=== PATIENT | female | born 1945 | race Caucasian/White ===

== ENCOUNTER → 2016-12-27 | Outpatient (CLI) | payer MEDICARE | LOC: RAD 08:21 | PROVIDERS: ATTEND Internal Medicine | DX: G43.909 Migraine, unspecified, not intractable, without status migrainosus (principal); R11.2 Nausea with vomiting, unspecified | CPT/HCPCS: 82565 ==

== ENCOUNTER 2018-10-23 06:47 | Day surgery (SDC) | payer MEDICARE ==
[~2018-10-23 06:47] MED LIST: DORZOLAMIDE HCL 2%/TIMOLOL MALEAT 0.5% OPH SOLN 10 ML OS PRN; KETOROLAC TROMETHAMINE 0.45% 4 DROP/0.4 ML DROPERETTE OS PRN; TETRACAINE HCL 0.5% OPH SOLN 0.6 ML DROPERETTE OS PRN
[2018-10-23] MEDS: TETRACAINE HCL 0.5% OPH SOLN 4 ML OS PRN ×3 (07:09→07:40)
[2018-10-23] MEDS ORDERED: LIDOCAINE 1% INJ-PF (10 MG/ML) 30 ML SDV ONE (07:10)
[2018-10-23] MEDS: TROPICAMIDE 1% OPH SOLN 3 ML OS PRN ×3 (07:10→07:33)
[2018-10-23] MEDS: BESIFLOXACIN HCL 0.6% OPH SUSP 5 ML BOTTLE OS PRN ×3 (07:10→08:12)
[2018-10-23] MEDS ORDERED: TOBRAMYCIN SULFATE/DEXAMETH OPH OINTMENT 3.5 GM ONE (07:10)
[2018-10-23] MEDS: CYCLOPENTOLATE 0.2%/PHENYLEPHRINE 1% OPH SOLN 2 ML OS PRN ×3 (07:10→07:33)
[2018-10-23] MEDS ORDERED: EPINEPHRINE INJ/PF 1 MG/1 ML AMPULE ONE (07:10)
[2018-10-23] MEDS ORDERED: CHONDR SU A NA/HYALUR INTRAOC KIT (SURGICARE) ONE (07:10)
[2018-10-23] MEDS ORDERED: MIDAZOLAM 2 MG/2 ML INJ ONE (07:42)
[2018-10-23] MEDS ORDERED: FENTANYL CITRATE INJ/PF 100 MCG/2 ML AMPUL ONE (07:43)
== END 2018-10-23 09:10 | disposition home or self-care (01) ==
LOC: SC 06:47
PROVIDERS: ATTEND Ophthalmology
DX: H25.12 Age-related nuclear cataract, left eye (principal); Z98.41 Cataract extraction status, right eye; J44.9 Chronic obstructive pulmonary disease, unspecified; I10 Essential (primary) hypertension; E66.9 Obesity, unspecified; G47.30 Sleep apnea, unspecified; Z79.899 Other long term (current) drug therapy; Z79.51 Long term (current) use of inhaled steroids; Z87.891 Personal history of nicotine dependence
CPT/HCPCS: 66984; 00142; V2632; J2250; J3490 ×4; A9270; J0171; J3010; 142

== ENCOUNTER 2019-05-16 13:50 | Inpatient (IN) | payer MEDICARE ==
[~2019-05-16 13:50] MED LIST changes: -DORZOLAMIDE HCL 2%/TIMOLOL MALEAT 0.5% OPH SOLN 10 ML OS PRN; -KETOROLAC TROMETHAMINE 0.45% 4 DROP/0.4 ML DROPERETTE OS PRN; +SUCCINYLCHOLINE CHLORIDE INJ 200 MG/10 ML VIAL ONE; -TETRACAINE HCL 0.5% OPH SOLN 0.6 ML DROPERETTE OS PRN
--- NOTE | 2019-05-16 14:42 | ER Document Report ---
ED General - General Chief Complaint: Respiratory Distress Stated Complaint: DIFFICULTY BREATHING Time Seen by Provider: 05/16/19 14:32 Primary Care Provider: MELANIE JENNINGS MD [Primary Care Provider] - Follow up as needed Mode of Arrival: Medic Information source: Patient, Emergency Med Personnel Notes: 74-year-old female arrives by EMS with chief complaint of having shortness of breath that began shortly prior to home health nurse advising low sats and called EMS. Patient reports she was just discharged from hospital in [place] because of a blood clot in her left knee and was placed on Eliquis. Patient is 5 foot 2 and 230 pounds and now on BiPAP. She is able to speak at least 4-5 word sentences without difficulty. Patient was noticed to have respiratory distress by home health nurse and had sats in the 70s which increased with oxygen to the 90s. EMS reported 88% sat and increased tachypnea. Patient has a history of cough and brown sputum and is on doxycycline at this time. Patient was 99% on BiPAP 50% with vital signs 155/7597.9 temperature TRAVEL OUTSIDE OF THE [place] IN LAST 30 DAYS: No - HPI Onset: This morning Onset/Duration: Sudden Quality of pain: Fullness Severity: Moderate Pain Level: 2 Associated symptoms: Shortness of breath, Weakness Exacerbated by: Movement, Deep breathing Similar symptoms previously: Yes Recently seen / treated by doctor: Yes - Dr. Silva in [place] - Related Data Allergies/Adverse Reactions: lemon Allergy (Severe, Verified 05/16/19 14:21) SWELLING FACIAL AND AT SITE OF CONTACT Penicillins Allergy (Severe, Verified 05/16/19 14:21) Anaphylaxis Sulfa (Sulfonamide Antibiotics) Allergy (Severe, Verified 05/16/19 14:21) SOB, FACIAL SWELLING Past Medical History - General Information source: Patient, Emergency Med Personnel - Social History Smoking Status: Former Smoker Cigarette use (# per day): No Chew tobacco use (# tins/day): No Smoking Education Provided: No Frequency of alcohol use: None Drug Abuse: None Lives with: Alone Family History: COPD Patient has suicidal ideation: No Patient has homicidal ideation: No - Past Medical History Cardiac Medical History: Reports: Hx Hypertension Denies: Hx Heart Attack Pulmonary Medical History: Denies: Hx Asthma Neurological Medical History: Denies: Hx Cerebrovascular Accident, Hx Seizures GI Medical History: Denies: Hx Hepatitis, Hx Hiatal Hernia, Hx Ulcer Infectious Medical History: Denies: Hx Hepatitis Past Surgical History: Reports: Hx Hysterectomy. Denies: Hx Mastectomy, Hx Open Heart Surgery, Hx Pacemaker Review of Systems - Review of Systems Constitutional: See HPI, Malaise, Weakness EENT: No symptoms reported Cardiovascular: See HPI, Orthopnea, Dyspnea, Dizziness Respiratory: See HPI, Short of breath Gastrointestinal: No symptoms reported Genitourinary: No symptoms reported Female Genitourinary: No symptoms reported Musculoskeletal: See HPI, Joint swelling, Other - Left knee swelling greater than right knee with positive stasis dermatitis bilaterally and leg edema bilaterally Skin: See HPI, Dryness Hematologic/Lymphatic: No symptoms reported Neurological/Psychological: No symptoms reported Physical Exam - Vital signs Vitals: Temp Pulse Ox 97.8 F 100 05/16/19 14:06 05/16/19 14:06 Interpretation: Tachycardic, Tachypneic - General General appearance: Alert In distress: None - HEENT Head: Normocephalic Eyes: Normal Conjunctiva: Normal Cornea: Normal Extraocular movements intact: Yes Eyelashes: Normal Pupils: PERRL Pharynx: Normal Neck: Normal - Respiratory Respiratory status: Respiratory distress Chest status: Nontender Breath sounds: Decreased air movement Chest palpation: Normal - Cardiovascular Rhythm: Tachycardia Heart sounds: Normal auscultation Murmur: No Friction rub: No Mary's crunch: No - Abdominal Inspection: Normal Distension: No distension Bowel sounds: Normal Tenderness: Nontender Organomegaly: No organomegaly - Back Back: Normal - Extremities General upper extremity: Normal inspection General lower extremity: Tender, Edema, Other - Edema and stasis dermatitis of bilateral legs tender left medial knee on palpation - Neurological Neuro grossly intact: Yes Cognition: Normal Orientation: AAOx4 Sushil Coma Scale Eye Opening: Spontaneous Keeler Coma Scale Verbal: Oriented Keeler Coma Scale Motor: Obeys Commands Sushil Coma Scale Total: 15 Speech: Normal Cranial nerves: Normal Cerebellar coordination: Normal Motor strength normal: LUE, RUE, LLE, RLE - Psychological Associated symptoms: Normal affect - Skin Skin Temperature: Warm Skin Moisture: Dry Skin Color: Normal, Other - [place] skin of lower legs with stasis dermatitis non- weeping at this time Course - Vital Signs Vital signs: Temp Pulse Resp BP Pulse Ox 97.2 F 104 H 21 H 96/58 L 95 05/16/19 18:01 05/16/19 14:19 05/16/19 18:01 05/16/19 18:01 05/16/19 18:01 - Laboratory Result Diagrams: 05/16/19 13:48 05/16/19 13:48 Laboratory results interpreted by me: 05/16/19 05/16/19 05/16/19 13:48 13:48 16:15 RDW 16.8 H Eos % (Auto) 9.6 H Absolute Eos (auto) 0.9 H Carbonic Acid 3.86 H ABG pH 7.11 L* ABG pCO2 128.4 H* ABG HCO3 39.8 H ABG Total CO2 43.7 H Carbon Dioxide 36 H BUN 30 H Glucose 114 H - Diagnostic Test Radiology reviewed: Reports reviewed Procedures - Conscious Sedation Conscious sedation Time started: 16:00 Consent obtained: No - Patient sensorium oriented x 0 Prior complications: Procedural sedation Airway Evaluation: Copious secretions, Other - with tight trachea Critical Care Note - Critical Care Note Total time excluding time spent on procedures (mins): 90 Comments: I discussed this case with Dr. Briggs and he advises he will see the patient in room #17 Discharge - Discharge Clinical Impression: [place] (dyspnea on exertion), COPD (chronic obstructive pulmonary disease) with acute bronchitis, Endotracheally intubated, Hypercarbia, Acute respiratory fail ure with hypoxia and hypercarbia DVT (deep venous thrombosis) Qualifiers: DVT location: lower extremity Affected thrombotic vein of extremity: popliteal Chronicity: acute Laterality: right Qualified Code(s): I82.431 - Acute embolism and thrombosis of right popliteal vein Pneumonia Qualifiers: Pneumonia type: due to unspecified organism Laterality: right Lung location: lower lobe of lung Qualified Code(s): J18.9 - Pneumonia, unspecified organism Condition: Fair Disposition: ADMITTED INPATIENT Admitting Provider: dr norma Briggs Unit Admitted: ICU Additional Instructions: transfer this patient to ICU Referrals: MELANIE JENNINGS MD [Primary Care Provider] - Follow up as needed
[2019-05-16 14:46] LABS: ABSOLUTE BASOPHILS # (AUTO) 0.1 10^3/uL (0.0-0.2); ABSOLUTE EOSINOPHILS # (AUTO) 0.9 10^3/uL (0.0-0.6); ABSOLUTE LYMPHOCYTES (AUTO) 1.7 10^3/uL (0.5-4.7); ABSOLUTE MONOCYTES (AUTO) 0.6 10^3/uL (0.1-1.4); ABSOLUTE NEUT (AUTO) 6.5 10^3/uL (1.7-8.2); BASOPHILS % (AUTO) 0.5 % (0-2); EOSINOPHILS % (AUTO) 9.6 % (0-6); HEMATOCRIT 41.5 % (36.0-47.0); HEMOGLOBIN 13.8 g/dL (12.0-15.5); LYMPHOCYTES % (AUTO) 17.5 % (13-45); MEAN CORPUSCULAR HEMOGLOBIN 29.3 pg (27.0-33.4); MEAN CORPUSCULAR HGB CONC 33.2 g/dL (32.0-36.0); MEAN CORPUSCULAR VOLUME 88 fl (80-97); MONOCYTES % (AUTO) 5.8 % (3-13); PLATELET COUNT 214 10^3/uL (150-450); RED CELL DISTRIBUTION WIDTH 16.8 % (11.5-14.0); SEGMENTED NEUTROPHILS % (AUTO) 66.6 % (42-78); TOTAL CELLS COUNTED % (AUTO) 100 %; WHITE BLOOD COUNT 9.8 10^3/uL (4.0-10.5)
[2019-05-16 14:59] LABS: INTERNATIONAL RATION (INR) 1.14; PROTHROMBIN TIME 14.7 SEC (11.4-15.4)
[2019-05-16 15:16] LABS: ALBUMIN 4.3 g/dL (3.5-5.0); ALKALINE PHOSPHATASE 83 U/L (38-126); ANION GAP 8 (5-19); ASPARTATE AMINO TRANSFERASE 28 U/L (14-36); BILIRUBIN,DIRECT 0.2 mg/dL (0.0-0.4); BILIRUBIN,TOTAL 0.9 mg/dL (0.2-1.3); BLOOD UREA NITROGEN 30 mg/dL (7-20); CALCIUM 9.3 mg/dL (8.4-10.2); CARBON DIOXIDE 36 mmol/L (22-30); CHLORIDE 99 mmol/L (98-107); GLUCOSE 114 mg/dL (75-110); POTASSIUM 4.1 mmol/L (3.6-5.0); TOTAL PROTEIN 8.2 g/dL (6.3-8.2)
--- NOTE | 2019-05-16 15:26 | RADIOLOGY REPORT (SQ) ---
EXAM DESCRIPTION: CHEST SINGLE VIEW COMPLETED DATE/TIME: 05/16/2019 3:10 pm REASON FOR STUDY: SOB COMPARISON: PA and lateral views of the chest from 01/25/2017 EXAM PARAMETERS: NUMBER OF VIEWS: One view. TECHNIQUE: An AP view of the chest was obtained. RADIATION DOSE: NA LIMITATIONS: None. FINDINGS: LUNGS AND PLEURA: No consolidation, pleural effusion or pneumothorax. MEDIASTINUM AND HILAR STRUCTURES: No mediastinal or hilar contour abnormality. HEART AND VASCULAR STRUCTURES: The cardiac silhouette is enlarged. The pulmonary vasculature is with in normal limits. BONES: No acute findings. HARDWARE: None in the chest. OTHER: No other finding. IMPRESSION: Cardiomegaly without a superimposed acute cardiopulmonary process. TECHNICAL DOCUMENTATION: JOB ID: [id number] 2010 [employer]- All Rights Reserved Reading location - IP/workstation name: [email or web address]
[2019-05-16] MEDS ORDERED: ETOMIDATE INJ/PF 20 MG/10 ML SDV IV ONE ×2 (15:53→18:18)
[2019-05-16] MEDS ORDERED: NALOXONE HCL INJ 2 MG/2 ML DISP.SYRIN ONE (15:56)
[2019-05-16] MEDS ORDERED: PROPOFOL 1,000 MG/100 ML INFUS..BTL IV PRN (16:15)
[2019-05-16 16:30] LABS: ARTERIAL BLOOD H2CO3 3.86 mmol/L (1.05-1.35); ARTERIAL BLOOD HCO3 39.8 mmol/L (20-24); ARTERIAL BLOOD O2 SATURATION 94.1 % (94-98); ARTERIAL BLOOD PO2 98.2 mmHg (80-100); ARTERIAL BLOOD TOTAL CO2 43.7 mmol/L (21-25)
[2019-05-16] MEDS ORDERED: LABETALOL HCL INJ 20 MG/4 ML DISP.SYRIN IV ONE (16:30)
[2019-05-16 16:40] LABS: ARTERIAL BLOOD FIO2 50%
[2019-05-16 16:43] LABS: ARTERIAL BLOOD PCO2 128.4 mmHg (35-45); ARTERIAL BLOOD PH 7.11 (7.35-7.45)
--- NOTE | 2019-05-16 16:59 | RADIOLOGY REPORT (SQ) ---
EXAM DESCRIPTION: CHEST SINGLE VIEW COMPLETED DATE/TIME: 05/16/2019 4:33 pm REASON FOR STUDY: s/p intubation COMPARISON: AP view of the chest from 05/16/2019. EXAM PARAMETERS: NUMBER OF VIEWS: One view. TECHNIQUE: An AP view of the chest was obtained. RADIATION DOSE: NA LIMITATIONS: None. FINDINGS: LUNGS AND PLEURA: Upper lobe predominant alveolar opacities. The costophrenic sulci are b lunted. There is no focal consolidation or pneumothorax. MEDIASTINUM AND HILAR STRUCTURES: Stable mediastinal and hilar contours. HEART AND VASCULAR STRUCTURES: The cardiac silhouette is enlarged. BONES: No acute findings. HARDWARE: The tip of the endotracheal tube projects 6.2 cm above the edilberto. The tip of the enteric tube projects within the gastric cardia. OTHER: No other finding. IMPRESSION: The tip of the endotracheal tube projects 6.2 cm above the edilberto. The tip of the enteric tube projects within the gastric cardia - consider advancing the enteric tube forward 5-10 cm. TECHNICAL DOCUMENTATION: JOB ID: [id number] 2010 [employer]- All Rights Reserved Reading location - IP/workstation name: [email or web address]
--- NOTE | 2019-05-16 18:01 | RADIOLOGY REPORT (SQ) ---
EXAM DESCRIPTION: CT HEAD WITHOUT COMPLETED DATE/TIME: 05/16/2019 5:41 pm REASON FOR STUDY: raegan sens COMPARISON: None. TECHNIQUE: Axial images acquired through the brain without intravenous contrast. Images reviewed wi th bone, brain and subdural windows. Additional sagittal and coronal reconstructions were generated. Images stored on PACS. All CT scanners at this facility use dose modulation, iterative reconstruction, and/or weight based d osing when appropriate to reduce radiation dose to as low as reasonably achievable (ALARA). [facility]: Dose Right [facility]: CareDose [facility]: Dose Right [facility]: Teradose 4D [facility]: Servio RADIATION DOSE: CT Rad equipment meets quality standard of care and radiation dose reduction techniq ues were employed. CTDIvol: 53.2 mGy. DLP: 964 mGy-cm. mGy. LIMITATIONS: None. FINDINGS: VENTRICLES: Normal size and contour. CEREBRUM: No masses. No hemorrhage. No midline shift. No evidence for acute infarction. Few scatte red areas of low density in the white matter most likely chronic small vessel ischemic changes. CEREBELLUM: No masses. No hemorrhage. No alteration of density. No evidence for acute infarction. EXTRAAXIAL SPACES: No fluid collections. No masses. ORBITS AND GLOBE: No intra- or extraconal masses. Normal contour of globe without masses. CALVARIUM: No fracture. PARANASAL SINUSES: No fluid or mucosal thickening. SOFT TISSUES: No mass or hematoma. OTHER: No other significant finding. IMPRESSION: MILD CHRONIC MICROVASCULAR ISCHEMIA. NO ACUTE IMAGING FINDINGS IN THE BRAIN. EVIDENCE OF ACUTE STROKE: NO. COMMENT: Quality ID # [id number]: Final reports with documentation of one or more dose reduction techniques (e.g., Automated exposure control, adjustment of the mA and/or kV according to patient size, use of iterative reconstruction technique) TECHNICAL DOCUMENTATION: JOB ID: [id number] 2010 [employer]- All Rights Reserved Reading location - IP/workstation name: [email or web address]
--- NOTE | 2019-05-16 18:14 | RADIOLOGY REPORT (SQ) ---
EXAM DESCRIPTION: CTA CHEST COMPLETED DATE/TIME: 05/16/2019 5:41 pm REASON FOR STUDY: sob COMPARISON: None. TECHNIQUE: CT scan of the chest performed using helical scanning technique with dynamic intravenous contrast injection. Images reviewed with lung, soft tissue and bone windows. Reconstructed coronal and sagittal MPR images reviewed. Additional 3 dimensional post-processing performed to develop Maximal Intensity Projection images (AR P). All images stored on PACS. All CT scanners at this facility use dose modulation, iterative reconstruction, and/or weight based d osing when appropriate to reduce radiation dose to as low as reasonably achievable (ALARA). [facility]: Dose Right [facility]: CareDose [facility]: Dose Right [facility]: Teradose 4D [facility]: Immunome CONTRAST TYPE AND DOSE: contrast/concentration: Isovue 350.00 mg/ml; Total Contrast Delivered: 70.0 ml; Total Saline Delivered: 80.0 ml Contrast bolus adequate for pulmonary arteries and aorta. RENAL FUNCTION: BUN 30 creatinine 0.88 RADIATION DOSE: CT Rad equipment meets quality standard of care and radiation dose reduction techniq ues were employed. CTDIvol: 26.4 - 29.8 mGy. DLP: 1163 mGy-cm. . LIMITATIONS: None. FINDINGS: LUNGS AND PLEURA: Respiratory artifact. Patchy opacification in the posterior aspect of t he right lower lobe superiorly. Mild ground-glass opacification in the upper lobes. 13 mm subpleura l ground-glass nodule seen posteriorly in the right upper lobe. Confluent pleura - based opacificati on posteriorly in the right lower lobe most prominently seen on image 88. This measures 18 x 28 mm o n image 88. AORTA AND GREAT VESSELS: No aneurysm. No dissection. HEART: No pericardial effusion. No significant coronary artery calcifications. PULMONARY ARTERIES: No emboli visualized in the main pulmonary arteries or the segmental branches. HILAR AND MEDIASTINAL STRUCTURES: There are some nonspecific mediastinal nodes. HARDWARE: None in the chest. UPPER ABDOMEN: No significant findings. Limited exam. THYROID AND OTHER SOFT TISSUES: No masses. No adenopathy. BONES: No acute or significant finding. 3D MIPS: Confirm above findings. OTHER: No other significant finding. IMPRESSION: 1. There is no aortic aneurysm or dissection. There is no pulmonary embolus. 2. Predominantly ground-glass infiltrates in the upper aspect of the right lower lobe and in the upp er lobes. Chronic interstitial changes versus infectious/inflammatory process versus mild pulmonary edema. 3. Ground-glass nodule in the right upper lobe posteriorly that measures 13 mm. This may be infecti ous/inflammatory. Cannot exclude neoplasm. 4. Pleura-based mass in the right lower lobe, may be infectious/ inflammatory. Cannot exclude neopl asm. COMMENT: Recommend PET-CT. Quality ID # [id number]: Final reports with documentation of one or more dose reduction techniques (e.g., Au tomated exposure control, adjustment of the mA and/or kV according to patient size, use of iterative reconstruction technique) TECHNICAL DOCUMENTATION: JOB ID: [id number] 2010 [employer]- All Rights Reserved Reading location - IP/workstation name: [email or web address]
[2019-05-16] MEDS ORDERED: SUCCINYLCHOLINE CHLORIDE INJ 200 MG/10 ML VIAL IV ONE (18:17)
[2019-05-16] MEDS ORDERED: NALOXONE HCL INJ/PF 0.4 MG/1 ML SDV IV ONE (18:18)
[2019-05-16] MEDS ORDERED: LEVOFLOXACIN 750 MG/D5W RTU 750 MG/150 ML RTUPB IV ONE (18:22)
[2019-05-16] MEDS ORDERED: VANCOMYCIN HCL INJ 1000 MG VIAL IV ONE (18:25)
[2019-05-16] MEDS: ALBUTEROL SULFATE 0.083% NEB 2.5 MG/3 ML AMPUL NEB SCH (18:30)
[2019-05-16] MEDS ORDERED: IPRATROPIUM/ALBUTEROL 0.5-2.5 MG/3 ML AMPUL NEB ONE (18:34)
[2019-05-16] MEDS ORDERED: ALBUTEROL SULFATE 0.083% NEB 2.5 MG/3 ML AMPUL NEB PRN (18:42)
[2019-05-16] MEDS ORDERED: ACETAMINOPHEN 325 MG TABLET NG PRN (18:42)
[2019-05-16] MEDS ORDERED: METHYLPREDNISOLONE INJ 125 MG/2 ML SDV IV ONE (19:30)
--- NOTE | 2019-05-16 19:34 | CRITICAL CARE ADMISSION REPORT ---
HPI Date:: 05/16/19 Time:: 19:09 Reason for ICU Reason:: Acute hypoxemic and hypercapnic respiratory failure; COPD exacerbation HPI: This 74-year-old female reformed smoker presented from home to [facility] emergency department with complaints of increased dyspnea and hypoxia. At the time of clinical interview, the patient is endotracheally int ubated and on mechanical ventilatory support. Case was discussed with the bedside nurse, who reports that the patient presented with hypoxia on room air and complains of difficulty breathing and audible wheezing. She was initially supported with supplemental oxygen and then BiPAP in the emergency department. The patient reported she recently was diagnosed with acute DVT, for which she has been started on Eliquis. With concern for possible pulmonary embolism, the patient was transported to CT; however, en route, the patient was observed to have increased work of breathing and then became nonconversant. She was emergently intubated by the ER physician. She subsequently had a head CT, which shows no evidence of acute intracranial process. History obtained from:: Review of the record, discussion with ER treatment team - Diagnosis/Plan (1) Acute respiratory failure with hypoxia and hypercarbia Is this a current diagnosis for this admission?: Yes Plan: Propofol/morphine for sedation. Titrate vent settings based on ABG results. Trach aspirate for Gram stain, [employer]. Rocephin/Levaquin/vancomycin administered in the ED. Continue Rocephin/Levaquin. (2) COPD exacerbation Is this a current diagnosis for this admission?: Yes Plan: Solu-Medrol 125 mg IV single dose now. Solu-Medrol 60 mg IV every 8 hours starting tomorrow. Albuterol every 4 hours and every 4 hours as needed. (3) DVT (deep venous thrombosis) Qualifiers: DVT location: lower extremity Affected thrombotic vein of extremity: popliteal Chronicity: acute Laterality: right Qualified Code(s): I82.431 - Acute embolism and thrombosis of right popliteal vein Plan: The patient reported having already started Eliquis for acute DVT. Continue Eliquis. (4) Abnormal chest CT Is this a current diagnosis for this admission?: Yes Plan: Right lower lobe pleural-based "mass" reported on radiology report. Images reviewed. Suspicious for "masslike" infiltrate. Repeat imaging should be obtained in 3 months for completion of treatment for pneumonia. Repeat chest CT in 6 weeks. Recommendation for PET/CT noted (needs to be followed up on an outpatient basis). Past Medical History Cardiac Medical History: Reports: Hypertension Denies: Myocardial Infarction Pulmonary Medical History: Denies: Asthma Neurological Medical History: Denies: Seizures GI Medical History: Denies: Hepatitis, Hiatal Hernia Hematology: Denies: Anemia, Sickle Cell Disease Past Surgical History Past Surgical History: Reports: Hysterectomy Denies: Amputation, Mastectomy, Pacemaker Social/Family History - Social History Lives with: Alone Smoking Status: Former Smoker - Medication/Allergies Home Medications: Atorvastatin Calcium [Lipitor 20 mg Tablet] 20 mg PO QAM 09/30/18 Cyclobenzaprine HCl [Flexeril 5 mg Tablet] 1 - 2 tab PO Q8HP PRN 09/30/18 Metoprolol Succinate [Toprol Xl] 50 mg PO DAILY 09/30/18 Pramipexole Di-HCl [Mirapex] 1 mg PO QHS 09/30/18 Spironolactone [Aldactone 25 mg Tablet] 25 mg PO DAILY 09/30/18 Tiotropium Dow [Spiriva Respimat] 2 inh IH DAILY 09/30/18 Albuterol Sulfate [Proair Hfa Inhalation Aerosol 8.5 gm Mdi] 2 puff IH Q6HP PRN 05/16/19 Albuterol Sulfate [Ventolin 0.083% Neb 2.5 mg/3 ml Ampul] 1 vial NEB RTQ6HP PRN 05/16/19 Apixaban [Eliquis 5 mg Tablet] 5 mg PO BID 05/16/19 Divalproex Sodium [Depakote ER 500 mg Tab.sr] 500 mg PO QHS 05/16/19 Fluticasone Propion/Salmeterol [Wixela 250-50 Inhub] 1 puff IH Q12 05/16/19 Ipratropium Dow 1 spray NAREB QHS 05/16/19 Allergies/Adverse Reactions: lemon Allergy (Severe, Verified 05/16/19 14:21) SWELLING FACIAL AND AT SITE OF CONTACT Penicillins Allergy (Severe, Verified 05/16/19 14:21) Anaphylaxis Sulfa (Sulfonamide Antibiotics) Allergy (Severe, Verified 05/16/19 14:21) SOB, FACIAL SWELLING Review of Systems ROS unobtainable: Due to endotracheal tube Physical Exam Vital Signs: Temp Pulse Resp BP Pulse Ox 97.3 F 104 H 17 114/73 98 05/16/19 19:01 05/16/19 14:19 05/16/19 19:01 05/16/19 19:01 05/16/19 19:01 Intake & Output 05/15/19 05/16/19 05/17/19 06:59 06:59 06:59 Weight 104.326 kg Weight/Height Weight 104.326 kg Height 1.57 m General appearance: PRESENT: no acute distress, well-developed, well-nourished, other - Intubated, sedated on propofol Head exam: PRESENT: atraumatic, normocephalic Eye exam: PRESENT: conjunctiva pink, EOMI, PERRLA. ABSENT: scleral icterus Mouth exam: PRESENT: moist, tongue midline, other - ET tube in situ Neck exam: ABSENT: carotid bruit, JVD, lymphadenopathy, thyromegaly Respiratory exam: PRESENT: decreased breath sounds, prolonged expiratory phas, rhonchi, wheezes. ABSENT: crackles, rales, stridor Cardiovascular exam: PRESENT: RRR. ABSENT: diastolic murmur, rubs, systolic murmur GI/Abdominal exam: PRESENT: normal bowel sounds, soft. ABSENT: distended, guar ding, mass, organolmegaly, rebound, tenderness Extremities exam: PRESENT: full ROM, pedal edema, +2 edema. ABSENT: calf tenderness, clubbing Musculoskeletal exam: PRESENT: normal inspection Skin exam: PRESENT: dry, warm, other - Chronic trophic changes. ABSENT: cyanosis, rash Tubes/Lines: PRESENT: Endotracheal Tube, Nasogastic Tube Laboratory/Radiographs Laboratory Results: 05/16/19 13:48 05/16/19 13:48 05/16/19 05/16/19 05/16/19 13:48 13:48 16:15 WBC 9.8 RBC 4.70 Hgb 13.8 Hct 41.5 MCV 88 MCH 29.3 MCHC 33.2 RDW 16.8 H Plt Count 214 Seg Neutrophils % 66.6 Carbonic Acid 3.86 H HCO3/H2CO3 Ratio 10:1 ABG pH 7.11 L* ABG pCO2 128.4 H* ABG pO2 98.2 ABG HCO3 39.8 H ABG O2 Saturation 94.1 ABG Base Excess 5.0 FiO2 50% Sodium 142.8 Potassium 4.1 Chloride 99 Carbon Dioxide 36 H Anion Gap 8 BUN 30 H Creatinine 0.88 Est GFR ( Amer) > 60 Glucose 114 H Calcium 9.3 Total Bilirubin 0.9 AST 28 Alkaline Phosphatase 83 Total Protein 8.2 Albumin 4.3 05/16/19 13:48 Troponin I < 0.012 Impressions: Chest/Abdomen CTA 05/16/19 14:34 IMPRESSION: 1. There is no aortic aneurysm or dissection. There is no pulmonary embolus. 2. Predominantly ground-glass infiltrates in the upper aspect of the right lower lobe and in the upper lobes. Chronic interstitial changes versus infectious/inflammatory process versus mild pulmonary edema. 3. Ground-glass nodule in the right upper lobe posteriorly that measures 13 mm. This may be infectious/inflammatory. Cannot exclude neoplasm. 4. Pleura-based mass in the right lower lobe, may be infectious/ inflammatory. Cannot exclude neoplasm. Head CT 05/16/19 16:28 IMPRESSION: MILD CHRONIC MICROVASCULAR ISCHEMIA. NO ACUTE IMAGING FINDINGS IN T HE BRAIN. EVIDENCE OF ACUTE STROKE: NO. Chest X-Ray 05/16/19 16:29 IMPRESSION: The tip of the endotracheal tube projects 6.2 cm above the edilberto. The tip of the enteric tube projects within the gastric cardia - consider advancing the enteric tube forward 5-10 cm. All labs, radiographs, diagnostic studies and EKGs were personally reviewed: Yes In addition, reports of radiographic and diagnostic studies were read: Yes Critical Time Critical Time (minutes): 60 -: The care of a critically ill patient is dynamic. This note represents a static moment in the admission process. Orders and treatments may be given simultaneously and urgently, and time is not corporate sales representative of the treatment process. This patient requires Critical Care secondary to life threatening organ or limb dysfunction. Without Critical Care services, the patient is at risk for increased mortality and morbidity.
[2019-05-16] MEDS: PROPOFOL 1,000 MG/100 ML INFUS..BTL IV PRN ×2 (20:00→21:50)
--- NOTE | 2019-05-16 20:15 | EKG REPORT ---
SEVERITY:- ABNORMAL ECG - SINUS TACHYCARDIA ANTERIOR INFARCT, OLD : Confirmed by: Tyree Rivera MD 16-May-2019 20:15:14
[2019-05-16 21:00] LABS: ARTERIAL BLOOD BASE EXCESS 5.3 mmol/L; ARTERIAL BLOOD H2CO3 1.65 mmol/L (1.05-1.35); ARTERIAL BLOOD HCO3 31.8 mmol/L (20-24); ARTERIAL BLOOD O2 SATURATION 99.3 % (94-98); ARTERIAL BLOOD PCO2 54.9 mmHg (35-45); ARTERIAL BLOOD PH 7.38 (7.35-7.45); ARTERIAL BLOOD PO2 197.3 mmHg (80-100); ARTERIAL BLOOD TOTAL CO2 33.5 mmol/L (21-25)
[2019-05-16] MEDS ORDERED: CEFTRIAXONE 1 GM/D5W RTU 1 GM/50 ML RTUPB IV SCH (21:00)
[2019-05-16 21:03] LABS: ARTERIAL BLOOD FIO2 40%
[2019-05-16 21:04] LABS: TROPONIN I 0.096 ng/mL
[2019-05-16] MEDS: APIXABAN 5 MG TABLET NG SCH (23:00)
[2019-05-16] MEDS: FAMOTIDINE INJ/PF 20 MG/2 ML SDV IV SCH (23:00)
[2019-05-16] MEDS ORDERED: INFLUENZA QUAD (6MOS+) 2019-20 VAC 0.5 ML SYR IM ONE (23:15)
[2019-05-17] MEDS: ALBUTEROL SULFATE 0.083% NEB 2.5 MG/3 ML AMPUL NEB SCH ×7 (00:43→23:44)
[2019-05-17] MEDS ORDERED: LORAZEPAM INJ 2 MG/1 ML VIAL IV ONE ×2 (00:50→20:09)
[2019-05-17] MEDS ORDERED: LORAZEPAM INJ 2 MG/1 ML VIAL ONE ×2 (00:51→20:55)
[2019-05-17] MEDS: PROPOFOL 1,000 MG/100 ML INFUS..BTL IV PRN ×8 (01:02→23:35)
[2019-05-17 01:35] LABS: APPEARANCE,URINE CLEAR; BILIRUBIN,URINE NEGATIVE (NEGATIVE); COLOR,URINE YELLOW; GLUCOSE, URINE NEGATIVE (NEGATIVE); KETONES,URINE NEGATIVE (NEGATIVE); LEUKOCYTE ESTERASE,URINE NEGATIVE (NEGATIVE); NITRITE,URINE NEGATIVE (NEGATIVE); PROTEIN,URINE 30 mg/dL (NEGATIVE); URINE SPECIFIC GRAVITY 1.036; UROBILINOGEN,URINE NEGATIVE mg/dL (<2.0)
[2019-05-17 04:38] LABS: ARTERIAL BLOOD BASE EXCESS 2.1 mmol/L; ARTERIAL BLOOD H2CO3 1.35 mmol/L (1.05-1.35); ARTERIAL BLOOD HCO3 27.3 mmol/L (20-24); ARTERIAL BLOOD O2 SATURATION 82.4 % (94-98); ARTERIAL BLOOD PCO2 44.8 mmHg (35-45); ARTERIAL BLOOD PO2 46.6 mmHg (80-100); ARTERIAL BLOOD TOTAL CO2 28.6 mmol/L (21-25)
[2019-05-17 04:45] LABS: HEMATOCRIT 38.4 % (36.0-47.0); HEMOGLOBIN 12.5 g/dL (12.0-15.5); MEAN CORPUSCULAR HEMOGLOBIN 28.6 pg (27.0-33.4); MEAN CORPUSCULAR HGB CONC 32.4 g/dL (32.0-36.0); MEAN CORPUSCULAR VOLUME 88 fl (80-97); PLATELET COUNT 182 10^3/uL (150-450); RED BLOOD COUNT 4.35 10^6/uL (3.72-5.28); RED CELL DISTRIBUTION WIDTH 16.7 % (11.5-14.0)
[2019-05-17 04:47] LABS: ARTERIAL BLOOD FIO2 30%
[2019-05-17 05:07] LABS: ANION GAP 10 (5-19); BLOOD UREA NITROGEN 27 mg/dL (7-20); CALCIUM 8.8 mg/dL (8.4-10.2); CARBON DIOXIDE 29 mmol/L (22-30); CHLORIDE 100 mmol/L (98-107); GLUCOSE 173 mg/dL (75-110); PHOSPHORUS 3.1 mg/dL (2.5-4.5); POTASSIUM 3.5 mmol/L (3.6-5.0)
[2019-05-17 05:10] LABS: ABSOLUTE LYMPHOCYTES# (MANUAL) 0.6 10^3/uL (0.5-4.7); ABSOLUTE MONOCYTES # (MANUAL) 0.2 10^3/uL (0.1-1.4); ANISOCYTOSIS 1+; BAND NEUTROPHILS % (MANUAL) 2 % (3-5); BASOPHILS % (MANUAL) 0 % (0-2); EOSINOPHILS % (MANUAL) 1 % (0-6); LYMPHOCYTES % (MANUAL) 5 % (13-45); MONOCYTES % (MANUAL) 2 % (3-13); SEGMENTED NEUTROPHILS % (MAN) 90 % (42-78); TOTAL CELLS COUNTED 100
[2019-05-17 05:11] LABS: PLATELET COMMENT ADEQUATE
[2019-05-17] MEDS: METHYLPREDNISOLONE INJ 125 MG/2 ML SDV IV SCH ×3 (05:21→21:19)
[2019-05-17] MEDS: NORMAL SALINE 1000 ML 1,000 ML IV PRN ×2 (05:24→13:57)
[2019-05-17] MEDS ORDERED: LEVETIRACETAM INJ/PF 500 MG/5 ML SDV IV ONE (06:18)
--- NOTE | 2019-05-17 07:51 | EKG REPORT ---
SEVERITY:- ABNORMAL ECG - SINUS RHYTHM RIGHT ATRIAL ABNORMALITY BORDERLINE PROLONGED QT INTERVAL POOR R WAVE PROGRESSION ANTERIOR PRECORDIAL LEADS. : Confirmed by: Tyree Rivera MD 17-May-2019 07:50:54
--- NOTE | 2019-05-17 08:10 | RADIOLOGY REPORT (SQ) ---
EXAM DESCRIPTION: CHEST SINGLE VIEW COMPLETED DATE/TIME: 05/17/2019 6:36 am REASON FOR STUDY: COPD exacerbation COMPARISON: 05/16/2019 FINDINGS: Single-view chest AP portable semi-upright. Lines and tubes look appropriate today. Endotracheal tube in good position. Nasogastric tube down. Mild interstitial pattern in the lungs. This showed upper lobe predominance yesterday, improved. Mild basilar areas of subsegmental atelectasis/scar. There is new focal opacity in the right base. Potential new area of pneumonia. TECHNICAL DOCUMENTATION: JOB ID: [id number] Reading location - IP/workstation name: [email or web address]
[2019-05-17] MEDS: FAMOTIDINE INJ/PF 20 MG/2 ML SDV IV SCH ×2 (09:20→21:18)
[2019-05-17] MEDS: APIXABAN 5 MG TABLET NG SCH ×2 (09:20→17:52)
[2019-05-17] MEDS: MORPHINE SULFATE 10 MG/ML INJ IV PRN ×2 (09:20→14:00)
[2019-05-17] MEDS: DIVALPROEX SODIUM 500 MG TAB.SR.24H PO SCH ×2 (10:32→10:51)
[2019-05-17] MEDS: VALPROATE SODIUM SYRUP 250 MG/5 ML UDCUP NG SCH ×3 (14:01→23:34)
[2019-05-17] MEDS ORDERED: RINGERS SOLUTION,LACTATED 1,000 ML IV PRN ×2 (14:27→14:32)
[2019-05-17] MEDS ORDERED: RINGERS SOLUTION,LACTATED 1,000 ML IV ONE (14:32)
--- NOTE | 2019-05-17 14:32 | PDOC CRITICAL CARE PROG REPORT ---
General ICU Day:: 2 Ventilator Day:: 2 Resuscitation Status: Full Code Events in the past 12 to 24 Hours:: 74-year-old obese female with a history of COPD who presents with acute respiratory failure and pneumonia. She has continued to be febrile and tachycardic. She does have some lower extremity venous stasis changes and possibly cellulitis in that area but I suspect this is mostly due to pneumonia. Reason for ICU Addmission:: Acute hypoxemic and hypercapnic respiratory failure; COPD exacerbation Physical Exam Vital Signs: Temp Pulse Resp BP Pulse Ox 101.5 F H 111 H 16 112/44 L 93 05/17/19 12:00 05/17/19 12:44 05/17/19 12:44 05/17/19 12:00 05/17/19 12:44 Intake & Output 05/16/19 05/17/19 05/18/19 06:59 06:59 06:59 Intake Total 619 1046 Output Total 700 410 Balance -81 636 Weight 109.4 kg 109.4 kg Weight/Height Weight 109.4 kg Height 5 ft 2 in General appearance: PRESENT: other - Sedated and orally intubated Eye exam: PRESENT: PERRLA Mouth exam: PRESENT: neck supple Neck exam: ABSENT: JVD Respiratory exam: PRESENT: rales Cardiovascular exam: PRESENT: RRR Pulses: PRESENT: normal radial pulses GI/Abdominal exam: PRESENT: soft. ABSENT: tenderness Extremities exam: PRESENT: +1 edema Skin exam: PRESENT: erythema - This is more chronic and is symmetrical in the lower extremities with other venous stasis changes Laboratory/Radiographs Laboratory Results: 05/17/19 04:07 05/17/19 04:07 05/16/19 05/16/19 05/16/19 13:48 13:48 16:15 WBC 9.8 RBC 4.70 Hgb 13.8 Hct 41.5 MCV 88 MCH 29.3 MCHC 33.2 RDW 16.8 H Plt Count 214 Seg Neutrophils % 66.6 Carbonic Acid 3.86 H HCO3/H2CO3 Ratio 10:1 ABG pH 7.11 L* ABG pCO2 128.4 H* ABG pO2 98.2 ABG HCO3 39.8 H ABG O2 Saturation 94.1 ABG Base Excess 5.0 FiO2 50% Sodium 142.8 Potassium 4.1 Chloride 99 Carbon Dioxide 36 H Anion Gap 8 BUN 30 H Creatinine 0.88 Est GFR ( Amer) > 60 Glucose 114 H Calcium 9.3 Phosphorus Magnesium Total Bilirubin 0.9 AST 28 Alkaline Phosphatase 83 Total Protein 8.2 Albumin 4.3 Urine Color Urine Appearance Urine pH Ur Specific [place] Urine Protein Urine Glucose (UA) Urine Ketones Urine Blood Urine Nitrite Ur Leukocyte Esterase Urine WBC (Auto) Urine RBC (Auto) 05/16/19 05/17/19 05/17/19 20:16 01:12 04:07 WBC 11.0 H RBC 4.35 Hgb 12.5 Hct 38.4 MCV 88 MCH 28.6 MCHC 32.4 RDW 16.7 H Plt Count 182 Seg Neutrophils % Not Reportable Carbonic Acid 1.65 H HCO3/H2CO3 Ratio 19:1 ABG pH 7.38 ABG pCO2 54.9 H ABG pO2 197.3 H ABG HCO3 31.8 H ABG O2 Saturation 99.3 H ABG Base Excess 5.3 FiO2 40% Sodium Potassium Chloride Carbon Dioxide Anion Gap BUN Creatinine Est GFR ( Amer) Glucose Calcium Phosphorus Magnesium Total Bilirubin AST Alkaline Phosphatase Total Protein Albumin Urine Color YELLOW Urine Appearance CLEAR Urine pH 5.0 Ur Specific [place] 1.036 Urine Protein 30 H Urine Glucose (UA) NEGATIVE Urine Ketones NEGATIVE Urine Blood SMALL H Urine Nitrite NEGATIVE Ur Leukocyte Esterase NEGATIVE Urine WBC (Auto) 2 Urine RBC (Auto) 3 05/17/19 05/17/19 04:07 04:27 WBC RBC Hgb Hct MCV MCH MCHC RDW Plt Count Seg Neutrophils % Carbonic Acid 1.35 HCO3/H2CO3 Ratio 20:1 ABG pH 7.40 ABG pCO2 44.8 ABG pO2 46.6 L ABG HCO3 27.3 H ABG O2 Saturation 82.4 L ABG Base Excess 2.1 FiO2 30% Sodium 139.1 Potassium 3.5 L Chloride 100 Carbon Dioxide 29 Anion Gap 10 BUN 27 H Creatinine 0.70 Est GFR ( Amer) > 60 Glucose 173 H Calcium 8.8 Phosphorus 3.1 Magnesium 1.8 Total Bilirubin AST Alkaline Phosphatase Total Protein Albumin Urine Color Urine Appearance Urine pH Ur Specific [place] Urine Protein Urine Glucose (UA) Urine Ketones Urine Blood Urine Nitrite Ur Leukocyte Esterase Urine WBC (Auto) Urine RBC (Auto) 05/16/19 05/16/19 13:48 19:49 Troponin I < 0.012 0.096 NT-Pro-B Natriuret Pep 846 H Impressions: Chest/Abdomen CTA 05/16/19 14:34 IMPRESSION: 1. There is no aortic aneurysm or dissection. There is no pulmonary embolus. 2. Predominantly ground-glass infiltrates in the upper aspect of the right lower lobe and in the upper lobes. Chronic interstitial changes versus infectious/inflammatory process versus mild pulmonary edema. 3. Ground-glass nodule in the right upper lobe posteriorly that measures 13 mm. This may be infectious/inflammatory. Cannot exclude neoplasm. 4. Pleura-based mass in the right lower lobe, may be infectious/ inflammatory. Cannot exclude neoplasm. Head CT 05/16/19 16:28 IMPRESSION: MILD CHRONIC MICROVASCULAR ISCHEMIA. NO ACUTE IMAGING FINDINGS IN THE BRAIN. EVIDENCE OF ACUTE STROKE: NO. Assessment and Plan - Diagnosis (1) Acute respiratory failure with hypoxia and hypercarbia Is this a current diagnosis for this admission?: Yes Plan Summary: Has been easy to ventilate and oxygenate since intubation Chest x-ray today confirms a localized right lower lobe infiltrate Rocephin at a 1 g every 24 dose may be somewhat suboptimal I suspect she is on the dry side IV fluids will be initiated F/U x-ray in the morning Rocephin changed to cefepime Start nutritional support tomorrow depending on status Critical Time Critical Time (minutes): 40 Level of Care: ICU -: 1. The care of a critical patient is a dynamic process. This note is a sales representative girls' apparel synopsis but static in nature. The timeframe for treatments given in order is not necessarily the actual time these treatments may have been done. 2. This patient requires critical care secondary to ongoing requirements for therapy not offered or safe outside the critical care environment. Transfer to a lower level of care will result in altered life or limb morbidity and mortality.
--- NOTE | 2019-05-17 15:12 | RADIOLOGY REPORT (SQ) ---
EXAM DESCRIPTION: CHEST SINGLE VIEW COMPLETED DATE/TIME: 05/17/2019 3:03 pm REASON FOR STUDY: resp failure COMPARISON: 05/17/2019 at 0608 hours. EXAM PARAMETERS: NUMBER OF VIEWS: One view. TECHNIQUE: Single frontal radiographic view of the chest acquired. RADIATION DOSE: NA LIMITATIONS: None. FINDINGS: LUNGS AND PLEURA: Infiltrate in the left lower lobe. Faint density in the right lung base . Possible left pleural effusion. MEDIASTINUM AND HILAR STRUCTURES: No masses. Contour normal. HEART AND VASCULAR STRUCTURES: Heart normal in size. Normal vasculature. BONES: No acute findings. HARDWARE: Stable endotracheal tube and nasogastric tube. OTHER: No other significant finding. IMPRESSION: LEFT LOWER LOBE INFILTRATE WITH POSSIBLE LEFT PLEURAL EFFUSION. TECHNICAL DOCUMENTATION: JOB ID: [id number] 2010 [employer]- All Rights Reserved Reading location - IP/workstation name: [email or web address]
[2019-05-17] MEDS: LEVOFLOXACIN 750 MG/D5W RTU 750 MG/150 ML RTUPB IV SCH (17:52)
[2019-05-17] MEDS: RINGERS SOLUTION,LACTATED 1,000 ML IV PRN (19:30)
[2019-05-17] MEDS: CEFEPIME HCL 2 GM in DEXTROSE 5%-WATER 50 ML IV SCH (21:17)
[2019-05-17] MEDS ORDERED: CEFEPIME 2 GM/D5W RTU 2 GM/50 ML RTUPB IV SCH (22:00)
[2019-05-18] MEDS: PROPOFOL 1,000 MG/100 ML INFUS..BTL IV PRN ×7 (01:16→23:35)
[2019-05-18] MEDS: LORAZEPAM INJ 2 MG/1 ML VIAL IV PRN ×3 (01:49→18:12)
[2019-05-18] MEDS: ALBUTEROL SULFATE 0.083% NEB 2.5 MG/3 ML AMPUL NEB SCH ×5 (04:10→20:43)
[2019-05-18 04:25] LABS: ABSOLUTE LYMPHOCYTES (AUTO) 0.6 10^3/uL (0.5-4.7); ABSOLUTE MONOCYTES (AUTO) 0.3 10^3/uL (0.1-1.4); BASOPHILS % (AUTO) 0.4 % (0-2); EOSINOPHILS % (AUTO) 0.1 % (0-6); HEMATOCRIT 37.2 % (36.0-47.0); HEMOGLOBIN 12.4 g/dL (12.0-15.5); LYMPHOCYTES % (AUTO) 5.2 % (13-45); MEAN CORPUSCULAR HEMOGLOBIN 28.9 pg (27.0-33.4); MEAN CORPUSCULAR HGB CONC 33.2 g/dL (32.0-36.0); MEAN CORPUSCULAR VOLUME 87 fl (80-97); MONOCYTES % (AUTO) 2.7 % (3-13); PLATELET COUNT 160 10^3/uL (150-450); RED BLOOD COUNT 4.28 10^6/uL (3.72-5.28); RED CELL DISTRIBUTION WIDTH 16.9 % (11.5-14.0); SEGMENTED NEUTROPHILS % (AUTO) 91.6 % (42-78); TOTAL CELLS COUNTED % (AUTO) 100 %; WHITE BLOOD COUNT 10.9 10^3/uL (4.0-10.5)
[2019-05-18 04:42] LABS: ALBUMIN 3.1 g/dL (3.5-5.0); ALKALINE PHOSPHATASE 65 U/L (38-126); ANION GAP 8 (5-19); ASPARTATE AMINO TRANSFERASE 22 U/L (14-36); BILIRUBIN,TOTAL 0.5 mg/dL (0.2-1.3); BLOOD UREA NITROGEN 21 mg/dL (7-20); CALCIUM 8.8 mg/dL (8.4-10.2); CARBON DIOXIDE 29 mmol/L (22-30); CHLORIDE 105 mmol/L (98-107); GLUCOSE 162 mg/dL (75-110); PHOSPHORUS 3.4 mg/dL (2.5-4.5); POTASSIUM 3.3 mmol/L (3.6-5.0); TOTAL PROTEIN 5.9 g/dL (6.3-8.2)
[2019-05-18] MEDS: VALPROATE SODIUM SYRUP 250 MG/5 ML UDCUP NG SCH ×3 (05:54→18:12)
[2019-05-18] MEDS: METHYLPREDNISOLONE INJ 125 MG/2 ML SDV IV SCH ×2 (05:55→14:03)
[2019-05-18] MEDS: RINGERS SOLUTION,LACTATED 1,000 ML IV PRN (06:03)
[2019-05-18 06:25] LABS: ARTERIAL BLOOD BASE EXCESS 6.3 mmol/L; ARTERIAL BLOOD H2CO3 1.28 mmol/L (1.05-1.35); ARTERIAL BLOOD HCO3 30.5 mmol/L (20-24); ARTERIAL BLOOD O2 SATURATION 94.8 % (94-98); ARTERIAL BLOOD PCO2 42.6 mmHg (35-45); ARTERIAL BLOOD PH 7.47 (7.35-7.45); ARTERIAL BLOOD TOTAL CO2 31.8 mmol/L (21-25)
[2019-05-18 06:28] LABS: ARTERIAL BLOOD FIO2 40%
--- NOTE | 2019-05-18 08:21 | RADIOLOGY REPORT (SQ) ---
EXAM DESCRIPTION: CHEST SINGLE VIEW COMPLETED DATE/TIME: 05/18/2019 6:19 am REASON FOR STUDY: COPD exacerbation COMPARISON: 05/17/2019. EXAM PARAMETERS: NUMBER OF VIEWS: One view. TECHNIQUE: Single frontal radiographic view of the chest acquired. RADIATION DOSE: NA LIMITATIONS: None. FINDINGS: LUNGS AND PLEURA: Faint left basilar density and probable small left pleural effusion. MEDIASTINUM AND HILAR STRUCTURES: No masses. Contour normal. HEART AND VASCULAR STRUCTURES: Heart normal in size. Normal vasculature. BONES: No acute findings. HARDWARE: Stable endotracheal tube and nasogastric tube. OTHER: No other significant finding. IMPRESSION: NO SIGNIFICANT INTERVAL CHANGE. TECHNICAL DOCUMENTATION: JOB ID: [id number] 2010 [employer]- All Rights Reserved Reading location - IP/workstation name: [email or web address]
[2019-05-18] MEDS: FAMOTIDINE INJ/PF 20 MG/2 ML SDV IV SCH ×2 (10:03→21:13)
[2019-05-18] MEDS: APIXABAN 5 MG TABLET NG SCH ×2 (10:03→18:12)
[2019-05-18] MEDS: CEFEPIME HCL 2 GM in DEXTROSE 5%-WATER 50 ML IV SCH ×2 (10:04→21:13)
--- NOTE | 2019-05-18 11:23 | PDOC CRITICAL CARE PROG REPORT ---
General ICU Day:: 3 Ventilator Day:: 3 Hospital Day:: 3 Resuscitation Status: Full Code Events in the past 12 to 24 Hours:: 74-year-old obese female with a history of COPD who presents with acute respiratory failure and pneumonia. She has continued to be febrile and tachycardic. She does have some lower extremity venous stasis changes and po ssibly cellulitis in that area but I suspect this is mostly due to pneumonia. Review of systems relevant to events:: Compared to yesterday her heart rate has come down as well as her fever. Chest x-ray shows less infiltrate in the right lower lobe. Sputum culture no help so far. Urine output improved with fluids. Her POA who is a former neighbor as she has no children or is here. She confirms that the patient does have sleep apnea with a CPAP but does not use it. She also confirms the smoking history and a recent DVT. Reason for ICU Addmission:: Acute hypoxemic and hypercapnic respiratory failure; COPD exacerbation Physical Exam Vital Signs: Temp Pulse Resp BP Pulse Ox 97.3 F 102 H 16 172/70 H 96 05/18/19 08:00 05/18/19 08:00 05/18/19 08:00 05/18/19 08:00 05/18/19 08:00 Intake & Output 05/17/19 05/18/19 05/19/19 06:59 06:59 06:59 Intake Total 619 2330 86 Output Total 700 2200 130 Balance -81 130 -44 Weight 109.4 kg 113.1 kg Weight/Height Weight 113.1 kg Height 5 ft 2 in General appearance: PRESENT: no acute distress - Sedated on ventilator Eye exam: PRESENT: PERRLA Mouth exam: PRESENT: neck supple Neck exam: ABSENT: JVD, lymphadenopathy, thyromegaly Respiratory exam: PRESENT: prolonged expiratory phas Cardiovascular exam: PRESENT: RRR Pulses: PRESENT: normal radial pulses Skin exam: PRESENT: rash - Symmetrical venous stasis changes with some erythema Laboratory/Radiographs Laboratory Results: 05/18/19 04:12 05/18/19 04:12 05/18/19 05/18/19 05/18/19 04:12 04:12 05:55 WBC 10.9 H RBC 4.28 Hgb 12.4 Hct 37.2 MCV 87 MCH 28.9 MCHC 33.2 RDW 16.9 H Plt Count 160 Seg Neutrophils % 91.6 H Carbonic Acid Cancelled HCO3/H2CO3 Ratio Cancelled ABG pH Cancelled ABG pCO2 Cancelled ABG pO2 Cancelled ABG HCO3 Cancelled ABG O2 Saturation Cancelled ABG Base Excess Cancelled FiO2 Cancelled Sodium 141.7 Potassium 3.3 L Chloride 105 Carbon Dioxide 29 Anion Gap 8 BUN 21 H Creatinine 0.80 Est GFR ( Amer) > 60 Glucose 162 H Calcium 8.8 Phosphorus 3.4 Magnesium 2.0 Total Bilirubin 0.5 AST 22 Alkaline Phosphatase 65 Total Protein 5.9 L Albumin 3.1 L 05/18/19 06:20 WBC RBC Hgb Hct MCV MCH MCHC RDW Plt Count Seg Neutrophils % Carbonic Acid 1.28 HCO3/H2CO3 Ratio 23:1 ABG pH 7.47 H ABG pCO2 42.6 ABG pO2 69.0 L ABG HCO3 30.5 H ABG O2 Saturation 94.8 ABG Base Excess 6.3 FiO2 40% Sodium Potassium Chloride Carbon Dioxide Anion Gap BUN Creatinine Est GFR ( Amer) Glucose Calcium Phosphorus Magnesium Total Bilirubin AST Alkaline Phosphatase Total Protein Albumin 05/16/19 22:09 Tracheal Aspirate Gram Stain - Final 05/16/19 05/16/19 13:48 19:49 Troponin I < 0.012 0.096 NT-Pro-B Natriuret Pep 846 H Impressions: Chest/Abdomen CTA 05/16/19 14:34 IMPRESSION: 1. There is no aortic aneurysm or dissection. There is no pulmonary embolus. 2. Predominantly ground-glass infiltrates in the upper aspect of the right lower lobe and in the upper lobes. Chronic interstitial changes versus infectious/inflammatory process versus mild pulmonary edema. 3. Ground-glass nodule in the right upper lobe posteriorly that measures 13 mm. This may be infectious/inflammatory. Cannot exclude neoplasm. 4. Pleura-based mass in the right lower lobe, may be infectious/ inflammatory. Cannot exclude neoplasm. Head CT 05/16/19 16:28 IMPRESSION: MILD CHRONIC MICROVASCULAR ISCHEMIA. NO ACUTE IMAGING FINDINGS IN THE BRAIN. EVIDENCE OF ACUTE STROKE: NO. Chest X-Ray 05/18/19 06:00 IMPRESSION: NO SIGNIFICANT INTERVAL CHANGE. Assessment and Plan - Diagnosis (1) Acute respiratory failure with hypoxia and hypercarbia Is this a current diagnosis for this admission?: Yes Plan Summary: Hypercarbic respiratory failure in the setting of COPD and obesity hypoventilation Probable sepsis on the basis of pneumonia although cellulitis is an alternative diagnosis Volume depletion based on response to fluid yesterday Continue RL at 75 an hour, continue current antibiotics, sputum culture pending Continue vent support but she may actually be ready for weaning tomorrow morning She may need a central line for access and/or a CVP has fluid management is difficulty with her body habitus Critical Time Critical Time (minutes): 45 Level of Care: ICU -: 1. The care of a critical patient is a dynamic process. This note is a r epresentative synopsis but static in nature. The timeframe for treatments given in order is not necessarily the actual time these treatments may have been done. 2. This patient requires critical care secondary to ongoing requirements for therapy not offered or safe outside the critical care environment. Transfer to a lower level of care will result in altered life or limb morbidity and mortali ty. 3. Multidisciplinary rounds completed. 4. ABCDE bundle addressed.
[2019-05-18] MEDS: MORPHINE SULFATE 10 MG/ML INJ IV PRN (12:46)
[2019-05-18] MEDS: ENALAPRILAT DIHYDRATE INJ/PF 2.5 MG/2 ML SDV IV SCH (18:12)
[2019-05-18] MEDS: LEVOFLOXACIN 750 MG/D5W RTU 750 MG/150 ML RTUPB IV SCH (18:13)
[2019-05-19] MEDS: ALBUTEROL SULFATE 0.083% NEB 2.5 MG/3 ML AMPUL NEB SCH ×7 (00:42→23:34)
[2019-05-19] MEDS: VALPROATE SODIUM SYRUP 250 MG/5 ML UDCUP NG SCH ×4 (00:58→17:27)
[2019-05-19] MEDS: ENALAPRILAT DIHYDRATE INJ/PF 2.5 MG/2 ML SDV IV SCH ×4 (00:58→17:25)
[2019-05-19] MEDS: PROPOFOL 1,000 MG/100 ML INFUS..BTL IV PRN ×3 (02:46→09:43)
--- NOTE | 2019-05-19 05:44 | RADIOLOGY REPORT (SQ) ---
CLINICAL HISTORY: ETT manipulation COMPARISON: 05/18/2019. 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 Lungs are clear without consolidation, atelectasis, mass or edema. There is a small left pleural effusion. There is no pneumothorax. There are no acute osseous findings. Endotracheal and nasogastric tubes are unchanged. IMPRESSION: No change.
[2019-05-19 06:12] LABS: ABSOLUTE EOSINOPHILS # (AUTO) 0.1 10^3/uL (0.0-0.6); ABSOLUTE LYMPHOCYTES (AUTO) 0.6 10^3/uL (0.5-4.7); ABSOLUTE MONOCYTES (AUTO) 0.8 10^3/uL (0.1-1.4); ABSOLUTE NEUT (AUTO) 8.4 10^3/uL (1.7-8.2); BASOPHILS % (AUTO) 0.4 % (0-2); EOSINOPHILS % (AUTO) 1.1 % (0-6); HEMATOCRIT 37.8 % (36.0-47.0); HEMOGLOBIN 12.6 g/dL (12.0-15.5); LYMPHOCYTES % (AUTO) 6.3 % (13-45); MEAN CORPUSCULAR HEMOGLOBIN 29.3 pg (27.0-33.4); MEAN CORPUSCULAR HGB CONC 33.4 g/dL (32.0-36.0); MEAN CORPUSCULAR VOLUME 88 fl (80-97); MONOCYTES % (AUTO) 8.4 % (3-13); PLATELET COUNT 155 10^3/uL (150-450); RED BLOOD COUNT 4.32 10^6/uL (3.72-5.28); RED CELL DISTRIBUTION WIDTH 17.6 % (11.5-14.0); SEGMENTED NEUTROPHILS % (AUTO) 83.8 % (42-78); TOTAL CELLS COUNTED % (AUTO) 100 %
[2019-05-19 06:22] LABS: ANION GAP 6 (5-19); BLOOD UREA NITROGEN 24 mg/dL (7-20); CALCIUM 8.9 mg/dL (8.4-10.2); CARBON DIOXIDE 26 mmol/L (22-30); CHLORIDE 108 mmol/L (98-107); GLUCOSE 114 mg/dL (75-110); PHOSPHORUS 4.2 mg/dL (2.5-4.5); POTASSIUM 3.7 mmol/L (3.6-5.0)
[2019-05-19 06:46] LABS: ARTERIAL BLOOD BASE EXCESS 5.2 mmol/L; ARTERIAL BLOOD H2CO3 1.29 mmol/L (1.05-1.35); ARTERIAL BLOOD HCO3 29.7 mmol/L (20-24); ARTERIAL BLOOD O2 SATURATION 93.5 % (94-98); ARTERIAL BLOOD PH 7.46 (7.35-7.45); ARTERIAL BLOOD PO2 64.5 mmHg (80-100)
[2019-05-19 06:48] LABS: ARTERIAL BLOOD FIO2 40%
[2019-05-19] MEDS: CEFEPIME HCL 2 GM in DEXTROSE 5%-WATER 50 ML IV SCH ×2 (11:01→21:17)
[2019-05-19] MEDS: FAMOTIDINE INJ/PF 20 MG/2 ML SDV IV SCH ×2 (11:01→21:17)
[2019-05-19] MEDS: APIXABAN 5 MG TABLET NG SCH ×2 (11:01→17:28)
--- NOTE | 2019-05-19 12:06 | PDOC CRITICAL CARE PROG REPORT ---
General Date:: 05/19/19 Resuscitation Status: Full Code Events in the past 12 to 24 Hours:: 74-year-old white female with known sleep apnea but she is not compliant at home; also has COPD with recent smoking who presented with pneumonia and respiratory failure. She was also dry but has responded well to IV fluids and antibiotic therapy. Her chest x-ray is essentially clear with and adequate blood gas on 40% oxygen. Diprovan has been discontinued and she looks good on a spontaneous breathing trial so far. Reason for ICU Addmission:: Acute hypoxemic and hypercapnic respiratory failure; COPD exacerbation Physical Exam Vital Signs: Temp Pulse Resp BP Pulse Ox 97.9 F 96 10 L 145/61 H 99 05/19/19 11:01 05/19/19 11:55 05/19/19 11:55 05/19/19 11:01 05/19/19 11:55 Intake & Output 05/18/19 05/19/19 05/20/19 06:59 06:59 06:59 Intake Total 2480 754 132 Output Total 2200 1905 505 Balance 280 -1151 -373 Weight 113.1 kg 112.6 kg Weight/Height Weight 112.6 kg Height 5 ft 2 in General appearance: PRESENT: morbidly obese Eye exam: PRESENT: PERRLA. ABSENT: scleral icterus Mouth exam: PRESENT: neck supple Neck exam: ABSENT: JVD, lymphadenopathy, thyromegaly, tracheal deviation Respiratory exam: PRESENT: clear to auscultation fely Cardiovascular exam: PRESENT: RRR Pulses: PRESENT: normal radial pulses GI/Abdominal exam: PRESENT: soft. ABSENT: tenderness Extremities exam: PRESENT: +1 edema Skin exam: PRESENT: rash - venous stasis changes in both legs Laboratory/Radiographs Laboratory Results: 05/19/19 05:34 05/19/19 05:34 05/19/19 05/19/19 05/19/19 05:34 05:34 05:34 WBC 10.0 RBC 4.32 Hgb 12.6 Hct 37.8 MCV 88 MCH 29.3 MCHC 33.4 RDW 17.6 H Plt Count 155 Seg Neutrophils % 83.8 H Carbonic Acid HCO3/H2CO3 Ratio ABG pH ABG pCO2 ABG pO2 ABG HCO3 ABG O2 Saturation ABG Base Excess FiO2 Sodium 139.7 Potassium 3.7 Chloride 108 H Carbon Dioxide 26 Anion Gap 6 BUN 24 H Creatinine 0.74 Est GFR ( Amer) > 60 Glucose 114 H Calcium 8.9 Phosphorus 4.2 Magnesium 2.2 TSH 1.91 05/19/19 06:30 WBC RBC Hgb Hct MCV MCH MCHC RDW Plt Count Seg Neutrophils % Carbonic Acid 1.29 HCO3/H2CO3 Ratio 23:1 ABG pH 7.46 H ABG pCO2 43.0 ABG pO2 64.5 L ABG HCO3 29.7 H ABG O2 Saturation 93.5 L ABG Base Excess 5.2 FiO2 40% Sodium Potassium Chloride Carbon Dioxide Anion Gap BUN Creatinine Est GFR ( Amer) Glucose Calcium Phosphorus Magnesium TSH 05/16/19 14:44 Blood Blood Culture (PCR) - Final 05/16/19 22:09 Tracheal Aspirate Gram Stain - Final 05/16/19 05/16/19 13:48 19:49 Troponin I < 0.012 0.096 NT-Pro-B Natriuret Pep 846 H Impressions: Chest/Abdomen CTA 05/16/19 14:34 IMPRESSION: 1. There is no aortic aneurysm or dissection. There is no pulmonary embolus. 2. Predominantly ground-glass infiltrates in the upper aspect of the right lower lobe and in the upper lobes. Chronic interstitial changes versus infectious/inflammatory process versus mild pulmonary edema. 3. Ground-glass nodule in the right upper lobe posteriorly that measures 13 mm. This may be infectious/inflammatory. Cannot exclude neoplasm. 4. Pleura-based mass in the right lower lobe, may be infectious/ inflammatory. Cannot exclude neoplasm. Head CT 05/16/19 16:28 IMPRESSION: MILD CHRONIC MICROVASCULAR ISCHEMIA. NO ACUTE IMAGING FINDINGS IN THE BRAIN. EVIDENCE OF ACUTE STROKE: NO. Chest X-Ray 05/19/19 00:00 IMPRESSION: No change. Assessment and Plan - Diagnosis (1) Acute respiratory failure with hypoxia and hypercarbia Is this a current diagnosis for this admission?: Yes Plan Summary: Pneumonia has resolved radiographically No further fevers, WBC count down She is not wheezing Since diagnosis of DVT Underlying sleep apnea physiology Proceed with extubation Mobilize as tolerated Advance diet as tolerated CPAP or BiPAP at night as indicated Critical Time Critical Time (minutes): 35 Level of Care: ICU -: 1. The care of a critical patient is a dynamic process. This note is a administrative representative synopsis but static in nature. The timeframe for treatments given in order is not necessarily the actual time these treatments may have been done. 2. This patient requires critical care secondary to ongoing requirements for therapy not offered or safe outside the critical care environment. Transfer to a lower level of care will result in altered life or limb morbidity and mortality. 3. Multidisciplinary rounds completed. 4. ABCDE bundle addressed.
--- NOTE | 2019-05-19 13:05 | CDI QUERY ---
CDI Query CDI Review: Dear Provider: To better reflect your patients severity of illness, morbidity, and resource utilization Please specify and document in the Progress Notes and Discharge Summary if you are monitoring / treating / evaluating any of the following conditions: Query Clinical indicators Please clarify and document if the pneumonia can be further specified: Aspiration pneumonia GNR pneumonia GPC pneumonia Unable to determine Other Morbid Obesity / BMI 45.4 kg/m2 Obesity / BMI 45.4 kg/m2 Other Undetermined. Per Progress Notes: 74-year-old obese female with a history of COPD who presents with acute respiratory failure and pneumonia Chest / Abdomen CTA: Predominantly ground-glass infiltrates in the upper aspect of the right lower lobe and in the upper lobes. Chronic interstitial changes versus infectious/inflammatory process versus mild pulmonary edema. 3. Ground-glass nodule in the right upper lobe posteriorly that measures 13 mm. This may be infectious/inflammatory. Cannot exclude neoplasm. 4. Pleura-based mass in the right lower lobe, may be infectious/ inflammatory. Cannot exclude neoplasm Antibiotics: Levofloxacan 750 mg/D5w Cefepime 2 GM HCL Dextrose 5% water 5 ft 2 in 112.6 kg (247.72lbs) BMI: 45.4 kg/m2 Hypercarbic respiratory failure in the setting of COPD and obesity hypoventilation She may need a central line for access and/or a CVP has fluid management is difficulty with her body habitus The terms probable, suspected, likely, possible or still to be ruled out may be used if you are unable to determine the exact nature of a condition. Thank you, Clinical Documentation Physician Advisors LASHAY Worley RN, BSN RN Office [phone] Office [phone] Cell [phone]
--- NOTE | 2019-05-19 16:32 | NEURO WORKBENCH EEG REPORT ---
EEG Report Patient: Belle Brand ID: [id number] Referring Doctor: Az Guzman Date: 05/19/2019 Reason for study: Evaluate for epileptiform activity Medications: Ventolin, Eliquis, Enalapril, Famotidine, Levaquin, Morphine, Propofol, Ativan PRN, Valproate History: This is a 74 year old female with a history of HTN, COPD, DVT, migraines, and seziures admitted with acute respiratory failure with hypoxia and hypercarbia who is now intubated in the ICU. Body temperature was 36.2 C at the time of this study. This EEG was requested for evaluation of epileptiform activity. EEG Interpretation There were no apparent spontaneous eye openings or closings, but the radiological technician manually opened and closed the patients eyes multiple times. The EEG is not reactive to passive eye opening and closing. The backgound EEG showed predominantly fairly monotonous diffuse polymorphic 4--7 Hz theta activity with intermixed polymorphic 1-3 Hz delta activity. With eye closure there is no occipital dominant rhythm present. There were occasional brief periods of global amplitude suppression or attenuation lasting several seconds. There was an amplitude asymmetry with lower amplitudes in the left temporal region. Photic stimulation was done and photic driving was not noted. There were very frequent Generalized Periodic Discharges (GPDs), at times poorly formed. The GPDs were typically 1Hz or less, and did not reach an ictal pattern of 3Hz or greater. There were seizures noted, and there were no focal/localized sharp waves or spikes. The EKG showed a regular rhythm with rates typically in the 75-85 range. EEG Impression This is a markedly abnormal EEG due to diffuse background slowing and the presence of very frequent Generalized Periodic Discharges (GPDs), and periods of global amplitude suppression and attenuation. This EEG is consistent with diffuse cerebral dysfunction which is non-specific for etiology. GPDs are of uncertain clinical significance, but in general are associated with an increased risk of seizures, although no seizures occurred during this recording. GPDs can be seen in a variety of clinical settings, including but not limited to postanoxic coma, after convulsive status epilepticus, with metabolic derangements, in Creutzfeldt-Rex disease, during Ruby encephalopathy, from medication toxicity, and in end-stage Alzheimers disease. Clinical correlation is needed. In addition, there were lower amplitudes in the left temporal region; clinical correlation with cerebral imaging may be considered. INTERPRETING NEUROLOGIST: Timbo Delgado MD Board certified by the [place] [employer] in Neurology, Clinical Neurophysiology, and Sleep Medicine [facility]
[2019-05-19] MEDS: LEVOFLOXACIN 750 MG/D5W RTU 750 MG/150 ML RTUPB IV SCH (17:26)
[2019-05-19 20:57] LABS: ARTERIAL BLOOD BASE EXCESS 4.1 mmol/L; ARTERIAL BLOOD H2CO3 1.45 mmol/L (1.05-1.35); ARTERIAL BLOOD HCO3 29.7 mmol/L (20-24); ARTERIAL BLOOD O2 SATURATION 92.6 % (94-98); ARTERIAL BLOOD PCO2 48.3 mmHg (35-45); ARTERIAL BLOOD PH 7.41 (7.35-7.45); ARTERIAL BLOOD PO2 64.7 mmHg (80-100); ARTERIAL BLOOD TOTAL CO2 31.2 mmol/L (21-25)
[2019-05-19 21:01] LABS: ARTERIAL BLOOD FIO2 4L
[2019-05-19] MEDS: LORAZEPAM INJ 2 MG/1 ML VIAL IV PRN (22:52)
[2019-05-19] MEDS ORDERED: HALOPERIDOL LACTATE INJ 5 MG/1 ML VIAL IV ONE (23:56)
[2019-05-20] MEDS ORDERED: DEXTROSE 50%-WATER 25 GM/50 ML DISP.SYRIN IV PRN ×2 (00:06)
[2019-05-20] MEDS ORDERED: DEXTROSE 40% GEL 15 GM TUBE PO PRN ×2 (00:06)
[2019-05-20] MEDS ORDERED: GLUCAGON,HUMAN RECOMB 1 MG INJ SUBCUT PRN (00:06)
[2019-05-20] MEDS: VALPROATE SODIUM SYRUP 250 MG/5 ML UDCUP NG SCH ×2 (00:17→13:07)
[2019-05-20] MEDS: ENALAPRILAT DIHYDRATE INJ/PF 2.5 MG/2 ML SDV IV SCH ×5 (00:18→23:14)
[2019-05-20] MEDS ORDERED: ZIPRASIDONE MESYLATE INJ/PF 20 MG SDV IM ONE (00:28)
[2019-05-20] MEDS ORDERED: DEXMEDETOMIDINE IN 0.9 % NACL 400 MCG/100 ML RTUPB IV ONE (02:35)
[2019-05-20] MEDS: DEXMEDETOMIDINE IN 0.9 % NACL 400 MCG/100 ML RTUPB IV PRN ×2 (02:50→05:10)
[2019-05-20 03:47] LABS: HEMATOCRIT 38.4 % (36.0-47.0); HEMOGLOBIN 12.9 g/dL (12.0-15.5); MEAN CORPUSCULAR HEMOGLOBIN 29.3 pg (27.0-33.4); MEAN CORPUSCULAR HGB CONC 33.6 g/dL (32.0-36.0); MEAN CORPUSCULAR VOLUME 87 fl (80-97); PLATELET COUNT 164 10^3/uL (150-450); RED CELL DISTRIBUTION WIDTH 17.6 % (11.5-14.0); WHITE BLOOD COUNT 9.8 10^3/uL (4.0-10.5)
[2019-05-20 04:09] LABS: ANION GAP 6 (5-19); BLOOD UREA NITROGEN 24 mg/dL (7-20); CALCIUM 8.7 mg/dL (8.4-10.2); CARBON DIOXIDE 30 mmol/L (22-30); CHLORIDE 108 mmol/L (98-107); GLUCOSE 90 mg/dL (75-110); POTASSIUM 3.4 mmol/L (3.6-5.0)
[2019-05-20] MEDS: ALBUTEROL SULFATE 0.083% NEB 2.5 MG/3 ML AMPUL NEB SCH ×5 (04:52→20:01)
[2019-05-20] MEDS: APIXABAN 5 MG TABLET NG SCH (13:07)
[2019-05-20] MEDS: CEFEPIME HCL 2 GM in DEXTROSE 5%-WATER 50 ML IV SCH (13:08)
[2019-05-20] MEDS: FAMOTIDINE INJ/PF 20 MG/2 ML SDV IV SCH ×2 (13:13→23:16)
[2019-05-20] MEDS: ENOXAPARIN SODIUM INJ 120 MG/0.8 ML DISP.SYRIN SUBCUT SCH ×2 (16:48→23:16)
[2019-05-20 17:50] LABS: APPEARANCE,URINE SLIGHTLY-CLOUDY; BILIRUBIN,URINE NEGATIVE (NEGATIVE); COLOR,URINE YELLOW; GLUCOSE, URINE NEGATIVE (NEGATIVE); KETONES,URINE NEGATIVE (NEGATIVE); PROTEIN,URINE 100 mg/dL (NEGATIVE); URINE SPECIFIC GRAVITY 1.018; UROBILINOGEN,URINE NEGATIVE mg/dL (<2.0)
[2019-05-20] MEDS: DIVALPROEX SODIUM 500 MG TAB.SR.24H PO SCH (20:15)
--- NOTE | 2019-05-20 22:08 | PDOC CRITICAL CARE PROG REPORT ---
General Date:: 05/20/19 ICU Day:: 4 Ventilator Day:: 4 Hospital Day:: 4 Resuscitation Status: Do Not Resuscitate Medical Power of Jewelry Sales Representative: Sophie Alissa Events in the past 12 to 24 Hours:: Patient had delirium last evening requiring sedation. She is more awake today on BiPAP. High flow had been ordered and oral medications were ordered however they were not started until late in the day. Ultimately she had IV Depakote and continued on BiPAP. Review of systems relevant to events:: Met with patient's friend who is the second [place] medical power of commonwealth attorney. They discussed that the patient has had continued decline and basically has "shut down" since her diagnosis of a pulmonary nodule Reason for ICU Addmission:: Acute hypoxemic and hypercapnic respiratory failure; COPD exacerbation - Medications: Medications reviewed and adjusted accordingly: Yes Physical Exam Vital Signs: Temp Pulse Resp BP Pulse Ox 100.0 F 116 H 20 160/77 H 99 05/20/19 21:58 05/20/19 20:01 05/20/19 20:07 05/20/19 20:07 05/20/19 20:07 Intake & Output 05/19/19 05/20/19 05/21/19 06:59 06:59 06:59 Intake Total 904 270 Output Total 2270 5437 330 Balance -2249 -1745 -781 Weight 112.6 kg 111.5 kg Weight/Height Weight 111.5 kg Height 5 ft 2 in General appearance: PRESENT: no acute distress, morbidly obese, well-nourished Exam: Obese appearing nontoxic ill 74-year-old female responsive to voice following commands Eye exam: PRESENT: conjunctiva pink, EOMI, PERRLA. ABSENT: conjunctival injection, nystagmus Neck exam: ABSENT: carotid bruit, JVD, lymphadenopathy Respiratory exam: PRESENT: clear to auscultation fely, unlabored. ABSENT: accessory muscle use, rales, rhonchi, tachypnea, wheezes Cardiovascular exam: PRESENT: RRR. ABSENT: diastolic murmur, rubs, systolic murmur GI/Abdominal exam: PRESENT: normal bowel sounds, soft. ABSENT: ascites, distended, guarding, mass, organolmegaly, rebound, tenderness Extremities exam: PRESENT: +1 edema Neurological exam: PRESENT: awake, other - Follows commands. Slightly confused Focused psych exam: ABSENT: pressured speech, restlessness Skin exam: PRESENT: dry, intact, warm. ABSENT: cyanosis, mottled - [place] Cruz catheter, rash Laboratory/Radiographs Laboratory Results: 05/20/19 03:42 05/20/19 03:42 05/20/19 05/20/19 05/20/19 03:42 03:42 08:30 WBC 9.8 RBC 4.40 Hgb 12.9 Hct 38.4 MCV 87 MCH 29.3 MCHC 33.6 RDW 17.6 H Plt Count 164 Sodium 144.4 Potassium 3.4 L Chloride 108 H Carbon Dioxide 30 Anion Gap 6 BUN 24 H Creatinine 0.82 Est GFR ( Amer) > 60 Glucose 90 Calcium 8.7 Ammonia < 8.7 L Urine Color Urine Appearance Urine pH Ur Specific [place] Urine Protein Urine Glucose (UA) Urine Ketones Urine Blood Urine RBC (Auto) 05/20/19 16:58 WBC RBC Hgb Hct MCV MCH MCHC RDW Plt Count Sodium Potassium Chloride Carbon Dioxide Anion Gap BUN Creatinine Est GFR ( Amer) Glucose Calcium Ammonia Urine Color YELLOW Urine Appearance SLIGHTLY-CLOUDY Urine pH 5.0 Ur Specific [place] 1.018 Urine Protein 100 H Urine Glucose (UA) NEGATIVE Urine Ketones NEGATIVE Urine Blood MODERATE H Urine RBC (Auto) 110 05/16/19 14:44 Blood Blood Culture (PCR) - Final 05/16/19 14:44 Blood Blood Culture - Final Bacillus Sp. Not Anthracis 05/16/19 05/16/19 13:48 19:49 Troponin I < 0.012 0.096 NT-Pro-B Natriuret Pep 846 H Impressions: Chest/Abdomen CTA 05/16/19 14:34 IMPRESSION: 1. There is no aortic aneurysm or dissection. There is no pulmonary embolus. 2. Predominantly ground-glass infiltrates in the upper aspect of the right lower lobe and in the upper lobes. Chronic interstitial changes versus infectious/inflammatory process versus mild pulmonary edema. 3. Ground-glass nodule in the right upper lobe posteriorly that measures 13 mm. This may be infectious/inflammatory. Cannot exclude neoplasm. 4. Pleura-based mass in the right lower lobe, may be infectious/ inflammatory. Cannot exclude neoplasm. Head CT 05/16/19 16:28 IMPRESSION: MILD CHRONIC MICROVASCULAR ISCHEMIA. NO ACUTE IMAGING FINDINGS IN THE BRAIN. EVIDENCE OF ACUTE STROKE: NO. Chest X-Ray 05/19/19 00:00 IMPRESSION: No change. All labs, radiographs, diagnostic studies and EKGs were personally reviewed: Yes In addition, reports of radiographic and diagnostic studies were read: Yes Assessment and Plan - Diagnosis (1) Acute respiratory failure with hypoxia and hypercarbia Is this a current diagnosis for this admission?: Yes (2) Aspiration pneumonia Qualifiers: Aspiration pneumonia type: unspecified Laterality: bilateral Lung location: unspecified part of lung Qualified Code(s): J69.0 - Pneumonitis due to inhalation of food and vomit Is this a current diagnosis for this admission?: Yes (3) Abnormal chest CT Is this a current diagnosis for this admission?: Yes Plan: Lung nodule. Patient refused biopsy and follow up (4) COPD (chronic obstructive pulmonary disease) with acute bronchitis Is this a current diagnosis for this admission?: Yes (5) COPD exacerbation Is this a current diagnosis for this admission?: Yes (6) DVT (deep venous thrombosis) Qualifiers: DVT location: lower extremity Affected thrombotic vein of extremity: popliteal Chronicity: acute Laterality: right Qualified Code(s): I82.431 - Acute embolism and thrombosis of right popliteal vein Is this a current diagnosis for this admission?: Yes Plan: Start lovenox until po status is determined (7) Morbid obesity with BMI of 45.0-49.9, adult Is this a current diagnosis for this admission?: Yes Plan Summary: We will continue to transition the patient to high flow. Started IV Depakote until we can be assured of swallowing function. Discussion regarding CODE STATUS resulted in the knowledge that the patient would not want to have resuscitation. We will confirm this with Sophie the medical power of commonwealth attorney. Continue supportive care and current medications. Chest x-ray has improved significantly. She has not wanted any follow-up for the pulmonary nodule. Critical Time Critical Time (minutes): 40 Level of Care: ICU Anticipated discharge: Acute Rehab -: 1. The care of a critical patient is a dynamic process. This note is a premium service representative synopsis but static in nature. The timeframe for treatments given in order is not necessarily the actual time these treatments may have been done. 2. This patient requires critical care secondary to ongoing requirements for therapy not offered or safe outside the critical care environment. Transfer to a lower level of care will result in altered life or limb morbidity and mortality. 3. Multidisciplinary rounds completed. 4. ABCDE bundle addressed.
[2019-05-20] MEDS ORDERED: ENOXAPARIN SODIUM INJ 120 MG/0.8 ML DISP.SYRIN SUBCUT ONE (23:07)
[2019-05-20] MEDS: NORMAL SALINE IV SCH (23:15)
[2019-05-20] MEDS: VALPROATE SODIUM IV SCH (23:15)
[2019-05-21] MEDS: ALBUTEROL SULFATE 0.083% NEB 2.5 MG/3 ML AMPUL NEB SCH ×7 (00:37→23:55)
[2019-05-21 03:41] LABS: HEMATOCRIT 41.3 % (36.0-47.0); HEMOGLOBIN 13.7 g/dL (12.0-15.5); MEAN CORPUSCULAR HEMOGLOBIN 29.4 pg (27.0-33.4); MEAN CORPUSCULAR HGB CONC 33.3 g/dL (32.0-36.0); MEAN CORPUSCULAR VOLUME 88 fl (80-97); PLATELET COUNT 172 10^3/uL (150-450); RED BLOOD COUNT 4.68 10^6/uL (3.72-5.28); RED CELL DISTRIBUTION WIDTH 17.5 % (11.5-14.0); WHITE BLOOD COUNT 9.4 10^3/uL (4.0-10.5)
[2019-05-21 05:57] LABS: APPEARANCE,URINE SLIGHTLY-CLOUDY; BILIRUBIN,URINE NEGATIVE (NEGATIVE); COLOR,URINE YELLOW; GLUCOSE, URINE NEGATIVE (NEGATIVE); KETONES,URINE TRACE mg/dL (NEGATIVE); LEUKOCYTE ESTERASE,URINE NEGATIVE (NEGATIVE); NITRITE,URINE NEGATIVE (NEGATIVE); PROTEIN,URINE 30 mg/dL (NEGATIVE); URINE SPECIFIC GRAVITY 1.025; UROBILINOGEN,URINE NEGATIVE mg/dL (<2.0)
[2019-05-21 05:58] LABS: ANION GAP 5 (5-19); BLOOD UREA NITROGEN 20 mg/dL (7-20); CALCIUM 8.5 mg/dL (8.4-10.2); CARBON DIOXIDE 32 mmol/L (22-30); CHLORIDE 109 mmol/L (98-107); GLUCOSE 85 mg/dL (75-110); POTASSIUM 3.8 mmol/L (3.6-5.0)
[2019-05-21] MEDS: ENALAPRILAT DIHYDRATE INJ/PF 2.5 MG/2 ML SDV IV SCH ×3 (06:16→18:41)
[2019-05-21] MEDS ORDERED: RINGERS SOLUTION,LACTATED 500 ML IV ONE (08:28)
[2019-05-21] MEDS ORDERED: VANCOMYCIN HCL 0 MG in DEXTROSE 5%-WATER 250 ML IV NR (08:45)
[2019-05-21] MEDS: NORMAL SALINE IV SCH ×2 (10:04→22:50)
[2019-05-21] MEDS: FAMOTIDINE INJ/PF 20 MG/2 ML SDV IV SCH ×2 (10:04→22:51)
[2019-05-21] MEDS: VALPROATE SODIUM IV SCH ×2 (10:04→22:50)
[2019-05-21] MEDS: ENOXAPARIN SODIUM INJ 120 MG/0.8 ML DISP.SYRIN SUBCUT SCH ×2 (12:19→22:51)
[2019-05-21] MEDS: VANCOMYCIN HCL 1,000 MG in DEXTROSE 5%-WATER 250 ML IV SCH ×2 (13:47→22:50)
--- NOTE | 2019-05-21 13:57 | RADIOLOGY REPORT (SQ) ---
EXAM DESCRIPTION: CHEST SINGLE VIEW COMPLETED DATE/TIME: 05/21/2019 1:46 pm REASON FOR STUDY: respiratory failure COMPARISON: 05/19/2019 EXAM PARAMETERS: NUMBER OF VIEWS: One view. TECHNIQUE: Single frontal radiographic view of the chest acquired. RADIATION DOSE: NA LIMITATIONS: None. FINDINGS: LUNGS AND PLEURA: Patient has been extubated. No pneumothorax. Persistent basilar airspa ce disease atelectasis or pneumonia and small effusions. No significant change from prior study. MEDIASTINUM AND HILAR STRUCTURES: No masses. Contour normal. HEART AND VASCULAR STRUCTURES: Heart normal in size. Normal vasculature. BONES: No acute findings. HARDWARE: None in the chest. OTHER: No other significant finding. IMPRESSION: No significant interval change in the chest following extubation. Persistent small effu sions and basilar airspace disease left greater than right. This could represent atelectasis or pneu monia. TECHNICAL DOCUMENTATION: JOB ID: [id number] 2010 [employer]- All Rights Reserved Reading location - IP/workstation name: [email or web address]
[2019-05-21] MEDS: DIVALPROEX SODIUM 500 MG TAB.SR.24H PO SCH (15:38)
[2019-05-21 18:03] LABS: APPEARANCE,URINE SLIGHTLY-CLOUDY; BILIRUBIN,URINE NEGATIVE (NEGATIVE); COLOR,URINE YELLOW; GLUCOSE, URINE NEGATIVE (NEGATIVE); KETONES,URINE 20 mg/dL (NEGATIVE); LEUKOCYTE ESTERASE,URINE NEGATIVE (NEGATIVE); NITRITE,URINE NEGATIVE (NEGATIVE); PROTEIN,URINE 100 mg/dL (NEGATIVE); URINE SPECIFIC GRAVITY 1.025; UROBILINOGEN,URINE NEGATIVE mg/dL (<2.0)
[2019-05-21] MEDS: RINGERS SOLUTION,LACTATED 1,000 ML IV PRN (19:08)
[2019-05-21] MEDS ORDERED: RINGERS SOLUTION,LACTATED 1,000 ML IV ONE (21:00)
--- NOTE | 2019-05-21 21:08 | PDOC CRITICAL CARE PROG REPORT ---
General Date:: 05/21/19 ICU Day:: 5 Ventilator Day:: 5 - Bipap 03/07 Hospital Day:: 5 Resuscitation Status: Do Not Resuscitate Medical Power of System Consultant: Sophie Maxwell Events in the past 12 to 24 Hours:: 05.21.2019: Patient did not tolerate transition to High-luna. There may have been some delay in transitioning O2 tubing however, highlights degree of respiratory disease. She offers no complaints. Did develop elevated temperature and heart rate later this evening necessitating more fluids. She was not hypotensive. Repeat blood cultures were done. He been started on antibiotics and we added gram-negative coverage as well. 05.20.2019:Patient had delirium last evening requiring sedation. She is more awake today on BiPAP. High flow had been ordered and oral medications were ordered however they were not started until late in the day. Ultimately she had IV Depakote and continued on BiPAP. Review of systems relevant to events:: 05.21.2019: Patient discloses that she did in fact have a biopsy of lung mass. Reportably negative :Met with patient's friend who is the second [place] medical power of senior attorney. They discussed that the patient has had continued decline and basically has "shut down" since her diagnosis of a pulmonary nodule. Affirms DNR/DNI. Has erythema on lower extremities. No chest pain, no dyspnea on Bipap. Had transient hypoxia in transition to high-luna. Reason for ICU Addmission:: Acute hypoxemic and hypercapnic respiratory failure; COPD exacerbation - Medications: Medications reviewed and adjusted accordingly: Yes Physical Exam Vital Signs: Temp Pulse Resp BP Pulse Ox 99.9 F 117 H 21 H 152/78 H 93 05/21/19 08:00 05/21/19 08:00 05/21/19 08:00 05/21/19 08:00 05/21/19 08:00 Intake & Output 05/20/19 05/21/19 05/22/19 06:59 06:59 06:59 Intake Total 270 Output Total 2014 630 971 [facility] -1745 -630 -275 Weight 111.5 kg 110.7 kg Weight/Height Weight 110.7 kg Height 5 ft 2 in General appearance: PRESENT: no acute distress, morbidly obese, well-nourished Head exam: PRESENT: atraumatic, normocephalic Eye exam: PRESENT: conjunctiva pink, EOMI, PERRLA. ABSENT: conjunctival injection, nystagmus, scleral icterus Mouth exam: PRESENT: dry mucosa, neck supple Neck exam: ABSENT: carotid bruit, thyromegaly Respiratory exam: PRESENT: clear to auscultation fely, unlabored. ABSENT: accessory muscle use, rales, rhonchi, tachypnea, wheezes Cardiovascular exam: PRESENT: RRR, +S1, +S2, tachycardia, other - Bedside critical Care echo shows significant respirophasic IVC collapse. Hyperdynamic LV with underfilling. RV large but appears to have intact function Pulses: PRESENT: normal dorsalis pedis pul - on right. Difficult to feel on left Vascular exam: PRESENT: normal capillary refill. ABSENT: pallor GI/Abdominal exam: PRESENT: normal bowel sounds, soft. ABSENT: ascites, diste nded, guarding, mass, organolmegaly, rebound, tenderness Gentrourinary exam: PRESENT: indwelling catheter Extremities exam: PRESENT: other. ABSENT: tenderness Musculoskeletal exam: ABSENT: deformity, dislocation Neurological exam: PRESENT: awake, oriented to person, oriented to place, oriented to situation, CN II-XII grossly intact. ABSENT: motor sensory deficit - Globally but symmetrically weak. No focal deficits Psychiatric exam: PRESENT: flat affect Focused psych exam: ABSENT: pressured speech, psychomotor agitation, restlessness Skin exam: PRESENT: dry - Extremely dry skin with furrowing. Erythema to lower right>left distal leg. Erythema to proximal aspect lower extremities and lower abdomen. Some coelescense to upper. Laboratory/Radiographs Laboratory Results: 05/21/19 03:31 05/21/19 03:31 05/20/19 05/20/19 05/21/19 08:30 16:58 03:31 WBC 9.4 RBC 4.68 Hgb 13.7 Hct 41.3 MCV 88 MCH 29.4 MCHC 33.3 RDW 17.5 H Plt Count 172 Sodium Potassium Chloride Carbon Dioxide Anion Gap BUN Creatinine Est GFR ( Amer) Glucose Calcium Ammonia < 8.7 L Urine Color YELLOW Urine Appearance SLIGHTLY-CLOUDY Urine pH 5.0 Ur Specific [place] 1.018 Urine Protein 100 H Urine Glucose (UA) NEGATIVE Urine Ketones NEGATIVE Urine Blood MODERATE H Urine Nitrite Ur Leukocyte Esterase Urine WBC (Auto) Urine RBC (Auto) 110 05/21/19 05/21/19 03:31 05:45 WBC RBC Hgb Hct MCV MCH MCHC RDW Plt Count Sodium 145.8 H Potassium 3.8 Chloride 109 H Carbon Dioxide 32 H Anion Gap 5 BUN 20 Creatinine 0.67 Est GFR ( Amer) > 60 Glucose 85 Calcium 8.5 Ammonia Urine Color YELLOW Urine Appearance SLIGHTLY-CLOUDY Urine pH 5.0 Ur Specific [place] 1.025 Urine Protein 30 H Urine Glucose (UA) NEGATIVE Urine Ketones TRACE H Urine Blood SMALL H Urine Nitrite NEGATIVE Ur Leukocyte Esterase NEGATIVE Urine WBC (Auto) 2 Urine RBC (Auto) >182 05/16/19 14:44 Blood Blood Culture (PCR) - Final 05/16/19 14:44 Blood Blood Culture - Final Bacillus Sp. Not Anthracis 05/16/19 05/16/19 13:48 19:49 Troponin I < 0.012 0.096 NT-Pro-B Natriuret Pep 846 H Impressions: Chest/Abdomen CTA 05/16/19 14:34 IMPRESSION: 1. There is no aortic aneurysm or dissection. There is no pulmonary embolus. 2. Predominantly ground-glass infiltrates in the upper aspect of the right lower lobe and in the upper lobes. Chronic interstitial changes versus infectious/inflammatory process versus mild pulmonary edema. 3. Ground-glass nodule in the right upper lobe posteriorly that measures 13 mm. This may be infectious/inflammatory. Cannot exclude neoplasm. 4. Pleura-based mass in the right lower lobe, may be infectious/ inflammatory. Cannot exclude neoplasm. Head CT 05/16/19 16:28 IMPRESSION: MILD CHRONIC MICROVASCULAR ISCHEMIA. NO ACUTE IMAGING FINDINGS IN THE BRAIN. EVIDENCE OF ACUTE STROKE: NO. Chest X-Ray 05/19/19 00:00 IMPRESSION: No change. All labs, radiographs, diagnostic studies and EKGs were personally reviewed: Yes In addition, reports of radiographic and diagnostic studies were read: Yes Assessment and Plan - Diagnosis (1) Acute respiratory failure with hypoxia and hypercarbia Is this a current diagnosis for this admission?: Yes (2) Aspiration pneumonia Qualifiers: Aspiration pneumonia type: unspecified Laterality: bilateral Lung location: unspecified part of lung Qualified Code(s): J69.0 - Pneumonitis due to inhalation of food and vomit Is this a current diagnosis for this admission?: Yes (3) Abnormal chest CT Is this a current diagnosis for this admission?: Yes Plan: Lung nodule. Patient refused biopsy and follow up (4) COPD (chronic obstructive pulmonary disease) with acute bronchitis Is this a current diagnosis for this admission?: Yes (5) COPD exacerbation Is this a current diagnosis for this admission?: Yes (6) DVT (deep venous thrombosis) Qualifiers: DVT location: lower extremity Affected thrombotic vein of extremity: popliteal Chronicity: acute Laterality: right Qualified Code(s): I82.431 - Acute embolism and thrombosis of right popliteal vein Is this a current diagnosis for this admission?: Yes Plan: Start lovenox until po status is determined (7) Morbid obesity with BMI of 45.0-49.9, adult Is this a current diagnosis for this admission?: Yes Plan Summary: 05.21.2019: IVF with bolus, repeat blood cultures. Add vancomycin and aztreonam (patient had anaphylaxis with PNC) I spoke with [facility] updated them. They did confirm the patient is a DNR and DO NOT INTUBATE. Continue BiPAP and attempt to wean to high flow Will need to consider palliative care Continue supportive care Check Depakote level in 24 hours 05.20.2019:We will continue to transition the patient to high flow. Started IV Depakote until we can be assured of swallowing function. Discussion regarding CODE STATUS resulted in the knowledge that the patient would not want to have resuscitation. We will confirm this with Sophie the medical power of senior attorney. Continue supportive care and current medications. Chest x-ray has improved significantly. She has not needed any follow-up for the pulmonary nodule. Critical Time Critical Time (minutes): 38 Level of Care: ICU -: 1. The care of a critical patient is a dynamic process. This note is a bank representative synopsis but static in nature. The timeframe for treatments given in order is not necessarily the actual time these treatments may have been done. 2. This patient requires critical care secondary to ongoing requirements for therapy not offered or safe outside the critical care environment. Transfer to a lower level of care will result in altered life or limb morbidity and mortality. 3. Multidisciplinary rounds completed. 4. ABCDE bundle addressed.
[2019-05-22] MEDS: AZTREONAM 1 GM in DEXTROSE 5%-WATER 50 ML IV SCH ×3 (00:19→17:54)
[2019-05-22] MEDS: RINGERS SOLUTION,LACTATED 1,000 ML IV PRN ×2 (00:20→10:57)
[2019-05-22] MEDS: ENALAPRILAT DIHYDRATE INJ/PF 2.5 MG/2 ML SDV IV SCH ×4 (00:20→17:54)
[2019-05-22] MEDS: ALBUTEROL SULFATE 0.083% NEB 2.5 MG/3 ML AMPUL NEB SCH ×5 (03:28→20:09)
[2019-05-22 06:16] LABS: ARTERIAL BLOOD BASE EXCESS 4.2 mmol/L; ARTERIAL BLOOD H2CO3 1.63 mmol/L (1.05-1.35); ARTERIAL BLOOD HCO3 30.9 mmol/L (20-24); ARTERIAL BLOOD O2 SATURATION 91.4 % (94-98); ARTERIAL BLOOD PCO2 54.3 mmHg (35-45); ARTERIAL BLOOD PH 7.37 (7.35-7.45); ARTERIAL BLOOD PO2 63.6 mmHg (80-100); ARTERIAL BLOOD TOTAL CO2 32.6 mmol/L (21-25)
[2019-05-22 06:20] LABS: HEMATOCRIT 41.3 % (36.0-47.0); HEMOGLOBIN 13.4 g/dL (12.0-15.5); MEAN CORPUSCULAR HEMOGLOBIN 28.7 pg (27.0-33.4); MEAN CORPUSCULAR HGB CONC 32.5 g/dL (32.0-36.0); MEAN CORPUSCULAR VOLUME 88 fl (80-97); PLATELET COUNT 152 10^3/uL (150-450); RED BLOOD COUNT 4.67 10^6/uL (3.72-5.28); RED CELL DISTRIBUTION WIDTH 18.2 % (11.5-14.0); WHITE BLOOD COUNT 16.2 10^3/uL (4.0-10.5)
[2019-05-22 06:29] LABS: ARTERIAL BLOOD FIO2 30%
[2019-05-22 06:32] LABS: ABSOLUTE LYMPHOCYTES# (MANUAL) 0.8 10^3/uL (0.5-4.7); BAND NEUTROPHILS % (MANUAL) 2 % (3-5); BASOPHILS % (MANUAL) 0 % (0-2); EOSINOPHILS % (MANUAL) 5 % (0-6); LYMPHOCYTES % (MANUAL) 5 % (13-45); MONOCYTES % (MANUAL) 0 % (3-13); SEGMENTED NEUTROPHILS % (MAN) 88 % (42-78); TOTAL CELLS COUNTED 100
[2019-05-22 06:33] LABS: ANISOCYTOSIS 2+; OVALOCYTES SLIGHT; PLATELET COMMENT ADEQUATE; POIKILOCYTOSIS SLIGHT; POLYCHROMASIA SLIGHT; SCHISTOCYTES SLIGHT; TEAR DROP CELLS SLIGHT; TOXIC GRANULATION 1+; TOXIC VACUOLATION PRESENT
[2019-05-22 06:35] LABS: BLOOD UREA NITROGEN 18 mg/dL (7-20); CARBON DIOXIDE 31 mmol/L (22-30); CHLORIDE 109 mmol/L (98-107); GLUCOSE 86 mg/dL (75-110); POTASSIUM 4.4 mmol/L (3.6-5.0)
[2019-05-22 06:36] LABS: ANION GAP 3 (5-19); PHOSPHORUS 3.4 mg/dL (2.5-4.5)
[2019-05-22] MEDS ORDERED: ACETAMINOPHEN SOLN 325 MG/10.15 ML UDCUP NG PRN (10:33)
[2019-05-22] MEDS: FAMOTIDINE INJ/PF 20 MG/2 ML SDV IV SCH ×2 (10:58→22:16)
[2019-05-22] MEDS: ENOXAPARIN SODIUM INJ 120 MG/0.8 ML DISP.SYRIN SUBCUT SCH ×2 (10:58→22:16)
[2019-05-22] MEDS: NORMAL SALINE IV SCH ×2 (10:58→22:07)
[2019-05-22] MEDS: VANCOMYCIN HCL 1,000 MG in DEXTROSE 5%-WATER 250 ML IV SCH ×2 (10:58→22:06)
[2019-05-22] MEDS: VALPROATE SODIUM IV SCH ×2 (10:58→22:07)
[2019-05-22] MEDS ORDERED: METHYLPREDNISOLONE INJ 125 MG/2 ML SDV IV ONE (11:00)
[2019-05-22] MEDS ORDERED: FLUCONAZOLE 400 MG/NS RTU 400 MG/200 ML RTUPB IV ONE (11:00)
[2019-05-22 11:42] LABS: AMORPHOUS SEDIMENT,URINE TRACE /HPF; APPEARANCE,URINE CLOUDY; BILIRUBIN,URINE NEGATIVE (NEGATIVE); COLOR,URINE AMBER; GLUCOSE, URINE NEGATIVE (NEGATIVE); KETONES,URINE 20 mg/dL (NEGATIVE); LEUKOCYTE ESTERASE,URINE NEGATIVE (NEGATIVE); NITRITE,URINE NEGATIVE (NEGATIVE); PROTEIN,URINE 100 mg/dL (NEGATIVE); URINE SPECIFIC GRAVITY 1.032
[2019-05-22] MEDS ORDERED: METHYLPREDNISOLONE INJ 125 MG/2 ML SDV IV SCH (22:00)
[2019-05-22] MEDS: METHYLPREDNISOLONE INJ 40 MG/1 ML SDV IV SCH (22:17)
--- NOTE | 2019-05-22 22:54 | PDOC CRITICAL CARE PROG REPORT ---
General Date:: 05/22/19 ICU Day:: 6 Hospital Day:: 6 Resuscitation Status: Do Not Resuscitate Medical Power of Gas Distribution Supervisor: Sophiefei Mawxell Events in the past 12 to 24 Hours:: 05.22.2019: Patient has done remarkably well and was transitioned from BiPAP to high flow and now on nasal cannula. She was examined and reevaluated multiple times throughout the day and continued to show stability. Denies any chest pain she has no headache no abdominal pain. She does not feel short of breath on nasal cannula at 5 L. 05.21.2019: Patient did not tolerate transition to High-luna. There may have been some delay in transitioning O2 tubing however, highlights degree of respiratory disease. She offers no complaints. Did develop elevated temperature and heart rate later this evening necessitating more fluids. She was not hypotensive. Repeat blood cultures were done. He been started on antibiotics and we added gram-negative coverage as well. 05.20.2019:Patient had delirium last evening requiring sedation. She is more a wake today on BiPAP. High flow had been ordered and oral medications were ordered however they were not started until late in the day. Ultimately she had IV Depakote and continued on BiPAP. Review of systems relevant to events:: 05.22.2019: Patient had tachycardia and fever 36 hours ago which have now improved. Cultures still remain negative. Chest x-ray is unremarkable. 05.21.2019: Patient discloses that she did in fact have a biopsy of lung mass. Reportably negative :Met with patient's friend who is the second [place] medical power of toolroom helper. They discussed that the patient has had continued decline and basically has "shut down" since her diagnosis of a pulmonary nodule. Affirms DNR/DNI. Has erythema on lower extremities. No chest pain, no dyspnea on Bipap. Had transient hypoxia in transition to high-luna. Reason for ICU Addmission:: Acute hypoxemic and hypercapnic respiratory failure; COPD exacerbation Physical Exam Vital Signs: Temp Pulse Resp BP Pulse Ox 98.1 F 71 15 139/73 H 91 L 05/22/19 22:01 05/22/19 20:09 05/22/19 22:01 05/22/19 22:00 05/22/19 22:01 Intake & Output 05/21/19 05/22/19 05/23/19 06:59 06:59 06:59 Intake Total 103 1726 1378 Output Total 630 940 455 Balance -527 786 923 Weight 110.7 kg 113.3 kg 113.3 kg Weight/Height Weight 113.3 kg Height 5 ft 2 in General appearance: PRESENT: no acute distress, morbidly obese, well-nourished Exam: Pleasant chronically ill-appearing 74-year-old female no acute distress. Awake alert oriented x3. Head exam: PRESENT: atraumatic, normocephalic Eye exam: PRESENT: conjunctiva pink, EOMI, PERRLA. ABSENT: nystagmus, scleral icterus Mouth exam: PRESENT: moist, neck supple Teeth exam: PRESENT: edentulous Neck exam: ABSENT: carotid bruit, JVD, thyromegaly Respiratory exam: PRESENT: clear to auscultation fely. ABSENT: accessory muscle use, rales, rhonchi, wheezes Cardiovascular exam: PRESENT: +S1, +S2 GI/Abdominal exam: PRESENT: normal bowel sounds, soft. ABSENT: ascites, diste nded, guarding, mass, organolmegaly, rebound, tenderness Rectal exam: PRESENT: deferred Gentrourinary exam: PRESENT: indwelling catheter Extremities exam: PRESENT: pedal edema, other - Dry furrowed feet and legs are improved Musculoskeletal exam: ABSENT: deformity, dislocation Neurological exam: PRESENT: alert, awake, oriented to person, oriented to place, oriented to time, oriented to situation, CN II-XII grossly intact. ABSENT: motor sensory deficit, aphasic Psychiatric exam: PRESENT: appropriate affect, normal mood Focused psych exam: ABSENT: psychomotor agitation Skin exam: PRESENT: erythema - Erythema is much improved. Coalescence of erythema on her legs are much improved.. ABSENT: pallor, petechiae, vesicles Tubes/Lines: PRESENT: Other - [place] Laboratory/Radiographs Laboratory Results: 05/22/19 04:40 05/22/19 04:40 05/22/19 05/22/19 05/22/19 04:05 04:40 04:40 WBC 16.2 H RBC 4.67 Hgb 13.4 Hct 41.3 MCV 88 MCH 28.7 MCHC 32.5 RDW 18.2 H Plt Count 152 Seg Neutrophils % Not Reportable Carbonic Acid 1.63 H HCO3/H2CO3 Ratio 18:1 ABG pH 7.37 ABG pCO2 54.3 H ABG pO2 63.6 L ABG HCO3 30.9 H ABG O2 Saturation 91.4 L ABG Base Excess 4.2 FiO2 30% Sodium 143.0 Potassium 4.4 Chloride 109 H Carbon Dioxide 31 H Anion Gap 3 L BUN 18 Creatinine 0.62 Est GFR ( Amer) > 60 Glucose 86 Calcium 8.0 L Phosphorus 3.4 Magnesium 2.2 Urine Color Urine Appearance Urine pH Ur Specific [place] Urine Protein Urine Glucose (UA) Urine Ketones Urine Blood Urine Nitrite Ur Leukocyte Esterase Urine WBC (Auto) Urine RBC (Auto) 05/22/19 11:25 WBC RBC Hgb Hct MCV MCH MCHC RDW Plt Count Seg Neutrophils % Carbonic Acid HCO3/H2CO3 Ratio ABG pH ABG pCO2 ABG pO2 ABG HCO3 ABG O2 Saturation ABG Base Excess FiO2 Sodium Potassium Chloride Carbon Dioxide Anion Gap BUN Creatinine Est GFR ( Amer) Glucose Calcium Phosphorus Magnesium Urine Color FRANKI Urine Appearance CLOUDY Urine pH 5.0 Ur Specific [place] 1.032 Urine Protein 100 H Urine Glucose (UA) NEGATIVE Urine Ketones 20 H Urine Blood NEGATIVE Urine Nitrite NEGATIVE Ur Leukocyte Esterase NEGATIVE Urine WBC (Auto) 3 Urine RBC (Auto) 38 05/16/19 05/16/19 13:48 19:49 Troponin I < 0.012 0.096 NT-Pro-B Natriuret Pep 846 H Impressions: Chest/Abdomen CTA 05/16/19 14:34 IMPRESSION: 1. There is no aortic aneurysm or dissection. There is no pulmon luis embolus. 2. Predominantly ground-glass infiltrates in the upper aspect of the right lower lobe and in the upper lobes. Chronic interstitial changes versus infectious/inflammatory process versus mild pulmonary edema. 3. Ground-glass nodule in the right upper lobe posteriorly that measures 13 mm. This may be infectious/inflammatory. Cannot exclude neoplasm. 4. Pleura-based mass in the right lower lobe, may be infectious/ inflammatory. Cannot exclude neoplasm. Head CT 05/16/19 16:28 IMPRESSION: MILD CHRONIC MICROVASCULAR ISCHEMIA. NO ACUTE IMAGING FINDINGS IN THE BRAIN. EVIDENCE OF ACUTE STROKE: NO. Chest X-Ray 05/21/19 13:28 IMPRESSION: No significant interval change in the chest following extubation. Persistent small effusions and basilar airspace disease left greater than right. This could represent atelectasis or pneumonia. All labs, radiographs, diagnostic studies and EKGs were personally reviewed: Yes In addition, reports of radiographic and diagnostic studies were read: Yes Assessment and Plan - Diagnosis (1) Acute respiratory failure with hypoxia and hypercarbia Is this a current diagnosis for this admission?: Yes (2) Aspiration pneumonia Qualifiers: Aspiration pneumonia type: unspecified Laterality: bilateral Lung location: unspecified part of lung Qualified Code(s): J69.0 - Pneumonitis due to inhalation of food and vomit Is this a current diagnosis for this admission?: Yes (3) Abnormal chest CT Is this a current diagnosis for this admission?: Yes Plan: Patient did, in fact, have biopsy and follow up--reported negative (4) COPD (chronic obstructive pulmonary disease) with acute bronchitis Is this a current diagnosis for this admission?: Yes (5) COPD exacerbation Is this a current diagnosis for this admission?: Yes (6) DVT (deep venous thrombosis) Qualifiers: DVT location: lower extremity Affected thrombotic vein of extremity: popliteal Chronicity: acute Laterality: right Qualified Code(s): I82.431 - Acute embolism and thrombosis of right popliteal vein Is this a current diagnosis for this admission?: Yes Plan: Start lovenox until po status is determined (7) Morbid obesity with BMI of 45.0-49.9, adult Is this a current diagnosis for this admission?: Yes Plan Summary: 05.22.2019: Patient has done remarkably well with the introduction of steroids and antifungals as well as antibiotics. I have restarted her Eliquis to begin tomorrow. She received Lovenox every 12 hours and should be at optimal timing for the initiation of NOAC therapy in the morning. Lengthy discussion regarding her CODE STATUS and she again request DNR/DNI. Talked about end-of-life issues and asked her to discuss these with her friends and especially Sophie her medical power of toolroom helper. Patient had been tachycardic and has been off her beta-yesica. Will reinitiate this to control this and blood pressure. We will need to watch for any worsening respiratory function which is unlikely to happen given the literature supportive beta-blockers and COPD. I have asked physical therapy to get involved. Will need aggressive rehab. Friends have suggested that her home is disheveled and unkempt. We will have case management assist with evaluating for safety and her needs. Advance diet 05.21.2019: IVF with bolus, repeat blood cultures. Add vancomycin and aztreonam (patient had anaphylaxis with PNC) I spoke with [facility] updated them. They did confirm the patient is a DNR and DO NOT INTUBATE. Continue BiPAP and attempt to wean to high flow Will need to consider palliative care Continue supportive care Check Depakote level in 24 hours 05.20.2019:We will continue to transition the patient to high flow. Started IV Depakote until we can be assured of swallowing function. Discussion regarding CODE STATUS resulted in the knowledge that the patient would not want to have resuscitation. We will confirm this with Sophie the medical power of toolroom helper. Continue supportive care and current medications. Chest x-ray has improved significantly. She has not needed any follow-up for the pulmonary nodule. Critical Time Critical Time (minutes): 0 - [id number] Level of Care: IMCU Anticipated discharge: Acute Rehab Within: within 48 hours -: 1. The care of a critical patient is a dynamic process. This note is a malt liquors sales representative synopsis but static in nature. The timeframe for treatments given in order is not necessarily the actual time these treatments may have been done. 2. This patient requires critical care secondary to ongoing requirements for therapy not offered or safe outside the critical care environment. Transfer to a lower level of care will result in altered life or limb morbidity and mortality. 3. Multidisciplinary rounds completed. 4. ABCDE bundle addressed.
[2019-05-22] MEDS ORDERED: ALBUTEROL SULFATE HFA (90 MCG/PUFF) 200 PUFF/8.5 GM MDI IH PRN (23:00)
[2019-05-23] MEDS: ALBUTEROL SULFATE 0.083% NEB 2.5 MG/3 ML AMPUL NEB SCH ×6 (00:05→20:09)
[2019-05-23] MEDS: AZTREONAM 1 GM in DEXTROSE 5%-WATER 50 ML IV SCH ×2 (00:30→08:46)
[2019-05-23] MEDS: METOPROLOL TARTRATE 25 MG TABLET PO SCH ×3 (00:30→21:32)
[2019-05-23 04:19] LABS: ABSOLUTE EOSINOPHILS # (AUTO) 0.2 10^3/uL (0.0-0.6); ABSOLUTE LYMPHOCYTES (AUTO) 1.2 10^3/uL (0.5-4.7); ABSOLUTE MONOCYTES (AUTO) 0.3 10^3/uL (0.1-1.4); ABSOLUTE NEUT (AUTO) 12.3 10^3/uL (1.7-8.2); BASOPHILS % (AUTO) 0.2 % (0-2); EOSINOPHILS % (AUTO) 1.1 % (0-6); HEMATOCRIT 36.1 % (36.0-47.0); HEMOGLOBIN 12.1 g/dL (12.0-15.5); LYMPHOCYTES % (AUTO) 8.4 % (13-45); MEAN CORPUSCULAR HEMOGLOBIN 29.5 pg (27.0-33.4); MEAN CORPUSCULAR HGB CONC 33.4 g/dL (32.0-36.0); MEAN CORPUSCULAR VOLUME 88 fl (80-97); MONOCYTES % (AUTO) 2.1 % (3-13); PLATELET COUNT 142 10^3/uL (150-450); RED BLOOD COUNT 4.08 10^6/uL (3.72-5.28); SEGMENTED NEUTROPHILS % (AUTO) 88.2 % (42-78); TOTAL CELLS COUNTED % (AUTO) 100 %
[2019-05-23 04:43] LABS: BLOOD UREA NITROGEN 22 mg/dL (7-20); CALCIUM 7.9 mg/dL (8.4-10.2); GLUCOSE 145 mg/dL (75-110); PHOSPHORUS 3.2 mg/dL (2.5-4.5); POTASSIUM 4.4 mmol/L (3.6-5.0)
[2019-05-23 04:48] LABS: ANION GAP 5 (5-19); CARBON DIOXIDE 29 mmol/L (22-30); CHLORIDE 106 mmol/L (98-107)
[2019-05-23] MEDS ORDERED: ALBUTEROL SULFATE HFA (90 MCG/PUFF) 8 GM MDI (1 MDI/ER DISP) IH PRN (07:51)
[2019-05-23] MEDS ORDERED: ALBUTEROL SULFATE HFA (90 MCG/PUFF) 8 GM MDI IH PRN (07:54)
[2019-05-23] MEDS: ATORVASTATIN CALCIUM 20 MG TABLET PO SCH (08:46)
[2019-05-23] MEDS ORDERED: (PENDING PHARMACY ID) (Cyclobenzaprine Hcl [Flexeril 5 Mg Tablet] 5 MG) PO PRN (09:07)
[2019-05-23] MEDS ORDERED: CYCLOBENZAPRINE HCL 10 MG TABLET PO PRN (09:19)
[2019-05-23] MEDS ORDERED: PHARMACY COMMUNICATION ORDER MC SCH (09:45)
[2019-05-23] MEDS: METOPROLOL SUCCINATE 50 MG TAB.SR.24H PO SCH (10:57)
[2019-05-23] MEDS: SPIRONOLACTONE 25 MG TABLET PO SCH (10:57)
[2019-05-23] MEDS: APIXABAN 5 MG TABLET PO SCH ×2 (10:57→18:13)
[2019-05-23] MEDS: FLUTICASONE/VILANTEROL 200-25 MCG/DOSE IH SCH (10:58)
[2019-05-23] MEDS: METHYLPREDNISOLONE INJ 40 MG/1 ML SDV IV SCH ×2 (10:59→21:32)
--- NOTE | 2019-05-23 11:09 | PDOC CRITICAL CARE PROG REPORT ---
General Date:: 05/23/19 ICU Day:: 7 Hospital Day:: 7 Resuscitation Status: Do Not Resuscitate Medical Power of Telecommunications Project Manager: Sophie Maxwell Events in the past 12 to 24 Hours:: Improved respiratory status. Review of systems relevant to events:: Respiratory Reason for ICU Addmission:: Acute hypoxemic and hypercapnic respiratory failure; COPD exacerbation - Medications: Medications reviewed and adjusted accordingly: Yes Vasopressors:: None Sedation:: None Physical Exam Vital Signs: Temp Pulse Resp BP Pulse Ox 97.7 F 96 19 182/93 H 91 L 05/23/19 09:24 05/23/19 09:23 05/23/19 10:00 05/23/19 09:24 05/23/19 10:00 Intake & Output 05/22/19 05/23/19 05/24/19 06:59 06:59 06:59 Intake Total 1726 1378 Output Total 940 640 30 Balance 786 738 -30 Weight 113.3 kg 111.7 kg Weight/Height Weight 111.7 kg Height 5 ft 2 in General appearance: PRESENT: no acute distress, cooperative, well-developed, well-nourished Head exam: PRESENT: atraumatic, normocephalic Eye exam: PRESENT: conjunctiva pink, EOMI, PERRLA. ABSENT: scleral icterus Ear exam: PRESENT: normal external ear exam Mouth exam: PRESENT: moist, tongue midline Respiratory exam: PRESENT: clear to auscultation fely, decreased breath sounds. ABSENT: rales, rhonchi, wheezes Cardiovascular exam: PRESENT: RRR. ABSENT: diastolic murmur, rubs, systolic murmur GI/Abdominal exam: PRESENT: normal bowel sounds, soft. ABSENT: distended, guarding, mass, organolmegaly, rebound, tenderness Rectal exam: PRESENT: deferred Gentrourinary exam: PRESENT: indwelling catheter Extremities exam: PRESENT: full ROM. ABSENT: calf tenderness, clubbing, pedal edema Musculoskeletal exam: PRESENT: normal inspection Neurological exam: PRESENT: alert, awake, oriented to person, oriented to place, oriented to time, oriented to situation, CN II-XII grossly intact. ABSENT: motor sensory deficit Psychiatric exam: PRESENT: appropriate affect, normal mood. ABSENT: homicidal ideation, suicidal ideation Skin exam: PRESENT: dry, intact, warm. ABSENT: cyanosis, rash Laboratory/Radiographs Laboratory Results: 05/23/19 04:08 05/23/19 04:08 05/22/19 05/23/19 05/23/19 11:25 04:08 04:08 WBC 14.0 H RBC 4.08 Hgb 12.1 Hct 36.1 MCV 88 MCH 29.5 MCHC 33.4 RDW 17.0 H Plt Count 142 L Seg Neutrophils % 88.2 H Sodium 139.8 Potassium 4.4 Chloride 106 Carbon Dioxide 29 Anion Gap 5 BUN 22 H Creatinine 0.48 L Est GFR ( Amer) > 60 Glucose 145 H Calcium 7.9 L Phosphorus 3.2 Magnesium 2.3 Urine Color FRANKI Urine Appearance CLOUDY Urine pH 5.0 Ur Specific [place] 1.032 Urine Protein 100 H Urine Glucose (UA) NEGATIVE Urine Ketones 20 H Urine Blood NEGATIVE Urine Nitrite NEGATIVE Ur Leukocyte Esterase NEGATIVE Urine WBC (Auto) 3 Urine RBC (Auto) 38 05/16/19 05/16/19 13:48 19:49 Troponin I < 0.012 0.096 NT-Pro-B Natriuret Pep 846 H Impressions: Chest/Abdomen CTA 05/16/19 14:34 IMPRESSION: 1. There is no aortic aneurysm or dissection. There is no pulmo nary embolus. 2. Predominantly ground-glass infiltrates in the upper aspect of the right lower lobe and in the upper lobes. Chronic interstitial changes versus infectious/inflammatory process versus mild pulmonary edema. 3. Ground-glass nodule in the right upper lobe posteriorly that measures 13 mm. This may be infectious/inflammatory. Cannot exclude neoplasm. 4. Pleura-based mass in the right lower lobe, may be infectious/ inflammatory. Cannot exclude neoplasm. Head CT 05/16/19 16:28 IMPRESSION: MILD CHRONIC MICROVASCULAR ISCHEMIA. NO ACUTE IMAGING FINDINGS IN THE BRAIN. EVIDENCE OF ACUTE STROKE: NO. Chest X-Ray 05/21/19 13:28 IMPRESSION: No significant interval change in the chest following extubation. Persistent small effusions and basilar airspace disease left greater than right. This could represent atelectasis or pneumonia. All labs, radiographs, diagnostic studies and EKGs were personally reviewed: Yes In addition, reports of radiographic and diagnostic studies were read: Yes Assessment and Plan - Diagnosis (1) Acute respiratory failure with hypoxia and hypercarbia Is this a current diagnosis for this admission?: Yes Plan: She exhibited hypoxia and hpercarbia although at different times. Her ABGs have normalized. (2) COPD exacerbation Is this a current diagnosis for this admission?: Yes Plan: Currrently no wheezing. (3) Morbid obesity with BMI of 45.0-49.9, adult Is this a current diagnosis for this admission?: Yes Plan: Chronic Plan Summary: Mobilize, PT, OOB to chair. Regular diet. Critical Time Critical Time (minutes): 30 Level of Care: MEDICAL Anticipated discharge: Home Within: within 72 hours -: 1. The care of a critical patient is a dynamic process. This note is a union contract representative synopsis but static in nature. The timeframe for treatments given in order is not necessarily the actual time these treatments may have been done. 2. This patient requires critical care secondary to ongoing requirements for therapy not offered or safe outside the critical care environment. Transfer to a lower level of care will result in altered life or limb morbidity and mortality. 3. Multidisciplinary rounds completed. 4. ABCDE bundle addressed.
[2019-05-23] MEDS: PRAMIPEXOLE DI-HCL 0.5 MG TABLET PO SCH (21:32)
[2019-05-23] MEDS: DIVALPROEX SODIUM 500 MG TAB.SR.24H PO SCH (21:32)
[2019-05-23] MEDS ORDERED: (PENDING PHARMACY ID) (Pramipexole Di-Hcl [Mirapex] 1 MG) PO SCH (22:00)
[2019-05-24] MEDS: ALBUTEROL SULFATE 0.083% NEB 2.5 MG/3 ML AMPUL NEB SCH ×6 (00:34→20:50)
[2019-05-24] MEDS: DEXTROSE 5%-1/2 NORMAL SALINE 1,000 ML IV PRN ×2 (03:24→23:45)
[2019-05-24] MEDS ORDERED: DIPHENHYDRAMINE HCL 50 MG/ML VIAL ONE (05:26)
[2019-05-24] MEDS ORDERED: DIPHENHYDRAMINE HCL 50 MG/ML VIAL IV ONE (06:00)
[2019-05-24] MEDS: APIXABAN 5 MG TABLET PO SCH ×2 (10:57→18:29)
[2019-05-24] MEDS: SPIRONOLACTONE 25 MG TABLET PO SCH (10:57)
[2019-05-24] MEDS: ATORVASTATIN CALCIUM 20 MG TABLET PO SCH (10:58)
[2019-05-24] MEDS: METOPROLOL TARTRATE 25 MG TABLET PO SCH ×2 (10:58→21:08)
[2019-05-24] MEDS: METHYLPREDNISOLONE INJ 40 MG/1 ML SDV IV SCH ×2 (10:59→21:07)
[2019-05-24] MEDS: METOPROLOL SUCCINATE 50 MG TAB.SR.24H PO SCH (10:59)
[2019-05-24] MEDS: FLUTICASONE/VILANTEROL 200-25 MCG/DOSE IH SCH (11:01)
--- NOTE | 2019-05-24 14:08 | PDOC CRITICAL CARE PROG REPORT ---
General Date:: 05/24/19 ICU Day:: 8 Hospital Day:: 8 Resuscitation Status: Do Not Resuscitate Medical Power of Real Estate Clerk: Sophie Maxwell Events in the past 12 to 24 Hours:: No respiratory concerns, very deconditioned Review of systems relevant to events:: Respiratory, musculoskeletal. Reason for ICU Addmission:: Acute hypoxemic and hypercapnic respiratory failure; COPD exacerbation - Medications: Medications reviewed and adjusted accordingly: Yes Vasopressors:: None Sedation:: None Physical Exam Vital Signs: Temp Pulse Resp BP Pulse Ox 97.6 F 67 19 185/98 H 94 05/24/19 08:00 05/24/19 11:47 05/24/19 11:47 05/24/19 10:56 05/24/19 11:47 Intake & Output 05/23/19 05/24/19 05/25/19 06:59 06:59 06:59 Intake Total 1378 0 Output Total 640 380 400 Balance 738 -380 -400 Weight 111.7 kg 115 kg Weight/Height Weight 115 kg Height 5 ft 2 in General appearance: PRESENT: no acute distress, well-developed, well-nourished Head exam: PRESENT: atraumatic, normocephalic Eye exam: PRESENT: conjunctiva pink, EOMI, PERRLA. ABSENT: scleral icterus Ear exam: PRESENT: normal external ear exam Mouth exam: PRESENT: moist, tongue midline Respiratory exam: PRESENT: clear to auscultation fely, decreased breath sounds. ABSENT: rales, rhonchi, wheezes Cardiovascular exam: PRESENT: RRR. ABSENT: diastolic murmur, rubs, systolic murmur GI/Abdominal exam: PRESENT: normal bowel sounds, soft. ABSENT: distended, guarding, mass, organolmegaly, rebound, tenderness Rectal exam: PRESENT: deferred Extremities exam: PRESENT: full ROM. ABSENT: calf tenderness, clubbing, pedal edema Musculoskeletal exam: PRESENT: normal inspection Neurological exam: PRESENT: alert, awake, oriented to person, oriented to place, oriented to time, oriented to situation, CN II-XII grossly intact. ABSENT: motor sensory deficit Skin exam: PRESENT: dry, intact, warm. ABSENT: cyanosis, rash Laboratory/Radiographs Laboratory Results: 05/23/19 04:08 05/23/19 04:08 05/16/19 05/16/19 13:48 19:49 Troponin I < 0.012 0.096 NT-Pro-B Natriuret Pep 846 H Impressions: Chest/Abdomen CTA 05/16/19 14:34 IMPRESSION: 1. There is no aortic aneurysm or dissection. There is no pulmonary embolus. 2. Predominantly ground-glass infiltrates in the upper aspect of the right lower lobe and in the upper lobes. Chronic interstitial changes versus infectious/inflammatory process versus mild pulmonary edema. 3. Ground-glass nodule in the right upper lobe posteriorly that measures 13 mm. This may be infectious/inflammatory. Cannot exclude neoplasm. 4. Pleura-based mass in the right lower lobe, may be infectious/ inflammatory. Cannot exclude neoplasm. Head CT 05/16/19 16:28 IMPRESSION: MILD CHRONIC MICROVASCULAR ISCHEMIA. NO ACUTE IMAGING FINDINGS IN THE BRAIN. EVIDENCE OF ACUTE STROKE: NO. Chest X-Ray 05/21/19 13:28 IMPRESSION: No significant interval change in the chest following extubation. Persistent small effusions and basilar airspace disease left greater than right. This could represent atelectasis or pneumonia. All labs, radiographs, diagnostic studies and EKGs were personally reviewed: Yes In addition, reports of radiographic and diagnostic studies were read: Yes Assessment and Plan - Diagnosis (1) Acute respiratory failure with hypoxia and hypercarbia Is this a current diagnosis for this admission?: Yes Plan: Resolved (2) COPD exacerbation Is this a current diagnosis for this admission?: Yes Plan: Inactive (3) Morbid obesity with BMI of 45.0-49.9, adult Is this a current diagnosis for this admission?: Yes Plan: Chronic (4) Physical deconditioning Is this a current diagnosis for this admission?: Yes Plan: Needs PT and most likely rehab. Plan Summary: Transfer to medical floor when a bed is available. Critical Time Critical Time (minutes): 30 Level of Care: MEDICAL Anticipated discharge: SNF Within: within 72 hours -: 1. The care of a critical patient is a dynamic process. This note is a financial services representative synopsis but static in nature. The timeframe for treatments given in order is not necessarily the actual time these treatments may have been done. 2. This patient requires critical care secondary to ongoing requirements for therapy not offered or safe outside the critical care environment. Transfer to a lower level of care will result in altered life or limb morbidity and mortality. 3. Multidisciplinary rounds completed. 4. ABCDE bundle addressed.
[2019-05-24] MEDS ORDERED: LISINOPRIL 10 MG TABLET PO ONE (17:00)
[2019-05-24] MEDS: DIVALPROEX SODIUM 500 MG TAB.SR.24H PO SCH (21:09)
[2019-05-24] MEDS: PRAMIPEXOLE DI-HCL 0.5 MG TABLET PO SCH (21:09)
[2019-05-25] MEDS: ALBUTEROL SULFATE 0.083% NEB 2.5 MG/3 ML AMPUL NEB SCH ×6 (00:40→20:53)
[2019-05-25 04:29] LABS: HEMATOCRIT 36.6 % (36.0-47.0); MEAN CORPUSCULAR HEMOGLOBIN 29.1 pg (27.0-33.4); MEAN CORPUSCULAR HGB CONC 32.8 g/dL (32.0-36.0); MEAN CORPUSCULAR VOLUME 89 fl (80-97); PLATELET COUNT 152 10^3/uL (150-450); RED BLOOD COUNT 4.13 10^6/uL (3.72-5.28); WHITE BLOOD COUNT 7.9 10^3/uL (4.0-10.5)
[2019-05-25 04:45] LABS: ANION GAP 6 (5-19); BLOOD UREA NITROGEN 26 mg/dL (7-20); CALCIUM 8.4 mg/dL (8.4-10.2); CARBON DIOXIDE 32 mmol/L (22-30); CHLORIDE 103 mmol/L (98-107); GLUCOSE 167 mg/dL (75-110); POTASSIUM 4.3 mmol/L (3.6-5.0)
[2019-05-25 04:49] LABS: ABSOLUTE LYMPHOCYTES# (MANUAL) 1.6 10^3/uL (0.5-4.7); ABSOLUTE MONOCYTES # (MANUAL) 0.4 10^3/uL (0.1-1.4); ANISOCYTOSIS SLIGHT; BAND NEUTROPHILS % (MANUAL) 2 % (3-5); BASOPHILS % (MANUAL) 0 % (0-2); EOSINOPHILS % (MANUAL) 0 % (0-6); LYMPHOCYTES % (MANUAL) 20 % (13-45); MONOCYTES % (MANUAL) 5 % (3-13); NUCLEATED RED BLOOD CELLS 1 /100 WBC (0); SEGMENTED NEUTROPHILS % (MAN) 73 % (42-78); TOTAL CELLS COUNTED 100
[2019-05-25 04:50] LABS: PLATELET COMMENT ADEQUATE
[2019-05-25] MEDS ORDERED: LIDOCAINE 2% JELLY 5 ML TUBE TOP ONE (06:23)
[2019-05-25] MEDS: METOPROLOL SUCCINATE 50 MG TAB.SR.24H PO SCH (09:00)
[2019-05-25] MEDS: METOPROLOL TARTRATE 25 MG TABLET PO SCH (09:00)
[2019-05-25] MEDS: ATORVASTATIN CALCIUM 20 MG TABLET PO SCH (09:00)
[2019-05-25] MEDS: METHYLPREDNISOLONE INJ 40 MG/1 ML SDV IV SCH ×2 (09:00→21:41)
[2019-05-25] MEDS: FLUTICASONE/VILANTEROL 200-25 MCG/DOSE IH SCH (09:00)
[2019-05-25] MEDS: SPIRONOLACTONE 25 MG TABLET PO SCH (09:00)
[2019-05-25] MEDS: APIXABAN 5 MG TABLET PO SCH ×2 (11:42→18:24)
[2019-05-25] MEDS ORDERED: FUROSEMIDE INJ/PF 40 MG/4 ML SDV IV ONE (12:00)
--- NOTE | 2019-05-25 12:27 | PDOC CRITICAL CARE PROG REPORT ---
General Date:: 05/25/19 ICU Day:: 9 Hospital Day:: 9 Resuscitation Status: Do Not Resuscitate Medical Power of Customer Experience Leader: Sophie Maxwell Events in the past 12 to 24 Hours:: Less edema, breathing easier. Review of systems relevant to events:: Respiratory Reason for ICU Addmission:: Acute hypoxemic and hypercapnic respiratory failure; COPD exacerbation - Medications: Medications reviewed and adjusted accordingly: Yes Vasopressors:: None Sedation:: None Physical Exam Vital Signs: Temp Pulse Resp BP Pulse Ox 98.1 F 52 L 17 186/92 H 95 05/25/19 08:27 05/25/19 11:42 05/25/19 11:42 05/25/19 08:27 05/25/19 11:42 Intake & Output 05/24/19 05/25/19 05/26/19 06:59 06:59 06:59 Intake Total 0 1000 Output Total 380 800 500 Balance -380 200 -500 Weight 115 kg 118 kg Weight/Height Weight 118 kg Height 5 ft 2 in General appearance: PRESENT: no acute distress, well-developed, well-nourished Head exam: PRESENT: atraumatic, normocephalic Eye exam: PRESENT: conjunctiva pink, EOMI, PERRLA. ABSENT: scleral icterus Ear exam: PRESENT: normal external ear exam Mouth exam: PRESENT: moist, tongue midline Respiratory exam: PRESENT: decreased breath sounds, unlabored GI/Abdominal exam: PRESENT: normal bowel sounds, soft. ABSENT: distended, guarding, mass, organolmegaly, rebound, tenderness Rectal exam: PRESENT: deferred Extremities exam: PRESENT: pedal edema, +2 edema, other - No evidence of cellulitis Neurological exam: PRESENT: alert, awake, oriented to person, oriented to place, oriented to time, oriented to situation, CN II-XII grossly intact. ABSENT: motor sensory deficit Skin exam: PRESENT: dry, intact, warm. ABSENT: cyanosis, rash Laboratory/Radiographs Laboratory Results: 05/25/19 04:05 05/25/19 04:05 05/25/19 05/25/19 04:05 04:05 WBC 7.9 RBC 4.13 Hgb 12.0 Hct 36.6 MCV 89 MCH 29.1 MCHC 32.8 RDW 17.0 H Plt Count 152 Seg Neutrophils % Not Reportable Sodium 140.8 Potassium 4.3 Chloride 103 Carbon Dioxide 32 H Anion Gap 6 BUN 26 H Creatinine 0.52 Est GFR ( Amer) > 60 Glucose 167 H Calcium 8.4 Phosphorus 3.0 05/20/19 11:51 Blood Blood Culture - Final NO GROWTH IN 5 DAYS 05/20/19 11:35 Blood Blood Culture - Final NO GROWTH IN 5 DAYS 05/16/19 05/16/19 13:48 19:49 Troponin I < 0.012 0.096 NT-Pro-B Natriuret Pep 846 H Impressions: Chest/Abdomen CTA 05/16/19 14:34 IMPRESSION: 1. There is no aortic aneurysm or dissection. There is no pulmonary embolus. 2. Predominantly ground-glass infiltrates in the upper aspect of the right lower lobe and in the upper lobes. Chronic interstitial changes versus infectious/inflammatory process versus mild pulmonary edema. 3. Ground-glass nodule in the right upper lobe posteriorly that measures 13 mm. This may be infectious/inflammatory. Cannot exclude neoplasm. 4. Pleura-based mass in the right lower lobe, may be infectious/ inflammatory. Cannot exclude neoplasm. Head CT 05/16/19 16:28 IMPRESSION: MILD CHRONIC MICROVASCULAR ISCHEMIA. NO ACUTE IMAGING FINDINGS IN THE BRAIN. EVIDENCE OF ACUTE STROKE: NO. Chest X-Ray 05/21/19 13:28 IMPRESSION: No significant interval change in the chest following extubation. Persistent small effusions and basilar airspace disease left greater than right. This could represent atelectasis or pneumonia. All labs, radiographs, diagnostic studies and EKGs were personally reviewed: Yes In addition, reports of radiographic and diagnostic studies were read: Yes Assessment and Plan - Diagnosis (1) Acute respiratory failure with hypoxia and hypercarbia Is this a current diagnosis for this admission?: Yes Plan: Resolved (2) COPD exacerbation Is this a current diagnosis for this admission?: Yes Plan: Receiving nebulizers and O2. (3) Morbid obesity with BMI of 45.0-49.9, adult Is this a current diagnosis for this admission?: Yes Plan: Chronic (4) Physical deconditioning Is this a current diagnosis for this admission?: Yes Plan: Needs to see PT and ave mod barium study in AM. (5) DVT (deep venous thrombosis) Qualifiers: DVT location: lower extremity Affected thrombotic vein of extremity: popliteal Chronicity: acute Laterality: right Qualified Code(s): I82.431 - Acute embolism and thrombosis of right popliteal vein Is this a current diagnosis for this admission?: Yes Plan: L leg. Keep on eliquis. Plan Summary: Modified barium swallow in AM. Hope to restart eliquis soon. Discharge soon. Needs to mobilize. Critical Time Critical Time (minutes): 25 Level of Care: MEDICAL Anticipated discharge: Home Within: within 72 hours -: 1. The care of a critical patient is a dynamic process. This note is a insurance follow up representative synopsis but static in nature. The timeframe for treatments given in order is not necessarily the actual time these treatments may have been done. 2. This patient requires critical care secondary to ongoing requirements for therapy not offered or safe outside the critical care environment. Transfer to a lower level of care will result in altered life or limb morbidity and mortality. 3. Multidisciplinary rounds completed. 4. ABCDE bundle addressed.
[2019-05-25] MEDS: LISINOPRIL 10 MG TABLET PO SCH (13:15)
[2019-05-25] MEDS ORDERED: HYDRALAZINE HCL 25 MG TABLET ONE (16:34)
[2019-05-25] MEDS ORDERED: HYDRALAZINE HCL INJ/PF 20 MG/1 ML SDV IV PRN (16:51)
[2019-05-25] MEDS ORDERED: HYDRALAZINE HCL 10 MG TABLET PO PRN (17:00)
[2019-05-25] MEDS ORDERED: CHLORTHALIDONE 25 MG TABLET PO ONE (17:45)
[2019-05-25] MEDS ORDERED: NIFEDIPINE 30 MG TAB.ER.24 PO ONE (18:00)
[2019-05-25] MEDS ORDERED: HYDRALAZINE HCL 50 MG TABLET PO SCH (18:00)
[2019-05-25] MEDS: DEXTROSE 5%-1/2 NORMAL SALINE 1,000 ML IV PRN (18:25)
[2019-05-25] MEDS: DIVALPROEX SODIUM 500 MG TAB.SR.24H PO SCH (21:41)
[2019-05-25] MEDS: PRAMIPEXOLE DI-HCL 0.5 MG TABLET PO SCH (21:41)
[2019-05-26] MEDS: ALBUTEROL SULFATE 0.083% NEB 2.5 MG/3 ML AMPUL NEB SCH ×6 (00:02→19:56)
[2019-05-26] MEDS: ATORVASTATIN CALCIUM 20 MG TABLET PO SCH (08:06)
[2019-05-26] MEDS: DEXTROSE 5%-1/2 NORMAL SALINE 1,000 ML IV PRN (08:19)
[2019-05-26] MEDS: LISINOPRIL 10 MG TABLET PO SCH (10:06)
[2019-05-26] MEDS: APIXABAN 5 MG TABLET PO SCH ×2 (10:06→17:30)
[2019-05-26] MEDS: NIFEDIPINE 30 MG TAB.ER.24 PO SCH ×2 (10:06→21:53)
[2019-05-26] MEDS: SPIRONOLACTONE 25 MG TABLET PO SCH (10:06)
[2019-05-26] MEDS: FLUTICASONE/VILANTEROL 200-25 MCG/DOSE IH SCH (10:07)
[2019-05-26] MEDS: METOPROLOL SUCCINATE 50 MG TAB.SR.24H PO SCH (10:07)
[2019-05-26] MEDS: METHYLPREDNISOLONE INJ 40 MG/1 ML SDV IV SCH ×2 (10:07→21:53)
[2019-05-26] MEDS: CHLORTHALIDONE 25 MG TABLET PO SCH (10:16)
--- NOTE | 2019-05-26 10:35 | PDOC CRITICAL CARE PROG REPORT ---
General Date:: 05/26/19 Hospital Day:: 10 Resuscitation Status: Do Not Resuscitate Medical Power of Developmental Mathematics Instructor: Sophie Maxwell Events in the past 12 to 24 Hours:: Passed swallow study and is on regular diet. Review of systems relevant to events:: Respiratory Reason for ICU Addmission:: Acute hypoxemic and hypercapnic respiratory failure; COPD exacerbation - Medications: Medications reviewed and adjusted accordingly: Yes Vasopressors:: None Sedation:: None Physical Exam Vital Signs: Temp Pulse Resp BP Pulse Ox 98.1 F 76 16 148/52 H 93 05/25/19 08:27 05/26/19 08:15 05/26/19 08:15 05/26/19 03:01 05/26/19 08:15 Intake & Output 05/25/19 05/26/19 05/27/19 06:59 06:59 06:59 Intake Total 1000 1000 834 Output Total 800 4000 Balance 200 -3000 834 Weight 118 kg 118 kg Weight/Height Weight 118 kg Height 5 ft 2 in General appearance: PRESENT: no acute distress, well-developed, well-nourished Head exam: PRESENT: atraumatic, normocephalic Eye exam: PRESENT: conjunctiva pink, EOMI, PERRLA. ABSENT: scleral icterus Ear exam: PRESENT: normal external ear exam Mouth exam: PRESENT: moist, tongue midline Neck exam: ABSENT: carotid bruit, JVD, lymphadenopathy, thyromegaly Respiratory exam: PRESENT: clear to auscultation fely, decreased breath sounds. ABSENT: rales, rhonchi, wheezes Cardiovascular exam: PRESENT: RRR. ABSENT: diastolic murmur, rubs, systolic murmur GI/Abdominal exam: PRESENT: normal bowel sounds, soft. ABSENT: distended, guarding, mass, organolmegaly, rebound, tenderness Rectal exam: PRESENT: deferred Musculoskeletal exam: PRESENT: normal inspection Neurological exam: PRESENT: alert, awake, oriented to person, oriented to place, oriented to time, oriented to situation, CN II-XII grossly intact. ABSENT: motor sensory deficit Skin exam: PRESENT: dry, intact, warm. ABSENT: cyanosis, rash Laboratory/Radiographs Laboratory Results: 05/25/19 04:05 05/25/19 04:05 05/20/19 11:51 Blood Blood Culture - Final NO GROWTH IN 5 DAYS 05/20/19 11:35 Blood Blood Culture - Final NO GROWTH IN 5 DAYS 05/16/19 05/16/19 13:48 19:49 Troponin I < 0.012 0.096 NT-Pro-B Natriuret Pep 846 H Impressions: Chest/Abdomen CTA 05/16/19 14:34 IMPRESSION: 1. There is no aortic aneurysm or dissection. There is no pulmonary embolus. 2. Predominantly ground-glass infiltrates in the upper aspect of the right lower lobe and in the upper lobes. Chronic interstitial changes versus infectious/inflammatory process versus mild pulmonary edema. 3. Ground-glass nodule in the right upper lobe posteriorly that measures 13 mm. This may be infectious/inflammatory. Cannot exclude neoplasm. 4. Pleura-based mass in the right lower lobe, may be infectious/ inflammatory. Cannot exclude neoplasm. Head CT 05/16/19 16:28 IMPRESSION: MILD CHRONIC MICROVASCULAR ISCHEMIA. NO ACUTE IMAGING FINDINGS IN THE BRAIN. EVIDENCE OF ACUTE STROKE: NO. Chest X-Ray 05/21/19 13:28 IMPRESSION: No significant interval change in the chest following extubation. Persistent small effusions and basilar airspace disease left greater than right. This could represent atelectasis or pneumonia. All labs, radiographs, diagnostic studies and EKGs were personally reviewed: Yes In addition, reports of radiographic and diagnostic studies were read: Yes Assessment and Plan - Diagnosis (1) Acute respiratory failure with hypoxia and hypercarbia Is this a current diagnosis for this admission?: Yes Plan: Resolved. Back to home O2 level. (2) COPD exacerbation Is this a current diagnosis for this admission?: Yes Plan: Resolved (3) Morbid obesity with BMI of 45.0-49.9, adult Is this a current diagnosis for this admission?: Yes Plan: Chronic (4) Physical deconditioning Is this a current diagnosis for this admission?: Yes Plan: Needs PT (5) DVT (deep venous thrombosis) Qualifiers: DVT location: lower extremity Affected thrombotic vein of extremity: popliteal Chronicity: acute Laterality: right Qualified Code(s): I82.431 - Acute embolism and thrombosis of right popliteal vein Is this a current diagnosis for this admission?: Yes Plan: Keep on blood thinners for 3-6 months. Plan Summary: Transfer to floor and home soon. Critical Time Critical Time (minutes): 25 Level of Care: MEDICAL Anticipated discharge: Home Within: within 48 hours -: 1. The care of a critical patient is a dynamic process. This note is a plastic products sales representative synopsis but static in nature. The timeframe for treatments given in order is not necessarily the actual time these treatments may have been done. 2. This patient requires critical care secondary to ongoing requirements for therapy not offered or safe outside the critical care environment. Transfer to a lower level of care will result in altered life or limb morbidity and m ortality. 3. Multidisciplinary rounds completed. 4. ABCDE bundle addressed.
--- NOTE | 2019-05-26 13:25 | ST Inp Modified Barium Swallow ---
Medical Diagnosis - Medical Diagnoses Medical Diagnosis Description & ICD-10 Code(s): acute respiratory failure, aspiration pneumonia - ICD-10 Tx Diagnosis Coding (1) Dysphagia ICD-10 Code(s): R13.10 - DYSPHAGIA, UNSPECIFIED (2) Aspiration pneumonia ICD-10 Code(s): J69.0 - PNEUMONITIS DUE TO INHALATION OF FOOD AND VOMIT ST Inpatient MBS - General Date: 05/26/19 - History -: Medical - per EMR: patient admitted due to increased dyspnea and hypoxia. Patient was subsequently intubated, currently extubated and NPO pending MBSS. Medications: Medications Reviewed Allergies: Refer to medical record - Subjective Current Nutritional Means: NPO Current PO Diet: N/A (NPO) Current Symptoms: Hx of asp. pneumonia Pain: Patient reports, 0/5 - Objective Assessment: Upright, Left Lateral - Food Trials Food Trials Used: Thin liquids, Pureed, Regular The Patient: Was Able to Self Feed - Assessment Labial Function: Within Normal Limits Lingual Function: Within Normal Limits Mandibular Function: Within Normal Limits Velo-Pharyngeal Function: Unremarkable Laryngeal Function: clear voicing - Pharyngeal Stage Initiation of Pharyngeal Stage: Normal Decreased Laryngeal Elevation: No Reduced Velo-Pharyngeal Closure: no Reduced Pressure Generation: No Reduced Tongue Base Retraction: No Pre-Swallowing Pooling in Valleculae: None Pre-Swallowing Pooling in Pyriforms: None Reduced Thyro-Hyiod Approximation: No Reduced Epiglottic Excursion: No Reduced Pharyngeal Peristalsis: No Post Swallow Residuals in Valleculae: Mild Post Swallow Residuals in Pyriforms: None - Impression/Summary Laryngeal Penetration: No Tracheal Aspiration: no Patient Presents With: Normal swallow at eval Risk of Aspiration: Mild Risk Due To: underlying respiratory status places patient at higher risk of aspiration. Patient also demonstrated cough after the study, however, during the study, no material was seen to enter or interfer with the airway. - Recommendations Solid Diet Recommendations: Mechanical Soft, Chopped Meat Liquid Diet Recommendations: Thin Regular Diet: Yes - pt may advance as tolerated Dysphagia Therapy with CHIEF CLERK SHELTER: No Recommended Techniques: Fully Upright During Meal, Small Bites and Sips Other Recommendations: Discussed with patient regular diet versus mechanical soft cut. Patient opted to start with mechanical soft foods to "get back into it". Diet order placed by therapist per physician direction. - Time Total Time: 30 Total Timed Minutes: 30
--- NOTE | 2019-05-26 14:31 | RADIOLOGY REPORT (SQ) ---
EXAM DESCRIPTION: EWNIE SWALLOW COMPLETED DATE/TIME: 05/26/2019 9:35 am REASON FOR STUDY: concerns for aspiration when eating/drinkingAspiration pneumonia, dysphagia, recen tly intubated COMPARISON: None. TECHNIQUE: Videofluoroscopic swallowing examination was performed in conjunction with speech patholo gy. Videofluoroscopic imaging was obtained and reviewed and these are the findings: RADIATION DOSE: 2 minutes 21 seconds of fluoroscopy was used. 2 images saved to PACS. LIMITATIONS: None FINDINGS: The patient was brought into the fluoro room and placed upright on a modified barium swall ow chair. The patient was then given multiple consistencies mixed with barium to swallow under live fluoroscopic video guidance. According to the Speech Pathologist there was no penetration or aspirat ion. IMPRESSION: NO EVIDENCE OF PENETRATION OR ASPIRATION. PLEASE SEE SPEECH PATHOLOGIST REPORT FOR OTHER FINDINGS AND RECOMMENDATIONS. COMMENT: Quality ID [id number]: Final reports for procedures using fluoroscopy that document radiation exp osure indices, or exposure time and number of fluorographic images (if radiation exposure indices are not available) TECHNICAL DOCUMENTATION: JOB ID: [id number] 2010 [employer]- All Rights Reserved Reading location - IP/workstation name: [email or web address] [id number]
[2019-05-26] MEDS: DIVALPROEX SODIUM 500 MG TAB.SR.24H PO SCH (21:54)
[2019-05-26] MEDS: PRAMIPEXOLE DI-HCL 0.5 MG TABLET PO SCH (21:54)
[2019-05-27] MEDS: ALBUTEROL SULFATE 0.083% NEB 2.5 MG/3 ML AMPUL NEB SCH ×6 (00:34→21:55)
[2019-05-27] MEDS ORDERED: DIPHENHYDRAMINE HCL 50 MG CAPSULE PO PRN (05:23)
[2019-05-27] MEDS: CHLORTHALIDONE 25 MG TABLET PO SCH (10:24)
[2019-05-27] MEDS: METOPROLOL SUCCINATE 50 MG TAB.SR.24H PO SCH (10:25)
[2019-05-27] MEDS: NIFEDIPINE 30 MG TAB.ER.24 PO SCH ×2 (10:25→21:32)
[2019-05-27] MEDS: SPIRONOLACTONE 25 MG TABLET PO SCH (10:25)
[2019-05-27] MEDS: ATORVASTATIN CALCIUM 20 MG TABLET PO SCH (10:25)
[2019-05-27] MEDS: METHYLPREDNISOLONE INJ 40 MG/1 ML SDV IV SCH (10:25)
[2019-05-27] MEDS: LISINOPRIL 10 MG TABLET PO SCH (10:25)
[2019-05-27] MEDS: FLUTICASONE/VILANTEROL 200-25 MCG/DOSE IH SCH (10:26)
[2019-05-27] MEDS: APIXABAN 5 MG TABLET PO SCH ×2 (10:26→18:04)
--- NOTE | 2019-05-27 17:20 | PDOC PROGRESS REPORT ---
Subjective Progress Note for:: 05/27/19 Subjective:: This is a 72-year-old female who presented with increasing shortness of breath and hypoxia. Patient was intubated in the ER on 05/16/19 for severe COPD exacerbation and pneumonia. She was admitted to the ICU. She was extubated on 05/19/19. Her ICU course was slightly prolonged as she was initially requiring high flow O2 and BiPAP a few days after extubation. She was downgraded to the floor last night. No acute event overnight. Upon encounter, patient appears comfortable saturating well on her home O2 requirement 3 LPM's via NC. Denies denies chest pain or shortness of breath. Discussed about the finding of a possible right pleural-based lung mass. Patient says that she closely follows up with a social worker assistant for this but she was told that further work-up. She says she has another follow-up visit with her social worker assistant next month. Reason For Visit: ACUTE HYPERCAPNIC RESPIRATORY FAILURE, Physical Exam Vital Signs: Temp Pulse Resp BP Pulse Ox 97.7 F 78 16 154/53 H 94 05/27/19 12:00 05/27/19 15:32 05/27/19 15:32 05/27/19 12:00 05/27/19 15:32 Intake & Output 05/26/19 05/27/19 05/28/19 06:59 06:59 06:59 Intake Total 1000 1150 Output Total 4000 1600 Balance -3000 -450 Weight 260 lb 2.327 oz 237 lb 14.06 oz General appearance: PRESENT: no acute distress, well-developed, well-nourished Head exam: PRESENT: atraumatic, normocephalic Eye exam: PRESENT: conjunctiva pink, EOMI, PERRLA. ABSENT: scleral icterus Ear exam: PRESENT: normal external ear exam Mouth exam: PRESENT: moist, tongue midline Neck exam: ABSENT: carotid bruit, JVD, lymphadenopathy, thyromegaly Respiratory exam: PRESENT: clear to auscultation fely. ABSENT: rales, rhonchi, wheezes Cardiovascular exam: PRESENT: RRR. ABSENT: diastolic murmur, rubs, systolic murmur Pulses: PRESENT: normal dorsalis pedis pul GI/Abdominal exam: PRESENT: normal bowel sounds, soft. ABSENT: distended, guard ing, mass, organolmegaly, rebound, tenderness Rectal exam: PRESENT: deferred Extremities exam: PRESENT: full ROM. ABSENT: calf tenderness, clubbing, pedal edema Neurological exam: PRESENT: alert, awake, oriented to person, oriented to place, oriented to time, oriented to situation, CN II-XII grossly intact. ABSENT: motor sensory deficit Results Laboratory Results: 05/25/19 04:05 05/25/19 04:05 05/21/19 22:30 Blood Blood Culture - Final NO GROWTH IN 5 DAYS 05/21/19 21:48 Blood Blood Culture - Final NO GROWTH IN 5 DAYS 05/16/19 05/16/19 13:48 19:49 Troponin I < 0.012 0.096 NT-Pro-B Natriuret Pep 846 H Impressions: Chest/Abdomen CTA 05/16/19 14:34 IMPRESSION: 1. There is no aortic aneurysm or dissection. There is no pulmonary embolus. 2. Predominantly ground-glass infiltrates in the upper aspect of the right lower lobe and in the upper lobes. Chronic interstitial changes versus infectious/inflammatory process versus mild pulmonary edema. 3. Ground-glass nodule in the right upper lobe posteriorly that measures 13 mm. This may be infectious/inflammatory. Cannot exclude neoplasm. 4. Pleura-based mass in the right lower lobe, may be infectious/ inflammatory. Cannot exclude neoplasm. Head CT 05/16/19 16:28 IMPRESSION: MILD CHRONIC MICROVASCULAR ISCHEMIA. NO ACUTE IMAGING FINDINGS IN THE BRAIN. EVIDENCE OF ACUTE STROKE: NO. Chest X-Ray 05/21/19 13:28 IMPRESSION: No significant interval change in the chest following extubation. Persistent small effusions and basilar airspace disease left greater than right. This could represent atelectasis or pneumonia. Modified Barium Swallow 05/26/19 00:00 IMPRESSION: NO EVIDENCE OF PENETRATION OR ASPIRATION. PLEASE SEE SPEECH PATHOLOGIST REPORT FOR OTHER FINDINGS AND RECOMMENDATIONS. Assessment and Plan - Diagnosis (1) Acute respiratory failure with hypoxia and hypercarbia Is this a current diagnosis for this admission?: Yes Plan: Resolved. Extubated on 05/19. Currently saturating well on home O2 requirement. (2) COPD exacerbation Is this a current diagnosis for this admission?: Yes Plan: Resolved. Switch Solu-Medrol to prednisone. (3) DVT (deep venous thrombosis) Qualifiers: DVT location: lower extremity Affected thrombotic vein of extremity: popl iteal Chronicity: acute Laterality: right Qualified Code(s): I82.431 - Acute embolism and thrombosis of right popliteal vein Is this a current diagnosis for this admission?: Yes Plan: Continue Eliquis. (4) Pneumonia Qualifiers: Pneumonia type: due to unspecified organism Laterality: right Lung location: lower lobe of lung Qualified Code(s): J18.9 - Pneumonia, unspecified organism Is this a current diagnosis for this admission?: Yes Plan: Resolved. Completed IV antibiotics. - Time Time Spent with patient: 25-34 minutes
[2019-05-27] MEDS: PREDNISONE 20 MG TABLET PO SCH (18:04)
[2019-05-27] MEDS: DIVALPROEX SODIUM 500 MG TAB.SR.24H PO SCH (21:32)
[2019-05-27] MEDS: PRAMIPEXOLE DI-HCL 0.5 MG TABLET PO SCH (21:33)
[2019-05-28] MEDS: ALBUTEROL SULFATE 0.083% NEB 2.5 MG/3 ML AMPUL NEB SCH ×6 (00:21→19:42)
[2019-05-28] MEDS: ATORVASTATIN CALCIUM 20 MG TABLET PO SCH (07:57)
[2019-05-28] MEDS: METOPROLOL SUCCINATE 50 MG TAB.SR.24H PO SCH (10:43)
[2019-05-28] MEDS: PREDNISONE 20 MG TABLET PO SCH ×2 (10:43→17:14)
[2019-05-28] MEDS: APIXABAN 5 MG TABLET PO SCH ×2 (10:43→17:14)
[2019-05-28] MEDS: LISINOPRIL 10 MG TABLET PO SCH (10:44)
[2019-05-28] MEDS: NIFEDIPINE 30 MG TAB.ER.24 PO SCH ×2 (10:44→21:52)
[2019-05-28] MEDS: SPIRONOLACTONE 25 MG TABLET PO SCH (10:44)
[2019-05-28] MEDS: FLUTICASONE/VILANTEROL 200-25 MCG/DOSE IH SCH (10:45)
[2019-05-28] MEDS: CHLORTHALIDONE 25 MG TABLET PO SCH (10:45)
--- NOTE | 2019-05-28 18:01 | PDOC PROGRESS REPORT ---
Subjective Progress Note for:: 05/28/19 Subjective:: This is a 72-year-old female who presented with increasing shortness of breath and hypoxia. Patient was intubated in the ER on 05/16/19 for severe COPD exacerbation and pneumonia. She was admitted to the ICU. She was extubated on 05/19/19. Her ICU course was slightly prolonged as she was initially requiring high flow O2 and BiPAP a few days after extubation. She was downgraded to the floor last night. 05/27: No acute event overnight. Upon encounter, patient appears comfortable saturating well on her home O2 requirement 3 LPM's via NC. Denies denies chest pain or shortness of breath. Discussed about the finding of a possible right pleural-based lung mass. Patient says that she closely follows up with a recreation director for this but she was told that further work-up. She says she has another follow-up visit with her recreation director next month. 05/28: No acute event overnight. She denies acute complaints. Patient was ambulated by this provider and she did well using her walker. She was also evaluated by physical therapy. Patient expressed she she lives alone and prefers to go to a SNF for rehab. Reason For Visit: ACUTE HYPERCAPNIC RESPIRATORY FAILURE, Physical Exam Vital Signs: Temp Pulse Resp BP Pulse Ox 98.8 F 76 16 147/61 H 94 05/28/19 12:27 05/28/19 12:27 05/28/19 12:27 05/28/19 12:27 05/28/19 12:27 Intake & Output 05/27/19 05/28/19 05/29/19 06:59 06:59 06:59 Intake Total 1150 440 320 Output Total 1600 1 Balance -450 440 319 Weight 237 lb 14.06 oz 233 lb 11.04 oz General appearance: PRESENT: no acute distress, well-developed, well-nourished Head exam: PRESENT: atraumatic, normocephalic Eye exam: PRESENT: conjunctiva pink, EOMI, PERRLA. ABSENT: scleral icterus Ear exam: PRESENT: normal external ear exam Mouth exam: PRESENT: moist, tongue midline Neck exam: ABSENT: carotid bruit, JVD, lymphadenopathy, thyromegaly Respiratory exam: PRESENT: clear to auscultation fely. ABSENT: rales, rhonchi, wheezes Cardiovascular exam: PRESENT: RRR. ABSENT: diastolic murmur, rubs, systolic murmur Pulses: PRESENT: normal dorsalis pedis pul GI/Abdominal exam: PRESENT: normal bowel sounds, soft. ABSENT: distended, guarding, mass, organolmegaly, rebound, tenderness Rectal exam: PRESENT: deferred Extremities exam: PRESENT: full ROM. ABSENT: calf tenderness, clubbing, pedal edema Neurological exam: PRESENT: alert, awake, oriented to person, oriented to place, oriented to time, oriented to situation, CN II-XII grossly intact. ABSENT: motor sensory deficit Results Laboratory Results: 05/25/19 04:05 05/25/19 04:05 05/16/19 05/16/19 13:48 19:49 Troponin I < 0.012 0.096 NT-Pro-B Natriuret Pep 846 H Impressions: Chest/Abdomen CTA 05/16/19 14:34 IMPRESSION: 1. There is no aortic aneurysm or dissection. There is no pulmonary embolus. 2. Predominantly ground-glass infiltrates in the upper aspect of the right lower lobe and in the upper lobes. Chronic interstitial changes versus infectious/inflammatory process versus mild pulmonary edema. 3. Ground-glass nodule in the right upper lobe posteriorly that measures 13 mm. This may be infectious/inflammatory. Cannot exclude neoplasm. 4. Pleura-based mass in the right lower lobe, may be infectious/ inflammatory. Cannot exclude neoplasm. Head CT 05/16/19 16:28 IMPRESSION: MILD CHRONIC MICROVASCULAR ISCHEMIA. NO ACUTE IMAGING FINDINGS IN THE BRAIN. EVIDENCE OF ACUTE STROKE: NO. Chest X-Ray 05/21/19 13:28 IMPRESSION: No significant interval change in the chest following extubation. Persistent small effusions and basilar airspace disease left greater than right. This could represent atelectasis or pneumonia. Modified Barium Swallow 05/26/19 00:00 IMPRESSION: NO EVIDENCE OF PENETRATION OR ASPIRATION. PLEASE SEE SPEECH PATHOLOGIST REPORT FOR OTHER FINDINGS AND RECOMMENDATIONS. Assessment and Plan - Diagnosis (1) Acute respiratory failure with hypoxia and hypercarbia Is this a current diagnosis for this admission?: Yes Plan: Resolved. Extubated on 05/19. Currently saturating well on home O2 requirement. (2) COPD exacerbation Is this a current diagnosis for this admission?: Yes Plan: Resolved. Continue prednisone. (3) DVT (deep venous thrombosis) Qualifiers: DVT location: lower extremity Affected thrombotic vein of extremity: popliteal Chronicity: acute Laterality: right Qualified Code(s): I82.431 - Acute embolism and thrombosis of right popliteal vein Is this a current diagnosis for this admission?: Yes Plan: Continue Eliquis. (4) Pneumonia Qualifiers: Pneumonia type: due to unspecified organism Laterality: right Lung location: lower lobe of lung Qualified Code(s): J18.9 - Pneumonia, unspecified organism Is this a current diagnosis for this admission?: Yes Plan: Resolved. Completed IV antibiotics. - Time Time Spent with patient: 25-34 minutes
[2019-05-28] MEDS: DIVALPROEX SODIUM 500 MG TAB.SR.24H PO SCH (21:52)
[2019-05-28] MEDS: PRAMIPEXOLE DI-HCL 0.5 MG TABLET PO SCH (21:52)
[2019-05-29] MEDS: ALBUTEROL SULFATE 0.083% NEB 2.5 MG/3 ML AMPUL NEB SCH ×8 (00:06→23:41)
[2019-05-29] MEDS: NIFEDIPINE 30 MG TAB.ER.24 PO SCH ×2 (09:46→22:06)
[2019-05-29] MEDS: ATORVASTATIN CALCIUM 20 MG TABLET PO SCH (09:46)
[2019-05-29] MEDS: PREDNISONE 20 MG TABLET PO SCH ×2 (09:46→17:03)
[2019-05-29] MEDS: SPIRONOLACTONE 25 MG TABLET PO SCH (09:46)
[2019-05-29] MEDS: METOPROLOL SUCCINATE 50 MG TAB.SR.24H PO SCH (09:46)
[2019-05-29] MEDS: LISINOPRIL 10 MG TABLET PO SCH (09:46)
[2019-05-29] MEDS: APIXABAN 5 MG TABLET PO SCH ×2 (09:47→17:02)
[2019-05-29] MEDS: CHLORTHALIDONE 25 MG TABLET PO SCH (09:47)
[2019-05-29] MEDS: FLUTICASONE/VILANTEROL 200-25 MCG/DOSE IH SCH (09:47)
--- NOTE | 2019-05-29 16:20 | PDOC PROGRESS REPORT ---
Subjective Progress Note for:: 05/29/19 Subjective:: This is a 72-year-old female who presented with increasing shortness of breath and hypoxia. Patient was intubated in the ER on 05/16/19 for severe COPD exacerbation and pneumonia. She was admitted to the ICU. She was extubated on 05/19/19. Her ICU course was slightly prolonged as she was initially requiring high flow O2 and BiPAP a few days after extubation. She was downgraded to the floor last night. 05/27: No acute event overnight. Upon encounter, patient appears comfortable saturating well on her home O2 requirement 3 LPM's via NC. Denies denies chest pain or shortness of breath. Discussed about the finding of a possible right pleural-based lung mass. Patient says that she closely follows up with a brick paving checker for this but she was told that further work-up. She says she has another follow-up visit with her brick paving checker next month. 05/28: No acute event overnight. She denies acute complaints. Patient was ambulated by this provider and she did well using her walker. She was also evaluated by physical therapy. Patient expressed she she lives alone and prefers to go to a SNF for rehab. 05/29: No acute event overnight. Denies acute complaints. Patient was reevaluated by physical therapy today. Discussed with PT. Patient was evaluate d on ambulating through the stairs. PT reports patient got winded when trying to navigate the stairs. Patient may benefit from SNF per PT recommendations. Patient is medically stable for discharge pending placement. Reason For Visit: ACUTE HYPERCAPNIC RESPIRATORY FAILURE, Physical Exam Vital Signs: Temp Pulse Resp BP Pulse Ox 98.3 F 76 16 162/59 H 95 05/29/19 12:20 05/29/19 15:34 05/29/19 15:34 05/29/19 12:20 05/29/19 15:34 Intake & Output 05/28/19 05/29/19 05/30/19 06:59 06:59 06:59 Intake Total 440 570 537 Output Total 4 700 Balance 440 566 -163 Weight 233 lb 11.04 oz 233 lb 11.04 oz General appearance: PRESENT: no acute distress, well-developed, well-nourished Head exam: PRESENT: atraumatic, normocephalic Eye exam: PRESENT: conjunctiva pink, EOMI, PERRLA. ABSENT: scleral icterus Ear exam: PRESENT: normal external ear exam Mouth exam: PRESENT: moist, tongue midline Neck exam: ABSENT: carotid bruit, JVD, lymphadenopathy, thyromegaly Respiratory exam: PRESENT: clear to auscultation fely. ABSENT: rales, rhonchi, wheezes Cardiovascular exam: PRESENT: RRR. ABSENT: diastolic murmur, rubs, systolic murmur Pulses: PRESENT: normal dorsalis pedis pul GI/Abdominal exam: PRESENT: normal bowel sounds, soft. ABSENT: distended, guarding, mass, organolmegaly, rebound, tenderness Rectal exam: PRESENT: deferred Extremities exam: PRESENT: full ROM. ABSENT: calf tenderness, clubbing, pedal edema Neurological exam: PRESENT: alert, awake, oriented to person, oriented to place, oriented to time, oriented to situation, CN II-XII grossly intact. ABSENT: motor sensory deficit Results Laboratory Results: 05/25/19 04:05 05/25/19 04:05 05/16/19 05/16/19 13:48 19:49 Troponin I < 0.012 0.096 NT-Pro-B Natriuret Pep 846 H Impressions: Chest/Abdomen CTA 05/16/19 14:34 IMPRESSION: 1. There is no aortic aneurysm or dissection. There is no pulmonary embolus. 2. Predominantly ground-glass infiltrates in the upper aspect of the right lower lobe and in the upper lobes. Chronic interstitial changes versus infectious/inflammatory process versus mild pulmonary edema. 3. Ground-glass nodule in the right upper lobe posteriorly that measures 13 mm. This may be infectious/inflammatory. Cannot exclude neoplasm. 4. Pleura-based mass in the right lower lobe, may be infectious/ inflammatory. Cannot exclude neoplasm. Head CT 05/16/19 16:28 IMPRESSION: MILD CHRONIC MICROVASCULAR ISCHEMIA. NO ACUTE IMAGING FINDINGS IN THE BRAIN. EVIDENCE OF ACUTE STROKE: NO. Chest X-Ray 05/21/19 13:28 IMPRESSION: No significant interval change in the chest following extubation. Persistent small effusions and basilar airspace disease left greater than right. This could represent atelectasis or pneumonia. Modified Barium Swallow 05/26/19 00:00 IMPRESSION: NO EVIDENCE OF PENETRATION OR ASPIRATION. PLEASE SEE SPEECH PATHOLOGIST REPORT FOR OTHER FINDINGS AND RECOMMENDATIONS. Assessment and Plan - Diagnosis (1) Acute respiratory failure with hypoxia and hypercarbia Is this a current diagnosis for this admission?: Yes Plan: Resolved. Extubated on 05/19. Currently saturating well on home O2 requirement. (2) COPD exacerbation Is this a current diagnosis for this admission?: Yes Plan: Resolved. Continue prednisone. (3) DVT (deep venous thrombosis) Qualifiers: DVT location: lower extremity Affected thrombotic vein of extremity: popliteal Chronicity: acute Laterality: right Qualified Code(s): I82.431 - Acute embolism and thrombosis of right popliteal vein Is this a current diagnosis for this admission?: Yes Plan: Continue Eliquis. (4) Pneumonia Qualifiers: Pneumonia type: due to unspecified organism Laterality: right Lung location: lower lobe of lung Qualified Code(s): J18.9 - Pneumonia, unspecified organism Is this a current diagnosis for this admission?: Yes Plan: Resolved. Completed IV antibiotics. - Time Time Spent with patient: 25-34 minutes
[2019-05-29] MEDS: PRAMIPEXOLE DI-HCL 0.5 MG TABLET PO SCH (22:08)
[2019-05-29] MEDS: DIVALPROEX SODIUM 500 MG TAB.SR.24H PO SCH (22:08)
[2019-05-30] MEDS: ALBUTEROL SULFATE 0.083% NEB 2.5 MG/3 ML AMPUL NEB SCH ×6 (04:40→23:54)
[2019-05-30] MEDS: ATORVASTATIN CALCIUM 20 MG TABLET PO SCH (07:48)
[2019-05-30] MEDS: SPIRONOLACTONE 25 MG TABLET PO SCH (09:24)
[2019-05-30] MEDS: CHLORTHALIDONE 25 MG TABLET PO SCH (09:24)
[2019-05-30] MEDS: NIFEDIPINE 30 MG TAB.ER.24 PO SCH ×2 (09:25→21:56)
[2019-05-30] MEDS: PREDNISONE 20 MG TABLET PO SCH ×2 (09:25→17:28)
[2019-05-30] MEDS: LISINOPRIL 10 MG TABLET PO SCH (09:25)
[2019-05-30] MEDS: APIXABAN 5 MG TABLET PO SCH ×2 (09:25→17:28)
[2019-05-30] MEDS: FLUTICASONE/VILANTEROL 200-25 MCG/DOSE IH SCH (09:25)
[2019-05-30] MEDS: METOPROLOL SUCCINATE 50 MG TAB.SR.24H PO SCH (09:25)
--- NOTE | 2019-05-30 15:21 | PDOC PROGRESS REPORT ---
Subjective Progress Note for:: 05/30/19 Subjective:: This is a 72-year-old female who presented with increasing shortness of breath and hypoxia. Patient was intubated in the ER on 05/16/19 for severe COPD exacerbation and pneumonia. She was admitted to the ICU. She was extubated on 05/19/19. Her ICU course was slightly prolonged as she was initially requiring high flow O2 and BiPAP a few days after extubation. She was downgraded to the floor last night. 05/27: No acute event overnight. Upon encounter, patient appears comfortable saturating well on her home O2 requirement 3 LPM's via NC. Denies denies chest pain or shortness of breath. Discussed about the finding of a possible right pleural-based lung mass. Patient says that she closely follows up with a senior financial reporting analyst for this but she was told that further work-up. She says she has another follow-up visit with her senior financial reporting analyst next month. 05/28: No acute event overnight. She denies acute complaints. Patient was ambulated by this provider and she did well using her walker. She was also evaluated by physical therapy. Patient expressed she she lives alone and prefers to go to a SNF for rehab. 05/29: No acute event overnight. Denies acute complaints. Patient was reevaluated by physical therapy today. Discussed with PT. Patient was evaluate d on ambulating through the stairs. PT reports patient got winded when trying to navigate the stairs. Patient may benefit from SNF per PT recommendations. Patient is medically stable for discharge pending placement. 05/30: No acute issues. Patient denies acute complaints. Denies chest pain or shortness of breath. Patient is just awaiting placement to [facility] pending pre-auth from insurance. Reason For Visit: ACUTE HYPERCAPNIC RESPIRATORY FAILURE, Physical Exam Vital Signs: Temp Pulse Resp BP Pulse Ox 97.7 F 81 16 141/66 H 96 05/30/19 07:51 05/30/19 12:10 05/30/19 12:10 05/30/19 07:51 05/30/19 12:10 Intake & Output 05/29/19 05/30/19 05/31/19 06:59 06:59 06:59 Intake Total 570 2047 Output Total 4 700 Balance 566 1347 Weight 233 lb 11.04 oz 233 lb 11.04 oz 233 lb 11.04 oz General appearance: PRESENT: no acute distress, well-developed, well-nourished Head exam: PRESENT: atraumatic, normocephalic Eye exam: PRESENT: conjunctiva pink, EOMI, PERRLA. ABSENT: scleral icterus Ear exam: PRESENT: normal external ear exam Mouth exam: PRESENT: moist, tongue midline Neck exam: ABSENT: carotid bruit, JVD, lymphadenopathy, thyromegaly Respiratory exam: PRESENT: clear to auscultation fely. ABSENT: rales, rhonchi, wheezes Cardiovascular exam: PRESENT: RRR. ABSENT: diastolic murmur, rubs, systolic murmur Pulses: PRESENT: normal dorsalis pedis pul GI/Abdominal exam: PRESENT: normal bowel sounds, soft. ABSENT: distended, guarding, mass, organolmegaly, rebound, tenderness Rectal exam: PRESENT: deferred Extremities exam: PRESENT: full ROM. ABSENT: calf tenderness, clubbing Neurological exam: PRESENT: alert, awake, oriented to person, oriented to place, oriented to time, oriented to situation, CN II-XII grossly intact. ABSENT: motor sensory deficit Results Laboratory Results: 05/25/19 04:05 05/25/19 04:05 05/16/19 05/16/19 13:48 19:49 Troponin I < 0.012 0.096 NT-Pro-B Natriuret Pep 846 H Impressions: Chest/Abdomen CTA 05/16/19 14:34 IMPRESSION: 1. There is no aortic aneurysm or dissection. There is no pulmonary embolus. 2. Predominantly ground-glass infiltrates in the upper aspect of the right lower lobe and in the upper lobes. Chronic interstitial changes versus infectious/inflammatory process versus mild pulmonary edema. 3. Ground-glass nodule in the right upper lobe posteriorly that measures 13 mm. This may be infectious/inflammatory. Cannot exclude neoplasm. 4. Pleura-based mass in the right lower lobe, may be infectious/ inflammatory. Cannot exclude neoplasm. Head CT 05/16/19 16:28 IMPRESSION: MILD CHRONIC MICROVASCULAR ISCHEMIA. NO ACUTE IMAGING FINDINGS IN THE BRAIN. EVIDENCE OF ACUTE STROKE: NO. Chest X-Ray 05/21/19 13:28 IMPRESSION: No significant interval change in the chest following extubation. Persistent small effusions and basilar airspace disease left greater than right. This could represent atelectasis or pneumonia. Modified Barium Swallow 05/26/19 00:00 IMPRESSION: NO EVIDENCE OF PENETRATION OR ASPIRATION. PLEASE SEE SPEECH PATHOLOGIST REPORT FOR OTHER FINDINGS AND RECOMMENDATIONS. Assessment and Plan - Diagnosis (1) Acute respiratory failure with hypoxia and hypercarbia Is this a current diagnosis for this admission?: Yes Plan: Resolved. Extubated on 05/19. Currently saturating well on home O2 requirement. (2) COPD exacerbation Is this a current diagnosis for this admission?: Yes Plan: Resolved. Continue prednisone. (3) DVT (deep venous thrombosis) Qualifiers: DVT location: lower extremity Affected thrombotic vein of extremity: popliteal Chronicity: acute Laterality: right Qualified Code(s): I82.431 - Acute embolism and thrombosis of right popliteal vein Is this a current diagnosis for this admission?: Yes Plan: Continue Eliquis. (4) Pneumonia Qualifiers: Pneumonia type: due to unspecified organism Laterality: right Lung location: lower lobe of lung Qualified Code(s): J18.9 - Pneumonia, unspecified organism Is this a current diagnosis for this admission?: Yes Plan: Resolved. Completed IV antibiotics. - Time Time Spent with patient: 15-24 minutes
[2019-05-30] MEDS: PRAMIPEXOLE DI-HCL 0.5 MG TABLET PO SCH (21:56)
[2019-05-30] MEDS: DIVALPROEX SODIUM 500 MG TAB.SR.24H PO SCH (21:57)
[2019-05-31] MEDS: ALBUTEROL SULFATE 0.083% NEB 2.5 MG/3 ML AMPUL NEB SCH ×5 (04:05→20:36)
[2019-05-31] MEDS: SPIRONOLACTONE 25 MG TABLET PO SCH (10:07)
[2019-05-31] MEDS: LISINOPRIL 10 MG TABLET PO SCH (10:07)
[2019-05-31] MEDS: PREDNISONE 20 MG TABLET PO SCH ×2 (10:07→17:20)
[2019-05-31] MEDS: NIFEDIPINE 30 MG TAB.ER.24 PO SCH ×2 (10:08→21:26)
[2019-05-31] MEDS: APIXABAN 5 MG TABLET PO SCH ×2 (10:08→17:20)
[2019-05-31] MEDS: METOPROLOL SUCCINATE 50 MG TAB.SR.24H PO SCH (10:08)
[2019-05-31] MEDS: FLUTICASONE/VILANTEROL 200-25 MCG/DOSE IH SCH (10:13)
[2019-05-31] MEDS: ATORVASTATIN CALCIUM 20 MG TABLET PO SCH (10:14)
[2019-05-31] MEDS: CHLORTHALIDONE 25 MG TABLET PO SCH (10:14)
--- NOTE | 2019-05-31 14:46 | PDOC PROGRESS REPORT ---
Subjective Progress Note for:: 05/31/19 Subjective:: This is a 72-year-old female who presented with increasing shortness of breath and hypoxia. Patient was intubated in the ER on 05/16/19 for severe COPD exacerbation and pneumonia. She was admitted to the ICU. She was extubated on 05/19/19. Her ICU course was slightly prolonged as she was initially requiring high flow O2 and BiPAP a few days after extubation. She was downgraded to the floor last night. 05/27: No acute event overnight. Upon encounter, patient appears comfortable saturating well on her home O2 requirement 3 LPM's via NC. Denies denies chest pain or shortness of breath. Discussed about the finding of a possible right pleural-based lung mass. Patient says that she closely follows up with a oncology consultant for this but she was told that further work-up. She says she has another follow-up visit with her oncology consultant next month. 05/28: No acute event overnight. She denies acute complaints. Patient was ambulated by this provider and she did well using her walker. She was also evaluated by physical therapy. Patient expressed she she lives alone and prefers to go to a SNF for rehab. 05/29: No acute event overnight. Denies acute complaints. Patient was reevaluated by physical therapy today. Discussed with PT. Patient was evaluate d on ambulating through the stairs. PT reports patient got winded when trying to navigate the stairs. Patient may benefit from SNF per PT recommendations. Patient is medically stable for discharge pending placement. 05/30: No acute issues. Patient denies acute complaints. Denies chest pain or shortness of breath. : No acute issues. Denies acute complaints. Patient is just awaiting place ent to [facility] pending pre-auth from insurance. Reason For Visit: ACUTE HYPERCAPNIC RESPIRATORY FAILURE, Physical Exam Vital Signs: Temp Pulse Resp BP Pulse Ox 98.6 F 78 18 128/57 H 94 05/31/19 10:00 05/31/19 12:59 05/31/19 12:59 05/31/19 10:00 05/31/19 12:59 Intake & Output 05/30/19 05/31/19 06/01/19 06:59 06:59 06:59 Intake Total 2047 1482 Output Total 700 1000 Balance 1347 482 Weight 233 lb 11.04 oz 231 lb 7.766 oz General appearance: PRESENT: no acute distress, well-developed, well-nourished Head exam: PRESENT: atraumatic, normocephalic Eye exam: PRESENT: conjunctiva pink, EOMI, PERRLA. ABSENT: scleral icterus Ear exam: PRESENT: normal external ear exam Mouth exam: PRESENT: moist, tongue midline Neck exam: ABSENT: carotid bruit, JVD, lymphadenopathy, thyromegaly Respiratory exam: PRESENT: clear to auscultation fely. ABSENT: rales, rhonchi, wheezes Cardiovascular exam: PRESENT: RRR. ABSENT: diastolic murmur, rubs, systolic murmur Pulses: PRESENT: normal dorsalis pedis pul GI/Abdominal exam: PRESENT: normal bowel sounds, soft. ABSENT: distended, guarding, mass, organolmegaly, rebound, tenderness Rectal exam: PRESENT: deferred Extremities exam: ABSENT: calf tenderness Neurological exam: PRESENT: alert, awake, oriented to person, oriented to place, oriented to time, oriented to situation, CN II-XII grossly intact. ABSENT: motor sensory deficit Results Laboratory Results: 05/25/19 04:05 05/25/19 04:05 05/16/19 05/16/19 13:48 19:49 Troponin I < 0.012 0.096 NT-Pro-B Natriuret Pep 846 H Impressions: Chest/Abdomen CTA 05/16/19 14:34 IMPRESSION: 1. There is no aortic aneurysm or dissection. There is no pulmonary embolus. 2. Predominantly ground-glass infiltrates in the upper aspect of the right lower lobe and in the upper lobes. Chronic interstitial changes versus infectious/inflammatory process versus mild pulmonary edema. 3. Ground-glass nodule in the right upper lobe posteriorly that measures 13 mm. This may be infectious/inflammatory. Cannot exclude neoplasm. 4. Pleura-based mass in the right lower lobe, may be infectious/ inflammatory. Cannot exclude neoplasm. Head CT 05/16/19 16:28 IMPRESSION: MILD CHRONIC MICROVASCULAR ISCHEMIA. NO ACUTE IMAGING FINDINGS IN THE BRAIN. EVIDENCE OF ACUTE STROKE: NO. Chest X-Ray 05/21/19 13:28 IMPRESSION: No significant interval change in the chest following extubation. Persistent small effusions and basilar airspace disease left greater than right. This could represent atelectasis or pneumonia. Modified Barium Swallow 05/26/19 00:00 IMPRESSION: NO EVIDENCE OF PENETRATION OR ASPIRATION. PLEASE SEE SPEECH PATHOLOGIST REPORT FOR OTHER FINDINGS AND RECOMMENDATIONS. Assessment and Plan - Diagnosis (1) Acute respiratory failure with hypoxia and hypercarbia Is this a current diagnosis for this admission?: Yes Plan: Resolved. Extubated on 05/19. Currently saturating well on home O2 requirement. (2) COPD exacerbation Is this a current diagnosis for this admission?: Yes Plan: Resolved. Continue prednisone. (3) DVT (deep venous thrombosis) Qualifiers: DVT location: lower extremity Affected thrombotic vein of extremity: popliteal Chronicity: acute Laterality: right Qualified Code(s): I82.431 - Acute embolism and thrombosis of right popliteal vein Is this a current diagnosis for this admission?: Yes Plan: Continue Eliquis. (4) Pneumonia Qualifiers: Pneumonia type: due to unspecified organism Laterality: right Lung location: lower lobe of lung Qualified Code(s): J18.9 - Pneumonia, unspecified organism Is this a current diagnosis for this admission?: Yes Plan: Resolved. Completed IV antibiotics. - Time Time Spent with patient: 15-24 minutes
[2019-05-31] MEDS: MINERAL OIL/PETROLATUM,WHITE CREAM 114 GM TP SCH (17:28)
[2019-05-31] MEDS: PRAMIPEXOLE DI-HCL 0.5 MG TABLET PO SCH (21:26)
[2019-05-31] MEDS: DIVALPROEX SODIUM 500 MG TAB.SR.24H PO SCH (21:27)
[2019-06-01] MEDS: ALBUTEROL SULFATE 0.083% NEB 2.5 MG/3 ML AMPUL NEB SCH ×6 (00:26→21:03)
[2019-06-01] MEDS: LISINOPRIL 10 MG TABLET PO SCH (09:18)
[2019-06-01] MEDS: CHLORTHALIDONE 25 MG TABLET PO SCH (09:18)
[2019-06-01] MEDS: SPIRONOLACTONE 25 MG TABLET PO SCH (09:18)
[2019-06-01] MEDS: APIXABAN 5 MG TABLET PO SCH ×2 (09:18→18:02)
[2019-06-01] MEDS: MINERAL OIL/PETROLATUM,WHITE CREAM 114 GM TP SCH ×2 (09:19→18:02)
[2019-06-01] MEDS: FLUTICASONE/VILANTEROL 200-25 MCG/DOSE IH SCH (09:19)
[2019-06-01] MEDS: PREDNISONE 20 MG TABLET PO SCH ×2 (09:19→18:02)
[2019-06-01] MEDS: METOPROLOL SUCCINATE 50 MG TAB.SR.24H PO SCH (09:19)
[2019-06-01] MEDS: NIFEDIPINE 30 MG TAB.ER.24 PO SCH ×2 (09:19→21:16)
[2019-06-01] MEDS: ATORVASTATIN CALCIUM 20 MG TABLET PO SCH (09:23)
--- NOTE | 2019-06-01 14:21 | PDOC PROGRESS REPORT ---
Subjective Progress Note for:: 06/01/19 Subjective:: This is a 72-year-old female who presented with increasing shortness of breath and hypoxia. Patient was intubated in the ER on 05/16/19 for severe COPD exacerbation and pneumonia. She was admitted to the ICU. She was extubated on 05/19/19. Her ICU course was slightly prolonged as she was initially requiring high flow O2 and BiPAP a few days after extubation. She was downgraded to the floor last night. 05/27: No acute event overnight. Upon encounter, patient appears comfortable saturating well on her home O2 requirement 3 LPM's via NC. Denies denies chest pain or shortness of breath. Discussed about the finding of a possible right pleural-based lung mass. Patient says that she closely follows up with a crib pad maker for this but she was told that further work-up. She says she has another follow-up visit with her crib pad maker next month. 05/28: No acute event overnight. She denies acute complaints. Patient was ambulated by this provider and she did well using her walker. She was also evaluated by physical therapy. Patient expressed she she lives alone and prefers to go to a SNF for rehab. 05/29: No acute event overnight. Denies acute complaints. Patient was reevaluated by physical therapy today. Discussed with PT. Patient was evaluate d on ambulating through the stairs. PT reports patient got winded when trying to navigate the stairs. Patient may benefit from SNF per PT recommendations. Patient is medically stable for discharge pending placement. 05/30: No acute issues. Patient denies acute complaints. Denies chest pain or shortness of breath. 05/31: No acute issues. Denies acute complaints. Patient is just awaiting place ent to [facility] pending pre-auth from insurance. Reason For Visit: ACUTE HYPERCAPNIC RESPIRATORY FAILURE, Physical Exam Vital Signs: Temp Pulse Resp BP Pulse Ox 97.8 F 76 18 133/50 H 96 06/01/19 12:00 06/01/19 12:00 06/01/19 12:00 06/01/19 12:06/01/19 12:00 Intake & Output 05/31/19 06/01/19 06/02/19 06:59 06:59 06:59 Intake Total 1482 1520 700 Output Total 1000 Balance 482 1520 700 Weight 231 lb 7.766 oz 229 lb 11.547 oz General appearance: PRESENT: no acute distress, well-developed, well-nourished Head exam: PRESENT: atraumatic, normocephalic Eye exam: PRESENT: conjunctiva pink, EOMI, PERRLA. ABSENT: scleral icterus Ear exam: PRESENT: normal external ear exam Mouth exam: PRESENT: moist, tongue midline Neck exam: ABSENT: carotid bruit, JVD, lymphadenopathy, thyromegaly Respiratory exam: PRESENT: clear to auscultation fely. ABSENT: rales, rhonchi, wheezes Cardiovascular exam: PRESENT: RRR. ABSENT: diastolic murmur, rubs, systolic murmur Pulses: PRESENT: normal dorsalis pedis pul GI/Abdominal exam: PRESENT: normal bowel sounds, soft. ABSENT: distended, guarding, mass, organolmegaly, rebound, tenderness Rectal exam: PRESENT: deferred Extremities exam: PRESENT: pedal edema Neurological exam: PRESENT: alert, awake, oriented to person, oriented to place, oriented to time, oriented to situation, CN II-XII grossly intact. ABSENT: motor sensory deficit Results Laboratory Results: 05/25/19 04:05 05/25/19 04:05 05/16/19 05/16/19 13:48 19:49 Troponin I < 0.012 0.096 NT-Pro-B Natriuret Pep 846 H Impressions: Chest/Abdomen CTA 05/16/19 14:34 IMPRESSION: 1. There is no aortic aneurysm or dissection. There is no pulmonary embolus. 2. Predominantly ground-glass infiltrates in the upper aspect of the right lower lobe and in the upper lobes. Chronic interstitial changes versus infectious/inflammatory process versus mild pulmonary edema. 3. Ground-glass nodule in the right upper lobe posteriorly that measures 13 mm. This may be infectious/inflammatory. Cannot exclude neoplasm. 4. Pleura-based mass in the right lower lobe, may be infectious/ inflammatory. Cannot exclude neoplasm. Head CT 05/16/19 16:28 IMPRESSION: MILD CHRONIC MICROVASCULAR ISCHEMIA. NO ACUTE IMAGING FINDINGS IN THE BRAIN. EVIDENCE OF ACUTE STROKE: NO. Chest X-Ray 05/21/19 13:28 IMPRESSION: No significant interval change in the chest following extubation. Persistent small effusions and basilar airspace disease left greater than right. This could represent atelectasis or pneumonia. Modified Barium Swallow 05/26/19 00:00 IMPRESSION: NO EVIDENCE OF PENETRATION OR ASPIRATION. PLEASE SEE SPEECH PATHOLOGIST REPORT FOR OTHER FINDINGS AND RECOMMENDATIONS. Assessment and Plan - Diagnosis (1) Acute respiratory failure with hypoxia and hypercarbia Is this a current diagnosis for this admission?: Yes Plan: Resolved. Extubated on 05/19. Currently saturating well on home O2 requirement. (2) COPD exacerbation Is this a current diagnosis for this admission?: Yes Plan: Resolved. Continue prednisone. (3) DVT (deep venous thrombosis) Qualifiers: DVT location: lower extremity Affected thrombotic vein of extremity: popliteal Chronicity: acute Laterality: right Qualified Code(s): I82.431 - Acute embolism and thrombosis of right popliteal vein Is this a current diagnosis for this admission?: Yes Plan: Continue Eliquis. (4) Pneumonia Qualifiers: Pneumonia type: due to unspecified organism Laterality: right Lung location: lower lobe of lung Qualified Code(s): J18.9 - Pneumonia, unspecified organism Is this a current diagnosis for this admission?: Yes Plan: Resolved. Completed IV antibiotics. - Time Time Spent with patient: 15-24 minutes
[2019-06-01] MEDS: DIVALPROEX SODIUM 500 MG TAB.SR.24H PO SCH (21:16)
[2019-06-01] MEDS: PRAMIPEXOLE DI-HCL 0.5 MG TABLET PO SCH (21:16)
[2019-06-02] MEDS: SPIRONOLACTONE 25 MG TABLET PO SCH (10:02)
[2019-06-02] MEDS: METOPROLOL SUCCINATE 50 MG TAB.SR.24H PO SCH (10:02)
[2019-06-02] MEDS: ATORVASTATIN CALCIUM 20 MG TABLET PO SCH (10:02)
[2019-06-02] MEDS: LISINOPRIL 10 MG TABLET PO SCH (10:03)
[2019-06-02] MEDS: NIFEDIPINE 30 MG TAB.ER.24 PO SCH ×2 (10:03→22:29)
[2019-06-02] MEDS: APIXABAN 5 MG TABLET PO SCH ×2 (10:03→17:17)
[2019-06-02] MEDS: PREDNISONE 20 MG TABLET PO SCH ×2 (10:03→17:17)
[2019-06-02] MEDS: MINERAL OIL/PETROLATUM,WHITE CREAM 114 GM TP SCH ×2 (10:04→17:17)
[2019-06-02] MEDS: FLUTICASONE/VILANTEROL 200-25 MCG/DOSE IH SCH (10:05)
[2019-06-02] MEDS: CHLORTHALIDONE 25 MG TABLET PO SCH (10:05)
[2019-06-02 10:39] LABS: BLOOD UREA NITROGEN 38 mg/dL (7-20); CALCIUM 8.5 mg/dL (8.4-10.2); CHLORIDE 96 mmol/L (98-107); GLUCOSE 102 mg/dL (75-110); POTASSIUM 3.2 mmol/L (3.6-5.0)
[2019-06-02 10:48] LABS: ANION GAP 5 (5-19); CARBON DIOXIDE 39 mmol/L (22-30)
--- NOTE | 2019-06-02 13:30 | PDOC PROGRESS REPORT ---
Subjective Progress Note for:: 06/02/19 Subjective:: This is a 72-year-old female who presented with increasing shortness of breath and hypoxia. Patient was intubated in the ER on 05/16/19 for severe COPD exacerbation and pneumonia. She was admitted to the ICU. She was extubated on 05/19/19. Her ICU course was slightly prolonged as she was initially requiring high flow O2 and BiPAP a few days after extubation. She was downgraded to the floor last night. 05/27: No acute event overnight. Upon encounter, patient appears comfortable saturating well on her home O2 requirement 3 LPM's via NC. Denies denies chest pain or shortness of breath. Discussed about the finding of a possible right pleural-based lung mass. Patient says that she closely follows up with a cloud subject matter expert for this but she was told that further work-up. She says she has another follow-up visit with her cloud subject matter expert next month. 05/28: No acute event overnight. She denies acute complaints. Patient was ambulated by this provider and she did well using her walker. She was also evaluated by physical therapy. Patient expressed she she lives alone and prefers to go to a SNF for rehab. 05/29: No acute event overnight. Denies acute complaints. Patient was reevaluated by physical therapy today. Discussed with PT. Patient was evaluate d on ambulating through the stairs. PT reports patient got winded when trying to navigate the stairs. Patient may benefit from SNF per PT recommendations. Patient is medically stable for discharge pending placement. 05/30: No acute issues. Patient denies acute complaints. Denies chest pain or shortness of breath. 05/31: No acute issues. Denies acute complaints. 06/01: No acute event overnight. Denies acute complaints. Patient is just awaiting placement to [facility] pending pre-auth from insurance. Per social services counselor, pre-auth is still pending as of today unfortunately. Patient also ex pressed that her POA, Sophie visited her last night and they both discussed that she is supposed to be a full code and not a DNR/DNI. Clarified with patient and patient's POA (Hanane Maxwell, over the phone as well) as there was a note on 05/20 from the director of community education and it was noted that patient was a DNI/DNI. Sophie verbalized that there must have been some miscommunication as she never expressed patient is a DNR/DNI. Patient also wants to be a full code at this time and prefers her chest compressions, defibrillation or mechanical ventilation if the need arises. CODE STATUS changed to Full Code. Reason For Visit: ACUTE HYPERCAPNIC RESPIRATORY FAILURE, Physical Exam Vital Signs: Temp Pulse Resp BP Pulse Ox 97.3 F 98 18 141/62 H 91 L 06/02/19 12:00 06/02/19 12:00 06/02/19 12:00 06/02/19 12:00 06/02/19 12:00 Intake & Output 06/01/19 06/02/19 06/03/19 06:59 06:59 06:59 Intake Total 1520 1100 Balance 1520 1100 Weight 229 lb 11.547 oz 235 lb 10.786 oz General appearance: PRESENT: no acute distress, well-developed, well-nourished Head exam: PRESENT: atraumatic, normocephalic Eye exam: PRESENT: conjunctiva pink, EOMI, PERRLA. ABSENT: scleral icterus Ear exam: PRESENT: normal external ear exam Mouth exam: PRESENT: moist, tongue midline Neck exam: ABSENT: carotid bruit, JVD, lymphadenopathy, thyromegaly Respiratory exam: PRESENT: clear to auscultation fely. ABSENT: rales, rhonchi, wheezes Cardiovascular exam: PRESENT: RRR. ABSENT: diastolic murmur, rubs, systolic murmur Pulses: PRESENT: normal dorsalis pedis pul GI/Abdominal exam: PRESENT: normal bowel sounds, soft. ABSENT: distended, g uarding, mass, organolmegaly, rebound, tenderness Rectal exam: PRESENT: deferred Extremities exam: PRESENT: full ROM. ABSENT: calf tenderness, clubbing, pedal edema Neurological exam: PRESENT: alert, awake, oriented to person, oriented to place, oriented to time, oriented to situation, CN II-XII grossly intact. ABSENT: mo tor sensory deficit Results Laboratory Results: 05/25/19 04:05 06/02/19 09:18 06/02/19 09:18 Sodium 139.7 Potassium 3.2 L Chloride 96 L Carbon Dioxide 39 H Anion Gap 5 BUN 38 H Creatinine 0.60 Est GFR ( Amer) > 60 Glucose 102 Calcium 8.5 05/16/19 05/16/19 13:48 19:49 Troponin I < 0.012 0.096 NT-Pro-B Natriuret Pep 846 H Impressions: Chest/Abdomen CTA 05/16/19 14:34 IMPRESSION: 1. There is no aortic aneurysm or dissection. There is no pul monary embolus. 2. Predominantly ground-glass infiltrates in the upper aspect of the right lower lobe and in the upper lobes. Chronic interstitial changes versus infectious/inflammatory process versus mild pulmonary edema. 3. Ground-glass nodule in the right upper lobe posteriorly that measures 13 mm. This may be infectious/inflammatory. Cannot exclude neoplasm. 4. Pleura-based mass in the right lower lobe, may be infectious/ inflammatory. Cannot exclude neoplasm. Head CT 05/16/19 16:28 IMPRESSION: MILD CHRONIC MICROVASCULAR ISCHEMIA. NO ACUTE IMAGING FINDINGS IN THE BRAIN. EVIDENCE OF ACUTE STROKE: NO. Chest X-Ray 05/21/19 13:28 IMPRESSION: No significant interval change in the chest following extubation. Persistent small effusions and basilar airspace disease left greater than right. This could represent atelectasis or pneumonia. Modified Barium Swallow 05/26/19 00:00 IMPRESSION: NO EVIDENCE OF PENETRATION OR ASPIRATION. PLEASE SEE SPEECH PATHOLOGIST REPORT FOR OTHER FINDINGS AND RECOMMENDATIONS. Assessment and Plan - Diagnosis (1) Acute respiratory failure with hypoxia and hypercarbia Is this a current diagnosis for this admission?: Yes Plan: Resolved. Extubated on 05/19. Currently saturating well on home O2 requirement. (2) COPD exacerbation Is this a current diagnosis for this admission?: Yes Plan: Resolved. Continue prednisone. (3) DVT (deep venous thrombosis) Qualifiers: DVT location: lower extremity Affected thrombotic vein of extremity: popliteal Chronicity: acute Laterality: right Qualified Code(s): I82.431 - Acute embolism and thrombosis of right popliteal vein Is this a current diagnosis for this admission?: Yes Plan: Continue Eliquis. (4) Pneumonia Qualifiers: Pneumonia type: due to unspecified organism Laterality: right Lung location: lower lobe of lung Qualified Code(s): J18.9 - Pneumonia, unspecified organism Is this a current diagnosis for this admission?: Yes Plan: Resolved. Completed IV antibiotics. - Time Time Spent with patient: 25-34 minutes
[2019-06-02] MEDS: PRAMIPEXOLE DI-HCL 0.5 MG TABLET PO SCH (22:28)
[2019-06-02] MEDS: DIVALPROEX SODIUM 500 MG TAB.SR.24H PO SCH (22:28)
[2019-06-03] MEDS: SPIRONOLACTONE 25 MG TABLET PO SCH (09:26)
[2019-06-03] MEDS: NIFEDIPINE 30 MG TAB.ER.24 PO SCH ×2 (09:26→22:00)
[2019-06-03] MEDS: APIXABAN 5 MG TABLET PO SCH ×2 (09:26→18:10)
[2019-06-03] MEDS: ATORVASTATIN CALCIUM 20 MG TABLET PO SCH (09:26)
[2019-06-03] MEDS: LISINOPRIL 10 MG TABLET PO SCH (09:26)
[2019-06-03] MEDS: PREDNISONE 20 MG TABLET PO SCH ×2 (09:26→18:10)
[2019-06-03] MEDS: METOPROLOL SUCCINATE 50 MG TAB.SR.24H PO SCH (09:27)
[2019-06-03] MEDS: CHLORTHALIDONE 25 MG TABLET PO SCH (09:27)
[2019-06-03] MEDS: FLUTICASONE/VILANTEROL 200-25 MCG/DOSE IH SCH (09:28)
[2019-06-03] MEDS: MINERAL OIL/PETROLATUM,WHITE CREAM 114 GM TP SCH ×2 (09:29→18:10)
[2019-06-03] MEDS: ALBUTEROL SULFATE 0.083% NEB 2.5 MG/3 ML AMPUL NEB PRN (09:46)
--- NOTE | 2019-06-03 15:33 | PDOC PROGRESS REPORT ---
Subjective Progress Note for:: 06/03/19 Subjective:: his is a 72-year-old female who presented with increasing shortness of breath and hypoxia. Patient was intubated in the ER on 05/16/19 for severe COPD exacerbation and pneumonia. She was admitted to the ICU. She was extubated on 05/19/19. Her ICU course was slightly prolonged as she was initially requiring high flow O2 and BiPAP a few days after extubation. She was downgraded to the floor last night. 05/27: No acute event overnight. Upon encounter, patient appears comfortable saturating well on her home O2 requirement 3 LPM's via NC. Denies denies chest pain or shortness of breath. Discussed about the finding of a possible right pleural-based lung mass. Patient says that she closely follows up with a maple syrup maker for this but she was told that further work-up. She says she has another follow-up visit with her maple syrup maker next month. 05/28: No acute event overnight. She denies acute complaints. Patient was ambulated by this provider and she did well using her walker. She was also evaluated by physical therapy. Patient expressed she she lives alone and prefers to go to a SNF for rehab. 05/29: No acute event overnight. Denies acute complaints. Patient was reevaluated by physical therapy today. Discussed with PT. Patient was evaluate d on ambulating through the stairs. PT reports patient got winded when trying to navigate the stairs. Patient may benefit from SNF per PT recommendations. Patient is medically stable for discharge pending placement. 05/30: No acute issues. Patient denies acute complaints. Denies chest pain or shortness of breath. 05/31: No acute issues. Denies acute complaints. 06/01: No acute event overnight. Denies acute complaints. Patient is just awaiting placement to [facility] pending pre-auth from insurance. Per social media marketing specialist, pre-auth is still pending as of today unfortunately. Patient also ex pressed that her POA, Sophie visited her last night and they both discussed that she is supposed to be a full code and not a DNR/DNI. Clarified with patient and patient's POA (Hanane Maxwell, over the phone as well) as there was a note on 05/20 from the laboratory operations coordinator and it was noted that patient was a DNI/DNI. Sophie verbalized that there must have been some miscommunication as she never expressed patient is a DNR/DNI. Patient also wants to be a full code at this time and prefers her chest compressions, defibrillation or mechanical ventilation if the need arises. CODE STATUS changed to Full Code. 06/02 patient continues to progress. Denies any new complaints. Reason For Visit: ACUTE HYPERCAPNIC RESPIRATORY FAILURE, Physical Exam Vital Signs: Temp Pulse Resp BP Pulse Ox 98.2 F 101 H 19 152/68 H 95 06/03/19 11:29 06/03/19 11:29 06/03/19 11:29 06/03/19 11:29 06/03/19 11:29 Intake & Output 06/02/19 06/03/19 06/04/19 06:59 06:59 06:59 Intake Total 1100 660 960 Balance 1100 660 960 Weight 106.9 kg 104.2 kg General appearance: PRESENT: no acute distress Head exam: PRESENT: atraumatic Neck exam: PRESENT: full ROM. ABSENT: carotid bruit, JVD Respiratory exam: PRESENT: clear to auscultation fely, unlabored. ABSENT: wheezes Cardiovascular exam: PRESENT: RRR, +S1, +S2, systolic murmur GI/Abdominal exam: PRESENT: soft. ABSENT: tenderness Extremities exam: ABSENT: calf tenderness Musculoskeletal exam: PRESENT: ambulatory - With walker Neurological exam: PRESENT: alert, awake, oriented to person, oriented to place, oriented to time, oriented to situation Results Laboratory Results: 05/25/19 04:05 06/02/19 09:18 05/16/19 05/16/19 13:48 19:49 Troponin I < 0.012 0.096 NT-Pro-B Natriuret Pep 846 H Impressions: Chest/Abdomen CTA 05/16/19 14:34 IMPRESSION: 1. There is no aortic aneurysm or dissection. There is no pulmonary embolus. 2. Predominantly ground-glass infiltrates in the upper aspect of the right lower lobe and in the upper lobes. Chronic interstitial changes versus infectious/inflammatory process versus mild pulmonary edema. 3. Ground-glass nodule in the right upper lobe posteriorly that measures 13 mm. This may be infectious/inflammatory. Cannot exclude neoplasm. 4. Pleura-based mass in the right lower lobe, may be infectious/ inflammatory. Cannot exclude neoplasm. Head CT 05/16/19 16:28 IMPRESSION: MILD CHRONIC MICROVASCULAR ISCHEMIA. NO ACUTE IMAGING FINDINGS IN THE BRAIN. EVIDENCE OF ACUTE STROKE: NO. Chest X-Ray 05/21/19 13:28 IMPRESSION: No significant interval change in the chest following extubation. Persistent small effusions and basilar airspace disease left greater than right. This could represent atelectasis or pneumonia. Modified Barium Swallow 05/26/19 00:00 IMPRESSION: NO EVIDENCE OF PENETRATION OR ASPIRATION. PLEASE SEE SPEECH PATHOLOGIST REPORT FOR OTHER FINDINGS AND RECOMMENDATIONS. Assessment and Plan - Diagnosis (1) Acute respiratory failure with hypoxia and hypercarbia Is this a current diagnosis for this admission?: Yes Plan: Resolved. Extubated on 05/19. We will continue with current oxygen requirement (2) COPD (chronic obstructive pulmonary disease) with acute bronchitis Is this a current diagnosis for this admission?: Yes (3) DVT (deep venous thrombosis) Qualifiers: DVT location: lower extremity Affected thrombotic vein of extremity: popliteal Chronicity: acute Laterality: right Qualified Code(s): I82.431 - Acute embolism and thrombosis of right popliteal vein Is this a current diagnosis for this admission?: Yes Plan: Continue Eliquis. (4) Physical deconditioning Is this a current diagnosis for this admission?: Yes Plan: Continue PT
[2019-06-03 17:12] LABS: ANION GAP 10 (5-19); BLOOD UREA NITROGEN 45 mg/dL (7-20); CALCIUM 8.8 mg/dL (8.4-10.2); CARBON DIOXIDE 33 mmol/L (22-30); CHLORIDE 96 mmol/L (98-107); GLUCOSE 206 mg/dL (75-110); POTASSIUM 3.9 mmol/L (3.6-5.0)
[2019-06-03] MEDS: PRAMIPEXOLE DI-HCL 0.5 MG TABLET PO SCH (22:00)
[2019-06-03] MEDS: DIVALPROEX SODIUM 500 MG TAB.SR.24H PO SCH (22:01)
[2019-06-04 04:23] LABS: ABSOLUTE BASOPHILS # (AUTO) 0.1 10^3/uL (0.0-0.2); ABSOLUTE LYMPHOCYTES (AUTO) 0.9 10^3/uL (0.5-4.7); ABSOLUTE MONOCYTES (AUTO) 0.4 10^3/uL (0.1-1.4); ABSOLUTE NEUT (AUTO) 7.4 10^3/uL (1.7-8.2); BASOPHILS % (AUTO) 0.6 % (0-2); EOSINOPHILS % (AUTO) 0.1 % (0-6); HEMATOCRIT 35.8 % (36.0-47.0); HEMOGLOBIN 12.1 g/dL (12.0-15.5); LYMPHOCYTES % (AUTO) 10.4 % (13-45); MEAN CORPUSCULAR HEMOGLOBIN 30.2 pg (27.0-33.4); MEAN CORPUSCULAR HGB CONC 33.8 g/dL (32.0-36.0); MEAN CORPUSCULAR VOLUME 89 fl (80-97); MONOCYTES % (AUTO) 4.2 % (3-13); PLATELET COUNT 177 10^3/uL (150-450); RED BLOOD COUNT 4.01 10^6/uL (3.72-5.28); RED CELL DISTRIBUTION WIDTH 16.7 % (11.5-14.0); SEGMENTED NEUTROPHILS % (AUTO) 84.7 % (42-78); TOTAL CELLS COUNTED % (AUTO) 100 %; WHITE BLOOD COUNT 8.8 10^3/uL (4.0-10.5)
[2019-06-04] MEDS: ATORVASTATIN CALCIUM 20 MG TABLET PO SCH (08:53)
[2019-06-04] MEDS: APIXABAN 5 MG TABLET PO SCH ×2 (10:28→17:33)
[2019-06-04] MEDS: NIFEDIPINE 30 MG TAB.ER.24 PO SCH ×2 (10:28→21:47)
[2019-06-04] MEDS: SPIRONOLACTONE 25 MG TABLET PO SCH (10:28)
[2019-06-04] MEDS: FLUTICASONE/VILANTEROL 200-25 MCG/DOSE IH SCH (10:28)
[2019-06-04] MEDS: CHLORTHALIDONE 25 MG TABLET PO SCH (10:28)
[2019-06-04] MEDS: METOPROLOL SUCCINATE 50 MG TAB.SR.24H PO SCH (10:28)
[2019-06-04] MEDS: LISINOPRIL 10 MG TABLET PO SCH (10:28)
[2019-06-04] MEDS: PREDNISONE 20 MG TABLET PO SCH ×2 (10:28→17:33)
[2019-06-04] MEDS: MINERAL OIL/PETROLATUM,WHITE CREAM 114 GM TP SCH ×2 (10:29→17:33)
[2019-06-04] MEDS: ALBUTEROL SULFATE 0.083% NEB 2.5 MG/3 ML AMPUL NEB PRN (11:42)
--- NOTE | 2019-06-04 16:21 | PDOC PROGRESS REPORT ---
Subjective Progress Note for:: 06/04/19 Subjective:: his is a 72-year-old female who presented with increasing shortness of breath and hypoxia. Patient was intubated in the ER on 05/16/19 for severe COPD exacerbation and pneumonia. She was admitted to the ICU. She was extubated on 05/19/19. Her ICU course was slightly prolonged as she was initially requiring high flow O2 and BiPAP a few days after extubation. She was downgraded to the floor last night. 05/27: No acute event overnight. Upon encounter, patient appears comfortable saturating well on her home O2 requirement 3 LPM's via NC. Denies denies chest pain or shortness of breath. Discussed about the finding of a possible right pleural-based lung mass. Patient says that she closely follows up with a critical care transport nurse for this but she was told that further work-up. She says she has another follow-up visit with her critical care transport nurse next month. 05/28: No acute event overnight. She denies acute complaints. Patient was ambulated by this provider and she did well using her walker. She was also evaluated by physical therapy. Patient expressed she she lives alone and prefers to go to a SNF for rehab. 05/29: No acute event overnight. Denies acute complaints. Patient was reevaluated by physical therapy today. Discussed with PT. Patient was evaluate d on ambulating through the stairs. PT reports patient got winded when trying to navigate the stairs. Patient may benefit from SNF per PT recommendations. Patient is medically stable for discharge pending placement. 05/30: No acute issues. Patient denies acute complaints. Denies chest pain or shortness of breath. 05/31: No acute issues. Denies acute complaints. 06/01: No acute event overnight. Denies acute complaints. Patient is just awaiting placement to [facility] pending pre-auth from insurance. Per high school social studies tutor, pre-auth is still pending as of today unfortunately. Patient also ex pressed that her POA, Sophie visited her last night and they both discussed that she is supposed to be a full code and not a DNR/DNI. Clarified with patient and patient's POA (Hanane Maxwell, over the phone as well) as there was a note on 05/20 from the cabinet installer and it was noted that patient was a DNI/DNI. Sophie verbalized that there must have been some miscommunication as she never expressed patient is a DNR/DNI. Patient also wants to be a full code at this time and prefers her chest compressions, defibrillation or mechanical ventilation if the need arises. CODE STATUS changed to Full Code. 3/3 patient continues to progress. Denies any new complaints. 3/4 patient reports feeling better. Nephrology suggest to continue with diuresis. Reason For Visit: ACUTE HYPERCAPNIC RESPIRATORY FAILURE, Physical Exam Vital Signs: Temp Pulse Resp BP Pulse Ox 98.5 F 79 20 131/64 H 94 06/04/19 07:58 06/04/19 11:45 06/04/19 11:45 06/04/19 07:58 06/04/19 11:45 Intake & Output 06/03/19 06/04/19 06/05/19 06:59 06:59 06:59 Intake Total 660 1460 600 Balance 660 1460 600 Weight 104.2 kg 100.9 kg General appearance: PRESENT: no acute distress, well-developed, well-nourished Head exam: PRESENT: atraumatic, normocephalic Eye exam: PRESENT: conjunctiva pink, PERRLA. ABSENT: scleral icterus Mouth exam: PRESENT: moist Neck exam: ABSENT: carotid bruit, JVD, lymphadenopathy, thyromegaly Respiratory exam: PRESENT: clear to auscultation fely, rhonchi - Basal. ABSENT: rales, wheezes Cardiovascular exam: PRESENT: RRR. ABSENT: diastolic murmur, rubs, systolic murmur Pulses: PRESENT: normal dorsalis pedis pul Vascular exam: PRESENT: normal capillary refill GI/Abdominal exam: PRESENT: normal bowel sounds, soft. ABSENT: distended, guarding, mass, organolmegaly, rebound, tenderness Rectal exam: PRESENT: deferred Extremities exam: PRESENT: full ROM, +2 edema. ABSENT: calf tenderness, clubbing, pedal edema Musculoskeletal exam: PRESENT: ambulatory Neurological exam: PRESENT: alert, awake, oriented to person, oriented to place, oriented to time, oriented to situation, CN II-XII grossly intact. ABSENT: motor sensory deficit Psychiatric exam: PRESENT: appropriate affect, normal mood. ABSENT: homicidal ideation, suicidal ideation Skin exam: PRESENT: dry, intact, warm. ABSENT: cyanosis, rash Results Laboratory Results: 06/04/19 04:07 06/03/19 16:46 06/03/19 06/04/19 16:46 04:07 WBC 8.8 RBC 4.01 Hgb 12.1 Hct 35.8 L MCV 89 MCH 30.2 MCHC 33.8 RDW 16.7 H Plt Count 177 Seg Neutrophils % 84.7 H Sodium 139.0 Potassium 3.9 Chloride 96 L Carbon Dioxide 33 H Anion Gap 10 BUN 45 H Creatinine 0.71 Est GFR ( Amer) > 60 Glucose 206 H Calcium 8.8 05/16/19 05/16/19 13:48 19:49 Troponin I < 0.012 0.096 NT-Pro-B Natriuret Pep 846 H Impressions: Chest/Abdomen CTA 05/16/19 14:34 IMPRESSION: 1. There is no aortic aneurysm or dissection. There is no pu lmonary embolus. 2. Predominantly ground-glass infiltrates in the upper aspect of the right lower lobe and in the upper lobes. Chronic interstitial changes versus infectious/inflammatory process versus mild pulmonary edema. 3. Ground-glass nodule in the right upper lobe posteriorly that measures 13 mm. This may be infectious/inflammatory. Cannot exclude neoplasm. 4. Pleura-based mass in the right lower lobe, may be infectious/ inflammatory. Cannot exclude neoplasm. Head CT 05/16/19 16:28 IMPRESSION: MILD CHRONIC MICROVASCULAR ISCHEMIA. NO ACUTE IMAGING FINDINGS IN THE BRAIN. EVIDENCE OF ACUTE STROKE: NO. Chest X-Ray 05/21/19 13:28 IMPRESSION: No significant interval change in the chest following extubation. Persistent small effusions and basilar airspace disease left greater than right. This could represent atelectasis or pneumonia. Modified Barium Swallow 05/26/19 00:00 IMPRESSION: NO EVIDENCE OF PENETRATION OR ASPIRATION. PLEASE SEE SPEECH PATHOLOGIST REPORT FOR OTHER FINDINGS AND RECOMMENDATIONS. Assessment and Plan - Diagnosis (1) Acute respiratory failure with hypoxia and hypercarbia Is this a current diagnosis for this admission?: Yes Plan: Resolved. Extubated on 05/19. Will continue with current oxygen requirement (2) COPD (chronic obstructive pulmonary disease) with acute bronchitis Is this a current diagnosis for this admission?: Yes (3) DVT (deep venous thrombosis) Qualifiers: DVT location: lower extremity Affected thrombotic vein of extremity: popliteal Chronicity: acute Laterality: right Qualified Code(s): I82.431 - Acute embolism and thrombosis of right popliteal vein Is this a current diagnosis for this admission?: Yes Plan: Continue Eliquis. (4) Physical deconditioning Is this a current diagnosis for this admission?: Yes
[2019-06-04 17:56] LABS: ANION GAP 11 (5-19); BLOOD UREA NITROGEN 50 mg/dL (7-20); CALCIUM 8.8 mg/dL (8.4-10.2); CARBON DIOXIDE 31 mmol/L (22-30); CHLORIDE 98 mmol/L (98-107); GLUCOSE 182 mg/dL (75-110); POTASSIUM 3.8 mmol/L (3.6-5.0)
[2019-06-04] MEDS: PRAMIPEXOLE DI-HCL 0.5 MG TABLET PO SCH (21:47)
[2019-06-04] MEDS: DIVALPROEX SODIUM 500 MG TAB.SR.24H PO SCH (21:47)
[2019-06-05] MEDS: ALBUTEROL SULFATE 0.083% NEB 2.5 MG/3 ML AMPUL NEB PRN (08:02)
[2019-06-05] MEDS: ATORVASTATIN CALCIUM 20 MG TABLET PO SCH (09:00)
--- NOTE | 2019-06-05 09:54 | PDOC DISCHARGE SUMMARY ---
Impression - Admit/DC Date/PCP Admission Date/Primary Care Provider: 05/16/19 18:34 MELANIE JENNINGS MD Discharge Date: 06/05/19 - Discharge Diagnosis (1) Acute respiratory failure with hypoxia and hypercarbia Is this a current diagnosis for this admission?: Yes (2) COPD (chronic obstructive pulmonary disease) with acute bronchitis Is this a current diagnosis for this admission?: Yes (3) DVT (deep venous thrombosis) Is this a current diagnosis for this admission?: Yes (4) Physical deconditioning Is this a current diagnosis for this admission?: Yes (5) Mass of right lung Is this a current diagnosis for this admission?: Yes - Additional Information Resuscitation Status: Do Not Resuscitate Discharge Diet: Cardiac Discharge Activity: Activity As Tolerated Referrals: MELANIE JENNINGS MD [Primary Care Provider] - 06/10/19 3:15 pm Prescriptions: RX: Prednisone [Deltasone 20 mg Tablet] 20 mg PO BID 8 Days #8 tablet RX: Losartan Potassium 50 mg PO DAILY #30 tablet Home Medications: RX: Atorvastatin Calcium [Lipitor 20 mg Tablet] 20 mg PO QAM 09/30/18 RX: Cyclobenzaprine HCl [Flexeril 5 mg Tablet] 5 mg PO Q8HP PRN MDD 30 MG 09/30/18 RX: Metoprolol Succinate [Toprol Xl] 50 mg PO DAILY 09/30/18 RX: Pramipexole Di-HCl [Mirapex] 1 mg PO QHS 09/30/18 RX: Spironolactone [Aldactone 25 mg Tablet] 25 mg PO DAILY 09/30/18 RX: Tiotropium Fordyce [Spiriva Respimat] 2 inh IH DAILY 09/30/18 RX: Albuterol Sulfate [Proair HFA Inhalation Aerosol 8.5 gm MDI] 2 puff IH Q6HP PRN 05/16/19 RX: Albuterol Sulfate [Ventolin 0.083% Neb 2.5 mg/3 mL Ampul] 1 vial NEB RTQ6HP PRN 05/16/19 RX: Apixaban [Eliquis 5 mg Tablet] 5 mg PO BID 05/16/19 RX: Divalproex Sodium [Depakote ER 500 mg Tab.sr] 500 mg PO QHS 05/16/19 RX: Fluticasone Propion/Salmeterol [Wixela 250-50 Inhub] 1 puff IH Q12 05/16/19 RX: Ipratropium Fordyce 1 spray NAREB QHS 05/16/19 RX: Losartan Potassium 50 mg PO DAILY #30 tablet 05/28/19 RX: Prednisone [Deltasone 20 mg Tablet] 20 mg PO BID 8 Days #8 tablet 05/28/19 History of Present Illiness History of Present Illness: ALYSHA CRENSHAW is a 74 year old female who presented with increasing shortness of breath and hypoxia. Patient was intubated in the ER on 05/16/19 for severe COPD exacerbation and pneumonia. She was admitted to the ICU. She was extubated on 05/19/19. Her ICU course was slightly prolonged as she was initially requiring high flow O2 and BiPAP a few days after extubation. She was downgraded to the floor last night. Hospital Course Hospital Course: Patient was initially admitted to the intensive care unit and subsequently transferred to the medical floor after extubation. Her respiratory status has actually been improving since then. There is a possible right pleural-based lung mass that patient was made aware of. She is to follow-up with a tap puller for further work-up. Her hospitalization was prolonged as patient initially was slated to go to custodial facility for rehab however at this point due to technical difficulties she has opted to be discharged home with home health. She is medically stable for discharge. Patient was treated for pneumonia that was present on admission, right lower lobe. She has completed her antibiotics. She was also treated for COPD exacerbation and will complete her course of steroids. Patient resuscitation status noted to be full code CT finding of ground glass nodule in the right upper lobe posteriorly that measures 13 mm as well as a pleural-based mass in the right lower lobe that cannot exclude neoplasm need to be followed as outpatient Physical Exam Vital Signs: Temp Pulse Resp BP Pulse Ox 97.9 F 69 18 127/55 H 94 06/05/19 00:00 06/05/19 08:06 06/05/19 08:06 06/05/19 00:00 06/05/19 08:06 Intake & Output 06/04/19 06/05/19 06/06/19 06:59 06:59 06:59 Intake Total 1460 1690 Balance 1460 1690 Weight 100.9 kg 103.9 kg General appearance: PRESENT: no acute distress, cooperative, obese Head exam: PRESENT: atraumatic Neck exam: PRESENT: full ROM. ABSENT: JVD, tenderness Respiratory exam: PRESENT: clear to auscultation fely, unlabored. ABSENT: wheezes GI/Abdominal exam: PRESENT: normal bowel sounds, soft. ABSENT: tenderness Rectal exam: PRESENT: deferred Musculoskeletal exam: PRESENT: ambulatory - with walker Neurological exam: PRESENT: alert, awake, oriented to person, oriented to place, oriented to time, oriented to situation, CN II-XII grossly intact Results Laboratory Results: WBC 8.8 10^3/uL (4.0-10.5) 06/04/19 04:07 RBC 4.01 10^6/uL (3.72-5.28) 06/04/19 04:07 Hgb 12.1 g/dL (12.0-15.5) 06/04/19 04:07 Hct 35.8 % (36.0-47.0) L 06/04/19 04:07 MCV 89 fl (80-97) 06/04/19 04:07 MCH 30.2 pg (27.0-33.4) 06/04/19 04:07 MCHC 33.8 g/dL (32.0-36.0) 06/04/19 04:07 RDW 16.7 % (11.5-14.0) H 06/04/19 04:07 Plt Count 177 10^3/uL (150-450) 06/04/19 04:07 Lymph % (Auto) 10.4 % (13-45) L 06/04/19 04:07 Foster % (Auto) 4.2 % (3-13) 06/04/19 04:07 Eos % (Auto) 0.1 % (0-6) 06/04/19 04:07 Baso % (Auto) 0.6 % (0-2) 06/04/19 04:07 Absolute Neuts (auto) 7.4 10^3/uL (1.7-8.2) 06/04/19 04:07 Absolute Lymphs (auto) 0.9 10^3/uL (0.5-4.7) 06/04/19 04:07 Absolute Monos (auto) 0.4 10^3/uL (0.1-1.4) 06/04/19 04:07 Absolute Eos (auto) 0.0 10^3/uL (0.0-0.6) 06/04/19 04:07 Absolute Basos (auto) 0.1 10^3/uL (0.0-0.2) 06/04/19 04:07 Total Counted 100 05/25/19 04:05 Seg Neutrophils % 84.7 % (42-78) H 06/04/19 04:07 Seg Neuts % (Manual) 73 % (42-78) 05/25/19 04:05 Band Neutrophils % 2 % (3-5) L 05/25/19 04:05 Lymphocytes % (Manual) 20 % (13-45) 05/25/19 04:05 Monocytes % (Manual) 5 % (3-13) 05/25/19 04:05 Eosinophils % (Manual) 0 % (0-6) 05/25/19 04:05 Basophils % (Manual) 0 % (0-2) 05/25/19 04:05 Abs Neuts (Manual) 5.9 10^3/uL (1.7-8.2) 05/25/19 04:05 Abs Lymphs (Manual) 1.6 10^3/uL (0.5-4.7) 05/25/19 04:05 Abs Monocytes (Manual) 0.4 10^3/uL (0.1-1.4) 05/25/19 04:05 Absolute Eos (Manual) 0.0 10^3/uL (0.0-0.6) 05/25/19 04:05 Abs Basophils (Manual) 0.0 10^3/uL (0.0-0.2) 05/25/19 04:05 Nucleated RBCs 1 /100 WBC (0) 05/25/19 04:05 Toxic Granulation 1+ 05/22/19 04:40 Toxic Vacuolation PRESENT 05/22/19 04:40 Platelet Comment ADEQUATE 05/25/19 04:05 Polychromasia SLIGHT 05/22/19 04:40 Poikilocytosis SLIGHT 05/22/19 04:40 Anisocytosis SLIGHT 05/25/19 04:05 Tear Drop Cells SLIGHT 05/22/19 04:40 Ovalocytes SLIGHT 05/22/19 04:40 Schistocytes SLIGHT 05/22/19 04:40 PT 14.7 SEC (11.4-15.4) 05/16/19 13:48 INR 1.14 05/16/19 13:48 APTT 30.0 SEC (23.5-35.8) 05/16/19 13:48 Carbonic Acid 1.63 mmol/L (1.05-1.35) H 05/22/19 04:05 HCO3/H2CO3 Ratio 18:1 05/22/19 04:05 ABG pH 7.37 (7.35-7.45) 05/22/19 04:05 ABG pCO2 54.3 mmHg (35-45) H 05/22/19 04:05 ABG pO2 63.6 mmHg (80-100) L 05/22/19 04:05 ABG HCO3 30.9 mmol/L (20-24) H 05/22/19 04:05 ABG Total CO2 32.6 mmol/L (21-25) H 05/22/19 04:05 ABG O2 Saturation 91.4 % (94-98) L 05/22/19 04:05 ABG Base Excess 4.2 mmol/L 05/22/19 04:05 FiO2 30% 05/22/19 04:05 Sodium 139.6 mmol/L (137-145) 06/04/19 17:23 Potassium 3.8 mmol/L (3.6-5.0) 06/04/19 17:23 Chloride 98 mmol/L (98-107) 06/04/19 17:23 Carbon Dioxide 31 mmol/L (22-30) H 06/04/19 17:23 Anion Gap 11 (5-19) 06/04/19 17:23 BUN 50 mg/dL (7-20) H 06/04/19 17:23 Creatinine 0.82 mg/dL (0.52-1.25) 06/04/19 17:23 Est GFR ( Amer) > 60 (>60) 06/04/19 17:23 Est GFR (MDRD) Non-Af > 60 (>60) 06/04/19 17:23 Glucose 182 mg/dL (75-110) H 06/04/19 17:23 POC Glucose 167 mg/dL (70-110) H 05/28/19 01:59 Lactic Acid 0.7 mmol/L (0.7-2.1) 05/21/19 09:25 Calcium 8.8 mg/dL (8.4-10.2) 06/04/19 17:23 Phosphorus 3.0 mg/dL (2.5-4.5) 05/25/19 04:05 Magnesium 2.3 mg/dL (1.6-2.3) 05/23/19 04:08 Total Bilirubin 0.5 mg/dL (0.2-1.3) 05/18/19 04:12 Direct Bilirubin 0.0 mg/dL (0.0-0.4) 05/18/19 04:12 Neonat Total Bilirubin Not Reportable 05/18/19 04:12 Neonat Direct Bilirubin Not Reportable 05/18/19 04:12 Neonat Indirect Bili Not Reportable 05/18/19 04:12 AST 22 U/L (14-36) 05/18/19 04:12 ALT 15 U/L (<35) 05/18/19 04:12 Alkaline Phosphatase 65 U/L (38-126) 05/18/19 04:12 Ammonia < 8.7 umol/L (9-33) L 05/20/19 08:30 Troponin I 0.096 ng/mL 05/16/19 19:49 NT-Pro-B Natriuret Pep 846 pg/mL (<125) H 05/16/19 19:49 Total Protein 5.9 g/dL (6.3-8.2) L 05/18/19 04:12 Albumin 3.1 g/dL (3.5-5.0) L 05/18/19 04:12 TSH 1.91 uIU/mL (0.47-4.68) 05/19/19 05:34 Urine Color FRANKI 05/22/19 11:25 Urine Appearance CLOUDY 05/22/19 11:25 Urine pH 5.0 (5.0-9.0) 05/22/19 11:25 Ur Specific Bethany 1.032 05/22/19 11:25 Urine Protein 100 mg/dL (NEGATIVE) H 05/22/19 11:25 Urine Glucose (UA) NEGATIVE mg/dL (NEGATIVE) 05/22/19 11:25 Urine Ketones 20 mg/dL (NEGATIVE) H 05/22/19 11:25 Urine Blood NEGATIVE (NEGATIVE) 05/22/19 11:25 Urine Nitrite NEGATIVE (NEGATIVE) 05/22/19 11:25 Urine Nitrite (Reflex) NEGATIVE (NEGATIVE) 05/20/19 16:58 Urine Bilirubin NEGATIVE (NEGATIVE) 05/22/19 11:25 Urine Urobilinogen 2.0 mg/dL (<2.0) H 05/22/19 11:25 Ur Leukocyte Esterase NEGATIVE (NEGATIVE) 05/22/19 11:25 Leukocyte Esterase Rfl NEGATIVE (NEGATIVE) 05/20/19 16:58 Urine WBC (Auto) 3 /HPF 05/22/19 11:25 Urine RBC (Auto) 38 /HPF 05/22/19 11:25 U Hyaline Cast (Auto) 1 /LPF 05/21/19 17:08 Urine Bacteria (Auto) TRACE /HPF 05/22/19 11:25 Urine WBC (Reflex) 5 /HPF 05/20/19 16:58 Squamous Epi Cells Auto 1 /HPF 05/22/19 11:25 Amorphous Sediment Auto TRACE /HPF 05/22/19 11:25 Urine Mucus (Auto) MANY /LPF 05/22/19 11:25 Urine Ascorbic Acid 40 (NEGATIVE) H 05/22/19 11:25 Valproic Acid 32.0 ug/mL (50.0-120.0) L 05/20/19 03:42 05/16/19 05/16/19 13:48 19:49 Troponin I < 0.012 0.096 NT-Pro-B Natriuret Pep 846 H Impressions: Chest X-Ray 05/16/19 14:04 IMPRESSION: Cardiomegaly without a superimposed acute cardiopulmonary process. Chest/Abdomen CTA 05/16/19 14:34 IMPRESSION: 1. There is no aortic aneurysm or dissection. There is no pulmonary embolus. 2. Predominantly ground-glass infiltrates in the upper aspect of the right lower lobe and in the upper lobes. Chronic interstitial changes versus infectious/inflammatory process versus mild pulmonary edema. 3. Ground-glass nodule in the right upper lobe posteriorly that measures 13 mm. This may be infectious/inflammatory. Cannot exclude neoplasm. 4. Pleura-based mass in the right lower lobe, may be infectious/ inflammatory. Cannot exclude neoplasm. Head CT 05/16/19 16:28 IMPRESSION: MILD CHRONIC MICROVASCULAR ISCHEMIA. NO ACUTE IMAGING FINDINGS IN THE BRAIN. EVIDENCE OF ACUTE STROKE: NO. Chest X-Ray 05/16/19 16:29 IMPRESSION: The tip of the endotracheal tube projects 6.2 cm above the edilberto. The tip of the enteric tube projects within the gastric cardia - consider advancing the enteric tube forward 5-10 cm. Chest X-Ray 05/17/19 14:45 IMPRESSION: LEFT LOWER LOBE INFILTRATE WITH POSSIBLE LEFT PLEURAL EFFUSION. Chest X-Ray 05/18/19 06:00 IMPRESSION: NO SIGNIFICANT INTERVAL CHANGE. Chest X-Ray 05/19/19 00:00 IMPRESSION: No change. Chest X-Ray 05/21/19 13:28 IMPRESSION: No significant interval change in the chest following extubation. Persistent small effusions and basilar airspace disease left greater than right. This could represent atelectasis or pneumonia. Modified Barium Swallow 05/26/19 00:00 IMPRESSION: NO EVIDENCE OF PENETRATION OR ASPIRATION. PLEASE SEE SPEECH PATHOLOGIST REPORT FOR OTHER FINDINGS AND RECOMMENDATIONS. Plan Health Concerns: CT finding of ground glass nodule in the right upper lobe posteriorly that measures 13 mm as well as a pleural-based mass in the right lower lobe that cannot exclude neoplasm need to be followed as outpatient Time Spent: Greater than 30 Minutes Stroke Is this a Stroke Patient?: No Acute Heart Failure - Is this a Heart Failure Patient?: No
[2019-06-05 10:20] VITALS: BP 147/77
== END 2019-06-05 10:00 | disposition home health service (06) | DRG 208 ==
LOC: ER 13:50 → EH 18:34 → ICU 21:20 → 5 05-26 19:28
PROVIDERS: ADMIT Internal Medicine Critical Care Medicine; ATTEND Internal Medicine Critical Care Medicine
PROC: 5A1945Z Respiratory Ventilation, 24-96 Consecutive Hours (ICD-10-PCS; principal; 2019-05-16)
PROC: 0BH17EZ Insertion of Endotracheal Airway into Trachea, Via Natural or Artificial Opening (ICD-10-PCS; 2019-05-16)
DX: J96.02 Acute respiratory failure with hypercapnia (principal); J69.0 Pneumonitis due to inhalation of food and vomit; I82.431 Acute embolism and thrombosis of right popliteal vein; J44.1 Chronic obstructive pulmonary disease with (acute) exacerbation; L03.116 Cellulitis of left lower limb; L03.115 Cellulitis of right lower limb; Z68.42 Body mass index [BMI] 45.0-49.9, adult; J96.01 Acute respiratory failure with hypoxia; I87.2 Venous insufficiency (chronic) (peripheral); R91.8 Other nonspecific abnormal finding of lung field; I10 Essential (primary) hypertension; E66.01 Morbid (severe) obesity due to excess calories; Z66 Do not resuscitate; Z60.2 Problems related to living alone; Z79.01 Long term (current) use of anticoagulants; Z79.51 Long term (current) use of inhaled steroids; Z79.899 Other long term (current) drug therapy
CPT/HCPCS: 36415; 36600; 51702; 70450; 71045; 71275; 74230; 80048; 80053; 80164; 81001; 82140; 82803; 82962; 83605; 83735; 83880; 84100; 84443; 84484; 85025; 85027; 85610; 85730; 87040; 87070; 87150; 87205; 93005; 93010; 94002; 94003; 94640; 94660; 95819; 96374; 96375; 99231; 99232; 99291; 99292; 99152; J0330; J0360; J0692; J0696; J1200; J1450; J1630; J1650; J1940; J1956; J2060; J2270; J2310; J2704; J2920; J2930; J3370; J3486; J3490; J7030; J7050; J7060; J7120; J7512; S0028

== ENCOUNTER 2019-08-28 09:10 | Inpatient (IN) | payer MEDICARE ==
--- NOTE | 2019-08-28 10:41 | RADIOLOGY REPORT (SQ) ---
EXAM DESCRIPTION: CHEST SINGLE VIEW IMAGES COMPLETED DATE/TIME: 08/28/2019 10:31 am REASON FOR STUDY: dyspnea COMPARISON: 05/21/2019. EXAM PARAMETERS: NUMBER OF VIEWS: One view. TECHNIQUE: Single frontal radiographic view of the chest acquired. RADIATION DOSE: NA LIMITATIONS: None. FINDINGS: LUNGS AND PLEURA: No opacities, masses or pneumothorax. No pleural effusion. MEDIASTINUM AND HILAR STRUCTURES: No masses. Contour normal. HEART AND VASCULAR STRUCTURES: Heart normal in size. Normal vasculature. BONES: No acute findings. HARDWARE: None in the chest. OTHER: No other significant finding. IMPRESSION: NO ACUTE RADIOGRAPHIC FINDING IN THE CHEST. TECHNICAL DOCUMENTATION: JOB ID: [id number] 2010 [employer]- All Rights Reserved Reading location - IP/workstation name: [email or web address]
[2019-08-28 11:13] LABS: ABSOLUTE EOSINOPHILS # (AUTO) 0.6 10^3/uL (0.0-0.6); ABSOLUTE LYMPHOCYTES (AUTO) 0.9 10^3/uL (0.5-4.7); ABSOLUTE MONOCYTES (AUTO) 0.3 10^3/uL (0.1-1.4); ABSOLUTE NEUT (AUTO) 9.5 10^3/uL (1.7-8.2); BASOPHILS % (AUTO) 0.1 % (0-2); EOSINOPHILS % (AUTO) 5.3 % (0-6); HEMATOCRIT 34.4 % (36.0-47.0); HEMOGLOBIN 11.1 g/dL (12.0-15.5); MEAN CORPUSCULAR HEMOGLOBIN 29.9 pg (27.0-33.4); MEAN CORPUSCULAR HGB CONC 32.1 g/dL (32.0-36.0); MEAN CORPUSCULAR VOLUME 93 fl (80-97); MONOCYTES % (AUTO) 2.4 % (3-13); PLATELET COUNT 234 10^3/uL (150-450); RED CELL DISTRIBUTION WIDTH 15.1 % (11.5-14.0); SEGMENTED NEUTROPHILS % (AUTO) 84.2 % (42-78); TOTAL CELLS COUNTED % (AUTO) 100 %; WHITE BLOOD COUNT 11.3 10^3/uL (4.0-10.5)
[2019-08-28 11:41] LABS: ALBUMIN 3.8 g/dL (3.5-5.0); ALKALINE PHOSPHATASE 78 U/L (38-126); ANION GAP 6 (5-19); ASPARTATE AMINO TRANSFERASE 20 U/L (14-36); BILIRUBIN,TOTAL 0.6 mg/dL (0.2-1.3); BLOOD UREA NITROGEN 32 mg/dL (7-20); CALCIUM 8.8 mg/dL (8.4-10.2); CARBON DIOXIDE 36 mmol/L (22-30); CHLORIDE 100 mmol/L (98-107); GLUCOSE 153 mg/dL (75-110); POTASSIUM 4.4 mmol/L (3.6-5.0); TOTAL PROTEIN 6.8 g/dL (6.3-8.2)
[2019-08-28 12:09] LABS: VENOUS BLOOD BASE EXCESS 7.8 mmol/L; VENOUS BLOOD HCO3 40.1 mmol/L (20-32)
[2019-08-28 12:12] LABS: VENOUS BLOOD PCO2 113.9 mmHg (35-63); VENOUS BLOOD PH 7.17 (7.30-7.42)
[2019-08-28] MEDS: MAGNESIUM SULFATE/D5W 1 GM/100 ML RTUPB IV SCH ×2 (13:02→14:29)
[2019-08-28 14:00] LABS: APPEARANCE,URINE CLOUDY; BILIRUBIN,URINE NEGATIVE (NEGATIVE); GLUCOSE, URINE NEGATIVE (NEGATIVE); KETONES,URINE NEGATIVE (NEGATIVE); LEUKOCYTE ESTERASE,URINE LARGE (NEGATIVE); NITRITE,URINE POSITIVE (NEGATIVE); PROTEIN,URINE 100 mg/dL (NEGATIVE); URINE SPECIFIC GRAVITY 1.019; UROBILINOGEN,URINE NEGATIVE mg/dL (<2.0)
[2019-08-28 14:06] LABS: COLOR,URINE DARK YELLOW
--- NOTE | 2019-08-28 15:10 | ER Document Report ---
Entered by CAMERON SPRINGER SCRIBE 08/28/19 1116 Acting as scribe for:JOSEPH THORPE MD ED Respiratory Problem - General Chief Complaint: Shortness Of Breath Stated Complaint: DIFFICULTY BREATHING Time Seen by Provider: 08/28/19 11:13 Primary Care Provider: MELANIE JENNINGS MD [Primary Care Provider] - Follow up as needed Mode of Arrival: Ambulatory Information source: Patient Notes: This 74-year-old female patient presents to the emergency department today with complaints of shortness of breath which began abruptly this morning at 4 AM. Patient states she has had a cough yesterday. Patient states she was on her baseline 3L of nasal cannula oxygen when her shortness of breath began last night. Patient is does not sleep with CPAP. Patient states she received a call from the health department on August 10 that an at home healthcare worker that works at the patient's residence had tested positive for COVID 19. Patient states that she was told to quarantine for 2 weeks and she was never tested. Patient denies chest pain or fevers. EMS Pre-hospital intervention: 2 breathing treatments and 125 mg of Solu-Medrol. TRAVEL OUTSIDE OF THE [place] IN LAST 30 DAYS: No - Related Data Allergies/Adverse Reactions: lemon Allergy (Severe, Verified 08/28/19 09:57) SWELLING FACIAL AND AT SITE OF CONTACT Penicillins Allergy (Severe, Verified 08/28/19 09:57) Anaphylaxis Sulfa (Sulfonamide Antibiotics) Allergy (Severe, Verified 08/28/19 09:57) SOB, FACIAL SWELLING Home Medications: eliquis, spironolactone, atorvostatin, proair, metoprolol. torsemide, nitroforantoin, divaproex, cyclobenzoprine, lostarton, pramopeoxle Past Medical History - General Information source: Patient - Social History Smoking Status: Former Smoker Cigarette use (# per day): No Frequency of alcohol use: None Drug Abuse: None Lives with: Family Family History: Reviewed & Not Pertinent, COPD Patient has homicidal ideation: No - Past Medical History Cardiac Medical History: Reports: Hx Hypercholesterolemia, Hx Hypertension Pulmonary Medical History: Reports: Hx COPD Past Surgical History: Reports: Hx Hysterectomy Review of Systems - Review of Systems Constitutional: denies: Fever EENT: No symptoms reported Cardiovascular: No symptoms reported Respiratory: See HPI, Cough, Short of breath Gastrointestinal: No symptoms reported Genitourinary: No symptoms reported Female Genitourinary: No symptoms reported Musculoskeletal: No symptoms reported Skin: No symptoms reported Hematologic/Lymphatic: No symptoms reported Neurological/Psychological: No symptoms reported -: Yes All other systems reviewed and negative Physical Exam - Vital signs Vitals: Pulse Ox 95 08/28/19 09:17 - Notes Notes: Physical Exam: General: Alert, appears short of breath. HEENT: Normocephalic. Atraumatic. PERRL. Extraocular movements intact. Oropharynx clear. Neck: Supple. Non-tender. Respiratory: Mild respiratory distress. Mild bilateral expiratory wheezing. Cardiovascular: Tachycardic, regular rhythm. Abdominal: Obese. Non-tender. No distension. Normal Bowel Sounds. Back: No gross abnormalities. Extremities: Moves all four extremities. Upper extremities: Normal inspection. Normal ROM. Lower extremities: Lymph edema at baseline per pt. Neurological: Normal cognition. AAOx4. Normal speech. Psychological: Normal affect. Normal Mood. Skin: Warm. Dry. Normal color. Course - Re-evaluation Re-evalutation: 08/28/19 15:06 Patient is eating at this time patient has a saturation of 94% on 3 L nasal O2 still some expiratory wheezing noted. - Vital Signs Vital signs: Temp Pulse Resp BP Pulse Ox 97.6 F 18 179/65 H 93 08/28/19 14:57 08/28/19 13:01 08/28/19 13:01 08/28/19 14:00 - Laboratory Result Diagrams: 08/28/19 10:54 08/28/19 10:54 Laboratory results interpreted by me: 08/28/19 08/28/19 08/28/19 10:54 10:54 11:51 WBC 11.3 H RBC 3.70 L Hgb 11.1 L Hct 34.4 L RDW 15.1 H Lymph % (Auto) 8.0 L [place] % (Auto) 2.4 L Absolute Neuts (auto) 9.5 H Seg Neutrophils % 84.2 H VBG pH 7.17 L* VBG pCO2 113.9 H* VBG HCO3 40.1 H Carbon Dioxide 36 H BUN 32 H Glucose 153 H Urine Protein Urine Nitrite Ur Leukocyte Esterase 08/28/19 13:18 WBC RBC Hgb Hct RDW Lymph % (Auto) [place] % (Auto) Absolute Neuts (auto) Seg Neutrophils % VBG pH VBG pCO2 VBG HCO3 Carbon Dioxide BUN Glucose Urine Protein 100 H Urine Nitrite POSITIVE H Ur Leukocyte Esterase LARGE H 08/28/19 15:06 Laboratories show elevated PCO2 on the venous blood gas of 113 and a positive nitrate and leukocyte esterase positive on urinalysis. - Diagnostic Test Radiology reviewed: Image reviewed, Reports reviewed Radiology results interpreted by me: 08/28/19 15:05 Chest x-ray shows cardiomegaly no infiltrate no acute process. - EKG Interpretation by Me Additional EKG results interpreted by me: 08/28/19 15:04 Twelve-lead EKG shows atrial flutter with a ventricular rate 119. Discharge - Discharge Clinical Impression: COPD with exacerbation, Morbid obesity with BMI of 45.0-49.9, adult, COPD (chronic obstructive pulmonary disease) with acute bronchitis, Urinary tract infection, Hypercarbia, Atrial flutter with rapid ventricular response Condition: Fair Disposition: ADMITTED INPATIENT Admitting Provider: Maggy (Hospitalist) Unit Admitted: [facility] Referrals: MELANIE JENNINGS MD [Primary Care Provider] - Follow up as needed I personally performed the services described in the documentation, reviewed and edited the documentation which was dictated to the scribe in my presence, and it accurately records my words and actions.
[2019-08-28] MEDS ORDERED: ACETAMINOPHEN 325 MG TABLET PO PRN (15:30)
[2019-08-28] MEDS ORDERED: ALBUTEROL SULFATE 0.083% NEB 2.5 MG/3 ML AMPUL NEB PRN (15:30)
--- NOTE | 2019-08-28 16:08 | PDOC H&P ---
History of Present Illness Admission Date/PCP: MELANIE JENNINGS MD History of Present Illness: ALYSHA CRENSHAW is a 74 year old female with a history of DVT, coronary artery disease, chronic lower extremity lymphedema, chronic hypoxemic respiratory failure, hypertension, and COPD, who presents with shortness of breath that started last night. She is not been running any fevers. She said she has had a cough but she feels like she always has a cough, which is intermittently product nasir of sputum. She said she used a nebulizer treatment at home but did not feel like it helped. She has someone who stays with her occasionally during the day who was with her this morning and felt like she was getting sicker and so this person called EMS on the patient's behalf. Patient received 2 nebulizer treatments and 125 mg of IV Solu-Medrol. We obtained a venous blood gas instead of an arterial gas, and her pH was low and her PCO2 was substantially elevated. However, patient was not placed on BiPAP because her mental status seemed to improve. She was on a nonrebreather when she came in and she has been switched back to 3 L per nasal cannula that she is on at home. Past Medical History Cardiac Medical History: Reports: Hyperlipidema, Hypertension Denies: Myocardial Infarction Pulmonary Medical History: Reports: Chronic Obstructive Pulmonary Disease (COPD) Denies: Asthma Neurological Medical History: Denies: Seizures GI Medical History: Denies: Hepatitis, Hiatal Hernia Hematology: Denies: Anemia, Sickle Cell Disease Past Surgical History Past Surgical History: Reports: Hysterectomy Denies: Amputation, Mastectomy, Pacemaker Social History Lives with: Family Smoking Status: Former Smoker Family History Family History: Reviewed & Not Pertinent, COPD Parental Family History Reviewed: Yes Children Family History Reviewed: Yes Sibling(s) Family History Reviewed.: Yes Medication/Allergy Home Medications: Atorvastatin Calcium [Lipitor 20 mg Tablet] 20 mg PO QAM 09/30/18 Cyclobenzaprine HCl [Flexeril 5 mg Tablet] 5 mg PO Q8HP PRN MDD 30 MG 09/30/18 Metoprolol Succinate [Toprol Xl] 50 mg PO DAILY 09/30/18 Pramipexole Di-HCl [Mirapex] 1 mg PO QHS 09/30/18 Spironolactone [Aldactone 25 mg Tablet] 25 mg PO DAILY 09/30/18 Tiotropium Thayer [Spiriva Respimat] 2 inh IH DAILY 09/30/18 Albuterol Sulfate [Proair HFA Inhalation Aerosol 8.5 gm MDI] 2 puff IH Q6HP PRN 05/16/19 Albuterol Sulfate [Ventolin 0.083% Neb 2.5 mg/3 mL Ampul] 1 vial NEB RTQ6HP PRN 05/16/19 Apixaban [Eliquis 5 mg Tablet] 5 mg PO BID 05/16/19 Divalproex Sodium [Depakote ER 500 mg Tab.sr] 500 mg PO QHS 05/16/19 Fluticasone Propion/Salmeterol [Wixela 250-50 Inhub] 1 puff IH Q12 05/16/19 Ipratropium Thayer 1 spray NAREB QHS 05/16/19 Losartan Potassium 50 mg PO DAILY #30 tablet 05/28/19 Prednisone [Deltasone 20 mg Tablet] 20 mg PO BID 8 Days #8 tablet 05/28/19 Allergies/Adverse Reactions: lemon Allergy (Severe, Verified 08/28/19 09:57) SWELLING FACIAL AND AT SITE OF CONTACT Penicillins Allergy (Severe, Verified 08/28/19 09:57) Anaphylaxis Sulfa (Sulfonamide Antibiotics) Allergy (Severe, Verified 08/28/19 09:57) SOB, FACIAL SWELLING Review of Systems All systems: reviewed and no additional remarkable complaints except as stated - All systems were reviewed and were negative except as noted in the HPI Physical Exam Vital Signs: Temp Pulse Resp BP Pulse Ox 97.6 F 15 167/135 H 95 08/28/19 14:57 08/28/19 15:01 08/28/19 15:00 08/28/19 15:01 Intake & Output 08/27/19 08/28/19 08/29/19 06:59 06:59 06:59 Intake Total 100 Balance 100 Weight 104.326 kg General appearance: PRESENT: cooperative, disheveled, mild distress, morbidly obese Head exam: PRESENT: atraumatic, normocephalic Eye exam: PRESENT: EOMI, PERRLA. ABSENT: conjunctival injection, nystagmus, scleral icterus Ear exam: PRESENT: normal external ear exam Mouth exam: PRESENT: dry mucosa, neck supple Teeth exam: PRESENT: poor dentation Throat exam: ABSENT: post pharyngeal erythema Neck exam: PRESENT: full ROM. ABSENT: carotid bruit, JVD, lymphadenopathy, meningismus, tenderness, thyromegaly Respiratory exam: PRESENT: decreased breath sounds, prolonged expiratory phas, symmetrical, wheezes. ABSENT: accessory muscle use, chest wall tenderness, crackles, retraction, rhonchi, tachypnea, unlabored Cardiovascular exam: PRESENT: +S1, +S2, tachycardia Pulses: PRESENT: normal carotid pulses Vascular exam: PRESENT: normal capillary refill GI/Abdominal exam: PRESENT: normal bowel sounds, soft, other - Pendulous abdominal pannus. ABSENT: distended, rebound, tenderness Extremities exam: PRESENT: pedal edema, +1 edema. ABSENT: clubbing Musculoskeletal exam: PRESENT: normal inspection Neurological exam: PRESENT: awake, oriented to person, oriented to place, oriented to situation, CN II-XII grossly intact Psychiatric exam: PRESENT: flat affect Skin exam: PRESENT: dry, warm, other - Bilateral lower extremities below the knee show a brawny edema consistent with longstanding chronic venous insufficiency Results Laboratory Results: 08/28/19 10:54 08/28/19 10:54 08/28/19 08/28/19 08/28/19 10:54 10:54 10:54 WBC 11.3 H RBC 3.70 L Hgb 11.1 L Hct 34.4 L MCV 93 MCH 29.9 MCHC 32.1 RDW 15.1 H Plt Count 234 Seg Neutrophils % 84.2 H VBG pH Cancelled VBG pCO2 Cancelled VBG HCO3 Cancelled VBG Base Excess Cancelled Sodium 142.1 Potassium 4.4 Chloride 100 Carbon Dioxide 36 H Anion Gap 6 BUN 32 H Creatinine 0.79 Est GFR ( Amer) > 60 Glucose 153 H Calcium 8.8 Total Bilirubin 0.6 AST 20 Alkaline Phosphatase 78 Total Protein 6.8 Albumin 3.8 Urine Color Urine Appearance Urine pH Ur Specific [place] Urine Protein Urine Glucose (UA) Urine Ketones Urine Blood Urine Nitrite Ur Leukocyte Esterase Urine WBC (Auto) Urine RBC (Auto) 08/28/19 08/28/19 11:51 13:18 WBC RBC Hgb Hct MCV MCH MCHC RDW Plt Count Seg Neutrophils % VBG pH 7.17 L* VBG pCO2 113.9 H* VBG HCO3 40.1 H VBG Base Excess 7.8 Sodium Potassium Chloride Carbon Dioxide Anion Gap BUN Creatinine Est GFR ( Amer) Glucose Calcium Total Bilirubin AST Alkaline Phosphatase Total Protein Albumin Urine Color DARK YELLOW Urine Appearance CLOUDY Urine pH 8.0 Ur Specific [place] 1.019 Urine Protein 100 H Urine Glucose (UA) NEGATIVE Urine Ketones NEGATIVE Urine Blood NEGATIVE Urine Nitrite POSITIVE H Ur Leukocyte Esterase LARGE H Urine WBC (Auto) 109 Urine RBC (Auto) 2 Impressions: Chest X-Ray 08/28/19 10:15 IMPRESSION: NO ACUTE RADIOGRAPHIC FINDING IN THE CHEST. Assessment and Plan - Diagnosis (1) Acute respiratory failure with hypoxia and hypercarbia Is this a current diagnosis for this admission?: Yes Plan: Supplemental O2 to maintain SPO2 between 88-92% (2) COPD with exacerbation Is this a current diagnosis for this admission?: Yes Plan: Steroids, nebulizer treatments, supplemental O2, doxycycline (3) Hypertension Qualifiers: Hypertension type: essential hypertension Qualified Code(s): I10 - Essential (primary) hypertension Is this a current diagnosis for this admission?: Yes Plan: We will continue her home medications (4) Lymphedema Is this a current diagnosis for this admission?: Yes Plan: We will continue her Lasix and Aldactone (5) Chronic hypoxemic respiratory failure Is this a current diagnosis for this admission?: Yes Plan: She is normally on 3 L nasal cannula at home (6) Morbid obesity with BMI of 45.0-49.9, adult Is this a current diagnosis for this admission?: Yes Plan: Strongly encourage lifestyle modification (7) DVT (deep venous thrombosis) Qualifiers: DVT location: lower extremity Affected thrombotic vein of extremity: popliteal Chronicity: acute Laterality: right Qualified Code(s): I82.431 - Acute embolism and thrombosis of right popliteal vein Is this a current diagnosis for this admission?: Yes Plan: We will continue her Eliquis (8) Physical deconditioning Is this a current diagnosis for this admission?: Yes Plan: We will get a physical therapy evaluation once she is more stable (9) Asymptomatic bacteriuria Is this a current diagnosis for this admission?: Yes Plan: Urinalysis was positive, but the patient does not have any symptoms of urinary tract infection. We will monitor for now. - Time Time Spent with patient: 35 or more minutes - Inpatient Certification Based on my medical assessment, after consideration of the patient's krish rbidities, presenting symptoms, or acuity I expect that the services needed warrant INPATIENT care.: Yes I certify that my determination is in accordance with my understanding of Medicare's requirements for reasonable and necessary INPATIENT services [42 CFR 412.3e].: Yes Medical Necessity: Significant Comorbidiites Make Outpatient Treatment Too Risky, Need Close Monitoring Due to Risk of Patient Decompensation, Need For Continuous Telemetry Monitoring, Need for Nebulizer Therapy and Monitoring of Response, Risk of Complication if Not Cared For in Hospital
[2019-08-28] MEDS: METHYLPREDNISOLONE INJ 40 MG/1 ML SDV IV SCH ×2 (17:29→22:13)
[2019-08-28] MEDS: DOXYCYCLINE HYCLATE 100 MG in DEXTROSE 5%-WATER 250 ML IV SCH (17:30)
--- NOTE | 2019-08-28 18:59 | EKG REPORT ---
SEVERITY:- ABNORMAL ECG - ATRIAL FLUTTER, A-RATE 294 VENTRICULAR PREMATURE COMPLEX ABNRM R PROG, CONSIDER ASMI OR LEAD PLACEMENT : Confirmed by: Tyree Rivera MD 28-Aug-2019 18:57:24
[2019-08-28] MEDS: IPRATROPIUM/ALBUTEROL 0.5-2.5 MG/3 ML AMPUL NEB SCH (20:16)
[2019-08-28] MEDS ORDERED: METOPROLOL SUCCINATE 50 MG TAB.SR.24H PO ONE (23:59)
[2019-08-29] MEDS ORDERED: APIXABAN 5 MG TABLET PO ONE (00:45)
[2019-08-29] MEDS: IPRATROPIUM/ALBUTEROL 0.5-2.5 MG/3 ML AMPUL NEB SCH ×4 (02:10→19:59)
[2019-08-29] MEDS: DOXYCYCLINE HYCLATE 100 MG in DEXTROSE 5%-WATER 250 ML IV SCH ×2 (05:26→18:41)
[2019-08-29] MEDS: METHYLPREDNISOLONE INJ 40 MG/1 ML SDV IV SCH ×3 (05:28→21:44)
[2019-08-29 05:39] LABS: HEMATOCRIT 34.1 % (36.0-47.0); HEMOGLOBIN 11.3 g/dL (12.0-15.5); MEAN CORPUSCULAR HEMOGLOBIN 30.6 pg (27.0-33.4); MEAN CORPUSCULAR VOLUME 93 fl (80-97); PLATELET COUNT 231 10^3/uL (150-450); RED BLOOD COUNT 3.68 10^6/uL (3.72-5.28); RED CELL DISTRIBUTION WIDTH 14.9 % (11.5-14.0); WHITE BLOOD COUNT 8.8 10^3/uL (4.0-10.5)
[2019-08-29 05:54] LABS: ANION GAP 8 (5-19); BLOOD UREA NITROGEN 34 mg/dL (7-20); CALCIUM 9.1 mg/dL (8.4-10.2); CARBON DIOXIDE 31 mmol/L (22-30); CHLORIDE 101 mmol/L (98-107); GLUCOSE 162 mg/dL (75-110); POTASSIUM 4.9 mmol/L (3.6-5.0)
[2019-08-29] MEDS ORDERED: LOSARTAN POTASSIUM 25 MG TABLET PO SCH (10:00)
[2019-08-29] MEDS ORDERED: TORSEMIDE 10 MG PO SCH (10:00)
[2019-08-29] MEDS ORDERED: APIXABAN 5 MG TABLET PO SCH (10:00)
[2019-08-29] MEDS: TORSEMIDE 20 MG TABLET PO SCH (10:49)
[2019-08-29] MEDS: METOPROLOL SUCCINATE 50 MG TAB.SR.24H PO SCH (10:49)
[2019-08-29] MEDS: APIXABAN 5 MG TABLET PO SCH ×2 (10:49→18:40)
[2019-08-29] MEDS: ATORVASTATIN CALCIUM 20 MG TABLET PO SCH (10:49)
[2019-08-29] MEDS: SPIRONOLACTONE 25 MG TABLET PO SCH (10:49)
--- NOTE | 2019-08-29 15:39 | PDOC PROGRESS REPORT ---
Subjective Progress Note for:: 08/29/19 Subjective:: No adverse events overnight. No new complaints. Her breathing feels more comfortable today. Appetite is been good. She is on 2 L nasal cannula. Reason For Visit: COPD WITH EXACERBATION,MORBID OBESITY WITH BMI OF Physical Exam Vital Signs: Temp Pulse Resp BP Pulse Ox 97.9 F 96 18 163/73 H 93 08/29/19 11:28 08/29/19 14:05 08/29/19 14:05 08/29/19 11:28 08/29/19 14:05 Intake & Output 08/28/19 08/29/19 08/30/19 06:59 06:59 06:59 Intake Total 670 694 Output Total 800 300 Balance -130 394 Weight 110.8 kg General appearance: PRESENT: cooperative, disheveled, no apparent distress, morbidly obese Respiratory exam: PRESENT: decreased breath sounds, slightly prolonged expirato ry phase, symmetrical, faint end expiratory wheezes. ABSENT: accessory muscle use, chest wall tenderness, crackles, retraction, rhonchi, tachypnea Cardiovascular exam: PRESENT: +S1, +S2, tachycardia Pulses: PRESENT: normal carotid pulses Vascular exam: PRESENT: normal capillary refill GI/Abdominal exam: PRESENT: normal bowel sounds, soft, other - Pendulous abdominal pannus. ABSENT: distended, rebound, tenderness Extremities exam: PRESENT: pedal edema, +1 edema. ABSENT: clubbing Musculoskeletal exam: PRESENT: normal inspection Neurological exam: PRESENT: awake, oriented to person, oriented to place, oriented to situation Psychiatric exam: PRESENT: flat affect Skin exam: PRESENT: dry, warm, other - Bilateral lower extremities below the knee show a brawny edema consistent with longstanding chronic venous insufficiency Results Laboratory Results: 08/29/19 04:47 08/29/19 04:47 08/29/19 08/29/19 04:47 04:47 WBC 8.8 RBC 3.68 L Hgb 11.3 L Hct 34.1 L MCV 93 MCH 30.6 MCHC 33.0 RDW 14.9 H Plt Count 231 Sodium 139.8 Potassium 4.9 Chloride 101 Carbon Dioxide 31 H Anion Gap 8 BUN 34 H Creatinine 0.92 Est GFR ( Amer) > 60 Glucose 162 H Calcium 9.1 Impressions: Chest X-Ray 08/28/19 10:15 IMPRESSION: NO ACUTE RADIOGRAPHIC FINDING IN THE CHEST. Assessment and Plan - Diagnosis (1) Acute respiratory failure with hypoxia and hypercarbia Is this a current diagnosis for this admission?: Yes Plan: All resolved (2) COPD with exacerbation Is this a current diagnosis for this admission?: Yes Plan: Continue with steroids and bronchodilators today. We will potentially de- escalate steroids tomorrow (3) Hypertension Qualifiers: Hypertension type: essential hypertension Qualified Code(s): I10 - Essential (primary) hypertension Is this a current diagnosis for this admission?: Yes Plan: We will continue her home medications (4) Lymphedema Is this a current diagnosis for this admission?: Yes Plan: We will continue her Lasix and Aldactone (5) Chronic hypoxemic respiratory failure Is this a current diagnosis for this admission?: Yes Plan: Stable on 2 L nasal cannula (6) Morbid obesity with BMI of 45.0-49.9, adult Is this a current diagnosis for this admission?: Yes Plan: Strongly encourage lifestyle modification (7) DVT (deep venous thrombosis) Qualifiers: DVT location: lower extremity Affected thrombotic vein of extremity: popliteal Chronicity: acute Laterality: right Qualified Code(s): I82.431 - Acute embolism and thrombosis of right popliteal vein Is this a current diagnosis for this admission?: Yes Plan: We will continue her Eliquis (8) Physical deconditioning Is this a current diagnosis for this admission?: Yes Plan: We will get a physical therapy evaluation (9) Asymptomatic bacteriuria Is this a current diagnosis for this admission?: Yes Plan: Urinalysis was positive, but the patient does not have any symptoms of urinary tract infection. We will monitor for now. - Time Time Spent with patient: 15-24 minutes
[2019-08-29] MEDS: DIVALPROEX SODIUM 500 MG TAB.SR.24H PO SCH (21:44)
[2019-08-30] MEDS: IPRATROPIUM/ALBUTEROL 0.5-2.5 MG/3 ML AMPUL NEB SCH ×4 (01:46→20:03)
[2019-08-30] MEDS: METHYLPREDNISOLONE INJ 40 MG/1 ML SDV IV SCH ×3 (06:01→21:17)
[2019-08-30] MEDS: DOXYCYCLINE HYCLATE 100 MG in DEXTROSE 5%-WATER 250 ML IV SCH ×2 (06:01→17:28)
[2019-08-30 06:05] LABS: HEMATOCRIT 33.2 % (36.0-47.0); MEAN CORPUSCULAR HEMOGLOBIN 30.3 pg (27.0-33.4); MEAN CORPUSCULAR HGB CONC 33.1 g/dL (32.0-36.0); MEAN CORPUSCULAR VOLUME 92 fl (80-97); PLATELET COUNT 220 10^3/uL (150-450); RED BLOOD COUNT 3.62 10^6/uL (3.72-5.28); RED CELL DISTRIBUTION WIDTH 14.7 % (11.5-14.0); WHITE BLOOD COUNT 9.7 10^3/uL (4.0-10.5)
[2019-08-30 06:33] LABS: ANION GAP 6 (5-19); BLOOD UREA NITROGEN 43 mg/dL (7-20); CALCIUM 8.8 mg/dL (8.4-10.2); CARBON DIOXIDE 33 mmol/L (22-30); CHLORIDE 99 mmol/L (98-107); GLUCOSE 165 mg/dL (75-110); POTASSIUM 4.7 mmol/L (3.6-5.0)
[2019-08-30] MEDS ORDERED: HYDRALAZINE HCL INJ/PF 20 MG/1 ML SDV IV PRN (08:52)
[2019-08-30] MEDS ORDERED: LOSARTAN POTASSIUM 50 MG TABLET PO SCH (10:00)
[2019-08-30] MEDS: SPIRONOLACTONE 25 MG TABLET PO SCH (10:34)
[2019-08-30] MEDS: METOPROLOL SUCCINATE 50 MG TAB.SR.24H PO SCH (10:34)
[2019-08-30] MEDS: TORSEMIDE 20 MG TABLET PO SCH (10:34)
[2019-08-30] MEDS: ATORVASTATIN CALCIUM 20 MG TABLET PO SCH (10:35)
[2019-08-30] MEDS: APIXABAN 5 MG TABLET PO SCH ×2 (10:35→17:28)
[2019-08-30] MEDS ORDERED: AMLODIPINE BESYLATE 10 MG TABLET PO ONE (14:01)
--- NOTE | 2019-08-30 14:14 | PDOC PROGRESS REPORT ---
Subjective Progress Note for:: 08/30/19 Subjective:: No adverse events overnight. No new complaints. She says that she feels like her breathing is still a little bit labored, but she is not wheezing anymore. No fevers. We actually went up on her Cozaar today and her blood pressure went up afterwards. She has not tried yet to get out of bed. Reason For Visit: COPD WITH EXACERBATION,MORBID OBESITY WITH BMI OF Physical Exam Vital Signs: Temp Pulse Resp BP Pulse Ox 97.9 F 97 20 181/79 H 92 08/30/19 11:13 08/30/19 11:13 08/30/19 11:13 08/30/19 11:13 08/30/19 11:13 Intake & Output 08/29/19 08/30/19 08/31/19 06:59 06:59 06:59 Intake Total 670 1406 250 Output Total 800 3400 - 250 Weight 110.8 kg 114.6 kg General appearance: PRESENT: cooperative, disheveled, no apparent distress, morbidly obese Respiratory exam: PRESENT: decreased breath sounds, slightly prolonged expiratory phase, symmetrical. ABSENT: accessory muscle use, chest wall tenderness, crackles, retraction, rhonchi, tachypnea, wheezes Cardiovascular exam: PRESENT: +S1, +S2, tachycardia Pulses: PRESENT: normal carotid pulses Vascular exam: PRESENT: normal capillary refill GI/Abdominal exam: PRESENT: normal bowel sounds, soft, other - Pendulous abdominal pannus. ABSENT: distended, rebound, tenderness Extremities exam: PRESENT: pedal edema, +1 edema. ABSENT: clubbing Musculoskeletal exam: PRESENT: normal inspection Neurological exam: PRESENT: awake, oriented to person, oriented to place, oriented to situation Psychiatric exam: PRESENT: flat affect Skin exam: PRESENT: dry, warm, other - Bilateral lower extremities below the knee show a brawny edema consistent with longstanding chronic venous insufficiency Results Laboratory Results: 08/30/19 05:22 08/30/19 05:22 08/30/19 08/30/19 05:22 05:22 WBC 9.7 RBC 3.62 L Hgb 11.0 L Hct 33.2 L MCV 92 MCH 30.3 MCHC 33.1 RDW 14.7 H Plt Count 220 Sodium 138.1 Potassium 4.7 Chloride 99 Carbon Dioxide 33 H Anion Gap 6 BUN 43 H Creatinine 0.93 Est GFR ( Amer) > 60 Glucose 165 H Calcium 8.8 Impressions: Chest X-Ray 08/28/19 10:15 IMPRESSION: NO ACUTE RADIOGRAPHIC FINDING IN THE CHEST. Assessment and Plan - Diagnosis (1) Acute respiratory failure with hypoxia and hypercarbia Is this a current diagnosis for this admission?: Yes Plan: All resolved (2) COPD with exacerbation Is this a current diagnosis for this admission?: Yes Plan: Continue with steroids and bronchodilators today. She is not wheezing now, but still has a little bit of prolonged expiratory phase faint amount of pursed lip breathing so we will reassess timing of de-escalation tomorrow (3) Hypertension Qualifiers: Hypertension type: essential hypertension Qualified Code(s): I10 - Essential (primary) hypertension Is this a current diagnosis for this admission?: Yes Plan: She is already on 3 medications. I increased her Cozaar today her blood pressure remained elevated. I added amlodipine. (4) Lymphedema Is this a current diagnosis for this admission?: Yes Plan: We will continue her Lasix and Aldactone (5) Chronic hypoxemic respiratory failure Is this a current diagnosis for this admission?: Yes Plan: Stable on 2 L nasal cannula (6) Morbid obesity with BMI of 45.0-49.9, adult Is this a current diagnosis for this admission?: Yes Plan: Strongly encourage lifestyle modification (7) DVT (deep venous thrombosis) Qualifiers: DVT location: lower extremity Affected thrombotic vein of extremity: popliteal Chronicity: acute Laterality: right Qualified Code(s): I82.431 - Acute embolism and thrombosis of right popliteal vein Is this a current diagnosis for this admission?: Yes Plan: We will continue her Eliquis (8) Physical deconditioning Is this a current diagnosis for this admission?: Yes Plan: We will get a physical therapy evaluation (9) Asymptomatic bacteriuria Is this a current diagnosis for this admission?: Yes Plan: Urinalysis was positive, but the patient does not have any symptoms of urinary tract infection. We will monitor for now. - Time Time Spent with patient: 25-34 minutes
[2019-08-30] MEDS: DIVALPROEX SODIUM 500 MG TAB.SR.24H PO SCH (21:17)
[2019-08-31] MEDS: IPRATROPIUM/ALBUTEROL 0.5-2.5 MG/3 ML AMPUL NEB SCH ×4 (02:00→19:59)
[2019-08-31] MEDS: DOXYCYCLINE HYCLATE 100 MG in DEXTROSE 5%-WATER 250 ML IV SCH ×2 (05:36→18:12)
[2019-08-31] MEDS: METHYLPREDNISOLONE INJ 40 MG/1 ML SDV IV SCH ×3 (05:36→21:53)
[2019-08-31 06:14] LABS: HEMATOCRIT 34.7 % (36.0-47.0); HEMOGLOBIN 11.4 g/dL (12.0-15.5); MEAN CORPUSCULAR HEMOGLOBIN 30.2 pg (27.0-33.4); MEAN CORPUSCULAR HGB CONC 32.8 g/dL (32.0-36.0); MEAN CORPUSCULAR VOLUME 92 fl (80-97); PLATELET COUNT 234 10^3/uL (150-450); RED BLOOD COUNT 3.76 10^6/uL (3.72-5.28); RED CELL DISTRIBUTION WIDTH 15.1 % (11.5-14.0); WHITE BLOOD COUNT 9.3 10^3/uL (4.0-10.5)
[2019-08-31 06:35] LABS: ANION GAP 5 (5-19); BLOOD UREA NITROGEN 41 mg/dL (7-20); CALCIUM 8.6 mg/dL (8.4-10.2); CARBON DIOXIDE 33 mmol/L (22-30); CHLORIDE 100 mmol/L (98-107); GLUCOSE 210 mg/dL (75-110); POTASSIUM 4.7 mmol/L (3.6-5.0)
[2019-08-31] MEDS: APIXABAN 5 MG TABLET PO SCH ×2 (09:39→18:12)
[2019-08-31] MEDS: ATORVASTATIN CALCIUM 20 MG TABLET PO SCH (09:39)
[2019-08-31] MEDS: METOPROLOL SUCCINATE 50 MG TAB.SR.24H PO SCH (09:39)
[2019-08-31] MEDS: TORSEMIDE 20 MG TABLET PO SCH (09:39)
[2019-08-31] MEDS: LOSARTAN POTASSIUM 50 MG TABLET PO SCH (09:40)
[2019-08-31] MEDS: SPIRONOLACTONE 25 MG TABLET PO SCH (09:40)
[2019-08-31] MEDS: AMLODIPINE BESYLATE 10 MG TABLET PO SCH (09:41)
--- NOTE | 2019-08-31 13:33 | PDOC PROGRESS REPORT ---
Subjective Progress Note for:: 08/31/19 Subjective:: No adverse events overnight. No new complaints. She still has some pursed lip breathing at rest. Lung sounds are clear. There is no cough. Blood pressures have improved. Reason For Visit: COPD WITH EXACERBATION,MORBID OBESITY WITH BMI OF Physical Exam Vital Signs: Temp Pulse Resp BP Pulse Ox 98.0 F 69 18 152/61 H 95 08/31/19 07:38 08/31/19 07:55 08/31/19 07:55 08/31/19 07:38 08/31/19 07:55 Intake & Output 08/30/19 08/31/19 09/01/19 06:59 06:59 06:59 Intake Total 1406 2077 250 Output Total 3400 2650 Balance -1993 250 Weight 114.6 kg 111.5 kg General appearance: PRESENT: cooperative, disheveled, no apparent distress, morbidly obese Respiratory exam: PRESENT: decreased breath sounds, unlabored, symmetrical. ABSENT: accessory muscle use, chest wall tenderness, crackles, retraction, rhonchi, tachypnea, wheezes, prolonged expiratory phase Cardiovascular exam: PRESENT: +S1, +S2, RRR Pulses: PRESENT: normal carotid pulses Vascular exam: PRESENT: normal capillary refill GI/Abdominal exam: PRESENT: normal bowel sounds, soft, other - Pendulous abdominal pannus. ABSENT: distended, rebound, tenderness Extremities exam: PRESENT: pedal edema, +1 edema. ABSENT: clubbing Musculoskeletal exam: PRESENT: normal inspection Neurological exam: PRESENT: awake, oriented to person, oriented to place, oriented to situation Psychiatric exam: PRESENT: flat affect Skin exam: PRESENT: dry, warm, other - Bilateral lower extremities below the knee show a brawny edema consistent with longstanding chronic venous insufficiency Results Laboratory Results: 08/31/19 05:35 08/31/19 05:35 08/31/19 08/31/19 05:35 05:35 WBC 9.3 RBC 3.76 Hgb 11.4 L Hct 34.7 L MCV 92 MCH 30.2 MCHC 32.8 RDW 15.1 H Plt Count 234 Sodium 138.4 Potassium 4.7 Chloride 100 Carbon Dioxide 33 H Anion Gap 5 BUN 41 H Creatinine 0.78 Est GFR ( Amer) > 60 Glucose 210 H Calcium 8.6 Impressions: Chest X-Ray 08/28/19 10:15 IMPRESSION: NO ACUTE RADIOGRAPHIC FINDING IN THE CHEST. Assessment and Plan - Diagnosis (1) Acute respiratory failure with hypoxia and hypercarbia Is this a current diagnosis for this admission?: Yes Plan: All resolved (2) COPD with exacerbation Is this a current diagnosis for this admission?: Yes Plan: Continue with steroids and bronchodilators today. Decreasing dose of steroids today. I wonder if her current breathing pattern is not actually normal for her (3) Hypertension Qualifiers: Hypertension type: essential hypertension Qualified Code(s): I10 - Essential (primary) hypertension Is this a current diagnosis for this admission?: Yes Plan: Blood pressure has improved with medication adjustments. Systolic in the low 150s (4) Lymphedema Is this a current diagnosis for this admission?: Yes Plan: We will continue her Lasix and Aldactone (5) Chronic hypoxemic respiratory failure Is this a current diagnosis for this admission?: Yes Plan: Stable on 2 L nasal cannula (6) Morbid obesity with BMI of 45.0-49.9, adult Is this a current diagnosis for this admission?: Yes Plan: Strongly encourage lifestyle modification (7) DVT (deep venous thrombosis) Qualifiers: DVT location: lower extremity Affected thrombotic vein of extremity: popliteal Chronicity: acute Laterality: right Qualified Code(s): I82.431 - Acute embolism and thrombosis of right popliteal vein Is this a current diagnosis for this admission?: Yes Plan: We will continue her Eliquis (8) Physical deconditioning Is this a current diagnosis for this admission?: Yes Plan: We will get a physical therapy evaluation (9) Asymptomatic bacteriuria Is this a current diagnosis for this admission?: Yes Plan: Urinalysis was positive, but the patient does not have any symptoms of urinary tract infection. We will monitor for now. - Time Time Spent with patient: 25-34 minutes
[2019-08-31] MEDS: DIVALPROEX SODIUM 500 MG TAB.SR.24H PO SCH (21:53)
[2019-09-01] MEDS: IPRATROPIUM/ALBUTEROL 0.5-2.5 MG/3 ML AMPUL NEB SCH ×4 (02:07→19:56)
[2019-09-01] MEDS: DOXYCYCLINE HYCLATE 100 MG in DEXTROSE 5%-WATER 250 ML IV SCH ×2 (05:27→18:15)
[2019-09-01] MEDS: METHYLPREDNISOLONE INJ 40 MG/1 ML SDV IV SCH ×2 (10:56→21:52)
[2019-09-01] MEDS: METOPROLOL SUCCINATE 50 MG TAB.SR.24H PO SCH (10:56)
[2019-09-01] MEDS: AMLODIPINE BESYLATE 10 MG TABLET PO SCH (10:56)
[2019-09-01] MEDS: SPIRONOLACTONE 25 MG TABLET PO SCH (10:58)
[2019-09-01] MEDS: APIXABAN 5 MG TABLET PO SCH ×2 (10:58→18:15)
[2019-09-01] MEDS: LOSARTAN POTASSIUM 50 MG TABLET PO SCH (10:58)
[2019-09-01] MEDS: ATORVASTATIN CALCIUM 20 MG TABLET PO SCH (10:58)
[2019-09-01] MEDS: TORSEMIDE 20 MG TABLET PO SCH (10:58)
--- NOTE | 2019-09-01 15:22 | PDOC PROGRESS REPORT ---
Subjective Progress Note for:: 09/01/19 Subjective:: No adverse events overnight. No new complaints. Blood pressure control is reasonable. Breathing is fairly comfortable, she has been able to rest. She did very poorly for physical therapy today. Reason For Visit: COPD WITH EXACERBATION,MORBID OBESITY WITH BMI OF Physical Exam Vital Signs: Temp Pulse Resp BP Pulse Ox 97.6 F 111 H 20 142/59 H 93 09/01/19 11:47 09/01/19 14:00 09/01/19 13:47 09/01/19 11:47 09/01/19 13:47 Intake & Output 08/31/19 09/01/19 09/02/19 06:59 06:59 06:59 Intake Total 2077 2683 844 Output Total 2650 1475 Balance -573 1208 844 Weight 111.5 kg 111.1 kg General appearance: PRESENT: cooperative, disheveled, no apparent distress, morbidly obese Respiratory exam: PRESENT: decreased breath sounds, unlabored, symmetrical. ABSENT: accessory muscle use, chest wall tenderness, crackles, retraction, rhonchi, tachypnea, wheezes, prolonged expiratory phase Cardiovascular exam: PRESENT: +S1, +S2, RRR Pulses: PRESENT: normal carotid pulses Vascular exam: PRESENT: normal capillary refill GI/Abdominal exam: PRESENT: normal bowel sounds, soft, other - Pendulous abdominal pannus. ABSENT: distended, rebound, tenderness Extremities exam: PRESENT: pedal edema, +1 edema. ABSENT: clubbing Musculoskeletal exam: PRESENT: normal inspection Neurological exam: PRESENT: awake, oriented to person, oriented to place, oriented to situation Psychiatric exam: PRESENT: flat affect Skin exam: PRESENT: dry, warm, other - Bilateral lower extremities below the knee show a brawny edema consistent with longstanding chronic venous insufficiency Results Laboratory Results: 08/31/19 05:35 08/31/19 05:35 Impressions: Chest X-Ray 08/28/19 10:15 IMPRESSION: NO ACUTE RADIOGRAPHIC FINDING IN THE CHEST. Assessment and Plan - Diagnosis (1) Acute respiratory failure with hypoxia and hypercarbia Is this a current diagnosis for this admission?: Yes Plan: All resolved (2) COPD with exacerbation Is this a current diagnosis for this admission?: Yes Plan: Continue with steroids and bronchodilators today. Consider transition to prednisone tomorrow. I wonder if her current breathing pattern is not actually normal for her (3) Hypertension Qualifiers: Hypertension type: essential hypertension Qualified Code(s): I10 - Essential (primary) hypertension Is this a current diagnosis for this admission?: Yes Plan: Blood pressure has improved with medication adjustments. Systolic in the low 150s (4) Lymphedema Is this a current diagnosis for this admission?: Yes Plan: We will continue her Lasix and Aldactone (5) Chronic hypoxemic respiratory failure Is this a current diagnosis for this admission?: Yes Plan: Stable on 3 L nasal cannula (6) Morbid obesity with BMI of 45.0-49.9, adult Is this a current diagnosis for this admission?: Yes Plan: Strongly encourage lifestyle modification (7) DVT (deep venous thrombosis) Qualifiers: DVT location: lower extremity Affected thrombotic vein of extremity: popliteal Chronicity: acute Laterality: right Qualified Code(s): I82.431 - Acute embolism and thrombosis of right popliteal vein Is this a current diagnosis for this admission?: Yes Plan: We will continue her Eliquis (8) Physical deconditioning Is this a current diagnosis for this admission?: Yes Plan: She did very poorly for physical therapy. She would likely benefit from snf facility placement for rehab. (9) Asymptomatic bacteriuria Is this a current diagnosis for this admission?: Yes Plan: Urinalysis was positive, but the patient does not have any symptoms of urinary tract infection. We will monitor for now. - Time Time Spent with patient: 25-34 minutes
[2019-09-01] MEDS: DIVALPROEX SODIUM 500 MG TAB.SR.24H PO SCH (21:52)
[2019-09-02] MEDS: IPRATROPIUM/ALBUTEROL 0.5-2.5 MG/3 ML AMPUL NEB SCH ×4 (02:25→20:27)
[2019-09-02] MEDS: DOXYCYCLINE HYCLATE 100 MG in DEXTROSE 5%-WATER 250 ML IV SCH (05:13)
[2019-09-02] MEDS: TORSEMIDE 20 MG TABLET PO SCH (09:49)
[2019-09-02] MEDS: SPIRONOLACTONE 25 MG TABLET PO SCH (09:50)
[2019-09-02] MEDS: METOPROLOL SUCCINATE 50 MG TAB.SR.24H PO SCH (09:50)
[2019-09-02] MEDS: METHYLPREDNISOLONE INJ 40 MG/1 ML SDV IV SCH (09:50)
[2019-09-02] MEDS: ATORVASTATIN CALCIUM 20 MG TABLET PO SCH (09:50)
[2019-09-02] MEDS: AMLODIPINE BESYLATE 10 MG TABLET PO SCH (09:50)
[2019-09-02] MEDS: LOSARTAN POTASSIUM 50 MG TABLET PO SCH (09:50)
[2019-09-02] MEDS: APIXABAN 5 MG TABLET PO SCH ×2 (09:50→18:22)
--- NOTE | 2019-09-02 15:13 | PDOC PROGRESS REPORT ---
Subjective Progress Note for:: 09/02/19 Reason For Visit: COPD WITH EXACERBATION,MORBID OBESITY WITH BMI OF Physical Exam Vital Signs: Temp Pulse Resp BP Pulse Ox 98.0 F 98 18 145/71 H 93 09/02/19 11:57 09/02/19 14:02 09/02/19 14:02 09/02/19 11:57 09/02/19 14:02 Intake & Output 09/01/19 09/02/19 09/03/19 06:59 06:59 06:59 Intake Total 2683 2046 250 Output Total 1475 2100 Balance 1208 -54 250 Weight 111.1 kg 111.9 kg General appearance: PRESENT: no acute distress, cooperative, morbidly obese, well-developed, well-nourished Head exam: PRESENT: atraumatic, normocephalic Eye exam: PRESENT: conjunctiva pink, EOMI, PERRLA. ABSENT: scleral icterus Mouth exam: PRESENT: moist, tongue midline Respiratory exam: PRESENT: clear to auscultation fely, symmetrical, unlabored, other - baseline oxygen requirement. ABSENT: rales, rhonchi, wheezes Cardiovascular exam: PRESENT: RRR. ABSENT: diastolic murmur, rubs, systolic murmur Vascular exam: PRESENT: normal capillary refill GI/Abdominal exam: PRESENT: normal bowel sounds, soft. ABSENT: distended, guarding, mass, organolmegaly, rebound, tenderness Rectal exam: PRESENT: deferred Extremities exam: PRESENT: full ROM, pedal edema - trace bilaterally. ABSENT: calf tenderness, clubbing Neurological exam: PRESENT: alert, awake, oriented to person, oriented to place, oriented to time, oriented to situation, CN II-XII grossly intact. ABSENT: motor sensory deficit Psychiatric exam: PRESENT: appropriate affect, normal mood. ABSENT: homicidal ideation, suicidal ideation Skin exam: PRESENT: dry, intact, warm, other - chronic venous insufficiency. ABSENT: cyanosis, rash Results Laboratory Results: 08/31/19 05:35 08/31/19 05:35 Impressions: Chest X-Ray 08/28/19 10:15 IMPRESSION: NO ACUTE RADIOGRAPHIC FINDING IN THE CHEST. Assessment and Plan - Diagnosis (1) COPD exacerbation Is this a current diagnosis for this admission?: Yes Plan: Resolved. Have transition from IV Solu-Medrol to p.o. prednisone. Continue base rate supplemental oxygen; maintain saturations greater than 89%. Encourage pulmonary toilet; incentive spirometer, flutter valve, turn cough deep breathe, ambulation. (2) Acute respiratory failure with hypoxia and hypercarbia Is this a current diagnosis for this admission?: Yes Plan: All resolved Secondary to COPD exacerbation (3) Chronic hypoxemic respiratory failure Is this a current diagnosis for this admission?: Yes Plan: Stable on 3 L nasal cannula (4) Hypertension Qualifiers: Hypertension type: essential hypertension Qualified Code(s): I10 - Essential (primary) hypertension Is this a current diagnosis for this admission?: Yes Plan: Blood pressure has improved with medication adjustments. Systolic in the low 150s. Continue amlodipine, losartan, Toprol-XL, spironolactone, and torsemide. Cardiac diet (5) Lymphedema Is this a current diagnosis for this admission?: Yes Plan: We will continue her Torsemide and Aldactone May benefit from compression stockings and/or Lymphedema clinic referral as outpatient. (6) Morbid obesity with BMI of 45.0-49.9, adult Is this a current diagnosis for this admission?: Yes Plan: BMI 46.6. Strongly encourage lifestyle modification Cardiac diet. (7) DVT (deep venous thrombosis) Qualifiers: DVT location: lower extremity Affected thrombotic vein of extremity: popliteal Chronicity: acute Laterality: right Qualified Code(s): I82.431 - Acute embolism and thrombosis of right popliteal vein Is this a current diagnosis for this admission?: Yes Plan: We will continue her Eliquis (8) Physical deconditioning Is this a current diagnosis for this admission?: Yes Plan: She did very poorly for physical therapy. She declines SNF placement; agreeable to discharge home with home hospice services. Fall precautions. (9) UTI (urinary tract infection) Qualifiers: Urinary tract infection type: acute cystitis Hematuria presence: without hematuria Qualified Code(s): N30.00 - Acute cystitis without hematuria Is this a current diagnosis for this admission?: Yes Plan: Urinalysis at admission revealed UTI. Patient was asymptomatic and so urine cultures was not sought. She had been placed on doxycycline for her COPD exacerbation; poor crossover coverage for UTI. Today patient admits to dysuria and urinary frequency. Requesting AZO. We will transition antibiotic to Cipro to provide better coverage of most common UTI causes as well as continued on penetration. Start low-dose Pyridium for symptom management. Encourage p.o. fluids. (10) Asymptomatic bacteriuria Is this a current diagnosis for this admission?: Yes Plan: As above - Time Time Spent with patient: 25-34 minutes Anticipated discharge: Home with Homehealth Within: within 24 hours
[2019-09-02] MEDS: PHENAZOPYRIDINE HCL 100 MG TABLET PO SCH ×2 (15:24→23:06)
[2019-09-02] MEDS: DIVALPROEX SODIUM 500 MG TAB.SR.24H PO SCH (23:03)
[2019-09-02] MEDS: CIPROFLOXACIN HCL 500 MG TABLET PO SCH (23:04)
[2019-09-03] MEDS: IPRATROPIUM/ALBUTEROL 0.5-2.5 MG/3 ML AMPUL NEB SCH ×3 (02:12→14:04)
[2019-09-03] MEDS: PHENAZOPYRIDINE HCL 100 MG TABLET PO SCH (05:21)
[2019-09-03] MEDS ORDERED: PREDNISONE 20 MG TABLET PO SCH (10:00)
[2019-09-03] MEDS: TORSEMIDE 20 MG TABLET PO SCH (10:38)
[2019-09-03] MEDS: LOSARTAN POTASSIUM 50 MG TABLET PO SCH (10:39)
[2019-09-03] MEDS: ATORVASTATIN CALCIUM 20 MG TABLET PO SCH (10:39)
[2019-09-03] MEDS: METOPROLOL SUCCINATE 50 MG TAB.SR.24H PO SCH (10:39)
[2019-09-03] MEDS: SPIRONOLACTONE 25 MG TABLET PO SCH (10:39)
[2019-09-03] MEDS: AMLODIPINE BESYLATE 10 MG TABLET PO SCH (10:39)
[2019-09-03] MEDS: APIXABAN 5 MG TABLET PO SCH (10:40)
[2019-09-03] MEDS: CIPROFLOXACIN HCL 500 MG TABLET PO SCH (10:40)
[2019-09-03 12:45] VITALS: BP 127/62
--- NOTE | 2019-09-04 19:01 | PDOC DISCHARGE SUMMARY ---
Impression - Admit/DC Date/PCP Admission Date/Primary Care Provider: 08/28/19 16:24 MELANIE JENNINGS MD Discharge Date: 09/03/19 - Discharge Diagnosis (1) COPD exacerbation Is this a current diagnosis for this admission?: Yes (2) Acute respiratory failure with hypoxia and hypercarbia Is this a current diagnosis for this admission?: Yes (3) Chronic hypoxemic respiratory failure Is this a current diagnosis for this admission?: Yes (4) Hypertension Is this a current diagnosis for this admission?: Yes (5) Lymphedema Is this a current diagnosis for this admission?: Yes (6) Morbid obesity with BMI of 45.0-49.9, adult Is this a current diagnosis for this admission?: Yes (7) DVT (deep venous thrombosis) Is this a current diagnosis for this admission?: Yes (8) Physical deconditioning Is this a current diagnosis for this admission?: Yes (9) UTI (urinary tract infection) Is this a current diagnosis for this admission?: Yes (10) Asymptomatic bacteriuria Is this a current diagnosis for this admission?: Yes - Additional Information Discharge Diet: Cardiac Discharge Activity: Activity As Tolerated, Balance Activity w/Rest, Slowly Increase Activity Referrals: MELANIE JENNINGS MD [Primary Care Provider] - 09/09/19 3:15 pm Prescriptions: Ciprofloxacin HCl [Cipro 500 mg Tablet] 250 mg PO Q12 #10 tablet Losartan Potassium [Cozaar 50 mg Tablet] 100 mg PO DAILY #60 tablet Prednisone [Deltasone 20 mg Tablet] 60 mg PO DAILY #12 tablet Amlodipine Besylate [Norvasc 10 mg Tablet] 10 mg PO DAILY #30 tablet Phenazopyridine HCl [Pyridium 100 mg Tablet] 100 mg PO Q8 #12 tablet Metoprolol Succinate [Toprol Xl 50 mg Tab.sr] 50 mg PO DAILY #30 tab.sr.24h Home Medications: Atorvastatin Calcium [Lipitor 20 mg Tablet] 20 mg PO DAILY 09/30/18 Cyclobenzaprine HCl [Flexeril 5 mg Tablet] 10 mg PO TIDP PRN MDD 30 MG 09/30/18 Pramipexole Di-HCl [Mirapex] 1 mg PO QHS 09/30/18 Albuterol Sulfate [Proair HFA Inhalation Aerosol 8.5 gm MDI] 2 puff IH Q6HP PRN 05/16/19 Apixaban [Eliquis 5 mg Tablet] 5 mg PO BID 05/16/19 Ipratropium [place] 2 spray NASL QHS 05/16/19 Divalproex Sodium [Depakote ER] 500 mg PO QHS 08/28/19 Spironolactone [Aldactone 25 mg Tablet] 25 mg PO DAILY 08/28/19 Torsemide 10 mg PO DAILY 08/28/19 Acetaminophen [Tylenol 325 mg Tablet] 650 mg PO Q4HP PRN tablet 09/03/19 Amlodipine Besylate [Norvasc 10 mg Tablet] 10 mg PO DAILY #30 tablet 09/03/19 Ciprofloxacin HCl [Cipro 500 mg Tablet] 250 mg PO Q12 #10 tablet 09/03/19 Losartan Potassium [Cozaar 50 mg Tablet] 100 mg PO DAILY #60 tablet 09/03/19 Metoprolol Succinate [Toprol Xl 50 mg Tab.sr] 50 mg PO DAILY #30 tab.sr.24h 09/03/19 Phenazopyridine HCl [Pyridium 100 mg Tablet] 100 mg PO Q8 #12 tablet 09/03/19 Prednisone [Deltasone 20 mg Tablet] 60 mg PO DAILY #12 tablet 09/03/19 History of Present Illiness History of Present Illness: Per H&P by Dr. Winter: ALYSHA CRENSHAW is a 74 year old female with a history of DVT, coronary artery disease, chronic lower extremity lymphedema, chronic hypoxemic respiratory failure, hypertension, and COPD, who presents with shortness of breath that started last night. She is not been running any fevers. She said she has had a cough but she feels like she always has a cough, which is intermittently productive of sputum. She said she used a nebulizer treatment at home but did not feel like it helped. She has someone who stays with her occasionally during the day who was with her this morning and felt like she was getting sicker and so this person called EMS on the patient's behalf. Patient received 2 nebulizer treatments and 125 mg of IV Solu-Medrol. We obtained a venous blood gas instead of an arterial gas, and her pH was low and her PCO2 was substantially elevated. However, patient was not placed on BiPAP because her mental status seemed to improve. She was on a nonrebreather when she came in and she has been switched back to 3 L per nasal cannula that she is on at home. Hospital Course Hospital Course: (1) COPD exacerbation Resolved. Patient was admitted to medical floor on continuous cardiac telemetry. She was provided supplemental oxygen, BiPAP support, scheduled and as needed nebulizer treatments, IV Solu-Medrol, Mucinex, and aggressive pulmonary toilet. As her symptoms improve her oxygen needs decreased and steroids were weaned to p.o. prednisone. At time of discharge, patient is stable on her home dose oxygen. (2) Acute respiratory failure with hypoxia and hypercarbia All resolved Secondary to COPD exacerbation (3) Chronic hypoxemic respiratory failure Stable on 3 L nasal cannula (4) Hypertension Blood pressure has improved significantly with medication adjustments. Discharged on amlodipine, losartan, Toprol-XL, spironolactone, and torsemide. Recommend Cardiac diet (5) Lymphedema We will continue her Torsemide and Aldactone May benefit from compression stockings and/or Lymphedema clinic referral as outpatient. (6) Morbid obesity with BMI of 45.0-49.9, adult BMI 46.6. Strongly encourage lifestyle modification Cardiac diet. (7) DVT (deep venous thrombosis) We will continue her Eliquis (8) Physical deconditioning She did very poorly for physical therapy. She declines SNF placement; agreeable to discharge home with home health services. Fall precautions. (9) UTI (urinary tract infection) Urinalysis at admission revealed UTI. Patient was asymptomatic and so urine cultures was not sought. She had been placed on doxycycline for her COPD exacerbation; poor crossover coverage for UTI. Now reports dysuria and urinary frequency. Requesting AZO. Have transitioned antibiotic to Cipro to provide better coverage of most common UTI causes as well as continued on penetration. Start low-dose Pyridium for symptom management. Encourage p.o. fluids. (10) Asymptomatic bacteriuria As above Physical Exam Vital Signs: Temp Pulse Resp BP Pulse Ox 97.9 F 103 H 18 127/62 H 91 L 09/03/19 12:27 09/03/19 14:07 09/03/19 14:07 09/03/19 10:56 09/03/19 14:07 Intake & Output 09/02/19 09/03/19 09/04/19 06:59 06:59 06:59 Intake Total 2046 970 480 Output Total 2100 400 Balance -54 570 480 Weight 111.9 kg 114.4 kg General appearance: PRESENT: no acute distress, cooperative, morbidly obese, well-developed, well-nourished Head exam: PRESENT: atraumatic, normocephalic Eye exam: PRESENT: conjunctiva pink, EOMI, PERRLA. ABSENT: scleral icterus Mouth exam: PRESENT: moist, tongue midline Respiratory exam: PRESENT: clear to auscultation fely, symmetrical, unlabored, other - baseline oxygen requirement. ABSENT: rales, rhonchi, wheezes Cardiovascular exam: PRESENT: RRR. ABSENT: diastolic murmur, rubs, systolic murmur Vascular exam: PRESENT: normal capillary refill GI/Abdominal exam: PRESENT: normal bowel sounds, soft. ABSENT: distended, guarding, mass, organolmegaly, rebound, tenderness Rectal exam: PRESENT: deferred Extremities exam: PRESENT: full ROM, pedal edema - trace bilaterally. ABSENT: calf tenderness, clubbing Neurological exam: PRESENT: alert, awake, oriented to person, oriented to place, oriented to time, oriented to situation, CN II-XII grossly intact. ABSENT: motor sensory deficit Psychiatric exam: PRESENT: appropriate affect, normal mood. ABSENT: homicidal ideation, suicidal ideation Skin exam: PRESENT: dry, intact, warm. ABSENT: cyanosis, rash Results Laboratory Results: WBC 9.3 10^3/uL (4.0-10.5) 08/31/19 05:35 RBC 3.76 10^6/uL (3.72-5.28) 08/31/19 05:35 Hgb 11.4 g/dL (12.0-15.5) L 08/31/19 05:35 Hct 34.7 % (36.0-47.0) L 08/31/19 05:35 MCV 92 fl (80-97) 08/31/19 05:35 MCH 30.2 pg (27.0-33.4) 08/31/19 05:35 MCHC 32.8 g/dL (32.0-36.0) 08/31/19 05:35 RDW 15.1 % (11.5-14.0) H 08/31/19 05:35 Plt Count 234 10^3/uL (150-450) 08/31/19 05:35 Lymph % (Auto) 8.0 % (13-45) L 08/28/19 10:54 [place] % (Auto) 2.4 % (3-13) L 08/28/19 10:54 Eos % (Auto) 5.3 % (0-6) 08/28/19 10:54 Baso % (Auto) 0.1 % (0-2) 08/28/19 10:54 Absolute Neuts (auto) 9.5 10^3/uL (1.7-8.2) H 08/28/19 10:54 Absolute Lymphs (auto) 0.9 10^3/uL (0.5-4.7) 08/28/19 10:54 Absolute Monos (auto) 0.3 10^3/uL (0.1-1.4) 08/28/19 10:54 Absolute Eos (auto) 0.6 10^3/uL (0.0-0.6) 08/28/19 10:54 Absolute Basos (auto) 0.0 10^3/uL (0.0-0.2) 08/28/19 10:54 Seg Neutrophils % 84.2 % (42-78) H 08/28/19 10:54 VBG pH 7.17 (7.30-7.42) L* 08/28/19 11:51 VBG pCO2 113.9 mmHg (35-63) H* 08/28/19 11:51 VBG HCO3 40.1 mmol/L (20-32) H 08/28/19 11:51 VBG Base Excess 7.8 mmol/L 08/28/19 11:51 Sodium 138.4 mmol/L (137-145) 08/31/19 05:35 Potassium 4.7 mmol/L (3.6-5.0) 08/31/19 05:35 Chloride 100 mmol/L (98-107) 08/31/19 05:35 Carbon Dioxide 33 mmol/L (22-30) H 08/31/19 05:35 Anion Gap 5 (5-19) 08/31/19 05:35 BUN 41 mg/dL (7-20) H 08/31/19 05:35 Creatinine 0.78 mg/dL (0.52-1.25) 08/31/19 05:35 Est GFR ( Amer) > 60 (>60) 08/31/19 05:35 Est GFR (MDRD) Non-Af > 60 (>60) 08/31/19 05:35 Glucose 210 mg/dL (75-110) H 08/31/19 05:35 Calcium 8.6 mg/dL (8.4-10.2) 08/31/19 05:35 Total Bilirubin 0.6 mg/dL (0.2-1.3) 08/28/19 10:54 Direct Bilirubin 0.0 mg/dL (0.0-0.4) 08/28/19 10:54 Neonat Total Bilirubin Not Reportable 08/28/19 10:54 Neonat Direct Bilirubin Not Reportable 08/28/19 10:54 Neonat Indirect Bili Not Reportable 08/28/19 10:54 AST 20 U/L (14-36) 08/28/19 10:54 ALT 12 U/L (<35) 08/28/19 10:54 Alkaline Phosphatase 78 U/L (38-126) 08/28/19 10:54 Total Protein 6.8 g/dL (6.3-8.2) 08/28/19 10:54 Albumin 3.8 g/dL (3.5-5.0) 08/28/19 10:54 Urine Color DARK YELLOW 08/28/19 13:18 Urine Appearance CLOUDY 08/28/19 13:18 Urine pH 8.0 (5.0-9.0) 08/28/19 13:18 Ur Specific [place] 1.019 08/28/19 13:18 Urine Protein 100 mg/dL (NEGATIVE) H 08/28/19 13:18 Urine Glucose (UA) NEGATIVE mg/dL (NEGATIVE) 08/28/19 13:18 Urine Ketones NEGATIVE mg/dL (NEGATIVE) 08/28/19 13:18 Urine Blood NEGATIVE (NEGATIVE) 08/28/19 13:18 Urine Nitrite POSITIVE (NEGATIVE) H 08/28/19 13:18 Urine Bilirubin NEGATIVE (NEGATIVE) 08/28/19 13:18 Urine Urobilinogen NEGATIVE mg/dL (<2.0) 08/28/19 13:18 Ur Leukocyte Esterase LARGE (NEGATIVE) H 08/28/19 13:18 Urine WBC (Auto) 109 /HPF 08/28/19 13:18 Urine RBC (Auto) 2 /HPF 08/28/19 13:18 Urine Bacteria (Auto) 3+ /HPF 08/28/19 13:18 Squamous Epi Cells Auto 2 /HPF 08/28/19 13:18 Urine Mucus (Auto) RARE /LPF 08/28/19 13:18 Urine Ascorbic Acid NEGATIVE (NEGATIVE) 08/28/19 13:18 SARS-CoV-2 (PCR) NEGATIVE (NEGATIVE) 08/28/19 13:20 Impressions: Chest X-Ray 08/28/19 10:15 IMPRESSION: NO ACUTE RADIOGRAPHIC FINDING IN THE CHEST. Plan Plan of Treatment: She is discharged home in stable condition with home health services. Follow-up with primary care provider within 1 week. Complete full course of antibiotic therapy. Take other medication as prescribed. Eat a heart healthy diet. Do NOT smoke. Return to emergency department as needed for concerning symptoms. Time Spent: Greater than 30 Minutes Stroke Is this a Stroke Patient?: No Acute Heart Failure - Is this a Heart Failure Patient?: No
== END 2019-09-03 14:40 | disposition home health service (06) | DRG 190 ==
LOC: ER 09:10 → EH 16:24 → 3N 18:47 → 3W 08-29 17:10
PROVIDERS: ADMIT Family Medicine; ATTEND Registered Nurse
DX: J44.1 Chronic obstructive pulmonary disease with (acute) exacerbation (principal); G93.41 Metabolic encephalopathy; J96.21 Acute and chronic respiratory failure with hypoxia; J96.02 Acute respiratory failure with hypercapnia; Z68.42 Body mass index [BMI] 45.0-49.9, adult; I82.431 Acute embolism and thrombosis of right popliteal vein; N30.00 Acute cystitis without hematuria; I25.10 Atherosclerotic heart disease of native coronary artery without angina pectoris; I10 Essential (primary) hypertension; E78.5 Hyperlipidemia, unspecified; E66.01 Morbid (severe) obesity due to excess calories; I87.2 Venous insufficiency (chronic) (peripheral); E78.00 Pure hypercholesterolemia, unspecified; J20.9 Acute bronchitis, unspecified; J44.0 Chronic obstructive pulmonary disease with (acute) lower respiratory infection; R82.71 Bacteriuria; I89.0 Lymphedema, not elsewhere classified; Z86.718 Personal history of other venous thrombosis and embolism; Z87.891 Personal history of nicotine dependence; Z79.899 Other long term (current) drug therapy; Z79.01 Long term (current) use of anticoagulants; Z79.52 Long term (current) use of systemic steroids; Z88.0 Allergy status to penicillin; Z88.2 Allergy status to sulfonamides; Z91.018 Allergy to other foods
CPT/HCPCS: 36415; 71045; 80048; 80053; 81001; 82803; 85025; 85027; 87635; 93005; 93010; 94640; 94667; 94799; 96365; 96366; 99285; C9803; J0360; J2920; J3475; J3490; J7060; J7512; J7620

== ENCOUNTER 2019-09-09 03:23 | Inpatient (IN) | payer MEDICARE ==
--- NOTE | 2019-09-09 03:39 | ER Document Report ---
ED General - General Chief Complaint: Breathing Difficulty Stated Complaint: SHORT OF BREATH Time Seen by Provider: 09/09/19 03:23 Primary Care Provider: MELANIE JENNINGS MD [Primary Care Provider] - Follow up as needed TRAVEL OUTSIDE OF THE [place] IN LAST 30 DAYS: No - HPI Notes: 74-year-old female history of COPD (3 L home O2, intubation in May 2019), hypertension, hyperlipidemia, PE on eliquis x years presents with shortness of breath for past few days worsening for approximately 1.5 hours prior to arrival when her shortness of breath woke her up from sleep. Patient says over the last few days she noticed her breathing was "not that good"and has been using her a lbuterol 3 times daily which she says is her prescribed regimen. She has been gradually weaning her prednisone dose since her discharge from hospital last week. Was admitted for UTI and COPD exacerbation. Patient says that these symptoms are consistent with her prior COPD exacerbations. Patient has chronic cough times years productive of scant clear/white sputum without any acute change. Patient still on Cipro for UTI and her symptoms have improved. Patient also has chronic bilateral lower extremity lymphedema which has been improving. Patient denies any cardiac history, fever, change in sputum production - Related Data Allergies/Adverse Reactions: lemon Allergy (Severe, Verified 08/28/19 09:57) SWELLING FACIAL AND AT SITE OF CONTACT Penicillins Allergy (Severe, Verified 08/28/19 09:57) Anaphylaxis Sulfa (Sulfonamide Antibiotics) Allergy (Severe, Verified 08/28/19 09:57) SOB, FACIAL SWELLING Past Medical History - General Information source: Patient, [facility] Records - Social History Smoking Status: Former Smoker Family History: Reviewed & Not Pertinent, COPD Patient has homicidal ideation: No - Past Medical History Cardiac Medical History: Reports: Hx Hypercholesterolemia, Hx Hypertension Denies: Hx Heart Attack Pulmonary Medical History: Reports: Hx COPD Denies: Hx Asthma Neurological Medical History: Denies: Hx Cerebrovascular Accident, Hx Seizures GI Medical History: Denies: Hx Hepatitis, Hx Hiatal Hernia, Hx Ulcer Psychiatric Medical History: Denies: Hx Depression Infectious Medical History: Denies: Hx Hepatitis Past Surgical History: Reports: Hx Hysterectomy. Denies: Hx Mastectomy, Hx Open Heart Surgery, Hx Pacemaker Review of Systems - Review of Systems Notes: REVIEW OF SYSTEMS: CONSTITUTIONAL : Denies fever, chills, or sweats. EENT: Denies recent cold/sinus symptoms, denies throat pain CARDIOVASCULAR: Denies chest pain, CHAUNCEY RESPIRATORY: +cough, +shortness of breath. GASTROINTESTINAL: Denies abdominal pain, nausea/vomiting. GENITOURINARY: Denies difficulty urinating, painful urination. FEMALE GENITOURINARY: Denies abnormal vaginal bleeding, vaginal discharge. MUSCULOSKELETAL: Denies neck pain, back pain. SKIN: Denies rash or skin lesions. HEMATOLOGIC : Denies easy bruising or bleeding. LYMPHATIC: Denies swollen, enlarged glands. NEUROLOGICAL: Denies headache, denies change in gait. PSYCHIATRIC: Denies anxiety or stress or depression. Physical Exam - Vital signs Vitals: Temp Pulse Resp BP Pulse Ox 98.1 F 103 H 20 138/63 H 94 09/09/19 03:29 09/09/19 03:29 09/09/19 03:29 09/09/19 03:29 09/09/19 03:29 - Notes Notes: PHYSICAL EXAMINATION: GENERAL: Chronically ill-appearing elderly woman sitting up in stretcher in no acute distress HEAD: Atraumatic, normocephalic. EYES: Pupils equal round and appropriate constriction, sclera anicteric, conjunctiva are normal. ENT: nares patent, moist mucous membranes. NECK: Normal range of motion, supple without lymphadenopathy LUNGS: Mildly tachypneic, speaking in full sentences, no tripoding, managing secretions, good air movement diffusely, expiratory wheezing in all ignacio with prolonged expiratory phase HEART: Mildly tachycardic with regular rhythm, no murmurs rubs or gallops ABDOMEN: Soft, nontender, no guarding, no masses, no CVAT EXTREMITIES: Normal range of motion, symmetric diffuse lower extremity edema with skin thickening diffusely, no calf tenderness NEUROLOGICAL: Awake, alert, conversing appropriately, moves all extremities spontaneously. PSYCH: Normal mood, normal affect. SKIN: Warm, Dry, normal turgor Course - Re-evaluation Re-evalutation: 09/09/19 03:57 Likely COPD exacerbation possibly provoked by weaning of p.o. steroids, will send COVID test and rule out ACS with troponin and EKG and obtain BNP for possible new onset CHF, though less likely. Patient mildly tachypneic but no signs of impending respiratory failure, significantly improved since EMS arrival on scene at which time patient was satting 85% on 3 L and more significantly tachypneic as per medic. Unlikely PE given patient compliant with anticoagulation, no wheezing, no chest pain, and symptoms consistent with usual COPD exacerbation. Will continue to monitor respiratory status closely. 09/09/19 05:52 Patient greatly improved after nebs and prednisone. COPD exacerbation likely precipitated by tapering of prednisone. Patient currently with no tachypnea and good air movement in all lung ignacio with wheezing and prolonged expiratory phase but normal respiratory rate and effort. VBG hypercapnic but mostly compensated given pH of 7.26, VBG drawn on arrival and patient's respiratory status is improved. Discussed case with Dr. Garcia who accepts patient to telemetry observation unit. - Vital Signs Vital signs: Temp Pulse Resp BP Pulse Ox 98.1 F 103 H 17 142/91 H 97 09/09/19 03:29 09/09/19 03:29 09/09/19 05:01 09/09/19 05:00 09/09/19 05:01 - Laboratory Result Diagrams: 09/09/19 03:52 09/09/19 03:52 Laboratory results interpreted by me: 09/09/19 09/09/19 09/09/19 03:52 03:52 03:52 WBC 12.5 H RDW 15.1 H Absolute Neuts (auto) 9.2 H Absolute Eos (auto) 0.8 H VBG pH 7.26 L VBG pCO2 83.3 H* VBG HCO3 36.2 H Carbon Dioxide 35 H BUN 43 H Glucose 147 H - EKG Interpretation by Me Additional EKG results interpreted by me: 09/09/19 03:59 Heart rate 98, no significant ST elevations or depressions, no significant T wave inversions, no significant change from prior, QTC 435 Discharge - Discharge Clinical Impression: COPD exacerbation Condition: Stable Disposition: ADMITTED OBSERVATION Admitting Provider: Jose (Hospitalist) Unit Admitted: Telemetry Referrals: MELANIE JENNINGS MD [Primary Care Provider] - Follow up as needed
[2019-09-09] MEDS ORDERED: IPRATROPIUM/ALBUTEROL 0.5-2.5 MG/3 ML AMPUL NEB ONE (03:42)
[2019-09-09] MEDS ORDERED: PREDNISONE 20 MG TABLET PO ONE (03:42)
[2019-09-09 04:04] LABS: ABSOLUTE BASOPHILS # (AUTO) 0.1 10^3/uL (0.0-0.2); ABSOLUTE EOSINOPHILS # (AUTO) 0.8 10^3/uL (0.0-0.6); ABSOLUTE LYMPHOCYTES (AUTO) 1.8 10^3/uL (0.5-4.7); ABSOLUTE MONOCYTES (AUTO) 0.7 10^3/uL (0.1-1.4); ABSOLUTE NEUT (AUTO) 9.2 10^3/uL (1.7-8.2); BASOPHILS % (AUTO) 0.8 % (0-2); HEMATOCRIT 37.8 % (36.0-47.0); HEMOGLOBIN 12.2 g/dL (12.0-15.5); LYMPHOCYTES % (AUTO) 14.6 % (13-45); MEAN CORPUSCULAR HGB CONC 32.3 g/dL (32.0-36.0); MEAN CORPUSCULAR VOLUME 93 fl (80-97); MONOCYTES % (AUTO) 5.2 % (3-13); PLATELET COUNT 251 10^3/uL (150-450); RED BLOOD COUNT 4.07 10^6/uL (3.72-5.28); RED CELL DISTRIBUTION WIDTH 15.1 % (11.5-14.0); SEGMENTED NEUTROPHILS % (AUTO) 73.4 % (42-78); TOTAL CELLS COUNTED % (AUTO) 100 %; WHITE BLOOD COUNT 12.5 10^3/uL (4.0-10.5)
[2019-09-09 04:10] LABS: VENOUS BLOOD BASE EXCESS 5.9 mmol/L; VENOUS BLOOD HCO3 36.2 mmol/L (20-32); VENOUS BLOOD PH 7.26 (7.30-7.42)
[2019-09-09 04:13] LABS: VENOUS BLOOD PCO2 83.3 mmHg (35-63)
--- NOTE | 2019-09-09 04:21 | RADIOLOGY REPORT (SQ) ---
EXAM DESCRIPTION: [facility]: XR CHEST 1 VIEW CLINICAL HISTORY: 74 years Female; SOB copd recent hosp; COMPARISON: 08/28/2019 FINDINGS: Lungs: Lungs are clear, with no focal infiltrate, pneumothorax, or pleural effusion. Mediastinum: Mediastinum is within normal limits for this positioning. Bones: Old right rib fracture is again noted. No acute bone findings. IMPRESSION: 1. No acute pulmonary findings.
[2019-09-09 04:25] LABS: ALBUMIN 3.8 g/dL (3.5-5.0); ALKALINE PHOSPHATASE 65 U/L (38-126); ANION GAP 5 (5-19); ASPARTATE AMINO TRANSFERASE 19 U/L (14-36); BILIRUBIN,TOTAL 0.7 mg/dL (0.2-1.3); BLOOD UREA NITROGEN 43 mg/dL (7-20); CALCIUM 9.6 mg/dL (8.4-10.2); CARBON DIOXIDE 35 mmol/L (22-30); CHLORIDE 98 mmol/L (98-107); GLUCOSE 147 mg/dL (75-110); POTASSIUM 4.9 mmol/L (3.6-5.0); TOTAL PROTEIN 6.5 g/dL (6.3-8.2)
[2019-09-09 04:37] LABS: NT PRO BNP 125 pg/mL (<125)
[2019-09-09 04:43] LABS: TROPONIN I < 0.012 ng/mL
[2019-09-09] MEDS ORDERED: HYDRALAZINE HCL INJ/PF 20 MG/1 ML SDV IV PRN (05:54)
[2019-09-09] MEDS ORDERED: LACTULOSE SYRUP 20 GM/30 ML UDCUP PO ONE (05:54)
[2019-09-09] MEDS ORDERED: ACETAMINOPHEN 325 MG TABLET PO PRN (05:55)
[2019-09-09] MEDS ORDERED: IPRATROPIUM/ALBUTEROL 0.5-2.5 MG/3 ML AMPUL NEB PRN (05:55)
[2019-09-09] MEDS ORDERED: MAG HYDROX/AL HYDROX/SIMETH SUSP 30 ML UDCUP PO PRN (05:55)
[2019-09-09 06:11] LABS: PHOSPHORUS 3.9 mg/dL (2.5-4.5)
--- NOTE | 2019-09-09 06:26 | PDOC H&P ---
History of Present Illness Admission Date/PCP: MELANIE JENNINGS MD Patient complains of: Shortness of breath History of Present Illness: ALYSHA CRENSHAW is a 74 year old female with a past medical history of morbid obesity, oxygen dependent COPD, restless legs, deep vein thrombosis on Eliquis, profound physical debility and lymphedema. She was discharged 6 days ago after a 6-day admission for acute on chronic hypercapnic respiratory failure. She returns with shortness of breath, tachypnea, a PCO2 of 83. She receives prednisone, albuterol with limited improvement she is however unable to return to independent setting and referred to the hospitalist for admission. She admits uncontrolled rhinorrhea and nonproductive cough, denies chest pain nausea vomiting or fever. Past Medical History Cardiac Medical History: Reports: Hyperlipidema, Hypertension Denies: Myocardial Infarction Pulmonary Medical History: Reports: Chronic Obstructive Pulmonary Disease (COPD) Denies: Asthma Neurological Medical History: Denies: Seizures GI Medical History: Denies: Hepatitis, Hiatal Hernia Psychiatric Medical History: Denies: Depression Hematology: Denies: Anemia, Sickle Cell Disease Past Surgical History Past Surgical History: Reports: Hysterectomy Denies: Amputation, Mastectomy, Pacemaker Social History Information Source: Patient, Emergency Med Personnel, [facility] Records Lives with: Alone Smoking Status: Former Smoker Frequency of Alcohol Use: None Drugs: None - Advance Directive Resuscitation Status: Full Code Family History Family History: COPD Parental Family History Reviewed: Yes Children Family History Reviewed: Yes Sibling(s) Family History Reviewed.: Yes Medication/Allergy Home Medications: Atorvastatin Calcium [Lipitor 20 mg Tablet] 20 mg PO DAILY 09/30/18 Cyclobenzaprine HCl [Flexeril 5 mg Tablet] 10 mg PO TIDP PRN MDD 30 MG 09/30/18 Pramipexole Di-HCl [Mirapex] 1 mg PO QHS 09/30/18 Albuterol Sulfate [Proair HFA Inhalation Aerosol 8.5 gm MDI] 2 puff IH Q6HP PRN 05/16/19 Apixaban [Eliquis 5 mg Tablet] 5 mg PO BID 05/16/19 Ipratropium [place] 2 spray NASL QHS 05/16/19 Divalproex Sodium [Depakote ER] 500 mg PO QHS 08/28/19 Spironolactone [Aldactone 25 mg Tablet] 25 mg PO DAILY 08/28/19 Torsemide 10 mg PO DAILY 08/28/19 Acetaminophen [Tylenol 325 mg Tablet] 650 mg PO Q4HP PRN tablet 09/03/19 Amlodipine Besylate [Norvasc 10 mg Tablet] 10 mg PO DAILY #30 tablet 09/03/19 Ciprofloxacin HCl [Cipro 500 mg Tablet] 250 mg PO Q12 #10 tablet 09/03/19 Losartan Potassium [Cozaar 50 mg Tablet] 100 mg PO DAILY #60 tablet 09/03/19 Metoprolol Succinate [Toprol Xl 50 mg Tab.sr] 50 mg PO DAILY #30 tab.sr.24h 09/03/19 Phenazopyridine HCl [Pyridium 100 mg Tablet] 100 mg PO Q8 #12 tablet 09/03/19 Prednisone [Deltasone 20 mg Tablet] 60 mg PO DAILY #12 tablet 09/03/19 Allergies/Adverse Reactions: lemon Allergy (Severe, Verified 08/28/19 09:57) SWELLING FACIAL AND AT SITE OF CONTACT Penicillins Allergy (Severe, Verified 08/28/19 09:57) Anaphylaxis Sulfa (Sulfonamide Antibiotics) Allergy (Severe, Verified 08/28/19 09:57) SOB, FACIAL SWELLING Review of Systems Constitutional: PRESENT: as per HPI, fatigue, weakness Eyes: ABSENT: visual disturbances Ears: ABSENT: hearing changes Nose, Mouth, and Throat: PRESENT: as per HPI, other - Uncontrolled rhinorrhea no facial pain Cardiovascular: PRESENT: as per HPI, dyspnea on exertion, edema. ABSENT: orthropnea, palpitations Respiratory: PRESENT: as per HPI, dyspnea. ABSENT: cough, sputum Gastrointestinal: ABSENT: abdominal pain, constipation, diarrhea, hematemesis, hematochezia, nausea, vomiting Genitourinary: ABSENT: dysuria, hematuria Musculoskeletal: PRESENT: as per HPI, muscle weakness. ABSENT: joint swelling Integumentary: ABSENT: rash, wounds Neurological: ABSENT: abnormal gait, abnormal speech, confusion, dizziness, focal weakness, syncope Psychiatric: ABSENT: anxiety, depression, homidical ideation, suicidal ideation Endocrine: ABSENT: cold intolerance, heat intolerance, polydipsia, polyuria Hematologic/Lymphatic: ABSENT: easy bleeding, easy bruising Physical Exam Vital Signs: Temp Pulse Resp BP Pulse Ox 98.1 F 103 H 17 142/91 H 97 09/09/19 03:29 09/09/19 03:29 09/09/19 05:01 09/09/19 05:00 09/09/19 05:01 Intake & Output 09/07/19 09/08/19 09/09/19 11:59 11:59 11:59 Weight 112.4 kg Results Laboratory Results: 09/09/19 03:52 09/09/19 03:52 09/09/19 09/09/19 09/09/19 03:52 03:52 03:52 WBC 12.5 H RBC 4.07 Hgb 12.2 Hct 37.8 MCV 93 MCH 30.0 MCHC 32.3 RDW 15.1 H Plt Count 251 Seg Neutrophils % 73.4 VBG pH 7.26 L VBG pCO2 83.3 H* VBG HCO3 36.2 H VBG Base Excess 5.9 Sodium 138.4 Potassium 4.9 Chloride 98 Carbon Dioxide 35 H Anion Gap 5 BUN 43 H Creatinine 0.92 Est GFR ( Amer) > 60 Glucose 147 H Calcium 9.6 Total Bilirubin 0.7 AST 19 Alkaline Phosphatase 65 Total Protein 6.5 Albumin 3.8 09/09/19 03:52 Troponin I < 0.012 NT-Pro-B Natriuret Pep 125 Impressions: Chest X-Ray 09/09/19 03:41 IMPRESSION: 1. No acute pulmonary findings. Assessment and Plan - Diagnosis (1) Acute respiratory failure with hypoxia and hypercarbia Is this a current diagnosis for this admission?: Yes Plan: Likely secondary to uncontrolled rhinorrhea, complicated by morbid obesity and severe deconditioning and lack of outpatient home health. Incentive spirometry, flutter valve, supplemental oxygen, albuterol, Atrovent, Flonase BiPAP as needed, discharge planning consulted (2) COPD with exacerbation Is this a current diagnosis for this admission?: Yes Plan: Incentive spirometry, flutter valve, supplemental oxygen, albuterol, Atrovent, Flonase BiPAP as needed (3) Morbid obesity with BMI of 45.0-49.9, adult Is this a current diagnosis for this admission?: Yes Plan: Morbid obesity will evaluate for metabolic cause with evaluation of thyroid function and dietitian consultation (4) Physical deconditioning Is this a current diagnosis for this admission?: Yes Plan: Unable to ambulate 10 feet, physical therapy eval (5) Allergic sinusitis Is this a current diagnosis for this admission?: Yes Plan: Flonase
[2019-09-09] MEDS: IPRATROPIUM/ALBUTEROL 0.5-2.5 MG/3 ML AMPUL NEB SCH ×2 (08:11→17:00)
--- NOTE | 2019-09-09 09:32 | EKG REPORT ---
SEVERITY:- ABNORMAL ECG - SINUS RHYTHM ABNRM R PROG, CONSIDER ASMI OR LEAD PLACEMENT : Confirmed by: Rubia Robertson MD 09-Sep-2019 09:31:28
[2019-09-09] MEDS: PREDNISONE 20 MG TABLET PO SCH ×2 (10:27→17:09)
[2019-09-09] MEDS: DOCUSATE SODIUM 100 MG CAPSULE PO SCH ×2 (10:27→17:09)
[2019-09-09] MEDS: FLUTICASONE NASAL SPRAY 50 MCG/SPRY 120 SPRAY/16 GM NASL SCH ×2 (11:03→22:01)
[2019-09-09 11:04] LABS: ARTERIAL BLOOD BASE EXCESS 5.5 mmol/L; ARTERIAL BLOOD HCO3 33.9 mmol/L (20-24); ARTERIAL BLOOD O2 SATURATION 96.1 % (94-98); ARTERIAL BLOOD PH 7.31 (7.35-7.45); ARTERIAL BLOOD PO2 92.6 mmHg (80-100); ARTERIAL BLOOD TOTAL CO2 36.1 mmol/L (21-25)
[2019-09-09 11:08] LABS: ARTERIAL BLOOD FIO2 3L; ARTERIAL BLOOD PCO2 69.7 mmHg (35-45)
--- NOTE | 2019-09-09 13:04 | Progress Note ---
Provider Note Provider Note: ALYSHA CRENSHAW is a 74 year old female with a past medical history of morbid obesity, oxygen dependent COPD, restless legs, deep vein thrombosis on Eliquis, profound physical debility and lymphedema who was admitted early this morning by the dielectric testing machine operator for acute on chronic respiratory failure with hypoxia and hyper capnia. Overnight events, H&P, vital signs, lab and imaging results, and orders reviewed. Agree with the plan of care as established by the previous provider. In addition, obtained an ABG which showed uncompensated respiratory acidosis with hypercapnia; pH 7.31, PCO2 69.7, PO2 92.6, HCO3 33.9 on her baseline oxygen requirement of 3 L/min via nasal cannula. Discussed with patient; she states she has a CPAP machine at home her last overnight sleep study was several years ago. She does admit to noncompliance as she finds that she takes the mask off during her sleep. She is agreeable to trial of BiPAP while here. I also discussed the importance of reducing the number of pillows as she does have a short neck, is overweight, and I believe that there is an element of JENNIFER and perhaps some mild obesity hypoventilation syndrome. Fortunately, pulmonology is available today. I have consulted Dr. Gilbert to evaluate the patient's need for trilogy device at home. During her last admission, it was recommended that she discharge to SNF for continued rehab. She declined at that time as she had private pay 24-hour care with home health nursing through [place]. She states that she would like to return home with the same services if at all possible due to fear of coronavirus exposure at a [facility]. She is advised that if she returns home, she should ask her nighttime caregivers to check on her periodically throughout the night and to replace her respiratory equipment if she has pulled it off during her sleep. Her home medications have been reconciled and resumed.
[2019-09-09] MEDS: APIXABAN 5 MG TABLET PO SCH (17:09)
[2019-09-09] MEDS ORDERED: (PENDING PHARMACY ID) (Pramipexole Di-Hcl [Mirapex] 1 MG) PO SCH (22:00)
[2019-09-09] MEDS: PRAMIPEXOLE DI-HCL 0.5 MG TABLET PO SCH (22:02)
[2019-09-10] MEDS: IPRATROPIUM/ALBUTEROL 0.5-2.5 MG/3 ML AMPUL NEB SCH ×4 (00:05→23:56)
[2019-09-10 09:07] LABS: ARTERIAL BLOOD H2CO3 1.55 mmol/L (1.05-1.35); ARTERIAL BLOOD HCO3 34.6 mmol/L (20-24); ARTERIAL BLOOD O2 SATURATION 96.6 % (94-98); ARTERIAL BLOOD PCO2 51.5 mmHg (35-45); ARTERIAL BLOOD PH 7.45 (7.35-7.45); ARTERIAL BLOOD PO2 84.4 mmHg (80-100); ARTERIAL BLOOD TOTAL CO2 36.2 mmol/L (21-25)
[2019-09-10 09:08] LABS: ARTERIAL BLOOD FIO2 30%
[2019-09-10 09:17] LABS: HEMATOCRIT 36.5 % (36.0-47.0); HEMOGLOBIN 11.8 g/dL (12.0-15.5); MEAN CORPUSCULAR HEMOGLOBIN 29.8 pg (27.0-33.4); MEAN CORPUSCULAR HGB CONC 32.4 g/dL (32.0-36.0); MEAN CORPUSCULAR VOLUME 92 fl (80-97); PLATELET COUNT 209 10^3/uL (150-450); RED BLOOD COUNT 3.97 10^6/uL (3.72-5.28); WHITE BLOOD COUNT 11.7 10^3/uL (4.0-10.5)
[2019-09-10] MEDS: DOCUSATE SODIUM 100 MG CAPSULE PO SCH ×2 (09:33→17:17)
[2019-09-10] MEDS: ATORVASTATIN CALCIUM 20 MG TABLET PO SCH (09:35)
[2019-09-10] MEDS: LOSARTAN POTASSIUM 50 MG TABLET PO SCH (09:35)
[2019-09-10] MEDS: APIXABAN 5 MG TABLET PO SCH ×2 (09:35→17:19)
[2019-09-10] MEDS: METOPROLOL SUCCINATE 50 MG TAB.SR.24H PO SCH (09:35)
[2019-09-10] MEDS: PREDNISONE 20 MG TABLET PO SCH ×2 (09:35→17:19)
[2019-09-10] MEDS: AMLODIPINE BESYLATE 10 MG TABLET PO SCH (09:35)
[2019-09-10] MEDS: FLUTICASONE NASAL SPRAY 50 MCG/SPRY 120 SPRAY/16 GM NASL SCH ×2 (09:36→21:23)
[2019-09-10 09:39] LABS: ANION GAP 6 (5-19); BLOOD UREA NITROGEN 42 mg/dL (7-20); CALCIUM 9.1 mg/dL (8.4-10.2); CARBON DIOXIDE 31 mmol/L (22-30); CHLORIDE 99 mmol/L (98-107); GLUCOSE 133 mg/dL (75-110); POTASSIUM 4.8 mmol/L (3.6-5.0)
--- NOTE | 2019-09-10 15:06 | PDOC PROGRESS REPORT ---
Subjective Progress Note for:: 09/10/19 Subjective:: ALYSHA CRENSHAW is a 74 year old female with a past medical history of morbid obesity, oxygen dependent COPD, restless legs, deep vein thrombosis on Eliquis, profound physical debility and lymphedema. She was discharged 6 days ago after a 6-day admission for acute on chronic hypercapnic respiratory failure. She returns with shortness of breath, tachypnea, a PCO2 of 83. She receives prednisone, albuterol with limited improvement she is however unable to return t o independent setting and referred to the hospitalist for admission. She admits uncontrolled rhinorrhea and nonproductive cough, denies chest pain nausea vomiting or fever. 09/10/2019. No acute events overnight. Still BiPAP dependent, denies any fever, chills, nausea, vomiting, diarrhea, constipation or any urinary symptoms. Pending pulmonology consultation for possible trilogy at home. Reason For Visit: ACUTE AND CHRONIC HYPERCAPNIC,RESPIRATORY FAILURE Physical Exam Vital Signs: Temp Pulse Resp BP Pulse Ox 98.4 F 96 18 148/54 H 98 09/10/19 11:55 09/10/19 11:55 09/10/19 11:55 09/10/19 11:55 09/10/19 11:55 Intake & Output 09/09/19 09/10/19 09/11/19 06:59 06:59 06:59 Intake Total 1300 Balance 1300 Weight 112.4 kg 112 kg General appearance: PRESENT: morbidly obese Head exam: PRESENT: atraumatic, normocephalic Respiratory exam: PRESENT: accessory muscle use, decreased breath sounds, prolonged expiratory phas, symmetrical, wheezes. ABSENT: rales, rhonchi Cardiovascular exam: PRESENT: RRR. ABSENT: diastolic murmur, rubs, systolic murmur GI/Abdominal exam: PRESENT: normal bowel sounds, soft. ABSENT: distended, guarding, mass, organolmegaly, rebound, tenderness Neurological exam: PRESENT: alert, awake, oriented to person, oriented to place, oriented to time, oriented to situation, CN II-XII grossly intact. ABSENT: motor sensory deficit Results Laboratory Results: 09/10/19 08:31 09/10/19 08:31 09/10/19 09/10/19 09/10/19 08:30 08:31 08:31 WBC 11.7 H RBC 3.97 Hgb 11.8 L Hct 36.5 MCV 92 MCH 29.8 MCHC 32.4 RDW 15.0 H Plt Count 209 Carbonic Acid 1.55 H HCO3/H2CO3 Ratio 22:1 ABG pH 7.45 ABG pCO2 51.5 H ABG pO2 84.4 ABG HCO3 34.6 H ABG O2 Saturation 96.6 ABG Base Excess 9.0 FiO2 30% Sodium 135.9 L Potassium 4.8 Chloride 99 Carbon Dioxide 31 H Anion Gap 6 BUN 42 H Creatinine 0.66 Est GFR ( Amer) > 60 Glucose 133 H Calcium 9.1 09/09/19 09/09/19 09/09/19 03:52 12:41 16:00 Troponin I < 0.012 < 0.012 < 0.012 NT-Pro-B Natriuret Pep 125 09/10/19 00:45 Troponin I < 0.012 NT-Pro-B Natriuret Pep Impressions: Chest X-Ray 09/09/19 03:41 IMPRESSION: 1. No acute pulmonary findings. Assessment and Plan - Diagnosis (1) Acute respiratory failure with hypoxia and hypercarbia Is this a current diagnosis for this admission?: Yes Plan: History of oxygen dependent COPD, uncontrolled. Presented with rest acidosis and hypercarbia. Mild improvement since admission, still dependent on BiPAP. May need home BiPAP. Pulmonology consulted. Continue incentive spirometry, flutter valve, supplemental oxygen, albuterol, Atrovent, Flonase BiPAP as needed, discharge planning consulted (2) Allergic sinusitis Is this a current diagnosis for this admission?: Yes Plan: Flonase (3) COPD exacerbation Is this a current diagnosis for this admission?: Yes Plan: Plan as per 1. (4) Morbid obesity with BMI of 45.0-49.9, adult Is this a current diagnosis for this admission?: Yes Plan: Morbid obesity will evaluate for metabolic cause with evaluation of thyroid function and dietitian consultation (5) Physical deconditioning Is this a current diagnosis for this admission?: Yes Plan: Daily PT OT. Does not want to be placed at jail. Has home health. Resume home health PT OT upon discharge.
[2019-09-10] MEDS: PRAMIPEXOLE DI-HCL 0.5 MG TABLET PO SCH (21:22)
[2019-09-10] MEDS ORDERED: TRAZODONE HCL 50 MG TABLET PO SCH (22:00)
[2019-09-11] MEDS: IPRATROPIUM/ALBUTEROL 0.5-2.5 MG/3 ML AMPUL NEB SCH ×2 (08:20→16:01)
[2019-09-11] MEDS: PREDNISONE 20 MG TABLET PO SCH ×2 (10:04→18:04)
[2019-09-11] MEDS: DOCUSATE SODIUM 100 MG CAPSULE PO SCH ×2 (10:04→18:03)
[2019-09-11] MEDS: APIXABAN 5 MG TABLET PO SCH ×2 (10:04→18:04)
[2019-09-11] MEDS: AMLODIPINE BESYLATE 10 MG TABLET PO SCH (10:04)
[2019-09-11] MEDS: ATORVASTATIN CALCIUM 20 MG TABLET PO SCH (10:04)
[2019-09-11] MEDS: LOSARTAN POTASSIUM 50 MG TABLET PO SCH (10:04)
[2019-09-11] MEDS: METOPROLOL SUCCINATE 50 MG TAB.SR.24H PO SCH (10:05)
[2019-09-11] MEDS: FLUTICASONE NASAL SPRAY 50 MCG/SPRY 120 SPRAY/16 GM NASL SCH (10:06)
--- NOTE | 2019-09-11 11:02 | PDOC PROGRESS REPORT ---
Subjective Progress Note for:: 09/11/19 Subjective:: ALYSHA CRENSHAW is a 74 year old female with a past medical history of morbid obesity, oxygen dependent COPD, restless legs, deep vein thrombosis on Eliquis, profound physical debility and lymphedema. She was discharged 6 days ago after a 6-day admission for acute on chronic hypercapnic respiratory failure. She returns with shortness of breath, tachypnea, a PCO2 of 83. She receives prednisone, albuterol with limited improvement she is however unable to return t o independent setting and referred to the hospitalist for admission. She admits uncontrolled rhinorrhea and nonproductive cough, denies chest pain nausea vomiting or fever. 09/10/2019. No acute events overnight. Still BiPAP dependent, denies any fever, chills, nausea, vomiting, diarrhea, constipation or any urinary symptoms. Pending pulmonology consultation for possible trilogy at home. 09/11/2019. No acute events overnight. Still BiPAP dependent, mild improvement of respiratory symptoms, oxygen demand is lower than yesterday, patient has agreed to be transitioned to SNF, still pending consult from pulmonology. Patient denies any chest pain, fever, nausea, vomiting, diarrhea, constipation or any urinary symptoms. Reason For Visit: ACUTE AND CHRONIC HYPERCAPNIC,RESPIRATORY FAILURE Physical Exam Vital Signs: Temp Pulse Resp BP Pulse Ox 97.8 F 81 18 135/65 H 94 09/11/19 08:00 09/11/19 08:00 09/11/19 08:00 09/11/19 08:00 09/11/19 08:00 Intake & Output 09/10/19 09/11/19 09/12/19 06:59 06:59 06:59 Intake Total 1300 1274 Balance 1300 1274 Weight 112 kg 97.1 kg General appearance: PRESENT: no acute distress, obese, well-developed, well- nourished Head exam: PRESENT: atraumatic, normocephalic Respiratory exam: PRESENT: clear to auscultation fely, prolonged expiratory phas, wheezes. ABSENT: rales, rhonchi GI/Abdominal exam: PRESENT: normal bowel sounds, soft. ABSENT: distended, guarding, mass, organolmegaly, rebound, tenderness Extremities exam: PRESENT: full ROM. ABSENT: calf tenderness, clubbing, pedal edema Neurological exam: PRESENT: alert, awake, oriented to person, oriented to place, oriented to time, oriented to situation, CN II-XII grossly intact. ABSENT: motor sensory deficit Results Laboratory Results: 09/10/19 08:31 09/10/19 08:31 09/09/19 09/09/19 09/09/19 03:52 12:41 16:00 Troponin I < 0.012 < 0.012 < 0.012 NT-Pro-B Natriuret Pep 125 09/10/19 00:45 Troponin I < 0.012 NT-Pro-B Natriuret Pep Impressions: Chest X-Ray 09/09/19 03:41 IMPRESSION: 1. No acute pulmonary findings. Assessment and Plan - Diagnosis (1) Acute respiratory failure with hypoxia and hypercarbia Is this a current diagnosis for this admission?: Yes Plan: History of oxygen dependent COPD, uncontrolled. Presented with rest acidosis and hypercarbia. Mild improvement since admission, still dependent on BiPAP. May need home BiPAP. Pulmonology consulted. Continue incentive spirometry, flutter valve, supplemental oxygen, LABA, LABA, ICS and p.o. steroids. (2) Allergic sinusitis Is this a current diagnosis for this admission?: Yes Plan: Flonase (3) COPD exacerbation Is this a current diagnosis for this admission?: Yes Plan: Plan as per 1. (4) Morbid obesity with BMI of 45.0-49.9, adult Is this a current diagnosis for this admission?: Yes Plan: Morbid obesity will evaluate for metabolic cause with evaluation of thyroid function and dietitian consultation (5) Physical deconditioning Is this a current diagnosis for this admission?: Yes Plan: Daily PT OT. Has agreed to be transition to SNF. Discharge planning consulted.
[2019-09-11] MEDS: FLUTICASONE/UMECLIDIN/VILANTER 100-62.5-25 MCG/DOSE IH SCH (14:00)
[2019-09-11] MEDS: PRAMIPEXOLE DI-HCL 0.5 MG TABLET PO SCH (21:53)
[2019-09-12] MEDS: IPRATROPIUM/ALBUTEROL 0.5-2.5 MG/3 ML AMPUL NEB SCH ×3 (00:19→16:07)
--- NOTE | 2019-09-12 10:36 | PDOC PROGRESS REPORT ---
Subjective Progress Note for:: 09/12/19 Subjective:: ALYSHA CRENSHAW is a 74 year old female with a past medical history of morbid obesity, oxygen dependent COPD, restless legs, deep vein thrombosis on Eliquis, profound physical debility and lymphedema. She was discharged 6 days ago after a 6-day admission for acute on chronic hypercapnic respiratory failure. She returns with shortness of breath, tachypnea, a PCO2 of 83. She receives prednisone, albuterol with limited improvement she is however unable to return t o independent setting and referred to the hospitalist for admission. She admits uncontrolled rhinorrhea and nonproductive cough, denies chest pain nausea vomiting or fever. 09/10/2019. No acute events overnight. Still BiPAP dependent, denies any fever, chills, nausea, vomiting, diarrhea, constipation or any urinary symptoms. Pending pulmonology consultation for possible trilogy at home. 09/11/2019. No acute events overnight. Still BiPAP dependent, mild improvement of respiratory symptoms, oxygen demand is lower than yesterday, patient has agreed to be transitioned to SNF, still pending consult from pulmonology. Patient denies any chest pain, fever, nausea, vomiting, diarrhea, constipation or any urinary symptoms. 09/12/2019. No acute events overnight. Still BiPAP dependent. Mild improvement of respiratory symptoms. SPO2 WNL on 3 L nasal cannula this morning. Has been visited by pulmonology however no note available, patient pending transfer to SNF. Denies any chest pain, nausea, vomiting, diarrhea, constipation or any urinary symptoms. Reason For Visit: ACUTE AND CHRONIC HYPERCAPNIC,RESPIRATORY FAILURE Physical Exam Vital Signs: Temp Pulse Resp BP Pulse Ox 98.0 F 88 19 149/69 H 97 09/12/19 07:33 09/12/19 07:33 09/12/19 07:33 09/12/19 07:33 09/12/19 07:33 Intake & Output 09/11/19 09/12/19 09/13/19 06:59 06:59 06:59 Intake Total 1274 1290 Balance 1274 1290 Weight 97.1 kg 108.5 kg General appearance: PRESENT: no acute distress, morbidly obese Head exam: PRESENT: atraumatic, normocephalic Respiratory exam: PRESENT: clear to auscultation fely, decreased breath sounds. ABSENT: rales, rhonchi, wheezes GI/Abdominal exam: PRESENT: normal bowel sounds, soft. ABSENT: distended, guarding, mass, organolmegaly, rebound, tenderness Neurological exam: PRESENT: alert, awake, oriented to person, oriented to place, oriented to time, oriented to situation, CN II-XII grossly intact. ABSENT: motor sensory deficit Skin exam: PRESENT: dry, intact, warm. ABSENT: cyanosis, rash Results Laboratory Results: 09/10/19 08:31 09/10/19 08:31 09/09/19 09/09/19 09/09/19 03:52 12:41 16:00 Troponin I < 0.012 < 0.012 < 0.012 NT-Pro-B Natriuret Pep 125 09/10/19 00:45 Troponin I < 0.012 NT-Pro-B Natriuret Pep Impressions: Chest X-Ray 09/09/19 03:41 IMPRESSION: 1. No acute pulmonary findings. Assessment and Plan - Diagnosis (1) Acute respiratory failure with hypoxia and hypercarbia Is this a current diagnosis for this admission?: Yes Plan: History of oxygen dependent COPD, uncontrolled. Presented with rest acidosis and hypercarbia. Mild improvement since admission, still dependent on BiPAP. May need home BiPAP. Pulmonology consulted. Continue incentive spirometry, flutter valve, supplemental oxygen, LABA, LABA, ICS and p.o. steroids. (2) Allergic sinusitis Is this a current diagnosis for this admission?: Yes Plan: Flonase (3) COPD exacerbation Is this a current diagnosis for this admission?: Yes Plan: Plan as per 1. (4) Morbid obesity with BMI of 45.0-49.9, adult Is this a current diagnosis for this admission?: Yes Plan: Morbid obesity will evaluate for metabolic cause with evaluation of thyroid function and dietitian consultation (5) Physical deconditioning Is this a current diagnosis for this admission?: Yes Plan: Daily PT OT. Has agreed to be transition to SNF. Discharge planning consulted.
[2019-09-12] MEDS: PREDNISONE 20 MG TABLET PO SCH ×2 (10:45→17:39)
[2019-09-12] MEDS: APIXABAN 5 MG TABLET PO SCH ×2 (10:45→17:39)
[2019-09-12] MEDS: AMLODIPINE BESYLATE 10 MG TABLET PO SCH (10:45)
[2019-09-12] MEDS: METOPROLOL SUCCINATE 50 MG TAB.SR.24H PO SCH (10:45)
[2019-09-12] MEDS: FLUTICASONE/UMECLIDIN/VILANTER 100-62.5-25 MCG/DOSE IH SCH ×2 (10:46→10:48)
[2019-09-12] MEDS: LOSARTAN POTASSIUM 50 MG TABLET PO SCH (10:46)
[2019-09-12] MEDS: DOCUSATE SODIUM 100 MG CAPSULE PO SCH ×2 (10:47→17:40)
[2019-09-12] MEDS: PRAMIPEXOLE DI-HCL 0.5 MG TABLET PO SCH (21:28)
[2019-09-12] MEDS: ATORVASTATIN CALCIUM 20 MG TABLET PO SCH (21:28)
[2019-09-13] MEDS: IPRATROPIUM/ALBUTEROL 0.5-2.5 MG/3 ML AMPUL NEB SCH ×3 (00:32→16:18)
[2019-09-13] MEDS: METOPROLOL SUCCINATE 50 MG TAB.SR.24H PO SCH (10:02)
[2019-09-13] MEDS: AMLODIPINE BESYLATE 10 MG TABLET PO SCH (10:02)
[2019-09-13] MEDS: APIXABAN 5 MG TABLET PO SCH ×2 (10:02→17:57)
[2019-09-13] MEDS: LOSARTAN POTASSIUM 50 MG TABLET PO SCH (10:03)
[2019-09-13] MEDS: PREDNISONE 20 MG TABLET PO SCH ×2 (10:03→17:57)
[2019-09-13] MEDS: FLUTICASONE/UMECLIDIN/VILANTER 100-62.5-25 MCG/DOSE IH SCH ×2 (10:04→10:10)
[2019-09-13] MEDS: DOCUSATE SODIUM 100 MG CAPSULE PO SCH ×2 (10:11→17:58)
--- NOTE | 2019-09-13 10:13 | PDOC PROGRESS REPORT ---
Subjective Progress Note for:: 09/13/19 Subjective:: ALYSHA CRENSHAW is a 74 year old female with a past medical history of morbid obesity, oxygen dependent COPD, restless legs, deep vein thrombosis on Eliquis, profound physical debility and lymphedema. She was discharged 6 days ago after a 6-day admission for acute on chronic hypercapnic respiratory failure. She returns with shortness of breath, tachypnea, a PCO2 of 83. She receives prednisone, albuterol with limited improvement she is however unable to return t o independent setting and referred to the hospitalist for admission. She admits uncontrolled rhinorrhea and nonproductive cough, denies chest pain nausea vomiting or fever. 09/10/2019. No acute events overnight. Still BiPAP dependent, denies any fever, chills, nausea, vomiting, diarrhea, constipation or any urinary symptoms. Pending pulmonology consultation for possible trilogy at home. 09/11/2019. No acute events overnight. Still BiPAP dependent, mild improvement of respiratory symptoms, oxygen demand is lower than yesterday, patient has agreed to be transitioned to SNF, still pending consult from pulmonology. Patient denies any chest pain, fever, nausea, vomiting, diarrhea, constipation or any urinary symptoms. 09/12/2019. No acute events overnight. Still BiPAP dependent. Mild improvement of respiratory symptoms. SPO2 WNL on 3 L nasal cannula this morning. Has been visited by pulmonology however no note available, patient pending transfer to SNF. Denies any chest pain, nausea, vomiting, diarrhea, constipation or any urinary symptoms. 09/13/2019. No acute events overnight. Much improvements compared to yesterday, patient had a good night sleep and used BiPAP all night, this morning sitting at edge of bed in no apparent distress, denies any fever, chills, nausea, vomiting, diarrhea, constipation or or urinary symptoms. Patient is pending transfer to SNF. Reason For Visit: ACUTE AND CHRONIC HYPERCAPNIC,RESPIRATORY FAILURE Physical Exam Vital Signs: Temp Pulse Resp BP Pulse Ox 97.8 F 73 18 144/67 H 95 09/13/19 07:23 09/13/19 08:06 09/13/19 08:06 09/13/19 07:23 09/13/19 08:06 Intake & Output 09/12/19 09/13/19 09/14/19 06:59 06:59 06:59 Intake Total 1290 690 Balance 1290 690 Weight 108.5 kg 108.5 kg General appearance: PRESENT: no acute distress, well-developed, well-nourished Head exam: PRESENT: atraumatic, normocephalic Respiratory exam: PRESENT: clear to auscultation fely, decreased breath sounds. ABSENT: rales, rhonchi, wheezes Cardiovascular exam: PRESENT: RRR. ABSENT: diastolic murmur, rubs, systolic murmur GI/Abdominal exam: PRESENT: normal bowel sounds, soft. ABSENT: distended, g uarding, mass, organolmegaly, rebound, tenderness Neurological exam: PRESENT: alert, awake, oriented to person, oriented to place, oriented to time, oriented to situation, CN II-XII grossly intact. ABSENT: motor sensory deficit Results Laboratory Results: 09/10/19 08:31 09/10/19 08:31 09/09/19 09/09/19 09/09/19 03:52 12:41 16:00 Troponin I < 0.012 < 0.012 < 0.012 NT-Pro-B Natriuret Pep 125 09/10/19 00:45 Troponin I < 0.012 NT-Pro-B Natriuret Pep Impressions: Chest X-Ray 09/09/19 03:41 IMPRESSION: 1. No acute pulmonary findings. Assessment and Plan - Diagnosis (1) Acute respiratory failure with hypoxia and hypercarbia Is this a current diagnosis for this admission?: Yes Plan: Moderate improvement. SPO2 WNL on 3 L nasal cannula and BiPAP. History of oxygen dependent COPD, uncontrolled. Presented with respiratory acidosis and hypercarbia. Needs BiPAP at home. Pulmonology consulted. Continue incentive spirometry, flutter valve, supplemental oxygen, LABA, LABA, ICS and p.o. steroids. (2) Allergic sinusitis Is this a current diagnosis for this admission?: Yes Plan: Flonase (3) COPD exacerbation Is this a current diagnosis for this admission?: Yes Plan: Plan as per 1. (4) Morbid obesity with BMI of 45.0-49.9, adult Is this a current diagnosis for this admission?: Yes Plan: Morbid obesity will evaluate for metabolic cause with evaluation of thyroid function and dietitian consultation (5) Physical deconditioning Is this a current diagnosis for this admission?: Yes Plan: Daily PT OT. Has agreed to be transition to SNF. Discharge planning consulted.
[2019-09-13] MEDS ORDERED: LISINOPRIL 5 MG TABLET PO SCH (14:30)
[2019-09-13] MEDS: PRAMIPEXOLE DI-HCL 0.5 MG TABLET PO SCH (21:13)
[2019-09-13] MEDS: ATORVASTATIN CALCIUM 20 MG TABLET PO SCH (21:13)
[2019-09-14] MEDS: IPRATROPIUM/ALBUTEROL 0.5-2.5 MG/3 ML AMPUL NEB SCH ×3 (00:22→15:48)
[2019-09-14] MEDS: DOCUSATE SODIUM 100 MG CAPSULE PO SCH ×2 (09:29→18:04)
[2019-09-14] MEDS: PREDNISONE 20 MG TABLET PO SCH (09:30)
[2019-09-14] MEDS: METOPROLOL SUCCINATE 50 MG TAB.SR.24H PO SCH (09:30)
[2019-09-14] MEDS: APIXABAN 5 MG TABLET PO SCH ×2 (09:30→18:05)
[2019-09-14] MEDS: LOSARTAN POTASSIUM 50 MG TABLET PO SCH (09:30)
[2019-09-14] MEDS: AMLODIPINE BESYLATE 10 MG TABLET PO SCH (09:30)
[2019-09-14] MEDS: FLUTICASONE/UMECLIDIN/VILANTER 100-62.5-25 MCG/DOSE IH SCH (09:30)
--- NOTE | 2019-09-14 09:46 | PDOC PROGRESS REPORT ---
Subjective Progress Note for:: 09/14/19 Subjective:: ALYSHA CRENSHAW is a 74 year old female with a past medical history of morbid obesity, oxygen dependent COPD, restless legs, deep vein thrombosis on Eliquis, profound physical debility and lymphedema. She was discharged 6 days ago after a 6-day admission for acute on chronic hypercapnic respiratory failure. She returns with shortness of breath, tachypnea, a PCO2 of 83. She receives prednisone, albuterol with limited improvement she is however unable to return t o independent setting and referred to the hospitalist for admission. She admits uncontrolled rhinorrhea and nonproductive cough, denies chest pain nausea vomiting or fever. 09/10/2019. No acute events overnight. Still BiPAP dependent, denies any fever, chills, nausea, vomiting, diarrhea, constipation or any urinary symptoms. Pending pulmonology consultation for possible trilogy at home. 09/11/2019. No acute events overnight. Still BiPAP dependent, mild improvement of respiratory symptoms, oxygen demand is lower than yesterday, patient has agreed to be transitioned to SNF, still pending consult from pulmonology. Patient denies any chest pain, fever, nausea, vomiting, diarrhea, constipation or any urinary symptoms. 09/12/2019. No acute events overnight. Still BiPAP dependent. Mild improvement of respiratory symptoms. SPO2 WNL on 3 L nasal cannula this morning. Has been visited by pulmonology however no note available, patient pending transfer to SNF. Denies any chest pain, nausea, vomiting, diarrhea, constipation or any urinary symptoms. 09/13/2019. No acute events overnight. Much improvements compared to yesterday, patient had a good night sleep and used BiPAP all night, this morning sitting at edge of bed in no apparent distress, denies any fever, chills, nausea, vomiting, diarrhea, constipation or or urinary symptoms. Patient is pending transfer to SNF. 09/14/2019. No acute events overnight. Patient currently resting in bed no apparent distress, had a good night sleep, had to use BiPAP overnight, denies any chest pain, nausea, vomiting, diarrhea, constipation or any urinary symptoms. Able to ambulate with front wheel walker, having normal bowel bladder movement. Patient is pending transfer to SNF. Reason For Visit: ACUTE AND CHRONIC HYPERCAPNIC,RESPIRATORY FAILURE Physical Exam Vital Signs: Temp Pulse Resp BP Pulse Ox 97.4 F 85 14 142/58 H 96 09/14/19 07:22 09/14/19 07:22 09/14/19 04:05 09/14/19 07:22 09/14/19 07:22 Intake & Output 09/13/19 09/14/19 09/15/19 06:59 06:59 06:59 Intake Total 690 1680 Balance 690 1680 Weight 108.5 kg 107.8 kg General appearance: PRESENT: no acute distress, morbidly obese, well-developed, well-nourished Respiratory exam: PRESENT: clear to auscultation fely. ABSENT: rales, rhonchi, wheezes Cardiovascular exam: PRESENT: RRR. ABSENT: diastolic murmur, rubs, systolic murmur GI/Abdominal exam: PRESENT: normal bowel sounds, soft. ABSENT: distended, guarding, mass, organolmegaly, rebound, tenderness Extremities exam: PRESENT: full ROM, other - Bilateral lower extremity lymphedema. No sign of infection.. ABSENT: calf tenderness, clubbing, pedal e michael Neurological exam: PRESENT: alert, awake, oriented to person, oriented to place, oriented to time, oriented to situation, CN II-XII grossly intact. ABSENT: motor sensory deficit Results Laboratory Results: 09/10/19 08:31 09/10/19 08:31 09/09/19 09/09/19 09/09/19 03:52 12:41 16:00 Troponin I < 0.012 < 0.012 < 0.012 NT-Pro-B Natriuret Pep 125 09/10/19 00:45 Troponin I < 0.012 NT-Pro-B Natriuret Pep Impressions: Chest X-Ray 09/09/19 03:41 IMPRESSION: 1. No acute pulmonary findings. Assessment and Plan - Diagnosis (1) Acute respiratory failure with hypoxia and hypercarbia Is this a current diagnosis for this admission?: Yes Plan: Moderate improvement. SPO2 WNL on 3 L nasal cannula and BiPAP. History of oxygen dependent COPD, uncontrolled. Presented with respiratory acidosis and hypercarbia. Needs BiPAP at home. Pulmonology consulted. Continue incentive spirometry, flutter valve, supplemental oxygen, LABA, LABA, ICS. Received 6 days of p.o. steroids. DC steroids. (2) Allergic sinusitis Is this a current diagnosis for this admission?: Yes Plan: Flonase (3) COPD exacerbation Is this a current diagnosis for this admission?: Yes Plan: Plan as per 1. (4) Morbid obesity with BMI of 45.0-49.9, adult Is this a current diagnosis for this admission?: Yes Plan: Morbid obesity will evaluate for metabolic cause with evaluation of thyroid function and dietitian consultation (5) Physical deconditioning Is this a current diagnosis for this admission?: Yes Plan: Daily PT OT. Pending transfer to SNF. Discharge planning on board.
[2019-09-14] MEDS ORDERED: AMLODIPINE BESYLATE 10 MG TABLET PO SCH (10:00)
[2019-09-14] MEDS: SPIRONOLACTONE 25 MG TABLET PO SCH (10:22)
[2019-09-14] MEDS: AMLODIPINE BESYLATE 5 MG TABLET PO SCH (10:23)
[2019-09-14] MEDS: PRAMIPEXOLE DI-HCL 0.5 MG TABLET PO SCH (21:49)
[2019-09-14] MEDS: ATORVASTATIN CALCIUM 20 MG TABLET PO SCH (21:49)
[2019-09-15] MEDS: IPRATROPIUM/ALBUTEROL 0.5-2.5 MG/3 ML AMPUL NEB SCH ×3 (00:32→16:08)
[2019-09-15] MEDS: DOCUSATE SODIUM 100 MG CAPSULE PO SCH ×2 (09:36→17:27)
[2019-09-15] MEDS: SPIRONOLACTONE 25 MG TABLET PO SCH (09:36)
[2019-09-15] MEDS: AMLODIPINE BESYLATE 5 MG TABLET PO SCH (09:36)
[2019-09-15] MEDS: METOPROLOL SUCCINATE 50 MG TAB.SR.24H PO SCH (09:36)
[2019-09-15] MEDS: APIXABAN 5 MG TABLET PO SCH ×2 (09:36→17:33)
[2019-09-15] MEDS: LOSARTAN POTASSIUM 50 MG TABLET PO SCH (09:36)
[2019-09-15] MEDS: FLUTICASONE/UMECLIDIN/VILANTER 100-62.5-25 MCG/DOSE IH SCH (09:37)
--- NOTE | 2019-09-15 13:21 | PDOC CONSULTATION ---
Consultation Consult Date: 09/11/19 Attending physician:: BONNY VALENTE Provider Consulted: MINH PEREIRA Consult reason:: Acute on chronic respiratory failure History of Present Illness Admission Date/PCP: 09/09/19 06:28 MELANIE JENNINGS MD History of Present Illness: ALYSHA CRENSHAW is a 74 year old female is status post discharge for exacerbation of COPD PD returns complaining of increasing shortness of breath and dry nonproductive cough of her presentation she was confused and had elevated PCO2 this is come down slightly over the last 24 hours no history of fe vers chills nausea vomiting diarrhea no loss of taste or smell. She has a greater than [id number] smoking but has not smoked in the last 2 weeks he denies any pets recent travel. She admits to exposed to passive smoke as a child as well as an adolescent and denies any occupational exposure to potential respiratory toxins Past Medical History Cardiac Medical History: Reports: Hyperlipidema, Hypertension Denies: Myocardial Infarction Pulmonary Medical History: Reports: Chronic Obstructive Pulmonary Disease (COPD) Denies: Asthma Neurological Medical History: Denies: Seizures GI Medical History: Denies: Hepatitis, Hiatal Hernia Psychiatric Medical History: Denies: Depression Hematology: Denies: Anemia, Sickle Cell Disease Past Surgical History Past Surgical History: Reports: Hysterectomy Denies: Amputation, Mastectomy, Pacemaker Social History Information Source: Patient, [facility] Records Lives with: Alone Smoking Status: Current Some Day Smoker Cigarettes Packs Per Day: 2 Number of Years Smokin Passive smoke exposure as: Both Frequency of Alcohol Use: None Drugs: None Do you have pets?: No Have you had any respiratory illnesses as a child?: No Have you been exposed to any sick contacts recently?: No Have you had any recent respiratory illnesses?: Yes Have you travelled outside of [place] in the past 12 months?: No - Advance Directive Resuscitation Status: Full Code Family History Family History: COPD, Hypertension Parental Family History Reviewed: Yes Children Family History Reviewed: Yes Sibling(s) Family History Reviewed.: Yes Medication/Allergy Home Medications: Atorvastatin Calcium [Lipitor 20 mg Tablet] 20 mg PO DAILY 09/30/18 Pramipexole Di-HCl [Mirapex] 1 mg PO QHS 09/30/18 Apixaban [Eliquis 5 mg Tablet] 5 mg PO BID 05/16/19 Amlodipine Besylate [Norvasc 10 mg Tablet] 10 mg PO DAILY #30 tablet 09/03/19 Losartan Potassium [Cozaar 50 mg Tablet] 100 mg PO DAILY #60 tablet 09/03/19 Metoprolol Succinate [Toprol Xl 50 mg Tab.sr] 50 mg PO DAILY #30 tab.sr.24h 09/03/19 Allergies/Adverse Reactions: lemon Allergy (Severe, Verified 08/28/19 09:57) SWELLING FACIAL AND AT SITE OF CONTACT Penicillins Allergy (Severe, Verified 08/28/19 09:57) Anaphylaxis Sulfa (Sulfonamide Antibiotics) Allergy (Severe, Verified 08/28/19 09:57) SOB, FACIAL SWELLING Review of Systems All systems: reviewed and no additional remarkable complaints except as stated Physical Exam Vital Signs: Temp Pulse Resp BP Pulse Ox 98.1 F 84 18 146/64 H 95 09/11/19 12:00 09/11/19 16:02 09/11/19 16:02 09/11/19 12:00 09/11/19 16:02 Intake & Output 09/10/19 09/11/19 09/12/19 06:59 06:59 06:59 Intake Total 1300 1274 825 Balance 1300 1274 825 Weight 112 kg 97.1 kg General appearance: PRESENT: no acute distress, cooperative, disheveled, morbidly obese Head exam: PRESENT: atraumatic, normocephalic Eye exam: PRESENT: conjunctiva pale, EOMI. ABSENT: nystagmus, periorbital swelling, scleral icterus Mouth exam: PRESENT: dry mucosa, neck supple, tongue midline Neck exam: ABSENT: carotid bruit, full ROM, JVD, lymphadenopathy, meningismus, tenderness, thyromegaly, tracheal deviation, tracheostomy, other Respiratory exam: PRESENT: crackles, decreased breath sounds, prolonged expiratory phas, rhonchi, symmetrical, unlabored. ABSENT: retraction, stridor, tachypnea, wheezes Cardiovascular exam: PRESENT: +S1, +S2. ABSENT: tachycardia Pulses: PRESENT: normal radial pulses GI/Abdominal exam: PRESENT: soft. ABSENT: guarding, mass, rebound, tenderness Extremities exam: PRESENT: pedal edema. ABSENT: calf tenderness, clubbing, joint swelling, tenderness Musculoskeletal exam: ABSENT: deformity, dislocation Neurological exam: PRESENT: alert, awake Psychiatric exam: PRESENT: flat affect Skin exam: PRESENT: dry, warm Results Laboratory Results: 09/10/19 08:31 09/10/19 08:31 09/09/19 09/09/19 09/09/19 03:52 12:41 16:00 Troponin I < 0.012 < 0.012 < 0.012 NT-Pro-B Natriuret Pep 125 09/10/19 00:45 Troponin I < 0.012 NT-Pro-B Natriuret Pep Impressions: Chest X-Ray 09/09/19 03:41 IMPRESSION: 1. No acute pulmonary findings. Assessment & Plan - Diagnosis (1) Obesity hypoventilation syndrome Is this a current diagnosis for this admission?: Yes Plan: BMI 39.2 retaining pCO2 (2) Chronic respiratory failure requiring use of nocturnal bilevel positive airway pressure (BPAP) by mask Is this a current diagnosis for this admission?: Yes Plan: O2 at home x 3 yrs elevated PCO2 (3) Chronic respiratory failure with hypercapnia Is this a current diagnosis for this admission?: Yes Plan: continue bipap (4) COPD (chronic obstructive pulmonary disease) Is this a current diagnosis for this admission?: Yes Plan: add trelogy (5) Chronic hypoxemic respiratory failure Is this a current diagnosis for this admission?: Yes Plan: continue supp O2 - Time Total Critical Time (Minutes): 55
[2019-09-15] MEDS ORDERED: ONDANSETRON HCL INJ/PF 4 MG/2 ML SDV IV PRN (13:55)
--- NOTE | 2019-09-15 18:41 | PDOC TRANSFER SUMMARY ---
Impression - Admit/DC Date/PCP Admission Date/Primary Care Provider: 09/11/19 15:44 MELANIE JENNINGS MD Discharge Date: 09/16/19 - Discharge Diagnosis (1) Allergic sinusitis Is this a current diagnosis for this admission?: Yes (2) COPD exacerbation Is this a current diagnosis for this admission?: Yes (3) Acute respiratory failure with hypoxia and hypercarbia Is this a current diagnosis for this admission?: Yes (4) Morbid obesity with BMI of 45.0-49.9, adult Is this a current diagnosis for this admission?: Yes (5) Physical deconditioning Is this a current diagnosis for this admission?: Yes (6) Tobacco dependence Is this a current diagnosis for this admission?: Yes (7) Chronic respiratory failure requiring use of nocturnal bilevel positive airway pressure (BPAP) by mask Is this a current diagnosis for this admission?: Yes (8) Obesity hypoventilation syndrome Is this a current diagnosis for this admission?: Yes - Additional Information Resuscitation Status: Full Code Discharge Diet: Cardiac Discharge Activity: Activity As Tolerated, Balance Activity w/Rest, Slowly Increase Activity, Supervised Activity Referrals: MELANIE JENNINGS MD [Primary Care Provider] - (Follow up within 1 week of d/c from SNF) MINH GILBERT MD [ACTIVE STAFF] - (Follow up at earliest available appointment) Prescriptions: Spironolactone [Aldactone 25 mg Tablet] 25 mg PO DAILY #30 tablet Ipratropium/Albuterol Sulfate [Duoneb 3 ml Ampul] 3 ml NEB [id number] PRN #90 vial.neb PRN Reason: Fluticasone/Umeclidin/Vilanter [Trelegy 100-62.5-25 Mcg Ellipta 14 Dose/Dpi] 1 inh IH DAILY #1 inhaler Home Medications: Atorvastatin Calcium [Lipitor 20 mg Tablet] 20 mg PO DAILY 09/30/18 Pramipexole Di-HCl [Mirapex] 1 mg PO QHS 09/30/18 Apixaban [Eliquis 5 mg Tablet] 5 mg PO BID 05/16/19 Amlodipine Besylate [Norvasc 10 mg Tablet] 10 mg PO DAILY #30 tablet 09/03/19 Losartan Potassium [Cozaar 50 mg Tablet] 100 mg PO DAILY #60 tablet 09/03/19 Metoprolol Succinate [Toprol Xl 50 mg Tab.sr] 50 mg PO DAILY #30 tab.sr.24h 09/03/19 Acetaminophen [Tylenol 325 mg Tablet] 650 mg PO Q4HP PRN tablet 09/15/19 Docusate Sodium [Colace 100 mg Capsule] 100 mg PO BID capsule 09/15/19 Fluticasone/Umeclidin/Vilanter [Trelegy 100-62.5-25 Mcg Ellipta 14 Dose/Dpi] 1 inh IH DAILY #1 inhaler 09/15/19 Ipratropium/Albuterol Sulfate [Duoneb 3 ml Ampul] 3 ml NEB RTQ8HP PRN #90 vial.neb 09/15/19 Spironolactone [Aldactone 25 mg Tablet] 25 mg PO DAILY #30 tablet 09/15/19 History of Present Illiness History of Present Illness: Per H&P by Dr. Garcia: ALYSHA CRENSHAW is a 74 year old female with a past medical history of morbid obesity, oxygen dependent COPD, restless legs, deep vein thrombosis on Eliquis, profound physical debility and lymphedema. She was discharged 6 days ago after a 6-day admission for acute on chronic hypercapnic respiratory failure. She returns with shortness of breath, tachypnea, a PCO2 of 83. She receives prednisone, albuterol with limited improvement she is however unable to return to independent setting and referred to the hospitalist for admission. She admits uncontrolled rhinorrhea and nonproductive cough, denies chest pain nausea vomiting or fever. Hospital Course Hospital Course: (1) Acute respiratory failure with hypoxia and hypercarbia Acute failure has resolved. SPO2 WNL on 3 L nasal cannula (baseline) and BiPAP. History of oxygen dependent COPD, uncontrolled. Presented with respiratory acidosis and hypercarbia. COVID negative Pulmonology consulted; appreciate Dr. Gilbert's evaluation and recommendations. Continue incentive spirometry, flutter valve, supplemental oxygen (2) Allergic sinusitis Flonase and Zyrtec (3) COPD exacerbation Resolved. Completed 6 days of p.o. steroids. Have started patient on Trelegy As needed nebulizer treatments Pulmonology consultation Supportive oxygen and BiPAP as above. (4) Morbid obesity with BMI of 45.0-49.9, adult Dietary discretion and lifestyle modification are encouraged. (5) Physical deconditioning Daily PT OT. Transfer to SNF for continued rehab (6) Chronic Respiratory Failure Management as above (7) Tobacco dependence Smoking cessation is encouraged. (8) Obesity hypoventilation syndrome Pulmonology consultation; arrangements for home BiPAP device Remaining management as above. Physical Exam Vital Signs: Temp Pulse Resp BP Pulse Ox 97.8 F 92 16 137/60 H 97 09/15/19 15:24 09/15/19 16:08 09/15/19 16:08 09/15/19 15:24 09/15/19 16:08 Intake & Output 09/14/19 09/15/19 09/16/19 06:59 06:59 06:59 Intake Total 1680 1430 1526 Balance 1680 1430 1526 Weight 107.8 kg 105.2 kg General appearance: PRESENT: no acute distress, cooperative, morbidly obese, well-developed, well-nourished Head exam: PRESENT: atraumatic, normocephalic Eye exam: PRESENT: conjunctiva pink, EOMI, PERRLA. ABSENT: scleral icterus Mouth exam: PRESENT: moist, tongue midline Respiratory exam: PRESENT: clear to auscultation fely, symmetrical, unlabored. ABSENT: rales, rhonchi, wheezes Cardiovascular exam: PRESENT: RRR. ABSENT: diastolic murmur, rubs, systolic murmur Vascular exam: PRESENT: normal capillary refill Extremities exam: PRESENT: full ROM, other - Chronic BLE lymphedema. ABSENT: calf tenderness, clubbing, pedal edema Musculoskeletal exam: PRESENT: ambulatory - 60 feet with front wheel walker and assistance Neurological exam: PRESENT: alert, awake, oriented to person, oriented to place, oriented to time, oriented to situation, CN II-XII grossly intact. ABSENT: motor sensory deficit Psychiatric exam: PRESENT: appropriate affect, normal mood. ABSENT: homicidal ideation, suicidal ideation Skin exam: PRESENT: dry, intact, warm. ABSENT: cyanosis, rash Results Laboratory Results: WBC 11.7 10^3/uL (4.0-10.5) H 09/10/19 08:31 RBC 3.97 10^6/uL (3.72-5.28) 09/10/19 08:31 Hgb 11.8 g/dL (12.0-15.5) L 09/10/19 08:31 Hct 36.5 % (36.0-47.0) 09/10/19 08:31 MCV 92 fl (80-97) 09/10/19 08:31 MCH 29.8 pg (27.0-33.4) 09/10/19 08:31 MCHC 32.4 g/dL (32.0-36.0) 09/10/19 08:31 RDW 15.0 % (11.5-14.0) H 09/10/19 08:31 Plt Count 209 10^3/uL (150-450) 09/10/19 08:31 Lymph % (Auto) 14.6 % (13-45) 09/09/19 03:52 [place] % (Auto) 5.2 % (3-13) 09/09/19 03:52 Eos % (Auto) 6.0 % (0-6) 09/09/19 03:52 Baso % (Auto) 0.8 % (0-2) 09/09/19 03:52 Absolute Neuts (auto) 9.2 10^3/uL (1.7-8.2) H 09/09/19 03:52 Absolute Lymphs (auto) 1.8 10^3/uL (0.5-4.7) 09/09/19 03:52 Absolute Monos (auto) 0.7 10^3/uL (0.1-1.4) 09/09/19 03:52 Absolute Eos (auto) 0.8 10^3/uL (0.0-0.6) H 09/09/19 03:52 Absolute Basos (auto) 0.1 10^3/uL (0.0-0.2) 09/09/19 03:52 Seg Neutrophils % 73.4 % (42-78) 09/09/19 03:52 Carbonic Acid 1.55 mmol/L (1.05-1.35) H 09/10/19 08:30 HCO3/H2CO3 Ratio 22:1 09/10/19 08:30 ABG pH 7.45 (7.35-7.45) 09/10/19 08:30 ABG pCO2 51.5 mmHg (35-45) H 09/10/19 08:30 ABG pO2 84.4 mmHg (80-100) 09/10/19 08:30 ABG HCO3 34.6 mmol/L (20-24) H 09/10/19 08:30 ABG Total CO2 36.2 mmol/L (21-25) H 09/10/19 08:30 ABG O2 Saturation 96.6 % (94-98) 09/10/19 08:30 ABG Base Excess 9.0 mmol/L 09/10/19 08:30 VBG pH 7.26 (7.30-7.42) L 09/09/19 03:52 VBG pCO2 83.3 mmHg (35-63) H* 09/09/19 03:52 VBG HCO3 36.2 mmol/L (20-32) H 09/09/19 03:52 VBG Base Excess 5.9 mmol/L 09/09/19 03:52 FiO2 30% 09/10/19 08:30 Sodium 135.9 mmol/L (137-145) L 09/10/19 08:31 Potassium 4.8 mmol/L (3.6-5.0) 09/10/19 08:31 Chloride 99 mmol/L (98-107) 09/10/19 08:31 Carbon Dioxide 31 mmol/L (22-30) H 09/10/19 08:31 Anion Gap 6 (5-19) 09/10/19 08:31 BUN 42 mg/dL (7-20) H 09/10/19 08:31 Creatinine 0.66 mg/dL (0.52-1.25) 09/10/19 08:31 Est GFR ( Amer) > 60 (>60) 09/10/19 08:31 Est GFR (MDRD) Non-Af > 60 (>60) 09/10/19 08:31 Glucose 133 mg/dL (75-110) H 09/10/19 08:31 Calcium 9.1 mg/dL (8.4-10.2) 09/10/19 08:31 Phosphorus 3.9 mg/dL (2.5-4.5) 09/09/19 03:52 Magnesium 2.5 mg/dL (1.6-2.3) H 09/09/19 03:52 Total Bilirubin 0.7 mg/dL (0.2-1.3) 09/09/19 03:52 Direct Bilirubin 0.0 mg/dL (0.0-0.4) 09/09/19 03:52 Neonat Total Bilirubin Not Reportable 09/09/19 03:52 Neonat Direct Bilirubin Not Reportable 09/09/19 03:52 Neonat Indirect Bili Not Reportable 09/09/19 03:52 AST 19 U/L (14-36) 09/09/19 03:52 ALT 23 U/L (<35) 09/09/19 03:52 Alkaline Phosphatase 65 U/L (38-126) 09/09/19 03:52 Troponin I < 0.012 ng/mL 09/10/19 00:45 NT-Pro-B Natriuret Pep 125 pg/mL (<125) 09/09/19 03:52 Total Protein 6.5 g/dL (6.3-8.2) 09/09/19 03:52 Albumin 3.8 g/dL (3.5-5.0) 09/09/19 03:52 TSH 0.53 uIU/mL (0.47-4.68) 09/09/19 03:52 COVID-19 Source NASOPHARYNGEAL 09/09/19 05:14 COVID-19 (DIANA) NOT DETECTED 09/09/19 05:14 09/09/19 09/09/19 09/09/19 03:52 12:41 16:00 Troponin I < 0.012 < 0.012 < 0.012 NT-Pro-B Natriuret Pep 125 09/10/19 00:45 Troponin I < 0.012 NT-Pro-B Natriuret Pep Impressions: Chest X-Ray 09/09/19 03:41 IMPRESSION: 1. No acute pulmonary findings. Plan Plan of Treatment: Follow-up with primary care provider within 1 week of discharge from SNF. Follow-up with Dr. Gilbert at the earliest available appointment. Take medications as prescribed. Eat a heart healthy diet. Do NOT smoke. Wear BiPAP nightly and while sleeping. Return to emergency department as needed for concerning symptoms. Time Spent: Greater than 30 Minutes Stroke Is this a Stroke Patient?: No Acute Heart Failure - Is this a Heart Failure Patient?: No
[2019-09-15] MEDS ORDERED: CETIRIZINE 10 MG TABLET PO SCH (22:00)
[2019-09-15] MEDS: PRAMIPEXOLE DI-HCL 0.5 MG TABLET PO SCH (22:16)
[2019-09-15] MEDS: ATORVASTATIN CALCIUM 20 MG TABLET PO SCH (22:17)
[2019-09-15] MEDS: FLUTICASONE NASAL SPRAY 50 MCG/SPRY 120 SPRAY/16 GM NASL SCH (22:18)
[2019-09-16] MEDS: IPRATROPIUM/ALBUTEROL 0.5-2.5 MG/3 ML AMPUL NEB SCH ×2 (00:20→09:19)
[2019-09-16] MEDS: LOSARTAN POTASSIUM 50 MG TABLET PO SCH (10:13)
[2019-09-16] MEDS: METOPROLOL SUCCINATE 50 MG TAB.SR.24H PO SCH (10:13)
[2019-09-16] MEDS: AMLODIPINE BESYLATE 5 MG TABLET PO SCH (10:13)
[2019-09-16] MEDS: FLUTICASONE/UMECLIDIN/VILANTER 100-62.5-25 MCG/DOSE IH SCH (10:13)
[2019-09-16] MEDS: APIXABAN 5 MG TABLET PO SCH (10:13)
[2019-09-16] MEDS: FLUTICASONE NASAL SPRAY 50 MCG/SPRY 120 SPRAY/16 GM NASL SCH (10:14)
[2019-09-16] MEDS: SPIRONOLACTONE 25 MG TABLET PO SCH (10:14)
[2019-09-16] MEDS: DOCUSATE SODIUM 100 MG CAPSULE PO SCH (10:14)
[2019-09-16 12:41] VITALS: BP 136/45
--- NOTE | 2019-09-16 13:45 | PDOC PROGRESS REPORT ---
Subjective Progress Note for:: 09/16/19 Subjective:: ALYSHA CRENSHAW is a 74 year old female with a past medical history of morbid obesity, oxygen dependent COPD, restless legs, deep vein thrombosis on Eliquis, profound physical debility and lymphedema who was admitted for acute on chronic respiratory failure with hypoxia and hypercapnia. Patient was seen on morning rounds. She was found sitting up to the edge of the bed, comfortably, on her baseline oxygen requirement of 3 L/min. Patient reports that she is feeling well today. She is looking forward to her pending transfer to SNF for continued rehabilitation. She had a few questions regarding her prescriptions and how to obtain BiPAP once she arrives to the facility otherwise has no concerns today. She denies fever, chills, chest pain, palpitations, dyspnea, orthopnea, cough, abdominal pain, nausea vomiting diarrhea. No concerns per nursing. Reason For Visit: ACUTE AND CHRONIC HYPERCAPNIC,RESPIRATORY FAILURE Physical Exam Vital Signs: Temp Pulse Resp BP Pulse Ox 97.5 F 88 19 136/45 H 93 09/16/19 12:20 09/16/19 12:20 09/16/19 12:20 09/16/19 12:20 09/16/19 12:20 Intake & Output 09/15/19 09/16/19 09/17/19 06:59 06:59 06:59 Intake Total 1430 1736 Balance 1430 1736 Weight 105.2 kg 105.8 kg General appearance: PRESENT: no acute distress, cooperative, morbidly obese, well-developed, well-nourished Head exam: PRESENT: atraumatic, normocephalic Eye exam: PRESENT: conjunctiva pink, EOMI, PERRLA. ABSENT: scleral icterus Mouth exam: PRESENT: moist, tongue midline Respiratory exam: PRESENT: clear to auscultation fely, symmetrical, unlabored, other - Supplemental oxygen. ABSENT: rales, rhonchi, wheezes Cardiovascular exam: PRESENT: irregular rhythm. ABSENT: diastolic murmur, rubs, systolic murmur Vascular exam: PRESENT: normal capillary refill Extremities exam: PRESENT: full ROM, other - Chronic BLE lymphedema. ABSENT: calf tenderness, clubbing, pedal edema Musculoskeletal exam: PRESENT: ambulatory - w/ FWW Neurological exam: PRESENT: alert, awake, oriented to person, oriented to place, oriented to time, oriented to situation, CN II-XII grossly intact. ABSENT: motor sensory deficit Psychiatric exam: PRESENT: appropriate affect, normal mood. ABSENT: homicidal ideation, suicidal ideation Skin exam: PRESENT: dry, intact, warm. ABSENT: cyanosis, rash Results Laboratory Results: 09/10/19 08:31 09/10/19 08:31 09/09/19 09/09/19 09/09/19 03:52 12:41 16:00 Troponin I < 0.012 < 0.012 < 0.012 NT-Pro-B Natriuret Pep 125 09/10/19 00:45 Troponin I < 0.012 NT-Pro-B Natriuret Pep Impressions: Chest X-Ray 09/09/19 03:41 IMPRESSION: 1. No acute pulmonary findings. Assessment and Plan - Diagnosis (1) Acute respiratory failure with hypoxia and hypercarbia Is this a current diagnosis for this admission?: Yes Plan: Acute failure has resolved. SPO2 WNL on 3 L nasal cannula (baseline) and BiPAP. History of oxygen dependent COPD, uncontrolled. Presented with respiratory acidosis and hypercarbia. COVID negative Pulmonology consulted; appreciate Dr. Gilbert's evaluation and recommendations. Continue incentive spirometry, flutter valve, supplemental oxygen (2) Allergic sinusitis Is this a current diagnosis for this admission?: Yes Plan: Flonase and Zyrtec (3) COPD exacerbation Is this a current diagnosis for this admission?: Yes Plan: Resolved. Completed 6 days of p.o. steroids. Have started patient on Trelegy As needed nebulizer treatments Pulmonology consultation Supportive oxygen and BiPAP as above. (4) Morbid obesity with BMI of 45.0-49.9, adult Is this a current diagnosis for this admission?: Yes Plan: Morbid obesity will evaluate for metabolic cause with evaluation of thyroid function and dietitian consultation (5) Physical deconditioning Is this a current diagnosis for this admission?: Yes Plan: Daily PT OT. Pending transfer to SNF. (6) Tobacco dependence Is this a current diagnosis for this admission?: Yes Plan: Smoking cessation is encouraged. (7) Chronic respiratory failure requiring use of nocturnal bilevel positive airway pressure (BPAP) by mask Is this a current diagnosis for this admission?: Yes Plan: Management as above Follow up with Dr. Gilbert for continued O2 and BiPAP management (8) Obesity hypoventilation syndrome Is this a current diagnosis for this admission?: Yes Plan: Pulmonology consultation; arrangements for home BiPAP device Remaining management as above. - Time Time Spent with patient: 15-24 minutes Medications reviewed and adjusted accordingly: Yes Anticipated discharge: SNF Within: when bed available
== END 2019-09-16 14:40 | DRG 190 ==
LOC: ER 03:23 → EH 06:28 → 5 09:55 → 4W 09-10 21:50 → OBSVTOIN 09-11 15:44
PROVIDERS: ADMIT Internal Medicine; ATTEND Registered Nurse
PROC: 5A09557 Assistance with Respiratory Ventilation, Greater than 96 Consecutive Hours, Continuous Positive Airway Pressure (ICD-10-PCS; principal; 2019-09-09)
DX: J44.1 Chronic obstructive pulmonary disease with (acute) exacerbation (principal); J96.21 Acute and chronic respiratory failure with hypoxia; J96.22 Acute and chronic respiratory failure with hypercapnia; E66.2 Morbid (severe) obesity with alveolar hypoventilation; Z68.42 Body mass index [BMI] 45.0-49.9, adult; Z20.818 Contact with and (suspected) exposure to other bacterial communicable diseases; J30.9 Allergic rhinitis, unspecified; I89.0 Lymphedema, not elsewhere classified; G25.81 Restless legs syndrome; E78.5 Hyperlipidemia, unspecified; I10 Essential (primary) hypertension; Z60.2 Problems related to living alone; E78.00 Pure hypercholesterolemia, unspecified; Z87.891 Personal history of nicotine dependence; Z79.899 Other long term (current) drug therapy; Z79.01 Long term (current) use of anticoagulants; Z99.81 Dependence on supplemental oxygen; Z86.718 Personal history of other venous thrombosis and embolism; Z88.0 Allergy status to penicillin; Z88.2 Allergy status to sulfonamides; Z91.018 Allergy to other foods; Z91.19 Patient's noncompliance with other medical treatment and regimen
CPT/HCPCS: 36415; 36600; 71045; 80048; 80053; 82803; 83735; 83880; 84100; 84443; 84484; 85025; 85027; 87635; 93005; 93010; 94640; 94660; 94667; 94668; 94799; 99285; C9803; G0378; J2405; J3490; J7512; J7620

== ENCOUNTER → 2019-12-02 | Outpatient (CLI) | payer MEDICARE ==
--- NOTE | 2019-12-03 13:50 | RADIOLOGY REPORT (SQ) ---
EXAM DESCRIPTION: PET CT SKULL/THIGH IMAGES COMPLETED DATE/TIME: 12/02/2019 3:28 pm REASON FOR STUDY: J94.8 OTHER SPECIFIED PLEURAL CONDITIONS, R91.8 OTHER NONSPECIFIC ABNORMAL J94.8 OTHER SPECIFIED PLEURAL CONDITIONS R91.8 OTHER NONSPECIFIC ABNORMAL FINDING OF LUNG FIELD COMPARISON: CT of the chest with contrast from 05/16/2019. RADIONUCLIDE AND DOSE: 8.7 mCi F18 FDG The route of agent administration: Intravenous FASTING BLOOD SUGAR: 93 mg/dl CONTRAST TYPE AND DOSE: No CT contrast given. TECHNIQUE: Blood glucose level was verified. Above dose of FDG was injected intravenously. 2-D seg mented attenuation correction images were obtained from the base of the skull to the midthighs. Nonc ontrast CT images were obtained for attenuation correction and fusion with emission images. CT image s were performed without oral or intravenous contrast and are not sensitive for parenchymal lesions. A series of overlapping emission PET images were obtained. Images reviewed and manipulated at [facility] work station by the radiologist. Images stored on PACS. LIMITATIONS: None. FINDINGS: HEAD AND NECK: No areas of abnormal metabolic activity in the soft tissues of the head and neck. CHEST: The previously described 13 mm ground-glass nodule in the right upper lobe is no longer presen t. The previously described patchy areas of consolidation in the right lower lobe and to a lesser ex tent the right upper lobe, right middle lobe, left upper lobe and lingula have resolved. On the curr ent PET CT there are residual patchy peripheral opacities in the right lower lobe and to a lesser ext ent the left lower lobe that demonstrate faint FDG uptake with a maximum SUV of 1.9 (below the intens ity of uptake within the mediastinal blood pool) - these opacities likely represent atelectasis. The 4 mm nodule in the apical segment of the right upper lobe (image 51 of series 3) is unchanged and it demonstrates no abnormal FDG uptake. There is no enlarged or hypermetabolic thoracic adenopathy. ABDOMEN AND PELVIS: The liver demonstrates homogeneous FDG uptake with an average SUV of 2.8. There is expected physiologic activity throughout the gastrointestinal and genitourinary tracts. There are no areas of abnormal metabolic activity in the abdomen and pelvis. PROXIMAL LOWER EXTREMITIES: No areas of abnormal metabolic activity in the soft tissues of the lower extremities. BONES: No areas of abnormal metabolic activity in the skeleton. ADDITIONAL CT FINDINGS: Atherosclerotic calcification of the arteries, hypodense lesion in the left h epatic lobe (image 101 of series 3) that is considered too small to characterize, cholelithiasis and colonic diverticula. OTHER: No other findings. IMPRESSION: The previously described 13 mm ground-glass nodule in the right upper lobe is no longer present. The previously described patchy areas of consolidation in the right lower lobe and to a les ser extent the right upper lobe, right middle lobe, left upper lobe and lingula have resolved. On e current PET CT there are residual patchy peripheral opacities in the right lower lobe and to a less er extent the left lower lobe that demonstrate faint FDG uptake with a maximum SUV of 1.9 (below the intensity of uptake within the mediastinal blood pool) - these opacities likely represent atelectasis . The 4 mm nodule in the apical segment of the right upper lobe (image 51 of series 3) is unchanged and it demonstrates no abnormal FDG uptake. There is no enlarged or hypermetabolic thoracic adenopat hy. TECHNICAL DOCUMENTATION: JOB ID: [id number] 2010 [employer]- All Rights Reserved Reading location - IP/workstation name: [email or web address]
== END ==
LOC: RAD 10:08
PROVIDERS: ATTEND Internal Medicine Pulmonary Disease
DX: J94.8 Other specified pleural conditions (principal); R91.8 Other nonspecific abnormal finding of lung field
CPT/HCPCS: 78815; A9552

== ENCOUNTER 2020-01-27 23:56 | Inpatient (IN) | payer MEDICARE ==
--- NOTE | 2020-01-28 00:39 | ER Document Report ---
ED General - General Chief Complaint: Fall Stated Complaint: FALL/SHOULDER PAIN Time Seen by Provider: 01/28/20 00:26 Notes: Patient is a 74-year-old female that comes to the emergency department for chief complaint of weakness and fall. Patient reportedly has fallen 3 times in the past week and twice over the past day. Reportedly she fell when she got off the toilet this morning and she was briefly confused afterwards but then normalized. Friend states that she then fell again after she went to the bathroom and tried to get up again, when she fell she struck mainly her left shoulder and also slightly her head. She denies focal numbness or weakness, headache, back pain, chest pain, she states her only pain is in her left shoulder. She is on Eliquis. Patient has become increasingly somnolent throughout the day as well, she came by EMS because her friends were unable to get her off the floor. Past medical history of COPD on 3 L nasal cannula at all times, atrial fibrillation, hypertension, chronic venous insufficiency with venous stasis. TRAVEL OUTSIDE OF THE [place] IN LAST 30 DAYS: No - Related Data Allergies/Adverse Reactions: lemon Allergy (Severe, Verified 08/28/19 09:57) SWELLING FACIAL AND AT SITE OF CONTACT Penicillins Allergy (Severe, Verified 08/28/19 09:57) Anaphylaxis Sulfa (Sulfonamide Antibiotics) Allergy (Severe, Verified 08/28/19 09:57) SOB, FACIAL SWELLING Past Medical History - General Information source: Patient, Friend - Social History Smoking Status: Never Smoker Frequency of alcohol use: None Drug Abuse: None Lives with: Alone Family History: COPD, Hypertension - Past Medical History Cardiac Medical History: Reports: Hx Hypercholesterolemia, Hx Hypertension Denies: Hx Heart Attack Pulmonary Medical History: Reports: Hx COPD Denies: Hx Asthma Neurological Medical History: Denies: Hx Cerebrovascular Accident, Hx Seizures GI Medical History: Denies: Hx Hepatitis, Hx Hiatal Hernia, Hx Ulcer Psychiatric Medical History: Denies: Hx Depression Infectious Medical History: Denies: Hx Hepatitis Past Surgical History: Reports: Hx Hysterectomy. Denies: Hx Mastectomy, Hx Open Heart Surgery, Hx Pacemaker - Immunizations Immunizations up to date: Yes Hx Diphtheria, Pertussis, Tetanus Vaccination: Yes Review of Systems - Review of Systems Constitutional: No symptoms reported EENT: No symptoms reported Cardiovascular: No symptoms reported Respiratory: No symptoms reported Gastrointestinal: No symptoms reported Genitourinary: No symptoms reported Female Genitourinary: No symptoms reported Musculoskeletal: See HPI Skin: No symptoms reported Hematologic/Lymphatic: No symptoms reported Neurological/Psychological: See HPI Physical Exam - Vital signs Vitals: Temp Resp BP Pulse Ox 97.7 F 14 114/49 L 94 01/28/20 00:10 01/28/20 00:10 01/28/20 00:10 01/28/20 00:10 - Notes Notes: GENERAL: Drowsy, arouses only to loud voice and then quickly falls back to sleep. No signs of distress. HEAD: Normocephalic, atraumatic. EYES: Pupils equal, round, and reactive to light. Extraocular movements intact. ENT: Oral mucosa moist, tongue midline. Oropharynx unremarkable. Airway patent. NECK: Full range of motion. Supple. Trachea midline. No lymphadenopathy. LUNGS: Clear to auscultation bilaterally, no wheezes, rales, or rhonchi. No respiratory distress. Non-tender chest wall. No signs of trauma. HEART: Regular rate and rhythm. No murmur ABDOMEN: Soft, non-tender. Non-distended. No signs of trauma. EXTREMITIES: Tenderness over the left proximal humeral area with palpation. 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 Lower extremities show chronic skin changes distally but pulses and sensation are intact. Otherwise unremarkable. BACK: no cervical, thoracic, lumbar midline tenderness. No saddle anesthesia, normal distal neurovascular exam. NEUROLOGICAL: Very somnolent, arouses only to loud voice. However she is oriented to person, place, events. GCS of 14. Cranial nerves II through XII grossly intact. Strength 5/5 in all extremities. SKIN: Warm, dry, normal turgor. No rashes or lesions noted. Course - Re-evaluation Re-evalutation: Patient is very somnolent. She will arouse to loud voice and she is still oriented, she does give appropriate responses to questions, however she immediately starts mumbling and then falls asleep. Patient is already fallen twice today, was very disoriented earlier per friend. She does not have pinpoint pupils. She does not have any traumatic findings on my exam although she does have tenderness specifically over the left shoulder and reports a head injury. CT of the head and neck unremarkable, x-ray of the shoulder unremarkable. CBC, chemistry show mild normocytic anemia but are otherwise nonspecific. Troponin is negative. Venous blood gas shows acute on chronic respiratory failure with pH of 7.26, CO2 of 90, bicarbonate 40. Patient placed on BiPAP at 16/8 at 35% FiO2. I discussed with patient and friend. Patient has difficulty carrying out an extended discussion without falling asleep. Because of her somnolence, acute on chronic respiratory failure, multiple falls, I will discuss patient with the hospitalist for admission. They state appreciation and agreement. Discussed with Dr. Rodríguez, hospitalist, patient admitted to the [facility]. - Vital Signs Vital signs: Temp Pulse Resp BP Pulse Ox 97.7 F 17 122/56 L 93 01/28/20 00:10 01/28/20 05:21 01/28/20 04:07 01/28/20 05:21 - Laboratory Result Diagrams: 01/28/20 01:10 01/28/20 01:10 Laboratory results interpreted by me: 01/28/20 01/28/20 01/28/20 01:10 01:10 01:10 RBC 3.57 L Hgb 10.2 L Hct 31.3 L RDW 16.1 H Eos % (Auto) 8.2 H VBG pH 7.26 L VBG pCO2 91.0 H* VBG HCO3 40.1 H Chloride 97 L Carbon Dioxide 39 H BUN 23 H Est GFR (MDRD) Non-Af 58 L Glucose 113 H Total Protein 5.9 L Albumin 3.4 L - EKG Interpretation by Me Additional EKG results interpreted by me: EKG shows sinus rhythm at a rate of 94, first-degree AV block with ID interval of 220, QTc 466. No T wave inversions or ST segment changes in consecutive leads. Discharge - Discharge Clinical Impression: Somnolence, Multiple falls Acute and chronic respiratory failure Qualifiers: Respiratory failure complication: hypercapnia Qualified Code(s): J96.22 - Acute and chronic respiratory failure with hypercapnia Head injury Qualifiers: Encounter type: initial encounter Qualified Code(s): S09.90XA - Unspecified injury of head, initial encounter Condition: Stable Disposition: ADMITTED INPATIENT Admitting Provider: Marcos (Hospitalist) Unit Admitted: [facility]
--- NOTE | 2020-01-28 01:10 | RADIOLOGY REPORT (SQ) ---
EXAM DESCRIPTION: CT HEAD WITHOUT IV CONTRAST COMPLETED DATE/TME: 01/28/2020 00:00 CLINICAL HISTORY: 74 years, Female, fall on thinners COMPARISON: 05/16/2019 CT TECHNIQUE: 190 Images stored on PACS. All CT scanners at this facility use dose modulation, iterative reconstruction, and/or weight based dosing when appropriate to reduce radiation dose to as low as reasonably achievable (ALARA). [facility]: Dose Right [facility]: CareDose [facility]: Dose Right [facility]: Teradose 4D [facility]: [employer] Technologies LIMITATIONS: None. FINDINGS: The globes are intact. The paranasal sinuses and mastoid air cells are well aerated. No displaced or depressed skull fracture. No acute intracranial hemorrhage. CT is limited for evaluation of acute infarct. No CT evidence for large or territorial acute infarct. No mass. No midline shift IMPRESSION: No acute intracranial abnormality TECHNICAL DOCUMENTATION: Quality ID # 436: Final reports with documentation of one or more dose reduction techniques (e.g., Automated exposure control, adjustment of the mA and/or kV according to patient size, use of iterative reconstruction technique) copyright 2011 [employer]- All Rights Reserved
--- NOTE | 2020-01-28 01:11 | RADIOLOGY REPORT (SQ) ---
CLINICAL HISTORY: fall on thinners COMPARISON: None. TECHNIQUE: CT CERVICAL SPINE WITHOUT IV CONTRAST on 01/28/2020 12:00 AM CDT This exam was performed according to our departmental dose-optimization program, which includes automated exposure control, adjustment of the mA and/or kV according to patient size and/or use of iterative reconstruction technique. FINDINGS: There is no acute fracture. Vertebral body heights are preserved. There is grade 1 retrolisthesis of C3 on C4. There is mild bilateral facet arthritis. There is mild narrowing of most of the cervical discs. Soft tissues are unremarkable. IMPRESSION: No acute fracture or subluxation.
--- NOTE | 2020-01-28 01:25 | RADIOLOGY REPORT (SQ) ---
EXAM DESCRIPTION: XR SHOULDER 2 OR MORE VIEWS COMPLETED DATE/TME: 01/28/2020 00:00 CLINICAL HISTORY: 74 years, Female, fall COMPARISON: None. FINDINGS: 3 views of the left shoulder. No acute fracture or dislocation. Normal osseous mineralization. Mild joint space narrowing of the glenohumeral joint. Mild spurring of the acromioclavicular joint. Leads overlie the chest. No acute abnormalities of the visualized left hemithorax. IMPRESSION: 1. No acute fracture or dislocation. copyright 2010 [email or web address]- All Rights Reserved
[2020-01-28 01:35] LABS: ABSOLUTE EOSINOPHILS # (AUTO) 0.6 10^3/uL (0.0-0.6); ABSOLUTE LYMPHOCYTES (AUTO) 1.5 10^3/uL (0.5-4.7); ABSOLUTE MONOCYTES (AUTO) 0.6 10^3/uL (0.1-1.4); ABSOLUTE NEUT (AUTO) 4.8 10^3/uL (1.7-8.2); BASOPHILS % (AUTO) 0.6 % (0-2); EOSINOPHILS % (AUTO) 8.2 % (0-6); HEMATOCRIT 31.3 % (36.0-47.0); HEMOGLOBIN 10.2 g/dL (12.0-15.5); MEAN CORPUSCULAR HEMOGLOBIN 28.5 pg (27.0-33.4); MEAN CORPUSCULAR HGB CONC 32.5 g/dL (32.0-36.0); MEAN CORPUSCULAR VOLUME 88 fl (80-97); MONOCYTES % (AUTO) 8.2 % (3-13); PLATELET COUNT 312 10^3/uL (150-450); RED BLOOD COUNT 3.57 10^6/uL (3.72-5.28); RED CELL DISTRIBUTION WIDTH 16.1 % (11.5-14.0); TOTAL CELLS COUNTED % (AUTO) 100 %; VENOUS BLOOD BASE EXCESS 9.3 mmol/L; VENOUS BLOOD HCO3 40.1 mmol/L (20-32); VENOUS BLOOD PH 7.26 (7.30-7.42); WHITE BLOOD COUNT 7.6 10^3/uL (4.0-10.5)
[2020-01-28 01:43] LABS: INTERNATIONAL RATION (INR) 1.09; PROTHROMBIN TIME 14.3 SEC (11.4-15.4)
[2020-01-28 01:44] LABS: PARTIAL THROMBOPLASTIN TIME 33.2 SEC (23.5-35.8)
[2020-01-28 01:49] LABS: ALBUMIN 3.4 g/dL (3.5-5.0); ALKALINE PHOSPHATASE 68 U/L (38-126); ASPARTATE AMINO TRANSFERASE 22 U/L (14-36); BILIRUBIN,DIRECT 0.2 mg/dL (0.0-0.4); BILIRUBIN,TOTAL 0.6 mg/dL (0.2-1.3); BLOOD UREA NITROGEN 23 mg/dL (7-20); CALCIUM 8.9 mg/dL (8.4-10.2); CHLORIDE 97 mmol/L (98-107); CREATINE KINASE 84 U/L (30-135); GLUCOSE 113 mg/dL (75-110); POTASSIUM 3.8 mmol/L (3.6-5.0); TOTAL PROTEIN 5.9 g/dL (6.3-8.2)
[2020-01-28 01:56] LABS: ANION GAP 6 (5-19)
[2020-01-28 01:59] LABS: CARBON DIOXIDE 39 mmol/L (22-30)
[2020-01-28 02:32] LABS: URINE AMPHETAMINES SCREEN NEGATIVE; URINE BARBITURATES SCREEN NEGATIVE; URINE BENZODIAZEPINES SCREEN NEGATIVE; URINE COCAINE SCREEN NEGATIVE; URINE MARIJUANA (THC) SCREEN NEGATIVE; URINE METHADONE SCREEN NEGATIVE; URINE PHENCYCLIDINE SCREEN NEGATIVE
[2020-01-28 02:59] LABS: APPEARANCE,URINE SLIGHTLY-CLOUDY; BILIRUBIN,URINE NEGATIVE (NEGATIVE); COLOR,URINE YELLOW; GLUCOSE, URINE NEGATIVE (NEGATIVE); KETONES,URINE NEGATIVE (NEGATIVE); LEUKOCYTE ESTERASE,URINE NEGATIVE (NEGATIVE); NITRITE,URINE NEGATIVE (NEGATIVE); PROTEIN,URINE NEGATIVE (NEGATIVE); URINE SPECIFIC GRAVITY 1.015; UROBILINOGEN,URINE NEGATIVE mg/dL (<2.0)
[2020-01-28] MEDS ORDERED: ONDANSETRON HCL INJ/PF 4 MG/2 ML SDV IV PRN (03:36)
[2020-01-28] MEDS ORDERED: MAGNESIUM HYDROXIDE SUSP 30 ML UDCUP PO PRN (03:36)
[2020-01-28] MEDS ORDERED: MAG HYDROX/AL HYDROX/SIMETH SUSP 30 ML UDCUP PO PRN (03:36)
[2020-01-28] MEDS ORDERED: LORAZEPAM INJ 2 MG/1 ML VIAL IV PRN (03:42)
[2020-01-28] MEDS ORDERED: HYDRALAZINE HCL INJ/PF 20 MG/1 ML SDV IV PRN (03:42)
[2020-01-28] MEDS ORDERED: METOPROLOL TARTRATE PF/INJ 5 MG/5 ML SDV IV PRN (03:42)
[2020-01-28] MEDS ORDERED: GUAIFENESIN SYRP 200 MG/10 ML UDC PO PRN (03:42)
[2020-01-28] MEDS ORDERED: MORPHINE SULFATE 10 MG/ML INJ IV PRN ×4 (03:42→04:10)
[2020-01-28] MEDS ORDERED: ACETAMINOPHEN 325 MG TABLET PO PRN (03:42)
--- NOTE | 2020-01-28 06:38 | PDOC H&P ---
History of Present Illness Admission Date/PCP: 01/28/2020 03:06 ARTHUR BLAKE Patient complains of: Falls History of Present Illness: ALYSHA CRENSHAW is a 74 year old female who presents the emergency room with a 4-day history of falls. 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 She admits falling 3 times in the 4 days prior to coming to the emergency room, having experienced 2 falls on the day of her visit. All of her falls occurred when she got up from a seated position to ambulate. Her falls have been followed by spells of dizziness/confusion which resolved spontaneously within 3 seconds. She has not experienced any loss of c onsciousness and had not experienced injury in her falls until developing pain in her left shoulder after her last fall. The achy pain in her left shoulder is of moderate intensity, nonradiating and worsened by movements. She has not identified any aggravating or ameliorating factors for her falls. She denies prior similar episodes. In the emergency room her left shoulder was free of fracture dislocation, but she was found to be severely hypercapnic with a PCO2 of 90. She was placed on BiPAP and subsequently admitted to the hospital for further evaluation treatment. Past Medical History Cardiac Medical History: Reports: Atrial Fibrillation, Congestive Heart Failure, Hyperlipidema, Hypertension Denies: Myocardial Infarction Pulmonary Medical History: Reports: Chronic Obstructive Pulmonary Disease (COPD), Respiratory Failure - Chronic respiratory failure with hypoxia Denies: Asthma EENT Medical History: Reports: Cataracts, Eyes - Eyeglasses, Lasik surgery bilaterally Denies: Ears - Hearing aids Neurological Medical History: Denies: Hemorrhagic CVA, Ischemic CVA, Seizures Endocrine Medical History: Reports: Obesity Denies: Diabetes Mellitus Type 1, Diabetes Mellitus Type 2, Hyperthyroidism, Hypothyroidism Renal/ Medical History: Denies: Chronic Kidney Disease, Nephrolithiasis Malignancy Medical History: Reports: None GI Medical History: Denies: Cirrhosis, Crohn's Disease, Hepatitis, Hiatal Hernia, Peptic Ulcer Disease, Ulcerative Colitis Musculoskeltal Medical History: Denies: Arthritis, Gout Skin Medical History: Denies: Eczema, Psoriasis Psychiatric Medical History: Denies: Alcohol Dependency, Depression, Substance Abuse, Tobacco Dependency Traumatic Medical History: Reports: None Hematology: Denies: Anemia, Bleeding Tendencies Infectious Medical History: Reports: None Past Surgical History Past Surgical History: Reports: Hysterectomy, Other - Bilateral Lasik surgery, bilateral cataract surgery Social History Information Source: Patient Lives with: Alone Smoking Status: Former Smoker Electronic Cigarette use?: No Frequency of Alcohol Use: None Hx Recreational Drug Use: No Drugs: None Hx Prescription Drug Abuse: No - Advance Directive Resuscitation Status: Full Code Surrogate healthcare decision maker:: Sophie Maxwell Family History Family History: CAD, COPD, Hypertension. denies: CVA Parental Family History Reviewed: Yes Children Family History Reviewed: No Sibling(s) Family History Reviewed.: Yes Medication/Allergy Home Medications: Atorvastatin Calcium [Lipitor 20 mg Tablet] 20 mg PO DAILY 09/30/18 Pramipexole Di-HCl [Mirapex] 1 mg PO QHS 09/30/18 Apixaban [Eliquis 5 mg Tablet] 5 mg PO BID 05/16/19 Amlodipine Besylate [Norvasc 10 mg Tablet] 10 mg PO DAILY #30 tablet 09/03/19 Losartan Potassium [Cozaar 50 mg Tablet] 100 mg PO DAILY #60 tablet 09/03/19 Metoprolol Succinate [Toprol Xl 50 mg Tab.sr] 50 mg PO DAILY #30 tab.sr.24h 09/03/19 Acetaminophen [Tylenol 325 mg Tablet] 650 mg PO Q4HP PRN tablet 09/15/19 Docusate Sodium [Colace 100 mg Capsule] 100 mg PO BID capsule 09/15/19 Fluticasone/Umeclidin/Vilanter [Trelegy 100-62.5-25 Mcg Ellipta 14 Dose/Dpi] 1 inh IH DAILY #1 inhaler 09/15/19 Ipratropium/Albuterol Sulfate [Duoneb 3 ml Ampul] 3 ml NEB RTQ8HP PRN #90 v ial.neb 09/15/19 Spironolactone [Aldactone 25 mg Tablet] 25 mg PO DAILY #30 tablet 09/15/19 Allergies/Adverse Reactions: lemon Allergy (Severe, Verified 08/28/19 09:57) SWELLING FACIAL AND AT SITE OF CONTACT Penicillins Allergy (Severe, Verified 08/28/19 09:57) Anaphylaxis Sulfa (Sulfonamide Antibiotics) Allergy (Severe, Verified 08/28/19 09:57) SOB, FACIAL SWELLING Review of Systems Constitutional: ABSENT: chills, fever(s) Eyes: ABSENT: visual disturbances, other - Eye pain Ears: ABSENT: hearing changes, other - Ear pain Nose, Mouth, and Throat: ABSENT: headache(s), sore throat Cardiovascular: ABSENT: chest pain, palpitations Respiratory: ABSENT: cough, dyspnea Gastrointestinal: ABSENT: abdominal pain, constipation, diarrhea, nausea, vomiting Genitourinary: ABSENT: dysuria, hematuria Musculoskeletal: ABSENT: back pain, joint swelling, muscle weakness Integumentary: ABSENT: pruritus, rash Neurological: PRESENT: as per HPI, confusion, frequent falls. ABSENT: convulsions, focal weakness, memory loss, syncope Psychiatric: ABSENT: anxiety, depression Endocrine: ABSENT: cold intolerance, heat intolerance Hematologic/Lymphatic: ABSENT: easy bleeding, easy bruising Allergic/Immunologic: ABSENT: seasonal rhinorrhea Physical Exam Vital Signs: Temp Pulse Resp BP Pulse Ox 97.7 F 13 132/65 H 94 01/28/20 00:10 01/28/20 02:01 01/28/20 02:01 01/28/20 02:01 Intake & Output 01/26/20 01/27/20 01/28/20 23:59 23:59 23:59 Weight 114.7 kg General appearance: PRESENT: no acute distress, cooperative, morbidly obese, other - On BiPAP at the time of my evaluation Head exam: PRESENT: atraumatic, normocephalic Eye exam: PRESENT: conjunctiva pink. ABSENT: conjunctival injection, scleral icterus Ear exam: PRESENT: normal external ear exam. ABSENT: bleeding, drainage Mouth exam: PRESENT: dry mucosa, neck supple Neck exam: ABSENT: thyromegaly, tracheal deviation Respiratory exam: PRESENT: symmetrical, other - On BiPAP Cardiovascular exam: PRESENT: RRR. ABSENT: clicks, gallop, rubs Pulses: PRESENT: normal radial pulses, normal dorsalis pedis pul Vascular exam: PRESENT: normal capillary refill. ABSENT: pallor GI/Abdominal exam: PRESENT: normal bowel sounds, soft. ABSENT: tenderness Rectal exam: PRESENT: deferred Extremities exam: PRESENT: pedal edema - Bilateral, +1 edema - Bilateral lower extremities. ABSENT: joint swelling Musculoskeletal exam: ABSENT: deformity, dislocation Neurological exam: PRESENT: altered - Somnolent but arousable, oriented to person, oriented to place, oriented to time, oriented to situation, CN II-XII grossly intact Psychiatric exam: PRESENT: appropriate affect, normal mood Skin exam: PRESENT: dry, intact, warm. ABSENT: jaundice, rash, urticaria Results Laboratory Results: 01/28/20 01:10 01/28/20 01:10 01/28/20 01/28/20 01/28/20 01:10 01:10 01:10 WBC 7.6 RBC 3.57 L Hgb 10.2 L Hct 31.3 L MCV 88 MCH 28.5 MCHC 32.5 RDW 16.1 H Plt Count 312 Seg Neutrophils % 63.0 VBG pH 7.26 L VBG pCO2 91.0 H* VBG HCO3 40.1 H VBG Base Excess 9.3 Sodium 142.0 Potassium 3.8 Chloride 97 L Carbon Dioxide 39 H Anion Gap 6 BUN 23 H Creatinine 0.95 Est GFR ( Amer) > 60 Glucose 113 H Calcium 8.9 Total Bilirubin 0.6 AST 22 Alkaline Phosphatase 68 Total Protein 5.9 L Albumin 3.4 L Urine Color Urine Appearance Urine pH Ur Specific [place] Urine Protein Urine Glucose (UA) Urine Ketones Urine Blood Urine Nitrite Ur Leukocyte Esterase Urine WBC (Auto) 01/28/20 02:03 WBC RBC Hgb Hct MCV MCH MCHC RDW Plt Count Seg Neutrophils % VBG pH VBG pCO2 VBG HCO3 VBG Base Excess Sodium Potassium Chloride Carbon Dioxide Anion Gap BUN Creatinine Est GFR ( Amer) Glucose Calcium Total Bilirubin AST Alkaline Phosphatase Total Protein Albumin Urine Color YELLOW Urine Appearance SLIGHTLY-CLOUDY Urine pH 5.0 Ur Specific [place] 1.015 Urine Protein NEGATIVE Urine Glucose (UA) NEGATIVE Urine Ketones NEGATIVE Urine Blood NEGATIVE Urine Nitrite NEGATIVE Ur Leukocyte Esterase NEGATIVE Urine WBC (Auto) 0 01/28/20 01/28/20 01:10 01:10 Creatine Kinase 84 Troponin I < 0.012 Impressions: Cervical Spine CT 01/28/20 00:00 IMPRESSION: No acute fracture or subluxation. Head CT 01/28/20 00:00 IMPRESSION: No acute intracranial abnormality TECHNICAL DOCUMENTATION: Quality ID # 436: Final reports with documentation of one or more dose reduction techniques (e.g., Automated exposure control, adjustment of the mA and/or kV according to patient size, use of iterative reconstruction technique) copyright 2011 [employer]- All Rights Reserved Shoulder X-Ray 01/28/20 00:00 IMPRESSION: 1. No acute fracture or dislocation. copyright 2011 [employer]- All Rights Reserved Assessment and Plan - Diagnosis (1) Acute and chronic respiratory failure with hypercapnia Is this a current diagnosis for this admission?: Yes (2) Multiple falls Is this a current diagnosis for this admission?: Yes (3) Chronic anticoagulation Is this a current diagnosis for this admission?: Yes (4) Obesity hypoventilation syndrome Is this a current diagnosis for this admission?: Yes (5) COPD (chronic obstructive pulmonary disease) Qualifiers: COPD type: unspecified COPD Qualified Code(s): J44.9 - Chronic obstructive pulmonary disease, unspecified Is this a current diagnosis for this admission?: Yes (6) Hypertension Qualifiers: Hypertension type: essential hypertension Qualified Code(s): I10 - Esse ntial (primary) hypertension Is this a current diagnosis for this admission?: Yes (7) Morbid obesity Is this a current diagnosis for this admission?: Yes - Plan Summary Summary: Patient will be admitted to [facility] where she will receive routine supportive and symptomatic cares. She will be maintained on BiPAP and supplemental oxygen as long as is required in order to provide adequate oxygenation and prevent/resolve respiratory acidosis. She will receive Ativan 1 mg IV every 4 hours as needed for anxiety or restlessness. She received morphine sulfate 2 to 4 mg IV every 2 hours as needed for pain. She will be continued on Eliquis for anticoagulation. She will receive a cardiac diet. Further laboratory and/or radiographic evaluations will be obtained as needed. - Time Time Spent with patient: Less than 15 minutes Medications reviewed and adjusted accordingly: Yes Anticipated Discharge Disposition: Home with Home Health Anticipated Discharge Timeframe: within 72 hours - Inpatient Certification Based on my medical assessment, after consideration of the patient's comorbidities, presenting symptoms, or acuity I expect that the services needed warrant INPATIENT care.: Yes I certify that my determination is in accordance with my understanding of Medicare's requirements for reasonable and necessary INPATIENT services [42 CFR 412.3e].: Yes Medical Necessity: Significant Comorbidiites Make Outpatient Treatment Too Risky, Need Close Monitoring Due to Risk of Patient Decompensation, Need for Nebulizer Therapy and Monitoring of Response, Risk of Complication if Not Cared For in Hospital
[2020-01-28 06:43] LABS: ARTERIAL BLOOD BASE EXCESS 7.3 mmol/L; ARTERIAL BLOOD FIO2 30%; ARTERIAL BLOOD H2CO3 2.09 mmol/L (1.05-1.35); ARTERIAL BLOOD HCO3 35.1 mmol/L (20-24); ARTERIAL BLOOD O2 SATURATION 99.6 % (94-98); ARTERIAL BLOOD PH 7.32 (7.35-7.45); ARTERIAL BLOOD PO2 297.3 mmHg (80-100); ARTERIAL BLOOD TOTAL CO2 37.2 mmol/L (21-25)
[2020-01-28 06:45] LABS: ARTERIAL BLOOD PCO2 69.4 mmHg (35-45)
--- NOTE | 2020-01-28 07:38 | EKG REPORT ---
SEVERITY:- ABNORMAL ECG - SINUS RHYTHM FIRST DEGREE AV BLOCK BORDERLINE LEFT AXIS DEVIATION CONSIDER ANTERIOR INFARCT : Confirmed by: Tyree Rivera MD 28-Jan-2020 07:37:36
[2020-01-28] MEDS: BUDESONIDE NEB 0.5 MG/2 ML AMPUL NEB SCH ×2 (10:35→20:24)
[2020-01-28] MEDS: LEVALBUTEROL HCL NEB 1.25 MG/3 ML AMPUL NEB SCH ×2 (10:39→16:56)
[2020-01-28] MEDS: FAMOTIDINE 20 MG TABLET PO SCH ×2 (10:41→21:22)
[2020-01-28] MEDS: DOCUSATE SODIUM 100 MG CAPSULE PO SCH ×2 (10:41→17:29)
[2020-01-28] MEDS: APIXABAN 5 MG TABLET PO SCH ×2 (10:41→21:22)
[2020-01-28] MEDS: LEVALBUTEROL HCL NEB 0.63 MG/3 ML AMPUL NEB PRN (20:24)
[2020-01-29] MEDS: LEVALBUTEROL HCL NEB 1.25 MG/3 ML AMPUL NEB SCH ×3 (01:03→15:55)
[2020-01-29 06:24] LABS: HEMATOCRIT 29.1 % (36.0-47.0); HEMOGLOBIN 9.6 g/dL (12.0-15.5); MEAN CORPUSCULAR HEMOGLOBIN 28.9 pg (27.0-33.4); MEAN CORPUSCULAR VOLUME 88 fl (80-97); PLATELET COUNT 257 10^3/uL (150-450); RED BLOOD COUNT 3.32 10^6/uL (3.72-5.28); RED CELL DISTRIBUTION WIDTH 16.1 % (11.5-14.0)
[2020-01-29 06:45] LABS: ALKALINE PHOSPHATASE 54 U/L (38-126); ANION GAP 7 (5-19); ASPARTATE AMINO TRANSFERASE 18 U/L (14-36); BILIRUBIN,DIRECT 0.2 mg/dL (0.0-0.4); BILIRUBIN,TOTAL 0.5 mg/dL (0.2-1.3); BLOOD UREA NITROGEN 19 mg/dL (7-20); CALCIUM 8.4 mg/dL (8.4-10.2); CARBON DIOXIDE 34 mmol/L (22-30); CHLORIDE 100 mmol/L (98-107); CHOLESTEROL 112.53 mg/dL (0-200); GLUCOSE 100 mg/dL (75-110); POTASSIUM 3.6 mmol/L (3.6-5.0); TOTAL PROTEIN 5.3 g/dL (6.3-8.2); TRIGLYCERIDES 96 mg/dL (<150)
[2020-01-29 06:56] LABS: DIRECT LDL 51 mg/dL (<100)
[2020-01-29] MEDS: BUDESONIDE NEB 0.5 MG/2 ML AMPUL NEB SCH ×2 (08:20→20:57)
[2020-01-29] MEDS: FAMOTIDINE 20 MG TABLET PO SCH ×2 (09:58→22:05)
[2020-01-29] MEDS: APIXABAN 5 MG TABLET PO SCH ×2 (09:58→22:05)
[2020-01-29] MEDS: DOCUSATE SODIUM 100 MG CAPSULE PO SCH ×2 (09:58→18:14)
[2020-01-29] MEDS ORDERED: ONDANSETRON HCL INJ/PF 4 MG/2 ML SDV IV PRN (10:00)
--- NOTE | 2020-01-29 12:13 | PDOC PROGRESS REPORT ---
Subjective Progress Note for:: 01/29/20 Subjective:: Patient feels a lot better today. She is sitting in the chair and reading a book. She denies any specific complaints Reason For Visit: ACUTE ON CHRONIC RESPIRATORY FAILURE WITH HYPOXIA Physical Exam Vital Signs: Temp Pulse Resp BP Pulse Ox 98.0 F 99 18 144/50 H 97 01/29/20 08:55 01/29/20 08:25 01/29/20 08:25 01/29/20 03:02 01/29/20 08:25 Intake & Output 01/28/20 01/29/20 01/30/20 06:59 06:59 06:59 Intake Total 520 Output Total 700 Balance -180 Weight 114.7 kg 115.8 kg General appearance: PRESENT: no acute distress, well-developed, well-nourished Head exam: PRESENT: atraumatic, normocephalic Eye exam: PRESENT: conjunctiva pink, EOMI, PERRLA. ABSENT: scleral icterus Ear exam: PRESENT: normal external ear exam Mouth exam: PRESENT: moist, tongue midline Neck exam: ABSENT: carotid bruit, JVD, lymphadenopathy, thyromegaly Respiratory exam: PRESENT: clear to auscultation fely, unlabored. ABSENT: rales, rhonchi, wheezes Cardiovascular exam: PRESENT: RRR, +S1, +S2. ABSENT: diastolic murmur, rubs, systolic murmur Pulses: PRESENT: normal dorsalis pedis pul Vascular exam: PRESENT: normal capillary refill GI/Abdominal exam: PRESENT: normal bowel sounds, soft. ABSENT: distended, guarding, mass, organolmegaly, rebound, tenderness Rectal exam: PRESENT: deferred Extremities exam: PRESENT: full ROM. ABSENT: calf tenderness, clubbing, pedal edema Neurological exam: PRESENT: alert, awake, oriented to person, oriented to place, oriented to time, oriented to situation, CN II-XII grossly intact. ABSENT: motor sensory deficit Psychiatric exam: PRESENT: appropriate affect, normal mood. ABSENT: homicidal ideation, suicidal ideation Skin exam: PRESENT: dry, intact, warm. ABSENT: cyanosis, rash Results Laboratory Results: 01/29/20 06:01 01/29/20 06:01 01/29/20 01/29/20 01/29/20 06:01 06:01 06:01 WBC 7.0 RBC 3.32 L Hgb 9.6 L Hct 29.1 L MCV 88 MCH 28.9 MCHC 33.0 RDW 16.1 H Plt Count 257 Sodium 140.6 Potassium 3.6 Chloride 100 Carbon Dioxide 34 H Anion Gap 7 BUN 19 Creatinine 0.94 Est GFR ( Amer) > 60 Glucose 100 Calcium 8.4 Magnesium 2.2 Total Bilirubin 0.5 AST 18 Alkaline Phosphatase 54 Total Protein 5.3 L Albumin 3.0 L Triglycerides 96 Cholesterol 112.53 LDL Cholesterol Direct 51 VLDL Cholesterol 19.0 HDL Cholesterol 39 L TSH 1.04 01/28/20 01/28/20 01:10 01:10 Creatine Kinase 84 Troponin I < 0.012 Impressions: Cervical Spine CT 01/28/20 00:00 IMPRESSION: No acute fracture or subluxation. Head CT 01/28/20 00:00 IMPRESSION: No acute intracranial abnormality TECHNICAL DOCUMENTATION: Quality ID # 436: Final reports with documentation of one or more dose reduction techniques (e.g., Automated exposure control, adjustment of the mA and/or kV according to patient size, use of iterative reconstruction technique) copyright 2010 [employer]- All Rights Reserved Shoulder X-Ray 01/28/20 00:00 IMPRESSION: 1. No acute fracture or dislocation. copyright 2010 [employer]- All Rights Reserved Assessment and Plan - Diagnosis (1) Acute and chronic respiratory failure Qualifiers: Respiratory failure complication: hypercapnia Qualified Code(s): J96.22 - Acute and chronic respiratory failure with hypercapnia Is this a current diagnosis for this admission?: Yes Plan: Patient admits to noncompliance with the BiPAP. An overnight pulse oximeter is currently ordered. She has improved after using BiPAP and CPAP in the hospital. We will obtain a follow-up ABG today. (2) Chronic anticoagulation Is this a current diagnosis for this admission?: Yes Plan: Continue with anticoagulant (3) Morbid obesity Is this a current diagnosis for this admission?: Yes (4) Multiple falls Is this a current diagnosis for this admission?: Yes (5) Hypertension Qualifiers: Hypertension type: essential hypertension Qualified Code(s): I10 - Essential (primary) hypertension Is this a current diagnosis for this admission?: Yes (6) Obesity hypoventilation syndrome Is this a current diagnosis for this admission?: Yes - Time Time Spent with patient: 15-24 minutes Medications reviewed and adjusted accordingly: Yes Anticipated Discharge Disposition: Home with Home Health Anticipated Discharge Timeframe: within 48 hours
[2020-01-29] MEDS ORDERED: TORSEMIDE 10 MG PO SCH (12:15)
[2020-01-29] MEDS: TORSEMIDE 20 MG TABLET PO SCH (14:06)
[2020-01-29] MEDS: METOPROLOL SUCCINATE 50 MG TAB.SR.24H PO SCH (14:06)
[2020-01-29 17:22] LABS: ARTERIAL BLOOD BASE EXCESS 9.9 mmol/L; ARTERIAL BLOOD H2CO3 1.78 mmol/L (1.05-1.35); ARTERIAL BLOOD HCO3 36.4 mmol/L (20-24); ARTERIAL BLOOD O2 SATURATION 90.9 % (94-98); ARTERIAL BLOOD PH 7.41 (7.35-7.45); ARTERIAL BLOOD PO2 60.8 mmHg (80-100); ARTERIAL BLOOD TOTAL CO2 38.2 mmol/L (21-25)
[2020-01-29 17:23] LABS: ARTERIAL BLOOD FIO2 ROOM AIR
--- NOTE | 2020-01-29 21:38 | CDI QUERY ---
CDI Query CDI Review: Documentation in the Medical Record indicates this patient has: Height: 5 ft 2 in Weight: 115.8 kg (254.76 lbs) Calculated BMI: 46.6 kg/m2 The following is also documented in the Medical Record: Per H&P: Obesity hypoventilation syndrome Morbid obesity Based on your medical judgement, can you further clarify in the Progress Notes the diagnosis associated with these findings: >Morbid Obesity / BMI 46.6 kg/m2 >Overweight / BMI 46.6 kg/m2 >Obesity / BMI 46.6 kg/m2 >Other condition (please specify) >None of the above / Not applicable Please note: Obesity is defined as: Class 1: BMI of 30 to < 35 Class 2: BMI of 35 to < 40 Class 3: BMI of > 40 (this is also defined as Morbid Obesity) Overweight: BMI 25 to < 30 Normal weight: BMI 18.5 to < 25 The condition of Morbid Obesity is a significant contributing factor to the health and recovery of a patient and documentation of the BMI in the Progress Notes supports this diagnosis Thank you for your consideration. LASHAY Diaz RN Clinical Motor Vehicle Emissions Inspector Physician Advisor [email or web address]
[2020-01-29] MEDS ORDERED: HYDROCORTISONE 2.5% TOP SCH (22:00)
[2020-01-29] MEDS: DIVALPROEX SODIUM 500 MG TAB.SR.24H PO SCH (22:05)
[2020-01-29] MEDS: ATORVASTATIN CALCIUM 20 MG TABLET PO SCH (22:06)
[2020-01-29] MEDS: DOXYCYCLINE HYCLATE 100 MG TABLET PO SCH (22:06)
[2020-01-30] MEDS: LEVALBUTEROL HCL NEB 1.25 MG/3 ML AMPUL NEB SCH ×3 (00:41→16:48)
[2020-01-30] MEDS: BUDESONIDE NEB 0.5 MG/2 ML AMPUL NEB SCH ×2 (08:35→20:45)
[2020-01-30] MEDS ORDERED: AMLODIPINE BESYLATE 10 MG TABLET PO SCH (10:00)
[2020-01-30] MEDS: DOCUSATE SODIUM 100 MG CAPSULE PO SCH ×2 (10:27→18:05)
[2020-01-30] MEDS: LOSARTAN POTASSIUM 50 MG TABLET PO SCH (10:27)
[2020-01-30] MEDS: APIXABAN 5 MG TABLET PO SCH ×2 (10:27→21:26)
[2020-01-30] MEDS: AMLODIPINE BESYLATE 5 MG TABLET PO SCH (10:27)
[2020-01-30] MEDS: FAMOTIDINE 20 MG TABLET PO SCH ×2 (10:27→21:26)
[2020-01-30] MEDS: METOPROLOL SUCCINATE 50 MG TAB.SR.24H PO SCH (10:27)
[2020-01-30] MEDS: TORSEMIDE 20 MG TABLET PO SCH (10:28)
[2020-01-30] MEDS: DOXYCYCLINE HYCLATE 100 MG TABLET PO SCH ×2 (10:28→21:26)
--- NOTE | 2020-01-30 15:45 | PDOC PROGRESS REPORT ---
Subjective Progress Note for:: 01/30/20 Subjective:: Patient feels a lot better today. She is sitting in the chair and reading a book. She denies any specific complaints 01/29 No new complaints Reason For Visit: ACUTE ON CHRONIC RESPIRATORY FAILURE WITH HYPOXIA Physical Exam Vital Signs: Temp Pulse Resp BP Pulse Ox 98.7 F 96 20 173/71 H 94 01/30/20 12:04 01/30/20 12:04 01/30/20 12:04 01/30/20 12:04 01/30/20 12:04 Pulse Oximeter Nocturnal Start: 01/29/20 17:00 Freq: RTQ4 Status: Complete Protocol: Document 01/30/20 04:35 DBE (Rec: 01/30/20 05:52 DBE [email or web address]) Nocturnal Pulse Oximetry Equipment Usage Equipment in Use Oxygen Delivery Method (includes room Nasal Cannula air) O2 Sat by Pulse Oximetry (92-100) 97 Continuous SpO2 Machine # 6 Intake & Output 01/29/20 01/30/20 01/31/20 06:59 06:59 06:59 Intake Total 520 760 Output Total 700 Balance -180 760 Weight 115.8 kg 117.6 kg General appearance: PRESENT: no acute distress, morbidly obese, well-developed Head exam: PRESENT: atraumatic Eye exam: PRESENT: EOMI Respiratory exam: PRESENT: decreased breath sounds, unlabored Cardiovascular exam: PRESENT: RRR, +S1, +S2 GI/Abdominal exam: PRESENT: normal bowel sounds Rectal exam: PRESENT: deferred Musculoskeletal exam: PRESENT: ambulatory Neurological exam: PRESENT: alert, awake, oriented to person, oriented to place Results Laboratory Results: 01/29/20 06:01 01/29/20 06:01 01/29/20 15:30 Carbonic Acid 1.78 H HCO3/H2CO3 Ratio 20:1 ABG pH 7.41 ABG pCO2 59.0 H ABG pO2 60.8 L ABG HCO3 36.4 H ABG O2 Saturation 90.9 L ABG Base Excess 9.9 FiO2 ROOM AIR 01/28/20 01/28/20 01:10 01:10 Creatine Kinase 84 Troponin I < 0.012 Impressions: Cervical Spine CT 01/28/20 00:00 IMPRESSION: No acute fracture or subluxation. Head CT 01/28/20 00:00 IMPRESSION: No acute intracranial abnormality TECHNICAL DOCUMENTATION: Quality ID # 436: Final reports with documentation of one or more dose reduction techniques (e.g., Automated exposure control, adjustment of the mA and/or kV according to patient size, use of iterative reconstruction technique) copyright 2010 [employer]- All Rights Reserved Shoulder X-Ray 01/28/20 00:00 IMPRESSION: 1. No acute fracture or dislocation. copyright 2010 [employer]- All Rights Reserved Assessment and Plan - Diagnosis (1) Acute and chronic respiratory failure Qualifiers: Respiratory failure complication: hypercapnia Qualified Code(s): J96.22 - Acute and chronic respiratory failure with hypercapnia Is this a current diagnosis for this admission?: Yes (2) Chronic anticoagulation Is this a current diagnosis for this admission?: Yes (3) Morbid obesity Is this a current diagnosis for this admission?: Yes (4) Multiple falls Is this a current diagnosis for this admission?: Yes (5) Hypertension Qualifiers: Hypertension type: essential hypertension Qualified Code(s): I10 - Essential (primary) hypertension Is this a current diagnosis for this admission?: Yes (6) Obesity hypoventilation syndrome Is this a current diagnosis for this admission?: Yes (7) 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 She did come in hypercapnic - Time Time Spent with patient: 15-24 minutes Medications reviewed and adjusted accordingly: Yes Anticipated Discharge Disposition: Home, Self Care Anticipated Discharge Timeframe: within 48 hours
[2020-01-30] MEDS: DIVALPROEX SODIUM 500 MG TAB.SR.24H PO SCH (21:26)
[2020-01-30] MEDS: ATORVASTATIN CALCIUM 20 MG TABLET PO SCH (21:26)
[2020-01-31] MEDS: LEVALBUTEROL HCL NEB 1.25 MG/3 ML AMPUL NEB SCH ×3 (00:02→15:44)
[2020-01-31] MEDS: BUDESONIDE NEB 0.5 MG/2 ML AMPUL NEB SCH ×2 (08:50→20:45)
[2020-01-31] MEDS: TORSEMIDE 20 MG TABLET PO SCH (10:46)
[2020-01-31] MEDS: AMLODIPINE BESYLATE 5 MG TABLET PO SCH (10:47)
[2020-01-31] MEDS: LOSARTAN POTASSIUM 50 MG TABLET PO SCH (10:47)
[2020-01-31] MEDS: DOXYCYCLINE HYCLATE 100 MG TABLET PO SCH ×2 (10:47→22:03)
[2020-01-31] MEDS: APIXABAN 5 MG TABLET PO SCH ×2 (10:48→22:02)
[2020-01-31] MEDS: FAMOTIDINE 20 MG TABLET PO SCH ×2 (10:48→22:02)
[2020-01-31] MEDS: DOCUSATE SODIUM 100 MG CAPSULE PO SCH ×2 (10:48→17:01)
[2020-01-31] MEDS: METOPROLOL SUCCINATE 50 MG TAB.SR.24H PO SCH (10:48)
--- NOTE | 2020-01-31 13:52 | PDOC PROGRESS REPORT ---
Subjective Progress Note for:: 01/31/20 Subjective:: Patient feels a lot better today. She is sitting in the chair and reading a book. She denies any specific complaints 01/29 No new complaints 01/30 continues to feel better. She states that she already has a CPAP machine at home however she needs education on its operation Reason For Visit: ACUTE ON CHRONIC RESPIRATORY FAILURE WITH HYPOXIA Physical Exam Vital Signs: Temp Pulse Resp BP Pulse Ox 98.0 F 104 H 18 145/52 H 94 01/31/20 11:27 01/31/20 11:27 01/31/20 11:27 01/31/20 11:27 01/31/20 11:27 Pulse Oximeter Nocturnal Start: 01/29/20 17:00 Freq: RTQ4 Status: Complete Protocol: Document 01/30/20 04:35 DBE (Rec: 01/30/20 05:52 DBE [email or web address]) Nocturnal Pulse Oximetry Equipment Usage Equipment in Use Oxygen Delivery Method (includes room Nasal Cannula air) O2 Sat by Pulse Oximetry (92-100) 97 Continuous SpO2 Machine # 6 Intake & Output 01/30/20 01/31/20 02/01/20 06:59 06:59 05:59 Intake Total 760 730 Output Total 500 Balance 760 230 Weight 117.6 kg 114 kg General appearance: PRESENT: no acute distress, morbidly obese, well-developed, well-nourished Head exam: PRESENT: atraumatic, normocephalic Eye exam: PRESENT: conjunctiva pink, EOMI, PERRLA. ABSENT: scleral icterus Ear exam: PRESENT: normal external ear exam Mouth exam: PRESENT: moist, tongue midline Neck exam: ABSENT: carotid bruit, JVD, lymphadenopathy, thyromegaly Respiratory exam: PRESENT: clear to auscultation fely. ABSENT: rales, rhonchi, wheezes Cardiovascular exam: PRESENT: RRR, +S1, +S2. ABSENT: diastolic murmur, rubs, systolic murmur Pulses: PRESENT: normal dorsalis pedis pul Vascular exam: PRESENT: normal capillary refill GI/Abdominal exam: PRESENT: normal bowel sounds, soft. ABSENT: distended, guarding, mass, organolmegaly, rebound, tenderness Rectal exam: PRESENT: deferred Extremities exam: PRESENT: full ROM. ABSENT: calf tenderness, clubbing, pedal edema Neurological exam: PRESENT: alert, awake, oriented to person, oriented to place, oriented to time, oriented to situation, CN II-XII grossly intact. ABSENT: motor sensory deficit Psychiatric exam: PRESENT: appropriate affect, normal mood. ABSENT: homicidal ideation, suicidal ideation Skin exam: PRESENT: dry, intact, warm. ABSENT: cyanosis, rash Results Laboratory Results: 01/29/20 06:01 01/29/20 06:01 01/28/20 01/28/20 01:10 01:10 Creatine Kinase 84 Troponin I < 0.012 Impressions: Cervical Spine CT 01/28/20 00:00 IMPRESSION: No acute fracture or subluxation. Head CT 01/28/20 00:00 IMPRESSION: No acute intracranial abnormality TECHNICAL DOCUMENTATION: Quality ID # 436: Final reports with documentation of one or more dose reduction techniques (e.g., Automated exposure control, adjustment of the mA and/or kV according to patient size, use of iterative reconstruction technique) copyright 2010 [employer]- All Rights Reserved Shoulder X-Ray 01/28/20 00:00 IMPRESSION: 1. No acute fracture or dislocation. copyright 2011 [employer]- All Rights Reserved Assessment and Plan - Diagnosis (1) Acute and chronic respiratory failure Qualifiers: Respiratory failure complication: hypercapnia Qualified Code(s): J96.22 - Acute and chronic respiratory failure with hypercapnia Is this a current diagnosis for this admission?: Yes Plan: Patient admits to noncompliance with the BiPAP. An overnight pulse oximeter is currently ordered. She has improved after using BiPAP and CPAP in the hospital. 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
[2020-01-31] MEDS: GUAIFENESIN 600 MG TABLET.SA PO SCH ×2 (15:19→22:02)
[2020-01-31] MEDS: LEVALBUTEROL HCL NEB 0.63 MG/3 ML AMPUL NEB PRN (20:45)
[2020-01-31] MEDS: ATORVASTATIN CALCIUM 20 MG TABLET PO SCH (22:02)
[2020-01-31] MEDS: DIVALPROEX SODIUM 500 MG TAB.SR.24H PO SCH (22:02)
[2020-02-01] MEDS: LEVALBUTEROL HCL NEB 1.25 MG/3 ML AMPUL NEB SCH ×4 (00:24→23:58)
[2020-02-01 06:09] LABS: ABSOLUTE BASOPHILS # (AUTO) 0.1 10^3/uL (0.0-0.2); ABSOLUTE EOSINOPHILS # (AUTO) 0.6 10^3/uL (0.0-0.6); ABSOLUTE LYMPHOCYTES (AUTO) 1.7 10^3/uL (0.5-4.7); ABSOLUTE MONOCYTES (AUTO) 0.6 10^3/uL (0.1-1.4); ABSOLUTE NEUT (AUTO) 5.1 10^3/uL (1.7-8.2); BASOPHILS % (AUTO) 1.1 % (0-2); HEMATOCRIT 32.2 % (36.0-47.0); HEMOGLOBIN 10.6 g/dL (12.0-15.5); LYMPHOCYTES % (AUTO) 20.8 % (13-45); MEAN CORPUSCULAR HEMOGLOBIN 28.4 pg (27.0-33.4); MEAN CORPUSCULAR HGB CONC 32.9 g/dL (32.0-36.0); MEAN CORPUSCULAR VOLUME 87 fl (80-97); MONOCYTES % (AUTO) 7.7 % (3-13); PLATELET COUNT 301 10^3/uL (150-450); RED BLOOD COUNT 3.73 10^6/uL (3.72-5.28); RED CELL DISTRIBUTION WIDTH 16.5 % (11.5-14.0); SEGMENTED NEUTROPHILS % (AUTO) 62.4 % (42-78); TOTAL CELLS COUNTED % (AUTO) 100 %; WHITE BLOOD COUNT 8.1 10^3/uL (4.0-10.5)
[2020-02-01 06:30] LABS: ANION GAP 9 (5-19); BLOOD UREA NITROGEN 32 mg/dL (7-20); CALCIUM 8.6 mg/dL (8.4-10.2); CARBON DIOXIDE 33 mmol/L (22-30); CHLORIDE 99 mmol/L (98-107); GLUCOSE 97 mg/dL (75-110); POTASSIUM 3.7 mmol/L (3.6-5.0)
[2020-02-01] MEDS: BUDESONIDE NEB 0.5 MG/2 ML AMPUL NEB SCH ×2 (08:20→20:18)
[2020-02-01] MEDS: DOCUSATE SODIUM 100 MG CAPSULE PO SCH ×2 (11:21→17:46)
[2020-02-01] MEDS: DOXYCYCLINE HYCLATE 100 MG TABLET PO SCH ×2 (11:27→22:21)
[2020-02-01] MEDS: FAMOTIDINE 20 MG TABLET PO SCH ×2 (11:27→22:21)
[2020-02-01] MEDS: TORSEMIDE 20 MG TABLET PO SCH (11:27)
[2020-02-01] MEDS: APIXABAN 5 MG TABLET PO SCH ×2 (11:28→22:21)
[2020-02-01] MEDS: METOPROLOL SUCCINATE 50 MG TAB.SR.24H PO SCH (11:28)
[2020-02-01] MEDS: AMLODIPINE BESYLATE 5 MG TABLET PO SCH (11:28)
[2020-02-01] MEDS: GUAIFENESIN 600 MG TABLET.SA PO SCH ×2 (11:28→22:21)
[2020-02-01] MEDS: LOSARTAN POTASSIUM 50 MG TABLET PO SCH (11:28)
--- NOTE | 2020-02-01 17:40 | PDOC PROGRESS REPORT ---
Subjective Subjective:: Per Previous Physician: "ALYSHA CRENSHAW is a 74 year old female who presents the emergency room with a 4-day history of falls. 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 She admits falling 3 times in the 4 days prior to coming to the emergency room, having experienced 2 falls on the day of her visit. All of her falls occurred when she got up from a seated position to ambulate. Her falls have been followed by spells of dizziness/confusion which resolved spontaneously within 3 seconds. She has not experienced any loss of consciousness and had not experienced injury in her falls until developing pain in her left shoulder after her last fall. The achy pain in her left shoulder is of moderate intensity, nonradiating and worsened by movements. She has not iden tified any aggravating or ameliorating factors for her falls. She denies prior similar episodes. In the emergency room her left shoulder was free of fracture dislocation, but she was found to be severely hypercapnic with a PCO2 of 90. She was placed on BiPAP and subsequently admitted to the hospital for further evaluation treatment." 02/01/2020 Patient seems to be doing well overall however she is still having difficulty using her BiPAP and is already refusing it intermittently in [facility]. I had a long discussion with her about the use of BiPAP given that I also have some personal experience using these devices myself. If she does not use her BiPAP as instructed, I believe she will continue to have significant hypercarbic respiratory failure in the setting of COPD and JENNIFER she will be readmitted to the hospital multiple times in short order. I explained the pathophysiology behind this in plain terms and confirm that she understood. She will have a fire prevention captain bring in her BiPAP tomorrow we will have the respiratory therapist educate the patient and fire prevention captain on the use of BiPAP and also make setting adjustments as needed. Patient can be discharged tomorrow after this is done. Reason For Visit: ACUTE ON CHRONIC RESPIRATORY FAILURE WITH HYPOXIA Physical Exam Vital Signs: Temp Pulse Resp BP Pulse Ox 97.4 F 102 H 18 144/48 H 89 L 02/01/20 16:05 02/01/20 16:20 02/01/20 16:20 02/01/20 16:05 02/01/20 16:20 Pulse Oximeter Nocturnal Start: 01/29/20 17:00 Freq: RTQ4 Status: Complete Protocol: Document 01/30/20 04:35 DBE (Rec: 01/30/20 05:52 DBE [email or web address]) Nocturnal Pulse Oximetry Equipment Usage Equipment in Use Oxygen Delivery Method (includes room Nasal Cannula air) O2 Sat by Pulse Oximetry (92-100) 97 Continuous SpO2 Machine # 6 Intake & Output 01/31/20 02/01/20 02/02/20 07:59 06:59 06:59 Intake Total Output Total Balance Weight Exam: General appearance: PRESENT: no acute distress, well-developed, well-nourished, obese Head exam: PRESENT: atraumatic, normocephalic Eye exam: PRESENT: conjunctiva pink. ABSENT: scleral icterus Mouth exam: PRESENT: moist Respiratory exam: PRESENT: clear to auscultation fely. ABSENT: rales, rhonchi, wheezes Cardiovascular exam: PRESENT: RRR. ABSENT: diastolic murmur, rubs, systolic murmur GI/Abdominal exam: PRESENT: normal bowel sounds, soft. ABSENT: distended, guarding, mass, organolmegaly, rebound, tenderness Neurological exam: PRESENT: alert, awake, oriented to person, oriented to place, oriented to time, oriented to situation Psychiatric exam: PRESENT: appropriate affect, normal mood Skin exam: PRESENT: dry, intact, warm Results Laboratory Results: 02/01/20 05:29 02/01/20 05:29 02/01/20 02/01/20 05:29 05:29 WBC 8.1 RBC 3.73 Hgb 10.6 L Hct 32.2 L MCV 87 MCH 28.4 MCHC 32.9 RDW 16.5 H Plt Count 301 Seg Neutrophils % 62.4 Sodium 140.6 Potassium 3.7 Chloride 99 Carbon Dioxide 33 H Anion Gap 9 BUN 32 H Creatinine 0.97 Est GFR ( Amer) > 60 Glucose 97 Calcium 8.6 01/28/20 01/28/20 01:10 01:10 Creatine Kinase 84 Troponin I < 0.012 Impressions: Cervical Spine CT 01/28/20 00:00 IMPRESSION: No acute fracture or subluxation. Head CT 01/28/20 00:00 IMPRESSION: No acute intracranial abnormality TECHNICAL DOCUMENTATION: Quality ID # 436: Final reports with documentation of one or more dose reduction techniques (e.g., Automated exposure control, adjustment of the mA and/or kV according to patient size, use of iterative reconstruction technique) copyright 2010 [employer]- All Rights Reserved Shoulder X-Ray 01/28/20 00:00 IMPRESSION: 1. No acute fracture or dislocation. 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 Is this a current diagnosis for this admission?: Yes (5) COPD (chronic obstructive pulmonary disease) Qualifiers: COPD type: unspecified COPD Qualified Code(s): J44.9 - Chronic obstructive pulmonary disease, unspecified Is this a current diagnosis for this admission?: Yes (8) Hypertension Qualifiers: Hypertension type: essential hypertension Qualified Code(s): I10 - Essential (primary) hypertension Is this a current diagnosis for this admission?: Yes (9) Obesity hypoventilation syndrome Is this a current diagnosis for this admission?: Yes - Plan Summary Summary: (1) Acute and chronic respiratory failure Qualifiers: Respiratory failure complication: hypercapnia Qualified Code(s): J96.22 - Acute and chronic respiratory failure with hypercapnia -Patient admits to noncompliance with the BiPAP. An overnight pulse oximeter is currently ordered. She has improved after using BiPAP and CPAP in the hospital. 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 -Patient's pulse oximetry overnight appears to be more than 90% on BIPAP She d id come in hypercapnic -Patient's fire prevention captain will bring in BiPAP on 02/01 for teaching and adjustments to her machine Patient counseled extensively on the use of her BiPAP and the necessity of continued use - Time Time Spent with patient: 25-34 minutes Medications reviewed and adjusted accordingly: Yes Anticipated Discharge Disposition: Home with Home Health Anticipated Discharge Timeframe: within 24 hours - Inpatient Certification Based on my medical assessment, after consideration of the patient's comorbidities, presenting symptoms, or acuity I expect that the services needed warrant INPATIENT care.: Yes I certify that my determination is in accordance with my understanding of Medicare's requirements for reasonable and necessary INPATIENT services [42 CFR 412.3e].: Yes Medical Necessity: Significant Comorbidiites Make Outpatient Treatment Too Risky, Need Close Monitoring Due to Risk of Patient Decompensation, Risk of Complication if Not Cared For in Hospital, Risk of Diagnosis Which Will Require Inpatient Eval/Care/Monitoring
[2020-02-01] MEDS: LEVALBUTEROL HCL NEB 0.63 MG/3 ML AMPUL NEB PRN (20:18)
[2020-02-01] MEDS: DIVALPROEX SODIUM 500 MG TAB.SR.24H PO SCH (22:21)
[2020-02-01] MEDS: ATORVASTATIN CALCIUM 20 MG TABLET PO SCH (22:21)
[2020-02-02] MEDS: BUDESONIDE NEB 0.5 MG/2 ML AMPUL NEB SCH (09:22)
[2020-02-02] MEDS: LEVALBUTEROL HCL NEB 1.25 MG/3 ML AMPUL NEB SCH (09:22)
[2020-02-02] MEDS: LOSARTAN POTASSIUM 50 MG TABLET PO SCH (09:40)
[2020-02-02] MEDS: APIXABAN 5 MG TABLET PO SCH (09:40)
[2020-02-02] MEDS: DOXYCYCLINE HYCLATE 100 MG TABLET PO SCH (09:40)
[2020-02-02] MEDS: GUAIFENESIN 600 MG TABLET.SA PO SCH (09:40)
[2020-02-02] MEDS: METOPROLOL SUCCINATE 50 MG TAB.SR.24H PO SCH (09:40)
[2020-02-02] MEDS: DOCUSATE SODIUM 100 MG CAPSULE PO SCH (09:40)
[2020-02-02] MEDS: TORSEMIDE 20 MG TABLET PO SCH (09:40)
[2020-02-02] MEDS: FAMOTIDINE 20 MG TABLET PO SCH (09:40)
[2020-02-02] MEDS: AMLODIPINE BESYLATE 5 MG TABLET PO SCH (09:41)
[2020-02-02] MEDS ORDERED: SPIRONOLACTONE 25 MG TABLET PO SCH (10:00)
--- NOTE | 2020-02-02 14:45 | PDOC DISCHARGE SUMMARY ---
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 Is this a current diagnosis for this admission?: Yes (5) COPD (chronic obstructive pulmonary disease) Is this a current diagnosis for this admission?: Yes (6) Chronic respiratory failure requiring use of nocturnal bilevel positive airway pressure (BPAP) by mask Is this a current diagnosis for this admission?: Yes (7) Chronic respiratory failure with hypercapnia Is this a current diagnosis for this admission?: Yes (8) Hypertension Is this a current diagnosis for this admission?: Yes (9) Obesity hypoventilation syndrome Is this a current diagnosis for this admission?: Yes - Assessment Summary: Per Previous Physician: "ALYSHA CRENSHAW is a 74 year old female who presents the emergency room with a 4-day history of falls. Patient is very somnolent at the time of my evaluation and is a very poor medical director. She admits falling 3 times in the 4 days prior to coming to the emergency room, having experienced 2 falls on the day of her visit. All of her falls occurred when she got up from a seated position to ambulate. Her falls have been followed by spells of dizziness/confusion which resolved spontaneously within 3 seconds. She has not experienced any loss of consciousness and had not experienced injury in her falls until developing pain in her left shoulder after her last fall. The achy pain in her left shoulder is of moderate intensity, nonradiating and worsened by movements. She has not identified any aggravating or ameliorating factors for her falls. She denies prior similar episodes. In the emergency room her left shoulder was free of fracture dislocation, but she was found to be severely hypercapnic with a PCO2 of 90. She was placed on BiPAP and subsequently admitted to the hospital for further evaluation treatment." 02/01/2020 Patient seems to be doing well overall however she is still having difficulty using her BiPAP and is already refusing it intermittently in greater nursing. I had a long discussion with her about the use of BiPAP given that I also have some personal experience using these devices myself. If she does not use her BiPAP as instructed, I believe she will continue to have significant hypercarbic respiratory failure in the setting of COPD and JENNIFER she will be readmitted to the hospital multiple times in short order. I explained the pathophysiology behind this in plain terms and confirm that she understood. She will have a health information managers bring in her BiPAP tomorrow we will have the respiratory therapist educate the patient and health information managers on the use of BiPAP and also make setting adjustments as needed. Patient can be discharged tomorrow after this is done. (1) Acute and chronic respiratory failureresolved Qualifiers: Respiratory failure complication: hypercapnia Qualified Code(s): J96.22 - Acute and chronic respiratory failure with hypercapnia -Patient admits to noncompliance with the BiPAP. An overnight pulse oximeter completed. She has improved after using BiPAP and CPAP in the hospital. 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 -Patient's pulse oximetry overnight appears to be more than 90% on BIPAP She did come in hypercapnic -Patient's health information managers will bring in BiPAP on 02/01 for teaching and adjustments to her machine Patient counseled extensively on the use of her BiPAP and the necessity of continued use - Additional Information Resuscitation Status: Full Code Discharge Diet: As Tolerated, Cardiac Discharge Activity: Activity As Tolerated, Balance Activity w/Rest Referrals: [facility] [Provider Group] MINH PEREIRA MD [ACTIVE STAFF] - 02/12/20 10:30 am Home Medications: Atorvastatin Calcium [Lipitor 20 mg Tablet] 20 mg PO DAILY 09/30/18 Apixaban [Eliquis 5 mg Tablet] 5 mg PO BID 05/16/19 Losartan Potassium [Cozaar 50 mg Tablet] 100 mg PO DAILY #60 tablet 09/03/19 Metoprolol Succinate [Toprol Xl 50 mg Tab.sr] 50 mg PO DAILY #30 tab.sr.24h 09/03/19 Amlodipine Besylate [Norvasc 10 mg Tablet] 5 mg PO DAILY 01/28/20 Divalproex Sodium [Depakote ER] 500 mg PO QHS 01/28/20 Doxycycline Hyclate [Vibramycin 100 mg Tablet] 100 mg PO BID 01/28/20 Hydrocortisone 2.5% 1 applic TOP QHS 01/28/20 Prednisone 10 mg PO ASDIR PRN 01/28/20 Torsemide 10 mg PO DAILY 01/28/20 Spironolactone [Aldactone 25 mg Tablet] 25 mg PO DAILY 02/01/20 History of Present Illiness History of Present Illness: Per Previous Physician: "ALYSHA CRENSHAW is a 74 year old female who presents the emergency room with a 4-day history of falls. Patient is very somnolent at the time of my evaluation and is a very poor medical director. She admits falling 3 times in the 4 days prior to coming to the emergency room, having experienced 2 falls on the day of her visit. All of her falls occurred when she got up from a seated position to ambulate. Her falls have been followed by spells of dizziness/confusion which resolved spontaneously within 3 seconds. She has not experienced any loss of consciousness and had not experienced injury in her falls until developing pain in her left shoulder after her last fall. The achy pain in her left shoulder is of moderate intensity, nonradiating and worsened by movements. She has not id entified any aggravating or ameliorating factors for her falls. She denies prior similar episodes. In the emergency room her left shoulder was free of fracture dislocation, but she was found to be severely hypercapnic with a PCO2 of 90. She was placed on BiPAP and subsequently admitted to the hospital for further evaluation treatment." Physical Exam Vital Signs: Temp Pulse Resp BP Pulse Ox 98.6 F 90 17 148/59 H 94 02/02/20 11:49 02/02/20 11:49 02/02/20 11:49 02/02/20 11:49 02/02/20 11:49 Pulse Oximeter Nocturnal Start: 01/29/20 17:00 Freq: RTQ4 Status: Complete Protocol: Document 01/30/20 04:35 DBE (Rec: 01/30/20 05:52 DBE [id number]) Nocturnal Pulse Oximetry Equipment Usage Equipment in Use Oxygen Delivery Method (includes room Nasal Cannula air) O2 Sat by Pulse Oximetry (92-100) 97 Continuous SpO2 Machine # 6 Intake & Output 02/01/20 02/02/20 02/03/20 06:59 06:59 06:59 Intake Total 1102 Balance 1102 Weight 112.7 kg Exam: General appearance: PRESENT: no acute distress, well-developed, well-nourished, morbidly obese with BMI 45.4, states she feels well would like to go home Head exam: PRESENT: atraumatic, normocephalic Eye exam: PRESENT: conjunctiva pink. ABSENT: scleral icterus Mouth exam: PRESENT: moist Respiratory exam: PRESENT: clear to auscultation fely. ABSENT: rales, rhonchi, wheezes Cardiovascular exam: PRESENT: RRR. ABSENT: diastolic murmur, rubs, systolic murmur GI/Abdominal exam: PRESENT: normal bowel sounds, soft. ABSENT: distended, guarding, mass, organolmegaly, rebound, tenderness Neurological exam: PRESENT: alert, awake, oriented to person, oriented to place, oriented to time, oriented to situation Psychiatric exam: PRESENT: appropriate affect, normal mood Skin exam: PRESENT: dry, intact, warm Results Laboratory Results: WBC 8.1 10^3/uL (4.0-10.5) 02/01/20 05:29 RBC 3.73 10^6/uL (3.72-5.28) 02/01/20 05:29 Hgb 10.6 g/dL (12.0-15.5) L 02/01/20 05:29 Hct 32.2 % (36.0-47.0) L 02/01/20 05:29 MCV 87 fl (80-97) 02/01/20 05:29 MCH 28.4 pg (27.0-33.4) 02/01/20 05:29 MCHC 32.9 g/dL (32.0-36.0) 02/01/20 05:29 RDW 16.5 % (11.5-14.0) H 02/01/20 05:29 Plt Count 301 10^3/uL (150-450) 02/01/20 05:29 Lymph % (Auto) 20.8 % (13-45) 02/01/20 05:29 [place] % (Auto) 7.7 % (3-13) 02/01/20 05:29 Eos % (Auto) 8.0 % (0-6) H 02/01/20 05:29 Baso % (Auto) 1.1 % (0-2) 02/01/20 05:29 Absolute Neuts (auto) 5.1 10^3/uL (1.7-8.2) 02/01/20 05:29 Absolute Lymphs (auto) 1.7 10^3/uL (0.5-4.7) 02/01/20 05:29 Absolute Monos (auto) 0.6 10^3/uL (0.1-1.4) 02/01/20 05:29 Absolute Eos (auto) 0.6 10^3/uL (0.0-0.6) 02/01/20 05:29 Absolute Basos (auto) 0.1 10^3/uL (0.0-0.2) 02/01/20 05:29 Seg Neutrophils % 62.4 % (42-78) 02/01/20 05:29 PT 14.3 SEC (11.4-15.4) 01/28/20 01:10 INR 1.09 01/28/20 01:10 APTT 33.2 SEC (23.5-35.8) 01/28/20 01:10 Carbonic Acid 1.78 mmol/L (1.05-1.35) H 01/29/20 15:30 HCO3/H2CO3 Ratio 20:1 01/29/20 15:30 ABG pH 7.41 (7.35-7.45) 01/29/20 15:30 ABG pCO2 59.0 mmHg (35-45) H 01/29/20 15:30 ABG pO2 60.8 mmHg (80-100) L 01/29/20 15:30 ABG HCO3 36.4 mmol/L (20-24) H 01/29/20 15:30 ABG Total CO2 38.2 mmol/L (21-25) H 01/29/20 15:30 ABG O2 Saturation 90.9 % (94-98) L 01/29/20 15:30 ABG Base Excess 9.9 mmol/L 01/29/20 15:30 VBG pH 7.26 (7.30-7.42) L 01/28/20 01:10 VBG pCO2 91.0 mmHg (35-63) H* 01/28/20 01:10 VBG HCO3 40.1 mmol/L (20-32) H 01/28/20 01:10 VBG Base Excess 9.3 mmol/L 01/28/20 01:10 FiO2 ROOM AIR 01/29/20 15:30 Sodium 140.6 mmol/L (137-145) 02/01/20 05:29 Potassium 3.7 mmol/L (3.6-5.0) 02/01/20 05:29 Chloride 99 mmol/L (98-107) 02/01/20 05:29 Carbon Dioxide 33 mmol/L (22-30) H 02/01/20 05:29 Anion Gap 9 (5-19) 02/01/20 05:29 BUN 32 mg/dL (7-20) H 02/01/20 05:29 Creatinine 0.97 mg/dL (0.52-1.25) 02/01/20 05:29 Est GFR ( Amer) > 60 (>60) 02/01/20 05:29 Est GFR (MDRD) Non-Af 56 (>60) L 02/01/20 05:29 Glucose 97 mg/dL (75-110) 02/01/20 05:29 Calcium 8.6 mg/dL (8.4-10.2) 02/01/20 05:29 Magnesium 2.2 mg/dL (1.6-2.3) 01/29/20 06:01 Total Bilirubin 0.5 mg/dL (0.2-1.3) 01/29/20 06:01 Direct Bilirubin 0.2 mg/dL (0.0-0.4) 01/29/20 06:01 Neonat Total Bilirubin Not Reportable 01/29/20 06:01 Neonat Direct Bilirubin Not Reportable 01/29/20 06:01 Neonat Indirect Bili Not Reportable 01/29/20 06:01 AST 18 U/L (14-36) 01/29/20 06:01 ALT 11 U/L (<35) 01/29/20 06:01 Alkaline Phosphatase 54 U/L (38-126) 01/29/20 06:01 Creatine Kinase 84 U/L (30-135) 01/28/20 01:10 Troponin I < 0.012 ng/mL 01/28/20 01:10 Total Protein 5.3 g/dL (6.3-8.2) L 01/29/20 06:01 Albumin 3.0 g/dL (3.5-5.0) L 01/29/20 06:01 Triglycerides 96 mg/dL (<150) 01/29/20 06:01 Cholesterol 112.53 mg/dL (0-200) 01/29/20 06:01 LDL Cholesterol Direct 51 mg/dL (<100) 01/29/20 06:01 VLDL Cholesterol 19.0 mg/dL (10-31) 01/29/20 06:01 HDL Cholesterol 39 mg/dL (>40) L 01/29/20 06:01 TSH 1.04 uIU/mL (0.47-4.68) 01/29/20 06:01 Urine Color YELLOW 01/28/20 02:03 Urine Appearance SLIGHTLY-CLOUDY 01/28/20 02:03 Urine pH 5.0 (5.0-9.0) 01/28/20 02:03 Ur Specific [place] 1.015 01/28/20 02:03 Urine Protein NEGATIVE mg/dL (NEGATIVE) 01/28/20 02:03 Urine Glucose (UA) NEGATIVE mg/dL (NEGATIVE) 01/28/20 02:03 Urine Ketones NEGATIVE mg/dL (NEGATIVE) 01/28/20 02:03 Urine Blood NEGATIVE (NEGATIVE) 01/28/20 02:03 Urine Nitrite NEGATIVE (NEGATIVE) 01/28/20 02:03 Urine Bilirubin NEGATIVE (NEGATIVE) 01/28/20 02:03 Urine Urobilinogen NEGATIVE mg/dL (<2.0) 01/28/20 02:03 Ur Leukocyte Esterase NEGATIVE (NEGATIVE) 01/28/20 02:03 Urine WBC (Auto) 0 /HPF 01/28/20 02:03 U Hyaline Cast (Auto) 4 /LPF 01/28/20 02:03 Squamous Epi Cells Auto 3 /HPF 01/28/20 02:03 Urine Mucus (Auto) FEW /LPF 01/28/20 02:03 Urine Ascorbic Acid NEGATIVE (NEGATIVE) 01/28/20 02:03 Urine Opiates Screen NEGATIVE 01/28/20 02:03 Urine Methadone Screen NEGATIVE 01/28/20 02:03 Ur Barbiturates Screen NEGATIVE 01/28/20 02:03 Ur Phencyclidine Scrn NEGATIVE 01/28/20 02:03 Ur Amphetamines Screen NEGATIVE 01/28/20 02:03 U Benzodiazepines Scrn NEGATIVE 01/28/20 02:03 Urine Cocaine Screen NEGATIVE 01/28/20 02:03 U Marijuana (THC) Screen NEGATIVE 01/28/20 02:03 01/28/20 01:10 Troponin I < 0.012 Impressions: Cervical Spine CT 01/28/20 00:00 IMPRESSION: No acute fracture or subluxation. Head CT 01/28/20 00:00 IMPRESSION: No acute intracranial abnormality TECHNICAL DOCUMENTATION: Quality ID # [id number]: Final reports with documentation of one or more dose reduction techniques (e.g., Automated exposure control, adjustment of the mA and/or kV according to patient size, use of iterative reconstruction technique) copyright 2010 [employer]- All Rights Reserved Shoulder X-Ray 01/28/20 00:00 IMPRESSION: 1. No acute fracture or dislocation. copyright 2010 [employer]- All Rights Reserved Plan Plan of Treatment: Follow-up with PCP Follow-up with pulmonology Recommend vegan diet Time Spent: Greater than 30 Minutes Stroke Is this a Stroke Patient?: No Acute Heart Failure Is this a Heart Failure Patient?: No
[2020-02-02 14:46] VITALS: BP 132/53
== END 2020-02-02 15:44 | disposition home or self-care (01) | DRG 189 ==
LOC: ER 23:56 → EH 01-28 03:15 → 3S 01-28 11:19 → 5 01-29 20:19 → 3S 01-29 20:24
PROVIDERS: ADMIT Emergency Medicine; ATTEND Internal Medicine
PROC: 5A09557 Assistance with Respiratory Ventilation, Greater than 96 Consecutive Hours, Continuous Positive Airway Pressure (ICD-10-PCS; principal; 2020-01-28)
DX: J96.22 Acute and chronic respiratory failure with hypercapnia (principal); E66.2 Morbid (severe) obesity with alveolar hypoventilation; Z68.42 Body mass index [BMI] 45.0-49.9, adult; J44.9 Chronic obstructive pulmonary disease, unspecified; I10 Essential (primary) hypertension; M25.512 Pain in left shoulder; R29.6 Repeated falls; E78.5 Hyperlipidemia, unspecified; E66.9 Obesity, unspecified; E78.00 Pure hypercholesterolemia, unspecified; S09.90XA Unspecified injury of head, initial encounter; R40.2412 Glasgow coma scale score 13-15, at arrival to emergency department; D64.9 Anemia, unspecified; Z60.2 Problems related to living alone; Z79.01 Long term (current) use of anticoagulants; Z79.899 Other long term (current) drug therapy; Z79.52 Long term (current) use of systemic steroids; Z87.891 Personal history of nicotine dependence; Z88.0 Allergy status to penicillin; Z88.2 Allergy status to sulfonamides; Z91.018 Allergy to other foods; Z91.19 Patient's noncompliance with other medical treatment and regimen; Z82.49 Family history of ischemic heart disease and other diseases of the circulatory system; Z83.6 Family history of other diseases of the respiratory system
CPT/HCPCS: 36415; 36600; 51701; 70450; 72125; 80048; 80053; 80061; 80307; 81001; 82550; 82803; 83735; 84443; 84484; 85025; 85027; 85610; 85730; 93005; 93010; 94660; 94762; 99285; J0360; J3490; J7614